=== PATIENT | male | born 1960 | race African-American/Black ===

== ENCOUNTER 2020-04-04 15:42 | Inpatient (IN) | payer MEDICAID ==
[~2020-04-04] VITALS: Ht 162.6 cm; Wt 75.7 kg
[2020-04-04 15:50] VITALS: BP 153/91
--- NOTE | 2020-04-04 15:50 | NUR ---
ED Nurse Note: Patient was BIBA RA#[id number] from home c/o "tongue pain". Noted with discoloration. Patient also reports SOB while bending and moving. Pt is satting 92% RA, placed on 3L nc O2 improved to 96%. Temp 99.5F. Patient presented weak, AAO x4, VSS at this time, skin is warm to touch, was connected to monitor, placed in a gown
--- NOTE | 2020-04-04 16:00 | NUR ---
ED Nurse Note: IV line was established on right AC 20ga, blood and COVID swab collected sent to lab
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
--- NOTE | 2020-04-04 16:58 | Diagnostic Imaging Report ---
History: DYSPNEA Exam: XR CXR 1 VIEW Comparison: None available FINDINGS: Bilateral mild to moderate patchy ill-defined perihilar opacities may be inflammatory, infectious, possible pulmonary edema, clinically correlate. No evidence of pleural effusion identified. The cardiac and mediastinal contours appear within limits. The visualized osseous structures appear within limits. IMPRESSION: Bilateral mild to moderate patchy ill-defined perihilar opacities may be inflammatory, infectious, possible pulmonary edema, clinically correlate. No evidence of pleural effusion identified.
--- NOTE | 2020-04-04 17:18 | Diagnostic Imaging Report ---
History: DYSPNEA Exam: XR SOFT TISSUE NECK 2 views Comparison: None available FINDINGS: No evidence of airway narrowing. The epiglottis and aryepiglottic folds appear within limits. No retropharyngeal soft tissue swelling identified. Bilateral curvilinear calcific densities may represent carotid calcific plaque formation. IMPRESSION: No evidence of airway narrowing. The epiglottis and aryepiglottic folds appear within limits.
[2020-04-04 17:21] LABS: ANION GAP 10 mmol/L (5-15); BLOOD UREA NITROGEN 31 mg/dL (7-18); CALCIUM 9.7 MG/DL (8.5-10.1); CARBON DIOXIDE 27 MMOL/L (21-32); CHLORIDE 103 MMOL/L (98-107); POTASSIUM 4.9 MMOL/L (3.5-5.1); SODIUM 140 MMOL/L (136-145)
[2020-04-04 17:37] LABS: ALANINE AMINOTRANSFERASE 20 U/L (12-78); ALBUMIN 2.9 G/DL (3.4-5.0); ALBUMIN/GLOBULIN RATIO 0.4 (1.0-2.7); ALKALINE PHOSPHATASE 62 U/L (46-116); ASPARTATE AMINO TRANSFERASE 29 U/L (15-37); BILIRUBIN,TOTAL 0.7 MG/DL (0.2-1.0); CREATINE KINASE 88 U/L (26-308); FERRITIN 885 NG/ML (8-388); LACTATE DEHYDROGENASE 353 U/L (81-234)
[2020-04-04 18:00] LABS: BASOPHILS % (AUTO) 0.6 % (0.0-2.0); EOSINOPHILS % (AUTO) 0.1 % (0.0-3.0); HEMATOCRIT 47.5 % (42.0-52.0); HEMOGLOBIN 16.8 G/DL (14.2-18.0); LYMPHOCYTES % (AUTO) 8.8 % (20.0-45.0); MEAN CORPUSCULAR VOLUME 80 FL (80-99); MONOCYTES % (AUTO) 6.1 % (1.0-10.0); NEUTROPHILS % (AUTO) 84.5 % (45.0-75.0); PLATELET COUNT 231 K/UL (150-450); RED BLOOD COUNT 5.93 M/UL (4.70-6.10); RED CELL DISTRIBUTION WIDTH 13.6 % (11.6-14.8); WHITE BLOOD COUNT 9.7 K/UL (4.8-10.8)
[2020-04-04] MEDS ORDERED: Bamlanivimab 700 MG in NS 275 ML IVPB SCH (18:15)
[2020-04-04] MEDS ORDERED: Bamlanivimab Fact Sheet MISC ONE (18:15)
--- NOTE | 2020-04-04 19:11 | NUR ---
HAND-OFF: Report given to HALEY Garcia.
--- NOTE | 2020-04-04 19:13 | NUR ---
ED Nurse Note: Recieved pt awake,A&Ox4, and verbal. Pt is on 3L nc satting 97-98%. pt vitals signs are hr 107 RR 22 Bp 176/98 O2 98% Temp 98.5. All safty measures are applied.
[2020-04-04 20:27] LABS: APPEARANCE,URINE CLEAR; BILIRUBIN, URINE NEGATIVE (NEGATIVE); GLUCOSE, URINE (UA) 4+ (NEGATIVE); KETONES,URINE 3+ (NEGATIVE); LEUKOCYTE ESTERASE ,URINE NEGATIVE (NEGATIVE); NITRITE,URINE NEGATIVE (NEGATIVE); PH,URINE 5 (4.5-8.0); PROTEIN,URINE 3+ (NEGATIVE); UROBILINOGEN,URINE 4 MG/DL (0.0-1.0)
[2020-04-04 20:48] LABS: COLOR,URINE YELLOW
--- NOTE | 2020-04-04 21:40 | NUR ---
TRANSFER TO FLOOR: Patient transferred to [facility] as ordered, per dr castillo . Report given to HALEY elmore. All Belongings sent with the pt. career and technology education teacher took the pt in stable condition.
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
--- NOTE | 2020-04-04 22:30 | NUR ---
NURSE NOTES: received orders from dr. thayer, orders noted and carried out. charge nurse made aware
--- NOTE | 2020-04-04 22:40 | NUR ---
NURSE NOTES: patient is taking bp meds and hiv meds at home but cannot remember the names of the medications. per dr. thayer" d/c home meds". charge nurse made aware
[2020-04-04] MEDS ORDERED: Acetaminophen 500mg (ES) tab ORAL PRN (22:45)
[2020-04-04] MEDS ORDERED: METFORMIN HCL500 M1 ORAL (23:50)
[2020-04-05] VITALS: BP 146/99
[2020-04-05 04:00] VITALS: BP 131/76
[2020-04-05] MEDS: NovoLOG Insulin Flexpen SUBQ SCH ×4 (05:41→20:51)
--- NOTE | 2020-04-05 06:33 | NUR ---
NURSE HAND-OFF: Important Events on Shift: ADMISSION; Patient Status: STABLE Diet: REGULAR Pending Orders: Pending Results/Labs: Pending MD notification: Latest Vital Signs: Temperature 97.9 , Pulse 95 , B/P 131 /76 , Respiratory Rate 22 , O2 SAT 95 , Room Air, O2 Flow Rate 3.0 . Vital Sign Comment: Latest Miller Fall Score: 35 Fall Risk: Medium Risk Safety Measures: Call light Within Reach, Bed Alarm Zone 1, Side Rails Side Rails x2, Bed position Low and Locked. Fall Precautions: Patient Fall Education Addendum: 04/05/20 at 0736 by Marlene Portillo RN HAND-OFF: Report given to billie royal.
--- NOTE | 2020-04-05 07:00 | NUR ---
NURSE NOTES: Received report from HALEY Loco. Patient observed to be awake, alert, x4. Seen lying in bed with HOB elevated, currently on 3L NC no s/sx of SOB/Distress, no c/o any pain or discomfort. Patient on contact iso for (+) covid. With iv site located on RAC gauge 20 asymptomatic, inplace and intact. Bed placed on lowest and locked, call light placed within reach and will continue to monitor for any changes in patient's condition.
[2020-04-05 08:00] VITALS: BP 165/89
[2020-04-05 08:57] LABS: BASOPHILS % (AUTO) 0.4 % (0.0-2.0); EOSINOPHILS % (AUTO) 0.2 % (0.0-3.0); HEMATOCRIT 41.6 % (42.0-52.0); HEMOGLOBIN 14.6 G/DL (14.2-18.0); MEAN CORPUSCULAR VOLUME 80 FL (80-99); MONOCYTES % (AUTO) 5.9 % (1.0-10.0); NEUTROPHILS % (AUTO) 79.5 % (45.0-75.0); PLATELET COUNT 252 K/UL (150-450); RED CELL DISTRIBUTION WIDTH 13.7 % (11.6-14.8); WHITE BLOOD COUNT 8.7 K/UL (4.8-10.8)
[2020-04-05 09:15] LABS: ANION GAP 8 mmol/L (5-15); BLOOD UREA NITROGEN 21 mg/dL (7-18); CARBON DIOXIDE 28 MMOL/L (21-32); CHLORIDE 107 MMOL/L (98-107); CREATININE 0.8 MG/DL (0.55-1.30); POTASSIUM 4.1 MMOL/L (3.5-5.1); SODIUM 142 MMOL/L (136-145)
[2020-04-05] MEDS: Heparin 5000 units/ml inj SUBQ SCH ×2 (09:40→20:50)
[2020-04-05 12:00] VITALS: BP 164/99
[2020-04-05] MEDS: dexAMETHasone 10mg/ml Inj IV SCH (15:03)
[2020-04-05 16:00] VITALS: BP 145/71
--- NOTE | 2020-04-05 19:14 | Consultation ---
DATE OF CONSULTATION: 04/05/2020 PULMONARY CONSULTATION CONSULTING PHYSICIAN: Jude Pepe MD HISTORY OF PRESENT ILLNESS: This is a 59-year-old male who was admitted to the hospital with about a week of shortness of breath. He feels fatigue and shortness of breath. He reports a cough. Patient is a known hypertensive and diabetic. He believes he has been in positive contact with persons with COVID-19 pneumonia. His own testing came back positive overnight at [facility]. He underwent a chest x-ray, which showed patchy bilateral pulmonary infiltrates. Currently saturating 95% on 5 liters of oxygen. REVIEW OF SYSTEMS: Denies any headaches, hematemesis, melena, hematochezia, night sweats, or weight loss. PAST MEDICAL HISTORY: Hypertension, diabetes. PHYSICAL EXAMINATION: GENERAL: Reveals a 59-year-old male. HEENT: Unremarkable. LUNGS: Clear breath sounds bilaterally. ABDOMEN: Soft. EXTREMITIES: There is no edema. NEUROLOGIC: Nonfocal. VITAL SIGNS: Blood pressure 160/90, heart rate 94, respirations 18, O2 saturation 95% on 4 liters of oxygen. LABORATORY DATA: Lab testing shows normal CBC and BMP with glucose of 287, ferritin 885, LDH 353, CRP 39.5. Toxicology is negative. Coags show D-dimer 1.21. Urinalysis negative. X-ray chest as discussed above. COVID testing as discussed above. IMPRESSION: 1. Bilateral pneumonia. 2. Hypertension. 3. Diabetes mellitus. DISCUSSION: Admit to the hospital. Provide supplemental oxygen. We will continue Decadron. Defer use of remdesivir to ID specialist. We will follow carefully. Jude Pepe M.D. DR: PAT JOB#: [id number] CC:
--- NOTE | 2020-04-05 19:36 | NUR ---
NURSE HAND-OFF: Important Events on Shift:covid monitoring Patient Status: stable Diet: reg-puree Pending Orders: n/a Pending Results/Labs:n/a Pending MD notification:n/a Latest Vital Signs: Temperature 97.7 , Pulse 94 , B/P 145 /71 , Respiratory Rate 19 , O2 SAT 94 , Room Air, O2 Flow Rate 4.0 . Vital Sign Comment: stable Latest Miller Fall Score: 35 Fall Risk: Medium Risk Safety Measures: Call light Within Reach, Bed Alarm Zone 2, Side Rails Side Rails x2, Bed position Low and Locked. Fall Precautions: Patient Fall Education Report given to Mackenzie.
--- NOTE | 2020-04-05 19:40 | NUR ---
NURSE NOTES: Received report from Vira DE LEON. Patient observed to be awake, alert, x4. Seen lying in bed with HOB elevated, currently on 3L NC no s/sx of SOB/Distress, no c/o any pain or discomfort. Patient on contact/droplet iso for (+) covid. IV RAC gauge 20 asymptomatic, intact. Bed placed on lowest and locked position, call light within reach and will continue to monitor for any changes in patient's condition.
[2020-04-05 20:00] VITALS: BP 148/93
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
--- NOTE | 2020-04-05 21:42 | Cardiac Electrophysiology PN ---
Subjective Subjective [id number] Objective Last 24 Hour Vital Signs Date Time Temp Pulse Resp B/P (MAP) Pulse Ox O2 Delivery O2 Flow Rate FiO2 04/05/20 16:00 97.7 94 19 145/71 (95) 94 04/05/20 12:00 97.9 97 19 164/99 (120) 96 04/05/20 09:40 100 165/89 04/05/20 09:00 Nasal Cannula 4.0 04/05/20 08:00 98.1 100 21 165/89 (114) 95 04/05/20 04:00 97.9 95 22 131/76 (94) 95 04/05/20 00:00 97.6 99 22 146/99 (115) 94 04/04/20 23:26 Nasal Cannula 3.0 Intake and Output 04/04/20 04/05/20 19:00 07:00 Intake Total 550 ml Output Total 700 ml Balance -150 ml Intake Oral 550 ml Output Urine Total 700 ml # Voids 1 2 Laboratory Tests Test 04/05/20 07:35 04/05/20 17:05 White Blood Count 8.7 K/UL (4.8-10.8) Red Blood Count 5.20 M/UL (4.70-6.10) Hemoglobin 14.6 G/DL (14.2-18.0) Hematocrit 41.6 % (42.0-52.0) L Mean Corpuscular Volume 80 FL (80-99) Mean Corpuscular Hemoglobin 28.1 PG (27.0-31.0) Mean Corpuscular Hemoglobin Concent 35.2 G/DL (32.0-36.0) Red Cell Distribution Width 13.7 % (11.6-14.8) Platelet Count 252 K/UL (150-450) Mean Platelet Volume 7.9 FL (6.5-10.1) Neutrophils (%) (Auto) 79.5 % (45.0-75.0) H Lymphocytes (%) (Auto) 14.0 % (20.0-45.0) L Monocytes (%) (Auto) 5.9 % (1.0-10.0) Eosinophils (%) (Auto) 0.2 % (0.0-3.0) Basophils (%) (Auto) 0.4 % (0.0-2.0) Sodium Level 142 MMOL/L (136-145) Potassium Level 4.1 MMOL/L (3.5-5.1) Chloride Level 107 MMOL/L (98-107) Carbon Dioxide Level 28 MMOL/L (21-32) Anion Gap 8 mmol/L (5-15) Blood Urea Nitrogen 21 mg/dL (7-18) H Creatinine 0.8 MG/DL (0.55-1.30) Estimat Glomerular Filtration Rate > 60 mL/min (>60) Glucose Level 217 MG/DL (74-106) H Calcium Level 9.0 MG/DL (8.5-10.1) POC Whole Blood Glucose 215 MG/DL (74-106) H Microbiology Date/Time Source Procedure Growth Status 04/04/20 16:45 Nasopharynx SARS-CoV-2 RdRp Gene Assay - Final Complete Brian Olivares MD Apr 05, 2020 21:42
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
[2020-04-06] VITALS: BP 153/94
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
[2020-04-06 04:00] VITALS: BP 163/103
[2020-04-06 05:26] LABS: HEMATOCRIT 41.4 % (42.0-52.0); HEMOGLOBIN 14.4 G/DL (14.2-18.0); MEAN CORPUSCULAR VOLUME 80 FL (80-99); PLATELET COUNT 266 K/UL (150-450); RED BLOOD COUNT 5.19 M/UL (4.70-6.10); WHITE BLOOD COUNT 7.6 K/UL (4.8-10.8)
[2020-04-06 06:05] LABS: ANION GAP 10 mmol/L (5-15); BLOOD UREA NITROGEN 22 mg/dL (7-18); CALCIUM 9.3 MG/DL (8.5-10.1); CARBON DIOXIDE 25 MMOL/L (21-32); CHLORIDE 102 MMOL/L (98-107); CREATININE 0.7 MG/DL (0.55-1.30); POTASSIUM 4.9 MMOL/L (3.5-5.1); SODIUM 137 MMOL/L (136-145)
[2020-04-06] MEDS: NovoLOG Insulin Flexpen SUBQ SCH ×4 (06:48→20:35)
--- NOTE | 2020-04-06 07:34 | NUR ---
NURSE HAND-OFF: Important Events on Shift: monitor work of breathing on 2 L nasal cannula, complains of orthopnea Patient Status: stable Diet: reg-pureed Pending Orders: cbc bmp Pending Results/Labs:cbc bmp Pending MD notification:n/a Latest Vital Signs: Temperature 97.7 , Pulse 94 , B/P 145 /71 , Respiratory Rate 19 , O2 SAT 94 , Room Air, O2 Flow Rate 4.0 . Vital Sign Comment: stable Latest Miller Fall Score: 35 Fall Risk: Medium Risk Safety Measures: Call light Within Reach, Bed Alarm Zone 2, Side Rails Side Rails x2, Bed position Low and Locked. Fall Precautions: Patient Fall Education Report given to Alina Velázquez RN
--- NOTE | 2020-04-06 07:44 | NUR ---
NURSE NOTES: Report received from HALEY Ojeda. Pt awake in bed, alert and oriented x 4, no SOB, bed in lowest position breaks engaged and alarm on, denies any pain at this time, IV line present and intact, on NC at 4 lpm, on contact and droplet precautions for COVID 19, will continue to monitor and proceed with plan of care, call light within reach.
[2020-04-06 08:00] VITALS: BP 144/71
--- NOTE | 2020-04-06 08:17 | Consultation ---
History of Present Illness General Date patient seen: Apr 06, 2020 Chief Complaint: General Complaint Present Illness Allergies: Coded Allergies: No Known Allergies (Unverified , 04/04/20) Medication History Discontinued Medications Metformin Hcl* (Metformin Hcl*), 1,000 MG ORAL TWICE A DAY, (Reported) Discontinued Reason: MD discontinued med Patient History Healthcare decision maker N Resuscitation status Advanced Directive on File Physical Exam Last 24 Hour Vital Signs Date Time Temp Pulse Resp B/P (MAP) Pulse Ox O2 Delivery O2 Flow Rate FiO2 04/06/20 04:04 171/102 04/06/20 04:00 97.2 81 18 163/103 (123) 93 04/06/20 00:00 97.7 87 17 153/94 (113) 93 04/05/20 21:00 Nasal Cannula 5.0 04/05/20 20:00 96.8 89 17 148/93 (111) 94 04/05/20 16:00 97.7 94 19 145/71 (95) 94 04/05/20 12:00 97.9 97 19 164/99 (120) 96 04/05/20 09:40 100 165/89 04/05/20 09:00 Nasal Cannula 4.0 Intake and Output 04/05/20 04/06/20 19:00 07:00 Intake Total 1200 ml 120 ml Output Total 400 ml Balance 800 ml 120 ml Intake Oral 1200 ml 120 ml Output Urine Total 400 ml # Voids 3 Laboratory Tests Test 04/05/20 11:52 04/05/20 17:05 04/05/20 20:43 04/06/20 03:00 POC Whole Blood Glucose Pending 215 MG/DL (74-106) H 224 MG/DL (74-106) H White Blood Count 7.6 K/UL (4.8-10.8) Red Blood Count 5.19 M/UL (4.70-6.10) Hemoglobin 14.4 G/DL (14.2-18.0) Hematocrit 41.4 % (42.0-52.0) L Mean Corpuscular Volume 80 FL (80-99) Mean Corpuscular Hemoglobin 27.6 PG (27.0-31.0) Mean Corpuscular Hemoglobin Concent 34.7 G/DL (32.0-36.0) Red Cell Distribution Width 14.0 % (11.6-14.8) Platelet Count 266 K/UL (150-450) Mean Platelet Volume 7.3 FL (6.5-10.1) Neutrophils (%) (Auto) % (45.0-75.0) Lymphocytes (%) (Auto) % (20.0-45.0) Monocytes (%) (Auto) % (1.0-10.0) Eosinophils (%) (Auto) % (0.0-3.0) Basophils (%) (Auto) % (0.0-2.0) Neutrophils % (Manual) Pending Lymphocytes % (Manual) Pending Platelet Estimate Pending Platelet Morphology Pending Sodium Level 137 MMOL/L (136-145) Potassium Level 4.9 MMOL/L (3.5-5.1) Chloride Level 102 MMOL/L (98-107) Carbon Dioxide Level 25 MMOL/L (21-32) Anion Gap 10 mmol/L (5-15) Blood Urea Nitrogen 22 mg/dL (7-18) H Creatinine 0.7 MG/DL (0.55-1.30) Estimat Glomerular Filtration Rate > 60 mL/min (>60) Glucose Level 250 MG/DL (74-106) H Calcium Level 9.3 MG/DL (8.5-10.1) Troponin I 0.000 ng/mL (0.000-0.056) Thyroid Stimulating Hormone (TSH) 0.326 uiU/mL (0.358-3.740) Test 04/06/20 05:38 POC Whole Blood Glucose 257 MG/DL (74-106) H Height (Feet): 5 Height (Inches): 4.00 Weight (Pounds): 167 Medications Current Medications Medications (Trade) Dose Ordered Sig/Ivett Route PRN Reason Start Time Stop Time Status Last Admin Dose Admin Acetaminophen (Tylenol) 500 mg Q4H PRN ORAL Mild Pain (Pain Scale 1-3) 04/04/20 22:45 05/04/20 22:44 Acetaminophen (Tylenol) 500 mg Q4H PRN ORAL Temp >100.5 04/04/20 22:45 05/04/20 22:44 Amlodipine Besylate (Norvasc) 5 mg DAILY ORAL 04/05/20 09:00 05/05/20 08:59 04/05/20 09:40 Artificial Tears (Akwa-Tears) 2 drop Q4H PRN BOTH EYES Dry Eyes 04/05/20 14:45 05/05/20 14:44 Clonidine HCl (Catapres Tab) 0.1 mg PRN PRN ORAL high blood pressure sbp>170 04/04/20 22:45 07/03/20 22:44 04/06/20 04:04 Dexamethasone Sodium Phosphate (Decadron 10mg/ ml Inj) 6 mg DAILY IV 04/05/20 14:00 04/14/20 13:59 04/05/20 15:03 Dextrose (Dextrose 50%) 25 ml Q30M PRN IV Hypoglycemia 04/04/20 22:45 07/03/20 22:44 Dextrose (Dextrose 50%) 50 ml Q30M PRN IV Hypoglycemia 04/04/20 22:45 07/03/20 22:44 Heparin Sodium (Porcine) (Heparin 5000 units/ml) 5,000 units EVERY 12 HOURS SUBQ 04/05/20 09:00 05/20/20 08:59 04/05/20 20:50 Insulin Aspart (NovoLOG) BEFORE MEALS AND HS SUBQ 04/05/20 06:30 07/04/20 06:29 04/06/20 06:48 Ondansetron HCl (Zofran) 4 mg Q6H PRN IVP Nausea & Vomiting 04/04/20 22:45 05/04/20 22:44 04/04/20 23:07 Assessment/Plan Assessment/Plan: (1) Degenerative joint disease (2) Myalgia/ Arthralgia (3) Covid 19+ seen dictated Josse Hernandez Apr 06, 2020 08:16
[2020-04-06] MEDS: dexAMETHasone 10mg/ml Inj IV SCH (08:44)
[2020-04-06] MEDS: Heparin 5000 units/ml inj SUBQ SCH ×2 (08:45→20:34)
[2020-04-06] MEDS: Acetaminophen 500mg (ES) tab ORAL PRN (09:02)
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
--- NOTE | 2020-04-06 10:13 | Pulmonology Progress Note ---
Subjective Respiratory: Reports: dry cough, dyspnea on exertion Allergies: Coded Allergies: No Known Allergies (Unverified , 04/04/20) Objective Last 24 Hour Vital Signs Date Time Temp Pulse Resp B/P (MAP) Pulse Ox O2 Delivery O2 Flow Rate FiO2 04/06/20 09:32 97.7 04/06/20 09:00 Nasal Cannula 5.0 04/06/20 08:44 94 144/71 04/06/20 08:00 97.7 94 19 144/71 (95) 94 04/06/20 04:04 171/102 04/06/20 04:00 97.2 81 18 163/103 (123) 93 04/06/20 00:00 97.7 87 17 153/94 (113) 93 04/05/20 21:00 Nasal Cannula 5.0 04/05/20 20:00 96.8 89 17 148/93 (111) 94 04/05/20 16:00 97.7 94 19 145/71 (95) 94 04/05/20 12:00 97.9 97 19 164/99 (120) 96 Intake and Output 04/05/20 04/06/20 18:59 06:59 Intake Total 1200 ml 120 ml Output Total 400 ml Balance 800 ml 120 ml Intake Oral 1200 ml 120 ml Output Urine Total 400 ml # Voids 3 Microbiology Date/Time Source Procedure Growth Status 04/04/20 16:45 Nasopharynx SARS-CoV-2 RdRp Gene Assay - Final Complete Laboratory Tests 04/05/20 11:52: POC Whole Blood Glucose [Pending] 04/05/20 17:05: POC Whole Blood Glucose 215H 04/05/20 20:43: POC Whole Blood Glucose 224H 04/06/20 03:00: White Blood Count 7.6, Red Blood Count 5.19, Hemoglobin 14.4, Hematocrit 41.4L, Mean Corpuscular Volume 80, Mean Corpuscular Hemoglobin 27.6, Mean Corpuscular Hemoglobin Concent 34.7, Red Cell Distribution Width 14.0, Platelet Count 266, Mean Platelet Volume 7.3, Neutrophils (%) (Auto) , Lymphocytes (%) (Auto) , Monocytes (%) (Auto) , Eosinophils (%) (Auto) , Basophils (%) (Auto) , Differential Total Cells Counted 100, Neutrophils % (Manual) 84H, Lymphocytes % (Manual) 12L, Monocytes % (Manual) 4, Eosinophils % (Manual) 0, Basophils % (Manual) 0, Band Neutrophils 0, Platelet Estimate Adequate, Platelet Morphology Normal, Red Blood Cell Morphology Normal, Sodium Level 137, Potassium Level 4.9, Chloride Level 102, Carbon Dioxide Level 25, Anion Gap 10, Blood Urea Nitrogen 22H, Creatinine 0.7, Estimat Glomerular Filtration Rate > 60, Glucose Level 250H , Calcium Level 9.3, Troponin I 0.000, Thyroid Stimulating Hormone (TSH) 0.326L 04/06/20 05:38: POC Whole Blood Glucose 257H Current Medications Medications (Trade) Dose Ordered Sig/Ivett Route PRN Reason Start Time Stop Time Status Last Admin Dose Admin Acetaminophen (Tylenol) 500 mg Q4H PRN ORAL Mild Pain (Pain Scale 1-3) 04/04/20 22:45 05/04/20 22:44 04/06/20 09:02 Acetaminophen (Tylenol) 500 mg Q4H PRN ORAL Temp >100.5 04/04/20 22:45 05/04/20 22:44 Amlodipine Besylate (Norvasc) 5 mg DAILY ORAL 04/05/20 09:00 05/05/20 08:59 04/06/20 08:44 Artificial Tears (Akwa-Tears) 2 drop Q4H PRN BOTH EYES Dry Eyes 04/05/20 14:45 05/05/20 14:44 Clonidine HCl (Catapres Tab) 0.1 mg PRN PRN ORAL high blood pressure sbp>170 04/04/20 22:45 07/03/20 22:44 04/06/20 04:04 Dexamethasone Sodium Phosphate (Decadron 10mg/ ml Inj) 6 mg DAILY IV 04/05/20 14:00 04/14/20 13:59 04/06/20 08:44 Dextrose (Dextrose 50%) 25 ml Q30M PRN IV Hypoglycemia 04/04/20 22:45 07/03/20 22:44 Dextrose (Dextrose 50%) 50 ml Q30M PRN IV Hypoglycemia 04/04/20 22:45 07/03/20 22:44 Heparin Sodium (Porcine) (Heparin 5000 units/ml) 5,000 units EVERY 12 HOURS SUBQ 04/05/20 09:00 05/20/20 08:59 04/06/20 08:45 Insulin Aspart (NovoLOG) BEFORE MEALS AND HS SUBQ 04/05/20 06:30 07/04/20 06:29 04/06/20 06:48 Ondansetron HCl (Zofran) 4 mg Q6H PRN IVP Nausea & Vomiting 04/04/20 22:45 05/04/20 22:44 04/04/20 23:07 Assessment/Plan Assessment/Plan MPRESSION: 1. Bilateral pneumonia. 2. Hypertension. 3. Diabetes mellitus. DISCUSSION: Contd. Monitoring Provide supplemental oxygen. Sat 96% 3L/ N/C We will continue Decadron. Defer use of remdesivir to ID specialist. We will follow carefully. Yolie Bishop NP Apr 06, 2020 10:13
[2020-04-06 12:00] VITALS: BP 133/92
[2020-04-06 16:00] VITALS: BP 137/93
--- NOTE | 2020-04-06 19:14 | NUR ---
NURSE HAND-OFF: Important Events on Shift:[safety and comfort, new order for eye drops, monitoring VS and labs] Patient Status: [stable] Diet: [reg pureed moist] Pending Orders: [] Pending Results/Labs:[] Pending MD notification:[] Latest Vital Signs: Temperature 96.8 , Pulse 89 , B/P 137 /93 , Respiratory Rate 17 , O2 SAT 96 , Room Air, O2 Flow Rate 5.0 . Vital Sign Comment: [] Latest Miller Fall Score: 35 Fall Risk: Medium Risk Safety Measures: Call light Within Reach, Bed Alarm Zone 2, Side Rails Side Rails x2, Bed position Low and Locked. Fall Precautions: Patient Fall Education Report given to [HALEY Ojeda].
--- NOTE | 2020-04-06 19:25 | NUR ---
NURSE NOTES: Patient observed to be awake, alert, x4. Seen lying in bed with HOB elevated, currently on 3L NC no s/sx of SOB/Distress, no c/o any pain or discomfort. Patient on contact/droplet iso for (+) covid. IV RAC gauge 20 asymptomatic, intact. Bed placed on lowest and locked position, call light within reach and will continue to monitor for any changes in patient's condition.
[2020-04-06 20:00] VITALS: BP 141/94
[2020-04-06] MEDS: Latanoprost 0.005% Opth 2.5ml Soln BOTH EYES SCH (20:36)
--- NOTE | 2020-04-06 22:20 | General Progress Note ---
Subjective ROS Limited/Unobtainable: Yes Allergies: Coded Allergies: No Known Allergies (Unverified , 04/04/20) Objective Last 24 Hour Vital Signs Date Time Temp Pulse Resp B/P (MAP) Pulse Ox O2 Delivery O2 Flow Rate FiO2 04/06/20 21:01 Nasal Cannula 4.0 04/06/20 20:00 97.7 87 20 141/94 (110) 95 04/06/20 16:00 96.8 89 17 137/93 (108) 96 04/06/20 12:00 96.9 96 19 133/92 (106) 96 04/06/20 09:32 97.7 04/06/20 09:00 Nasal Cannula 5.0 04/06/20 08:44 94 144/71 04/06/20 08:00 97.7 94 19 144/71 (95) 94 04/06/20 04:04 171/102 04/06/20 04:00 97.2 81 18 163/103 (123) 93 04/06/20 00:00 97.7 87 17 153/94 (113) 93 Intake and Output 04/05/20 04/06/20 19:00 07:00 Intake Total 1200 ml 120 ml Output Total 400 ml Balance 800 ml 120 ml Intake Oral 1200 ml 120 ml Output Urine Total 400 ml # Voids 3 Laboratory Tests 04/06/20 03:00: White Blood Count 7.6, Red Blood Count 5.19, Hemoglobin 14.4, Hematocrit 41.4L, Mean Corpuscular Volume 80, Mean Corpuscular Hemoglobin 27.6, Mean Corpuscular Hemoglobin Concent 34.7, Red Cell Distribution Width 14.0, Platelet Count 266, Mean Platelet Volume 7.3, Neutrophils (%) (Auto) , Lymphocytes (%) (Auto) , Monocytes (%) (Auto) , Eosinophils (%) (Auto) , Basophils (%) (Auto) , Differential Total Cells Counted 100, Neutrophils % (Manual) 84H, Lymphocytes % (Manual) 12L, Monocytes % (Manual) 4, Eosinophils % (Manual) 0, Basophils % (Manual) 0, Band Neutrophils 0, Platelet Estimate Adequate, Platelet Morphology Normal, Red Blood Cell Morphology Normal, Sodium Level 137, Potassium Level 4.9, Chloride Level 102, Carbon Dioxide Level 25, Anion Gap 10, Blood Urea Nitrogen 22H, Creatinine 0.7, Estimat Glomerular Filtration Rate > 60, Glucose Level 250H , Calcium Level 9.3, Troponin I 0.000, Thyroid Stimulating Hormone (TSH) 0.326L 04/06/20 05:38: POC Whole Blood Glucose 257H 04/06/20 11:21: POC Whole Blood Glucose 298H 04/06/20 20:26: POC Whole Blood Glucose 295H Height (Feet): 5 Height (Inches): 4.00 Weight (Pounds): 167 Assessment/Plan Problem List: (1) Hyperglycemia ICD Codes: R73.9 - Hyperglycemia, unspecified SNOMED: 57088718 (2) Dyspnea due to COVID-19 ICD Codes: U07.1 - COVID-19; R06.00 - Dyspnea, unspecified SNOMED: 550619147483545 Status: progressing Assessment/Plan: covid positive pna supportive rx dm check sugar Carlos Oliveira MD Apr 06, 2020 22:19
[2020-04-07] VITALS: BP 144/71
[2020-04-07 04:00] VITALS: BP 140/89
--- NOTE | 2020-04-07 07:45 | NUR ---
NURSE NOTES: Pt lying in bed w/bed in lowest position and call light within reach. Pt A&Ox4; VSS; on 4L NC; and in no apparent respiratory distress. IV site intact/asymptomatic & H/L'd; and skin intact. Pt has no complaints or concerns at this time. Will continue to monitor.
[2020-04-07] MEDS: NovoLOG Insulin Flexpen SUBQ SCH ×4 (07:47→20:36)
--- NOTE | 2020-04-07 08:00 | NUR ---
NURSE HAND-OFF: Important Events on Shift:[safety and comfort, monitoring VS and labs] Patient Status: [stable] Diet: [reg pureed moist] asked for bedside commode Latest Miller Fall Score: 35 Fall Risk: Medium Risk Safety Measures: Call light Within Reach, Bed Alarm Zone 2, Side Rails Side Rails x2, Bed position Low and Locked. Fall Precautions: Patient Fall Education Report given to Jaky DE LEON
[2020-04-07] MEDS: dexAMETHasone 10mg/ml Inj IV SCH (08:06)
[2020-04-07] MEDS: Heparin 5000 units/ml inj SUBQ SCH ×2 (08:07→20:35)
[2020-04-07 08:30] VITALS: BP 158/102
--- NOTE | 2020-04-07 08:42 | General Progress Note ---
Subjective Date patient seen: Apr 07, 2020 Time patient seen: 07:00 - am Allergies: Coded Allergies: No Known Allergies (Unverified , 04/04/20) Subjective HISTORY OF PRESENT ILLNESS: The patient is a 59-year-old male who is being seen on the medical/surgical floor of [facility]. He is showing no signs of pain or distress. No new complaints at this time. REVIEW OF SYSTEMS: Denies rash, fever, chills, sweating, dizziness, drowsiness, blurred vision, sore throat, or change in weight. No nausea, vomiting, diarrhea, or blood in the stool or urine. No dysuria. Objective Last 24 Hour Vital Signs Date Time Temp Pulse Resp B/P (MAP) Pulse Ox O2 Delivery O2 Flow Rate FiO2 04/07/20 04:00 97.0 82 17 140/89 (106) 96 04/07/20 00:00 97.7 94 19 144/71 (95) 94 04/06/20 21:01 Nasal Cannula 4.0 04/06/20 20:00 97.7 87 20 141/94 (110) 95 04/06/20 16:00 96.8 89 17 137/93 (108) 96 04/06/20 12:00 96.9 96 19 133/92 (106) 96 04/06/20 09:32 97.7 04/06/20 09:00 Nasal Cannula 5.0 04/06/20 08:44 94 144/71 Intake and Output 04/06/20 04/07/20 19:00 07:00 Intake Total 320 ml 300 ml Output Total 500 ml Balance 320 ml -200 ml Intake Oral 320 ml 300 ml Output Urine Total 500 ml # Voids 3 4 Laboratory Tests 04/06/20 11:21: POC Whole Blood Glucose 298H 04/06/20 20:26: POC Whole Blood Glucose 295H Height (Feet): 5 Height (Inches): 4.00 Weight (Pounds): 167 Objective PHYSICAL EXAMINATION: GENERAL: Alert, awake, and oriented. LUNGS: Decreased breath sounds bilaterally. HEART: S1 and S2 regular. ABDOMEN: Soft and nontender. EXTREMITIES: No cyanosis. No clubbing. NEURO: No changes. Assessment/Plan Assessment/Plan: (1) Degenerative joint disease (2) Myalgia/ Arthralgia (3) Covid 19+ Patient to be continued on the Tylenol. D/w Dr. Maxwell and he concurred. Josse Hernandez Apr 07, 2020 08:42
[2020-04-07] MEDS: Acetaminophen 500mg (ES) tab ORAL PRN (09:19)
--- NOTE | 2020-04-07 09:26 | Pulmonology Progress Note ---
Subjective ROS Limited/Unobtainable: Yes Interval Events: none major reported per nursing Constitutional: Reports: no symptoms; Denies: fever HEENT: Repors: no symptoms Respiratory: Reports: dry cough, dyspnea on exertion Cardiovascular: Reports: no symptoms Gastrointestinal/Abdominal: Reports: no symptoms; Denies: vomiting, diarrhea Allergies: Coded Allergies: No Known Allergies (Unverified , 04/04/20) Objective Last 24 Hour Vital Signs Date Time Temp Pulse Resp B/P (MAP) Pulse Ox O2 Delivery O2 Flow Rate FiO2 04/07/20 09:11 94 158/102 04/07/20 08:30 96.4 94 18 158/102 (120) 90 04/07/20 04:00 97.0 82 17 140/89 (106) 96 04/07/20 00:00 97.7 94 19 144/71 (95) 94 04/06/20 21:01 Nasal Cannula 4.0 04/06/20 20:00 97.7 87 20 141/94 (110) 95 04/06/20 16:00 96.8 89 17 137/93 (108) 96 04/06/20 12:00 96.9 96 19 133/92 (106) 96 04/06/20 09:32 97.7 Intake and Output 04/06/20 04/07/20 19:00 07:00 Intake Total 320 ml 300 ml Output Total 500 ml Balance 320 ml -200 ml Intake Oral 320 ml 300 ml Output Urine Total 500 ml # Voids 3 4 Objective 04/07 currently saturating at 95% on 4L NC General Appearance: WD/WN, no acute distress HEENT: normocephalic, atraumatic Respiratory: lungs clear Cardiovascular: normal rate, regular rhythm Abdomen: soft, non tender Extremities: no edema Microbiology Date/Time Source Procedure Growth Status 04/04/20 16:45 Nasopharynx SARS-CoV-2 RdRp Gene Assay - Final Complete Laboratory Tests 04/06/20 11:21: POC Whole Blood Glucose 298H 04/06/20 20:26: POC Whole Blood Glucose 295H Current Medications Medications (Trade) Dose Ordered Sig/Ivett Route PRN Reason Start Time Stop Time Status Last Admin Dose Admin Acetaminophen (Tylenol) 500 mg Q4H PRN ORAL Mild Pain (Pain Scale 1-3) 04/04/20 22:45 05/04/20 22:44 04/07/20 09:19 Acetaminophen (Tylenol) 500 mg Q4H PRN ORAL Temp >100.5 04/04/20 22:45 05/04/20 22:44 Amlodipine Besylate (Norvasc) 5 mg DAILY ORAL 04/05/20 09:00 05/05/20 08:59 04/07/20 09:11 Artificial Tears (Akwa-Tears) 2 drop Q4H PRN BOTH EYES Dry Eyes 04/05/20 14:45 05/05/20 14:44 04/06/20 20:33 Clonidine HCl (Catapres Tab) 0.1 mg PRN PRN ORAL high blood pressure sbp>170 04/04/20 22:45 07/03/20 22:44 04/06/20 04:04 Dexamethasone Sodium Phosphate (Decadron 10mg/ ml Inj) 6 mg DAILY IV 04/05/20 14:00 04/14/20 13:59 04/07/20 08:06 Dextrose (Dextrose 50%) 25 ml Q30M PRN IV Hypoglycemia 04/04/20 22:45 07/03/20 22:44 Dextrose (Dextrose 50%) 50 ml Q30M PRN IV Hypoglycemia 04/04/20 22:45 07/03/20 22:44 Heparin Sodium (Porcine) (Heparin 5000 units/ml) 5,000 units EVERY 12 HOURS SUBQ 04/05/20 09:00 05/20/20 08:59 04/07/20 08:07 Insulin Aspart (NovoLOG) BEFORE MEALS AND HS SUBQ 04/05/20 06:30 07/04/20 06:29 04/07/20 07:47 Latanoprost (Xalatan) 1 drop BEDTIME BOTH EYES 04/06/20 21:00 05/06/20 20:59 04/06/20 20:36 Ondansetron HCl (Zofran) 4 mg Q6H PRN IVP Nausea & Vomiting 04/04/20 22:45 05/04/20 22:44 04/04/20 23:07 Assessment/Plan Assessment/Plan 1. COVID-19 Bilateral pneumonia. - Continue monitoring for hypoxia; cont supplemental oxygen - Currently saturating at 96% on 4 L NC - Continue decadron - Defer use of remdesivir to ID specialist. 2. Hypertension. - on amlodipine 3. Diabetes mellitus. - on Novolog Continue home meds We will follow carefully. The care for this patient was discussed with my supervising physician Time spent for this case was approximately 31 minutes Neo Montalvo Apr 07, 2020 09:26
[2020-04-07 11:30] VITALS: BP 161/90
--- NOTE | 2020-04-07 12:55 | Infectious Diseases Prog Note ---
Assessment/Plan Assessment/Plan IMPRESSION: COVID-19 pneumonia. HIV SOB on exertion. Diabetes mellitus with hyperglycemia, Hypertension. RECOMMENDATIONS: Continue dexamethasone. Got a dose of Bamlanivimab in ER. Subjective ROS Limited/Unobtainable: No Constitutional: Reports: no symptoms Respiratory: Reports: shortness of breath, dry cough Cardiovascular: Reports: dyspnea on exertion Gastrointestinal/Abdominal: Reports: no symptoms Genitourinary: Reports: no symptoms Allergies: Coded Allergies: No Known Allergies (Unverified , 04/04/20) Objective Last 24 Hour Vital Signs Date Time Temp Pulse Resp B/P (MAP) Pulse Ox O2 Delivery O2 Flow Rate FiO2 04/07/20 11:30 96.6 104 18 161/90 (113) 91 04/07/20 09:11 94 158/102 04/07/20 09:00 Nasal Cannula 4.0 04/07/20 08:30 96.4 94 18 158/102 (120) 90 04/07/20 04:00 97.0 82 17 140/89 (106) 96 04/07/20 00:00 97.7 94 19 144/71 (95) 94 04/06/20 21:01 Nasal Cannula 4.0 04/06/20 20:00 97.7 87 20 141/94 (110) 95 04/06/20 16:00 96.8 89 17 137/93 (108) 96 Height (Feet): 5 Height (Inches): 4.00 Weight (Pounds): 167 General Appearance: no acute distress HEENT: mucous membranes moist Cardiovascular: normal rate Abdomen: soft, non tender Extremities: no edema Neurologic/Psychiatric: alert, responsive Microbiology Date/Time Source Procedure Growth Status 04/04/20 16:45 Nasopharynx SARS-CoV-2 RdRp Gene Assay - Final Complete Laboratory Tests Test 04/06/20 16:10 04/06/20 20:26 04/07/20 07:08 04/07/20 11:53 POC Whole Blood Glucose 289 MG/DL (74-106) H 295 MG/DL (74-106) H Pending Pending Current Medications Medications (Trade) Dose Ordered Sig/Ivett Route PRN Reason Start Time Stop Time Status Last Admin Dose Admin Acetaminophen (Tylenol) 500 mg Q4H PRN ORAL Mild Pain (Pain Scale 1-3) 04/04/20 22:45 05/04/20 22:44 04/07/20 09:19 Acetaminophen (Tylenol) 500 mg Q4H PRN ORAL Temp >100.5 04/04/20 22:45 05/04/20 22:44 Amlodipine Besylate (Norvasc) 5 mg BID ORAL 04/07/20 18:00 05/05/20 08:59 Artificial Tears (Akwa-Tears) 2 drop Q4H PRN BOTH EYES Dry Eyes 04/05/20 14:45 05/05/20 14:44 04/06/20 20:33 Clonidine HCl (Catapres Tab) 0.1 mg PRN PRN ORAL high blood pressure sbp>170 04/04/20 22:45 07/03/20 22:44 04/06/20 04:04 Dexamethasone Sodium Phosphate (Decadron 10mg/ ml Inj) 6 mg DAILY IV 04/05/20 14:00 04/14/20 13:59 04/07/20 08:06 Dextrose (Dextrose 50%) 25 ml Q30M PRN IV Hypoglycemia 04/04/20 22:45 07/03/20 22:44 Dextrose (Dextrose 50%) 50 ml Q30M PRN IV Hypoglycemia 04/04/20 22:45 07/03/20 22:44 Heparin Sodium (Porcine) (Heparin 5000 units/ml) 5,000 units EVERY 12 HOURS SUBQ 04/05/20 09:00 05/20/20 08:59 04/07/20 08:07 Insulin Aspart (NovoLOG) BEFORE MEALS AND HS SUBQ 04/05/20 06:30 07/04/20 06:29 04/07/20 11:57 Latanoprost (Xalatan) 1 drop BEDTIME BOTH EYES 04/06/20 21:00 05/06/20 20:59 04/06/20 20:36 Ondansetron HCl (Zofran) 4 mg Q6H PRN IVP Nausea & Vomiting 04/04/20 22:45 05/04/20 22:44 04/04/20 23:07 Jarred Nuñez MD Apr 07, 2020 12:55
--- NOTE | 2020-04-07 13:42 | Cardiac Electrophysiology PN ---
Assessment/Plan Assessment/Plan 1. Shortness of breath with COVID pneumonia. Ruled out for [place] Urine toxicology screen is negative. Echo EF 65% 2. Hypertension, on Norvasc 5 mg daily and p.r.n. clonidine. 3. COVID pneumonia, on dexamethasone. 4. Diabetes, on insulin. Subjective Subjective On 4 liter nasal cannula BP still high. Increase Amlodipine to 5 bid Objective Last 24 Hour Vital Signs Date Time Temp Pulse Resp B/P (MAP) Pulse Ox O2 Delivery O2 Flow Rate FiO2 04/07/20 11:30 96.6 104 18 161/90 (113) 91 04/07/20 09:11 94 158/102 04/07/20 09:00 Nasal Cannula 4.0 04/07/20 08:30 96.4 94 18 158/102 (120) 90 04/07/20 04:00 97.0 82 17 140/89 (106) 96 04/07/20 00:00 97.7 94 19 144/71 (95) 94 04/06/20 21:01 Nasal Cannula 4.0 04/06/20 20:00 97.7 87 20 141/94 (110) 95 04/06/20 16:00 96.8 89 17 137/93 (108) 96 Intake and Output 04/06/20 04/07/20 19:00 07:00 Intake Total 320 ml 300 ml Output Total 500 ml Balance 320 ml -200 ml Intake Oral 320 ml 300 ml Output Urine Total 500 ml # Voids 3 4 Laboratory Tests Test 04/06/20 16:10 04/06/20 20:26 04/07/20 07:08 04/07/20 11:53 POC Whole Blood Glucose 289 MG/DL (74-106) H 295 MG/DL (74-106) H Pending Pending Microbiology Date/Time Source Procedure Growth Status 04/04/20 16:45 Nasopharynx SARS-CoV-2 RdRp Gene Assay - Final Complete Objective HEAD AND NECK: no JVD. LUNGS: Coarse rhonchi. CARDIOVASCULAR: regular S1 and S2 with no gallop. ABDOMEN: Soft. EXTREMITIES: No pitting edema. Brian Olivares MD Apr 07, 2020 13:42
[2020-04-07 16:00] VITALS: BP 160/98
--- NOTE | 2020-04-07 16:37 | NUR ---
CASE MANAGEMENT:INITIAL REVIEW 04/05/20 59 YR OLD MALE BIBA FROM HOME CC;GENERAL COMPLAINT SI;COVID PNEUMONIA. DYSPNEA 99.5 109 19 153/91 96% 3L NC BUN 31 MAG 2.5 FERRITIN 774 LDH 353 CRP 39.5 ALB 2.9 D-DIMER 1.21 UA+ PROTEIN, GLUCOSE, KETONES, BLOOD, UROBILINOGEN, RBC, HYALINE CASTS URINE TOX ~ NEGATIVE COVID RAPID ~ POSITIVE CXR ~ Bilateral mild to moderate patchy ill-defined perihilar opacities may be inflammatory, infectious, possible pulmonary edema, clinically correlate. NECK XRAY ~ No evidence of airway narrowing. The epiglottis and aryepiglottic folds appear within limits. IS;BAMLANIVIMAB/NaCl IV ADMITTED TO MED SURG MED SURG STATUS DCP; FROM HOME CASE MANAGEMENT:REVIEW 04/07/20 SI;COVID PNEUMONIA 97.2 104 18 158/102 90% 4L NC BG 295 IS;NORVASC PO BID DECADRON IV QD HEPARIN SQ Q12 TYLENOL PO Q4 PRN MED SURG STATUS DCP;FROM HOME
--- NOTE | 2020-04-07 17:48 | NUR ---
INSURANCE CLINICALS/REVIEW (04/04-04/07) FAXED TO [facility] Tele # [phone] [facility] Tele # [phone]
--- NOTE | 2020-04-07 19:36 | NUR ---
NURSE HAND-OFF: Important Events on Shift: Pt desaturated and placed on Venturi mask 10L. Patient Status: Stable/Guarded Diet: CCHO (medium)/pureed-moist Pending Orders: None Pending Results/Labs: None Pending MD notification: None Latest Vital Signs: Temperature 97.2 , Pulse 93 , B/P 160 /98 , Respiratory Rate 18 , O2 SAT 95 , Room Air, O2 Flow Rate 4.0 . Vital Sign Comment: Stable/guarded Latest Miller Fall Score: 35 Fall Risk: Medium Risk Safety Measures: Call light Within Reach, Bed Alarm Zone 2, Side Rails Side Rails x2, Bed position Low and Locked. Fall Precautions: Patient Fall Education Report given to HALEY Tinsley.
[2020-04-07 20:00] VITALS: BP 158/100
[2020-04-07] MEDS: Latanoprost 0.005% Opth 2.5ml Soln BOTH EYES SCH (20:36)
--- NOTE | 2020-04-07 21:32 | General Progress Note ---
Subjective ROS Limited/Unobtainable: Yes Allergies: Coded Allergies: No Known Allergies (Unverified , 04/04/20) Objective Last 24 Hour Vital Signs Date Time Temp Pulse Resp B/P (MAP) Pulse Ox O2 Delivery O2 Flow Rate FiO2 04/07/20 20:00 97.6 101 20 158/100 (119) 95 04/07/20 17:25 93 160/98 04/07/20 16:00 97.2 93 18 160/98 (118) 95 04/07/20 11:30 96.6 104 18 161/90 (113) 91 04/07/20 09:11 94 158/102 04/07/20 09:00 Nasal Cannula 4.0 04/07/20 08:30 96.4 94 18 158/102 (120) 90 04/07/20 04:00 97.0 82 17 140/89 (106) 96 04/07/20 00:00 97.7 94 19 144/71 (95) 94 Intake and Output 0 04/06/20 04/07/20 19:00 07:00 Intake Total 320 ml 300 ml Output Total 500 ml Balance 320 ml -200 ml Intake Oral 320 ml 300 ml Output Urine Total 500 ml # Voids 3 4 Laboratory Tests 04/07/20 07:08: POC Whole Blood Glucose [Pending] 04/07/20 11:53: POC Whole Blood Glucose [Pending] 04/07/20 17:24: POC Whole Blood Glucose [Pending] 04/07/20 20:31: POC Whole Blood Glucose [Pending] Height (Feet): 5 Height (Inches): 4.00 Weight (Pounds): 167 Assessment/Plan Problem List: (1) Hyperglycemia ICD Codes: R73.9 - Hyperglycemia, unspecified SNOMED: 47416081 (2) Dyspnea due to COVID-19 ICD Codes: U07.1 - COVID-19; R06.00 - Dyspnea, unspecified SNOMED: 348994687775338 Status: progressing - l Assessment/Plan: niddm covid + resp insuff supportive rx reviewed chart Carlos Oliveira MD Apr 07, 2020 21:32
[2020-04-08] VITALS: BP 154/94
[2020-04-08 04:00] VITALS: BP_SYST 157; BP_SYST 163; BP_DIAS 77; BP_DIAS 98
[2020-04-08] MEDS: NovoLOG Insulin Flexpen SUBQ SCH ×4 (06:18→20:57)
--- NOTE | 2020-04-08 06:23 | NUR ---
NURSE HAND-OFF: Important Events on Shift: No significant changes noted this shift; still on a simple mask saturating between 92-96% when at rest and tends to go down below 90% on exertion; admits to have episodes of SOBs at rest; educated patient on deep breathing exercises and to remain calm; patient verbalized understanding. no s/s of hypoglycemia at this time. Patient Status: stable at this time Diet: see chart Pending Orders: see chart Pending Results/Labs:see chrt Pending MD notification: see chart Latest Vital Signs: Temperature 97.8 , Pulse 85 , B/P 163 /98 , Respiratory Rate 18 , O2 SAT 94 , Room Air, O2 Flow Rate 10.0 . Vital Sign Comment: WNL; afebrile; Latest Miller Fall Score: 45 Fall Risk: High Risk Safety Measures: Call light Within Reach, Bed Alarm Zone 2, Side Rails Side Rails x2, Bed position Low and Locked. Fall Precautions: Door Sign Patient Fall Education Report will be given to Rima Rose RN[].
--- NOTE | 2020-04-08 07:00 | NUR ---
NURSE NOTES: Received report from HALEY Tinsley. Rounding done. Pt a/o x 4 , having breakfast. No SOB noted with Venturi russ 12L/min. Denies any pain at this time. Rt AC is in placed. Bed in lowest position, call light within reach. Will continue to monitor.
[2020-04-08 08:00] VITALS: BP 153/94
[2020-04-08] MEDS: dexAMETHasone 10mg/ml Inj IV SCH (08:29)
[2020-04-08] MEDS: Heparin 5000 units/ml inj SUBQ SCH ×2 (08:30→20:57)
--- NOTE | 2020-04-08 08:37 | Pulmonology Progress Note ---
Subjective ROS Limited/Unobtainable: Yes Interval Events: pt desaturated on nasal oxygen and now on 12L via Venuri mask Constitutional: Reports: no symptoms HEENT: Repors: no symptoms Respiratory: Reports: dry cough, dyspnea on exertion Cardiovascular: Reports: no symptoms Gastrointestinal/Abdominal: Reports: no symptoms Allergies: Coded Allergies: No Known Allergies (Unverified , 04/04/20) Objective Last 24 Hour Vital Signs Date Time Temp Pulse Resp B/P (MAP) Pulse Ox O2 Delivery O2 Flow Rate FiO2 04/08/20 08:00 97.7 90 18 153/94 (113) 93 04/08/20 04:00 97.8 85 18 163/98 (119) 94 04/08/20 00:00 97.9 92 18 154/94 (114) 94 04/07/20 21:00 Simple Mask 10.0 04/07/20 20:00 97.6 101 20 158/100 (119) 95 04/07/20 17:25 93 160/98 04/07/20 16:00 97.2 93 18 160/98 (118) 95 04/07/20 11:30 96.6 104 18 161/90 (113) 91 04/07/20 09:11 94 158/102 04/07/20 09:00 Nasal Cannula 4.0 Intake and Output 04/07/20 04/08/20 19:00 07:00 Intake Total 450 ml 350 ml Balance 450 ml 350 ml Intake Oral 450 ml 350 ml # Voids 2 2 # Bowel Movements 1 Objective 04/08 pt desaturated on nasal oxygen and now on 12L oxygen via Venturi mask saturating at 94-95% 04/07 currently saturating at 95% on 4L NC General Appearance: WD/WN, no acute distress HEENT: normocephalic, atraumatic Respiratory: lungs clear Cardiovascular: normal rate, regular rhythm Abdomen: soft, non tender Extremities: no edema Laboratory Tests 04/07/20 11:53: POC Whole Blood Glucose [Pending] 04/07/20 17:24: POC Whole Blood Glucose [Pending] 04/07/20 20:31: POC Whole Blood Glucose [Pending] Current Medications Medications (Trade) Dose Ordered Sig/Ivett Route PRN Reason Start Time Stop Time Status Last Admin Dose Admin Acetaminophen (Tylenol) 500 mg Q4H PRN ORAL Mild Pain (Pain Scale 1-3) 04/04/20 22:45 05/04/20 22:44 04/07/20 09:19 Acetaminophen (Tylenol) 500 mg Q4H PRN ORAL Temp >100.5 04/04/20 22:45 05/04/20 22:44 Amlodipine Besylate (Norvasc) 5 mg BID ORAL 04/07/20 18:00 05/05/20 08:59 04/07/20 17:25 Artificial Tears (Akwa-Tears) 2 drop Q4H PRN BOTH EYES Dry Eyes 04/05/20 14:45 05/05/20 14:44 04/07/20 12:51 Clonidine HCl (Catapres Tab) 0.1 mg PRN PRN ORAL high blood pressure sbp>170 04/04/20 22:45 07/03/20 22:44 04/06/20 04:04 Dexamethasone Sodium Phosphate (Decadron 10mg/ ml Inj) 6 mg DAILY IV 04/05/20 14:00 04/14/20 13:59 04/07/20 08:06 Dextrose (Dextrose 50%) 25 ml Q30M PRN IV Hypoglycemia 04/04/20 22:45 07/03/20 22:44 Dextrose (Dextrose 50%) 50 ml Q30M PRN IV Hypoglycemia 04/04/20 22:45 07/03/20 22:44 Heparin Sodium (Porcine) (Heparin 5000 units/ml) 5,000 units EVERY 12 HOURS SUBQ 04/05/20 09:00 05/20/20 08:59 04/07/20 20:35 Insulin Aspart (NovoLOG) BEFORE MEALS AND HS SUBQ 04/05/20 06:30 07/04/20 06:29 04/08/20 06:18 Latanoprost (Xalatan) 1 drop BEDTIME BOTH EYES 04/06/20 21:00 05/06/20 20:59 04/07/20 20:36 Ondansetron HCl (Zofran) 4 mg Q6H PRN IVP Nausea & Vomiting 04/04/20 22:45 05/04/20 22:44 04/04/20 23:07 Assessment/Plan Assessment/Plan 1. COVID-19 Bilateral pneumonia. - Continue monitoring for hypoxia; cont supplemental oxygen - Currently saturating at 94-95% on 12L Venturi mask - Continue decadron - Defer use of remdesivir to ID specialist. 2. Hypertension. - on amlodipine - needs better control 3. Diabetes mellitus. - on Novolog Continue home meds; pt reports hx of HIV and takes HIV meds at home; pt unable to recall names of drugs; they need to be continued unless contraindicated We will follow carefully. The care for this patient was discussed with my supervising physician Time spent for this case was approximately 31 minutes Neo Montalvo Apr 08, 2020 08:37
--- NOTE | 2020-04-08 08:42 | General Progress Note ---
Subjective Date patient seen: Apr 08, 2020 Time patient seen: 07:00 - am Allergies: Coded Allergies: No Known Allergies (Unverified , 04/04/20) Subjective HISTORY OF PRESENT ILLNESS: The patient is a 59-year-old male who is being seen on the medical/surgical floor of [facility]. Patient is in bed and denies pain at this time with no new complaints. REVIEW OF SYSTEMS: Denies rash, fever, chills, sweating, dizziness, drowsiness, blurred vision, sore throat, or change in weight. No nausea, vomiting, diarrhea, or blood in the stool or urine. No dysuria. Objective Last 24 Hour Vital Signs Date Time Temp Pulse Resp B/P (MAP) Pulse Ox O2 Delivery O2 Flow Rate FiO2 04/08/20 08:29 90 153/94 04/08/20 08:00 97.7 90 18 153/94 (113) 93 04/08/20 04:00 97.8 85 18 163/98 (119) 94 04/08/20 00:00 97.9 92 18 154/94 (114) 94 04/07/20 21:00 Simple Mask 10.0 04/07/20 20:00 97.6 101 20 158/100 (119) 95 04/07/20 17:25 93 160/98 04/07/20 16:00 97.2 93 18 160/98 (118) 95 04/07/20 11:30 96.6 104 18 161/90 (113) 91 04/07/20 09:11 94 158/102 04/07/20 09:00 Nasal Cannula 4.0 Intake and Output 04/07/20 04/08/20 19:00 07:00 Intake Total 450 ml 350 ml Balance 450 ml 350 ml Intake Oral 450 ml 350 ml # Voids 2 2 # Bowel Movements 1 Laboratory Tests 04/07/20 11:53: POC Whole Blood Glucose [Pending] 04/07/20 17:24: POC Whole Blood Glucose [Pending] 04/07/20 20:31: POC Whole Blood Glucose [Pending] Height (Feet): 5 Height (Inches): 4.00 Weight (Pounds): 167 Objective PHYSICAL EXAMINATION: GENERAL: Alert, awake, and oriented. LUNGS: Decreased breath sounds bilaterally. HEART: S1 and S2 regular. ABDOMEN: Soft and nontender. EXTREMITIES: No cyanosis. No clubbing. NEURO: No changes. Assessment/Plan Assessment/Plan: (1) Degenerative joint disease (2) Myalgia/ Arthralgia (3) Covid 19+ Patient to be continued on the Tylenol. D/w Dr. Maxwell and he concurred. Josse Hernandez Apr 08, 2020 08:42
--- NOTE | 2020-04-08 09:06 | NUR ---
RD ASSESSMENT & RECOMMENDATIONS SEE CARE ACTIVITY FOR COMPLETE ASSESSMENT DAILY ESTIMATED NEEDS: Needs based on Pulmonary, HIV 63.3kg abw 25-35 kcals/kg 9971-0038 total kcals 1-1.5 g protein/kg 63-95 g total protein 25-30 mL/kg 5178-0923 total fluid mLs NUTRITION DIAGNOSIS: Altered nutrition related lab values r/t diabetes as evidenced by elev BG (217-287), Uglu 4+ on adm, elev POC (263-334). (CURRENT DIET:CCHO MED puree) PO DIET RECOMMENDATIONS-->>> CHO MED / Low Na/ texture per [employer] ADDITIONAL RECOMMENDATIONS: 1) consider additional hypoglycemic agents On niss at this time 2) On puree texture-> rec [employer] eval for appropriate texture 3) maintain daily calibrated bed scale wts 4) Add snacks in b/w meals w/ fair po intake Glucerna 1 tetra qdaily 5) Check HgA1C
[2020-04-08 12:00] VITALS: BP 142/80
--- NOTE | 2020-04-08 12:33 | Cardiac Electrophysiology PN ---
Assessment/Plan Assessment/Plan 1. Shortness of breath with COVID pneumonia. Ruled out for [place] Urine toxicology screen is negative. Echo EF 65% 2. Hypertension, on Norvasc 5 mg bid and p.r.n. clonidine. 3. COVID pneumonia, on dexamethasone. 4. Diabetes, on insulin. Subjective Subjective On 4 liter nasal cannula BP better after increased Amlodipine to 5 bid Objective Last 24 Hour Vital Signs Date Time Temp Pulse Resp B/P (MAP) Pulse Ox O2 Delivery O2 Flow Rate FiO2 04/08/20 09:00 Simple Mask 12.0 04/08/20 08:29 90 153/94 04/08/20 08:00 97.7 90 18 153/94 (113) 93 04/08/20 04:00 97.8 85 18 163/98 (119) 94 04/08/20 00:00 97.9 92 18 154/94 (114) 94 04/07/20 21:00 Simple Mask 10.0 04/07/20 20:00 97.6 101 20 158/100 (119) 95 04/07/20 17:25 93 160/98 04/07/20 16:00 97.2 93 18 160/98 (118) 95 Intake and Output 04/07/20 04/08/20 19:00 07:00 Intake Total 450 ml 350 ml Balance 450 ml 350 ml Intake Oral 450 ml 350 ml # Voids 2 2 # Bowel Movements 1 Laboratory Tests Test 04/07/20 17:24 04/07/20 20:31 04/08/20 06:11 04/08/20 12:29 POC Whole Blood Glucose Pending Pending Pending 308 MG/DL (74-106) H Objective HEAD AND NECK: no JVD. LUNGS: Coarse rhonchi. CARDIOVASCULAR: regular S1 and S2 with no gallop. ABDOMEN: Soft. EXTREMITIES: No pitting edema. Brian Olivares MD Apr 08, 2020 12:33
--- NOTE | 2020-04-08 13:32 | Infectious Diseases Prog Note ---
Assessment/Plan Assessment/Plan IMPRESSION: COVID-19 pneumonia. HIV Hypoxemia worse SOB on exertion. Diabetes mellitus with hyperglycemia, Hypertension. RECOMMENDATIONS: Continue dexamethasone. Got a dose of Bamlanivimab in ER. Start on Remdesivir Subjective ROS Limited/Unobtainable: No Constitutional: Reports: no symptoms Respiratory: Reports: shortness of breath, dry cough Gastrointestinal/Abdominal: Reports: no symptoms Genitourinary: Reports: no symptoms Allergies: Coded Allergies: No Known Allergies (Unverified , 04/04/20) Objective Last 24 Hour Vital Signs Date Time Temp Pulse Resp B/P (MAP) Pulse Ox O2 Delivery O2 Flow Rate FiO2 04/08/20 09:00 Simple Mask 12.0 04/08/20 08:29 90 153/94 04/08/20 08:00 97.7 90 18 153/94 (113) 93 04/08/20 04:00 97.8 85 18 163/98 (119) 94 04/08/20 00:00 97.9 92 18 154/94 (114) 94 04/07/20 21:00 Simple Mask 10.0 04/07/20 20:00 97.6 101 20 158/100 (119) 95 04/07/20 17:25 93 160/98 04/07/20 16:00 97.2 93 18 160/98 (118) 95 Height (Feet): 5 Height (Inches): 4.00 Weight (Pounds): 167 HEENT: mucous membranes moist Respiratory/Chest: other - oxygen by venturi mask Cardiovascular: normal rate Abdomen: soft, non tender Extremities: no edema Neurologic/Psychiatric: alert, responsive Laboratory Tests Test 04/07/20 17:24 04/07/20 20:31 04/08/20 06:11 04/08/20 12:29 POC Whole Blood Glucose Pending Pending Pending 308 MG/DL (74-106) H Current Medications Medications (Trade) Dose Ordered Sig/Ivett Route PRN Reason Start Time Stop Time Status Last Admin Dose Admin Acetaminophen (Tylenol) 500 mg Q4H PRN ORAL Mild Pain (Pain Scale 1-3) 04/04/20 22:45 05/04/20 22:44 04/07/20 09:19 Acetaminophen (Tylenol) 500 mg Q4H PRN ORAL Temp >100.5 04/04/20 22:45 05/04/20 22:44 Amlodipine Besylate (Norvasc) 5 mg BID ORAL 04/07/20 18:00 05/05/20 08:59 04/08/20 08:29 Artificial Tears (Akwa-Tears) 2 drop Q4H PRN BOTH EYES Dry Eyes 04/05/20 14:45 05/05/20 14:44 04/07/20 12:51 Clonidine HCl (Catapres Tab) 0.1 mg PRN PRN ORAL high blood pressure sbp>170 04/04/20 22:45 07/03/20 22:44 04/06/20 04:04 Dexamethasone Sodium Phosphate (Decadron 10mg/ ml Inj) 6 mg DAILY IV 04/05/20 14:00 04/14/20 13:59 04/08/20 08:29 Dextrose (Dextrose 50%) 25 ml Q30M PRN IV Hypoglycemia 04/04/20 22:45 07/03/20 22:44 Dextrose (Dextrose 50%) 50 ml Q30M PRN IV Hypoglycemia 04/04/20 22:45 07/03/20 22:44 Heparin Sodium (Porcine) (Heparin 5000 units/ml) 5,000 units EVERY 12 HOURS SUBQ 04/05/20 09:00 05/20/20 08:59 04/08/20 08:30 Insulin Aspart (NovoLOG) BEFORE MEALS AND HS SUBQ 04/05/20 06:30 07/04/20 06:29 04/08/20 12:31 Latanoprost (Xalatan) 1 drop BEDTIME BOTH EYES 04/06/20 21:00 05/06/20 20:59 04/07/20 20:36 Ondansetron HCl (Zofran) 4 mg Q6H PRN IVP Nausea & Vomiting 04/04/20 22:45 05/04/20 22:44 04/04/20 23:07 Jarred Nuñez MD Apr 08, 2020 13:32
--- NOTE | 2020-04-08 14:27 | Diagnostic Imaging Report ---
Indication: Shortness of breath Technique: XRAY Chest 1v Comparison: 04/04/2020 Findings: Significant interval worsening aeration with increasing bilateral infiltrates predominantly peripheral in distribution. There is also some perihilar infiltrates as well. No significant pleural effusion. No pneumothorax. Heart size and osseous structures stable. Impression: Significant interval worsening aeration with increased bilateral infiltrates. Findings are concerning for multifocal pneumonia, particularly viral pneumonia. A component of CHF/fluid overload may also be likely. Please correlate clinically.
--- NOTE | 2020-04-08 14:56 | NUR ---
CASE MANAGEMENT:REVIEW SI;COVID PNEUMONIA 97.9 100 18 169/98 93% 12L VENTURI BG 308 IS;NORVASC PO BID DECADRON IV QD HEPARIN SQ Q12 CXR ~ Significant interval worsening aeration with increased bilateral infiltrates. Findings are concerning for multifocal pneumonia, particularly viral pneumonia. A component of CHF/fluid overload may also be likely. Please correlate clinically. MED SURG STATUS DCP;FROM HOME
--- NOTE | 2020-04-08 15:03 | NUR ---
INSURANCE CLINICALS AND REVIEW FAXED TO [facility] P [phone] F [phone] AND [facility] P [phone] F [phone]
[2020-04-08 16:00] VITALS: BP 138/80
--- NOTE | 2020-04-08 19:30 | NUR ---
NURSE HAND-OFF: Important Events on Shift:No new event Patient Status: stable Diet: CCHO (M) pureed moist Pending Orders: n/a Pending Results/Labs:n/a Pending MD notification:n/a Latest Vital Signs: Temperature 97.0 , Pulse 88 , B/P 138 /80 , Respiratory Rate 18 , O2 SAT 94 , Room Air, O2 Flow Rate 12.0 . Vital Sign Comment: stable Latest Miller Fall Score: 45 Fall Risk: High Risk Safety Measures: Call light Within Reach, Bed Alarm Zone 2, Side Rails Side Rails x2, Bed position Low and Locked. Fall Precautions: Door Sign Patient Fall Education Report given to HALEY Constantino.
--- NOTE | 2020-04-08 19:35 | NUR ---
NURSE NOTES: Patient received from Milton castorena RN. Patient is A/O x4 , Slovenian speaking. Pt is on 12L VM saturating at 94%. No SOB or acute distress noted. Patient has IV on right A/C 20G S/L. Patient and flushed. No bleeding or erythema noted. Patient was educated on how to use call light. Patient placed on fall precautions. Bed locked and in lowest position, side rails up x2, and call light with in reach. Will continue to monitor.
[2020-04-08] MEDS: Latanoprost 0.005% Opth 2.5ml Soln BOTH EYES SCH (20:55)
--- NOTE | 2020-04-08 21:20 | General Progress Note ---
Subjective ROS Limited/Unobtainable: Yes Allergies: Coded Allergies: No Known Allergies (Unverified , 04/04/20) Objective Last 24 Hour Vital Signs Date Time Temp Pulse Resp B/P (MAP) Pulse Ox O2 Delivery O2 Flow Rate FiO2 04/08/20 17:05 88 138/80 04/08/20 16:00 97.0 88 18 138/80 (99) 94 04/08/20 12:00 97.7 100 18 142/80 (100) 93 04/08/20 09:00 Simple Mask 12.0 04/08/20 08:29 90 153/94 04/08/20 08:00 97.7 90 18 153/94 (113) 93 04/08/20 04:00 97.8 85 18 163/98 (119) 94 04/08/20 00:00 97.9 92 18 154/94 (114) 94 Intake and Output 04/07/20 04/08/20 19:00 07:00 Intake Total 450 ml 350 ml Balance 450 ml 350 ml Intake Oral 450 ml 350 ml # Voids 2 2 # Bowel Movements 1 Laboratory Tests 04/08/20 06:11: POC Whole Blood Glucose [Pending] 04/08/20 12:29: POC Whole Blood Glucose 308H 04/08/20 16:50: POC Whole Blood Glucose [Pending] 04/08/20 20:47: POC Whole Blood Glucose 283H Height (Feet): 5 Height (Inches): 4.00 Weight (Pounds): 167 Assessment/Plan Problem List: (1) Hyperglycemia ICD Codes: R73.9 - Hyperglycemia, unspecified SNOMED: [id number] (2) Dyspnea due to COVID-19 ICD Codes: U07.1 - COVID-19; R06.00 - Dyspnea, unspecified SNOMED: 006456457928972 Status: progressing Assessment/Plan: niddm covid + resp insuff exertional dyspnea check sugar supportive rx Carlos Oliveira MD Apr 08, 2020 21:20
[2020-04-09 00:44] VITALS: BP 142/87
[2020-04-09 04:00] VITALS: BP 153/90
[2020-04-09] MEDS: NovoLOG Insulin Flexpen SUBQ SCH ×4 (06:03→21:23)
--- NOTE | 2020-04-09 06:39 | NUR ---
NURSE HAND-OFF: Important Events on Shift: Patient is requesting a study of his aortic arch for plaque build up. Patient Status: No acute distress Diet: CCHO Medium Pending Orders: Pending Results/Labs: Pending MD notification: Latest Vital Signs: Temperature 97.9 , Pulse 90 , B/P 153 /90 , Respiratory Rate 20 , O2 SAT 96 , Room Air, O2 Flow Rate 12.0 . Vital Sign Comment: Latest Miller Fall Score: 45 Fall Risk: High Risk Safety Measures: Call light Within Reach, Bed Alarm Zone 2, Side Rails Side Rails x2, Bed position Low and Locked. Fall Precautions: Yellow Socks Door Sign Patient Fall Education Report given to Report to be given to... Addendum: 04/09/20 at 0745 by Vira Aguilar RN Report given to Debby DE LEON
--- NOTE | 2020-04-09 07:53 | NUR ---
NURSE NOTES: Patient awake, alert x4; on Venturi mask 12 Liters, no sing of distress and shortness of breath; no sing of chest pain; IV RAC flushes well; side rails up x2, breaks engaged, bed at lowest position; call light within reach; will keep monitoring.
[2020-04-09 08:00] VITALS: BP 158/98
[2020-04-09] MEDS: dexAMETHasone 10mg/ml Inj IV SCH (08:59)
[2020-04-09] MEDS: Heparin 5000 units/ml inj SUBQ SCH ×2 (09:00→21:22)
--- NOTE | 2020-04-09 09:18 | Pulmonology Progress Note ---
Subjective ROS Limited/Unobtainable: Yes Interval Events: pt desaturated on nasal oxygen and now on 12L via Venuri mask Constitutional: Reports: no symptoms HEENT: Repors: no symptoms Respiratory: Reports: dry cough, dyspnea on exertion Cardiovascular: Reports: no symptoms Gastrointestinal/Abdominal: Reports: no symptoms Allergies: Coded Allergies: No Known Allergies (Unverified , 04/04/20) Objective Last 24 Hour Vital Signs Date Time Temp Pulse Resp B/P (MAP) Pulse Ox O2 Delivery O2 Flow Rate FiO2 04/09/20 08:59 88 158/98 04/09/20 08:00 97.2 88 18 158/98 (118) 93 04/09/20 04:00 97.9 90 20 153/90 (111) 96 04/09/20 00:44 98.0 88 20 142/87 (105) 94 04/08/20 21:00 Simple Mask 12.0 04/08/20 17:05 88 138/80 04/08/20 16:00 97.0 88 18 138/80 (99) 94 04/08/20 12:00 97.7 100 18 142/80 (100) 93 Intake and Output 04/08/20 04/09/20 19:00 07:00 Intake Total 400 ml 480 ml Output Total 1400 ml 600 ml Balance -1000 ml -120 ml Intake Oral 400 ml 480 ml Output Urine Total 1400 ml 600 ml # Voids 2 Objective 04/09 remains on 12L Venturi mask, saturating at 92-94% 04/08 pt desaturated on nasal oxygen and now on 12L oxygen via Venturi mask sa turating at 94-95% 04/07 currently saturating at 95% on 4L NC General Appearance: WD/WN, no acute distress HEENT: normocephalic, atraumatic Respiratory: lungs clear Cardiovascular: normal rate, regular rhythm Abdomen: soft, non tender Extremities: no edema Laboratory Tests 04/08/20 12:29: POC Whole Blood Glucose 308H 04/08/20 16:50: POC Whole Blood Glucose [Pending] 04/08/20 20:47: POC Whole Blood Glucose 283H 04/09/20 05:53: POC Whole Blood Glucose 247H Current Medications Medications (Trade) Dose Ordered Sig/Ivett Route PRN Reason Start Time Stop Time Status Last Admin Dose Admin Acetaminophen (Tylenol) 500 mg Q4H PRN ORAL Mild Pain (Pain Scale 1-3) 04/04/20 22:45 05/04/20 22:44 04/07/20 09:19 Acetaminophen (Tylenol) 500 mg Q4H PRN ORAL Temp >100.5 04/04/20 22:45 05/04/20 22:44 Amlodipine Besylate (Norvasc) 5 mg BID ORAL 04/07/20 18:00 05/05/20 08:59 04/09/20 08:59 Artificial Tears (Akwa-Tears) 2 drop Q4H PRN BOTH EYES Dry Eyes 04/05/20 14:45 05/05/20 14:44 04/07/20 12:51 Clonidine HCl (Catapres Tab) 0.1 mg PRN PRN ORAL high blood pressure sbp>170 04/04/20 22:45 07/03/20 22:44 04/06/20 04:04 Dexamethasone Sodium Phosphate (Decadron 10mg/ ml Inj) 6 mg DAILY IV 04/05/20 14:00 04/14/20 13:59 04/09/20 08:59 Dextrose (Dextrose 50%) 25 ml Q30M PRN IV Hypoglycemia 04/04/20 22:45 07/03/20 22:44 Dextrose (Dextrose 50%) 50 ml Q30M PRN IV Hypoglycemia 04/04/20 22:45 07/03/20 22:44 Heparin Sodium (Porcine) (Heparin 5000 units/ml) 5,000 units EVERY 12 HOURS SUBQ 04/05/20 09:00 05/20/20 08:59 04/09/20 09:00 Insulin Aspart (NovoLOG) BEFORE MEALS AND HS SUBQ 04/05/20 06:30 07/04/20 06:29 04/09/20 06:03 Latanoprost (Xalatan) 1 drop BEDTIME BOTH EYES 04/06/20 21:00 05/06/20 20:59 04/08/20 20:55 Ondansetron HCl (Zofran) 4 mg Q6H PRN IVP Nausea & Vomiting 04/04/20 22:45 05/04/20 22:44 04/04/20 23:07 Assessment/Plan Assessment/Plan 1. COVID-19 Bilateral pneumonia. - pt received a dose of Bamlanimab in ER - Continue monitoring for hypoxia; cont supplemental oxygen - Currently saturating at 92-94% on 12L Venturi mask - Continue decadron - Defer use of remdesivir to ID specialist. 2. Hypertension. - on amlodipine - needs better control 3. Diabetes mellitus. - on Novolog Continue home meds; pt reports hx of HIV and takes HIV meds at home; pt unable to recall exact names or doses of the two meds; they need to be continued unless contraindicated Pt was offered to have his family bring his home medications but he reports that is not plausible; defer to ID for management We will follow carefully. The care for this patient was discussed with my supervising physician Time spent for this case was approximately 31 minutes Neo Montalvo Apr 09, 2020 09:18
--- NOTE | 2020-04-09 09:37 | General Progress Note ---
Subjective Date patient seen: Apr 09, 2020 Time patient seen: 09:00 - am Allergies: Coded Allergies: No Known Allergies (Unverified , 04/04/20) Subjective HISTORY OF PRESENT ILLNESS: The patient is a 59-year-old male who is being seen on the medical/surgical floor of [facility]. In bed no signs of pain or distress. No new complaints at this time. REVIEW OF SYSTEMS: Denies rash, fever, chills, sweating, dizziness, drowsiness, blurred vision, sore throat, or change in weight. No nausea, vomiting, diarrhea, or blood in the stool or urine. No dysuria. Objective Last 24 Hour Vital Signs Date Time Temp Pulse Resp B/P (MAP) Pulse Ox O2 Delivery O2 Flow Rate FiO2 04/09/20 08:59 88 158/98 04/09/20 08:00 97.2 88 18 158/98 (118) 93 04/09/20 04:00 97.9 90 20 153/90 (111) 96 04/09/20 00:44 98.0 88 20 142/87 (105) 94 04/08/20 21:00 Simple Mask 12.0 04/08/20 17:05 88 138/80 04/08/20 16:00 97.0 88 18 138/80 (99) 94 04/08/20 12:00 97.7 100 18 142/80 (100) 93 Intake and Output 04/08/20 04/09/20 18:59 06:59 Intake Total 400 ml 480 ml Output Total 1400 ml 600 ml Balance -1000 ml -120 ml Intake Oral 400 ml 480 ml Output Urine Total 1400 ml 600 ml # Voids 2 Laboratory Tests 04/08/20 12:29: POC Whole Blood Glucose 308H 04/08/20 16:50: POC Whole Blood Glucose [Pending] 04/08/20 20:47: POC Whole Blood Glucose 283H 04/09/20 05:53: POC Whole Blood Glucose 247H Height (Feet): 5 Height (Inches): 4.00 Weight (Pounds): 167 Objective PHYSICAL EXAMINATION: GENERAL: Alert, awake, and oriented. LUNGS: Decreased breath sounds bilaterally. HEART: S1 and S2 regular. ABDOMEN: Soft and nontender. EXTREMITIES: No cyanosis. No clubbing. NEURO: No changes. Assessment/Plan Assessment/Plan: (1) Degenerative joint disease (2) Myalgia/ Arthralgia (3) Covid 19+ Patient to be continued on the Tylenol. D/w Dr. Maxwell and he concurred. Josse Hernandez Apr 09, 2020 09:37
[2020-04-09 12:00] VITALS: BP 148/92
--- NOTE | 2020-04-09 12:10 | Infectious Diseases Prog Note ---
Assessment/Plan Assessment/Plan antibiotics : none A 1. covid 19 pneumonia on 12 liters O2 with 93 % saturation s/p bamlanivimab 2. HIV 3. Diabetes mellitus 4. Hypertension. P 1. continue dexamethasone day 5 2. continue isolation Subjective Respiratory: Reports: shortness of breath, dry cough - decreased Gastrointestinal/Abdominal: Denies: nausea, vomiting, diarrhea Musculoskeletal: Denies: pain Allergies: Coded Allergies: No Known Allergies (Unverified , 04/04/20) Objective Last 24 Hour Vital Signs Date Time Temp Pulse Resp B/P (MAP) Pulse Ox O2 Delivery O2 Flow Rate FiO2 04/09/20 09:00 Simple Mask 12.0 04/09/20 08:59 88 158/98 04/09/20 08:00 97.2 88 18 158/98 (118) 93 04/09/20 04:00 97.9 90 20 153/90 (111) 96 04/09/20 00:44 98.0 88 20 142/87 (105) 94 04/08/20 21:00 Simple Mask 12.0 04/08/20 17:05 88 138/80 04/08/20 16:00 97.0 88 18 138/80 (99) 94 Height (Feet): 5 Height (Inches): 4.00 Weight (Pounds): 167 Laboratory Tests Test 04/08/20 12:29 04/08/20 16:50 04/08/20 20:47 04/09/20 05:53 POC Whole Blood Glucose 308 MG/DL (74-106) H Pending 283 MG/DL (74-106) H 247 MG/DL (74-106) H Current Medications Medications (Trade) Dose Ordered Sig/Ivett Route PRN Reason Start Time Stop Time Status Last Admin Dose Admin Acetaminophen (Tylenol) 500 mg Q4H PRN ORAL Mild Pain (Pain Scale 1-3) 04/04/20 22:45 05/04/20 22:44 04/07/20 09:19 Acetaminophen (Tylenol) 500 mg Q4H PRN ORAL Temp >100.5 04/04/20 22:45 05/04/20 22:44 Amlodipine Besylate (Norvasc) 5 mg BID ORAL 04/07/20 18:00 05/05/20 08:59 04/09/20 08:59 Artificial Tears (Akwa-Tears) 2 drop Q4H PRN BOTH EYES Dry Eyes 04/05/20 14:45 05/05/20 14:44 04/07/20 12:51 Clonidine HCl (Catapres Tab) 0.1 mg PRN PRN ORAL high blood pressure sbp>170 04/04/20 22:45 07/03/20 22:44 04/06/20 04:04 Dexamethasone Sodium Phosphate (Decadron 10mg/ ml Inj) 6 mg DAILY IV 04/05/20 14:00 04/14/20 13:59 04/09/20 08:59 Dextrose (Dextrose 50%) 25 ml Q30M PRN IV Hypoglycemia 04/04/20 22:45 07/03/20 22:44 Dextrose (Dextrose 50%) 50 ml Q30M PRN IV Hypoglycemia 04/04/20 22:45 07/03/20 22:44 Heparin Sodium (Porcine) (Heparin 5000 units/ml) 5,000 units EVERY 12 HOURS SUBQ 04/05/20 09:00 05/20/20 08:59 04/09/20 09:00 Insulin Aspart (NovoLOG) BEFORE MEALS AND HS SUBQ 04/05/20 06:30 07/04/20 06:29 04/09/20 11:26 Latanoprost (Xalatan) 1 drop BEDTIME BOTH EYES 04/06/20 21:00 05/06/20 20:59 04/08/20 20:55 Ondansetron HCl (Zofran) 4 mg Q6H PRN IVP Nausea & Vomiting 04/04/20 22:45 05/04/20 22:44 04/04/20 23:07 Eugenio Holland MD Apr 09, 2020 12:10
--- NOTE | 2020-04-09 15:42 | Cardiac Electrophysiology PN ---
Assessment/Plan Assessment/Plan 1. Shortness of breath with COVID pneumonia. Ruled out for [place] Urine toxicology screen is negative. Echo EF 65%. On 15 liter VM 2. Hypertension, on Norvasc 5 mg bid and p.r.n. clonidine. 3. COVID pneumonia, on dexamethasone. 4. Diabetes, on insulin. Subjective Subjective BP better after increased Amlodipine to 5 bid. On 12 liter VM but not wearing it Objective Last 24 Hour Vital Signs Date Time Temp Pulse Resp B/P (MAP) Pulse Ox O2 Delivery O2 Flow Rate FiO2 04/09/20 12:00 97.4 97 20 148/92 (110) 95 04/09/20 09:00 Simple Mask 12.0 04/09/20 08:59 88 158/98 04/09/20 08:00 97.2 88 18 158/98 (118) 93 04/09/20 04:00 97.9 90 20 153/90 (111) 96 04/09/20 00:44 98.0 88 20 142/87 (105) 94 04/08/20 21:00 Simple Mask 12.0 04/08/20 17:05 88 138/80 04/08/20 16:00 97.0 88 18 138/80 (99) 94 Intake and Output 04/08/20 04/09/20 19:00 07:00 Intake Total 400 ml 480 ml Output Total 1400 ml 600 ml Balance -1000 ml -120 ml Intake Oral 400 ml 480 ml Output Urine Total 1400 ml 600 ml # Voids 2 Laboratory Tests Test 04/08/20 16:50 04/08/20 20:47 04/09/20 05:53 POC Whole Blood Glucose Pending 283 MG/DL (74-106) H 247 MG/DL (74-106) H Objective HEAD AND NECK: no JVD. LUNGS: Coarse rhonchi. CARDIOVASCULAR: regular S1 and S2 with no gallop. ABDOMEN: Soft. EXTREMITIES: No pitting edema. Brian Olivares MD Apr 09, 2020 15:42
[2020-04-09 16:00] VITALS: BP 142/76
--- NOTE | 2020-04-09 16:15 | NUR ---
CASE MANAGEMENT:REVIEW SI;COVID PNEUMONIA 98.0 97 20 158/98 93% 12L SIMPLE MASK BG 247 IS;AMLODIPINE PO BID HEPARINS SQ Q12 DECADRON IV QD MED SURG STATUS DCP;FROM HOME
--- NOTE | 2020-04-09 19:27 | NUR ---
NURSE HAND-OFF: Important Events on Shift:Blood sugar check and Insulin given per sliding scale; Mylanta PRN given; Patient Status: Diet: Pending Orders: Pending Results/Labs: Pending MD notification: Latest Vital Signs: Temperature 97.0 , Pulse 91 , B/P 142 /76 , Respiratory Rate 18 , O2 SAT 93 , Room Air, O2 Flow Rate 12.0 . Vital Sign Comment: Latest Miller Fall Score: 45 Fall Risk: High Risk Safety Measures: Call light Within Reach, Bed Alarm Zone 2, Side Rails Side Rails x2, Bed position Low and Locked. Fall Precautions: Yellow Socks Door Sign Patient Fall Education Report given to .
--- NOTE | 2020-04-09 19:30 | NUR ---
NURSE NOTES: RECEIVED PATIENT FROM HALEY SANTIZO. PATIENT IS AWAKE, AAOX4, ON VENTURI MASK 12L, NO ACUTE DISTRESS NOTED. DENIES PAIN. PIV INTACT AND PATENT. BED IS LOCKED AND LOW, BED ALARMS ACTIVE, SIDE RAILS UPX2 AND CALL LIGHT IS WITHIN REACH. WILL CONTINUE TO MONITOR.
--- NOTE | 2020-04-09 19:42 | NUR ---
HAND-OFF: Report given to HALEY Staley.
[2020-04-09 20:00] VITALS: BP 151/98
[2020-04-09] MEDS: Latanoprost 0.005% Opth 2.5ml Soln BOTH EYES SCH (21:25)
--- NOTE | 2020-04-09 22:09 | General Progress Note ---
Subjective ROS Limited/Unobtainable: Yes Allergies: Coded Allergies: No Known Allergies (Unverified , 04/04/20) Objective Last 24 Hour Vital Signs Date Time Temp Pulse Resp B/P (MAP) Pulse Ox O2 Delivery O2 Flow Rate FiO2 04/09/20 17:01 91 142/76 04/09/20 16:00 97.0 91 18 142/76 (98) 93 04/09/20 12:00 97.4 97 20 148/92 (110) 95 04/09/20 09:00 Simple Mask 12.0 04/09/20 08:59 88 158/98 04/09/20 08:00 97.2 88 18 158/98 (118) 93 04/09/20 04:00 97.9 90 20 153/90 (111) 96 04/09/20 00:44 98.0 88 20 142/87 (105) 94 Intake and Output 04/08/20 04/09/20 19:00 07:00 Intake Total 400 ml 480 ml Output Total 1400 ml 600 ml Balance -1000 ml -120 ml Intake Oral 400 ml 480 ml Output Urine Total 1400 ml 600 ml # Voids 2 Laboratory Tests 04/09/20 05:53: POC Whole Blood Glucose 247H 04/09/20 21:19: POC Whole Blood Glucose 300H Height (Feet): 5 Height (Inches): 4.00 Weight (Pounds): 167 Assessment/Plan Problem List: (1) Hyperglycemia ICD Codes: R73.9 - Hyperglycemia, unspecified SNOMED: 11375286 (2) Dyspnea due to COVID-19 ICD Codes: U07.1 - COVID-19; R06.00 - Dyspnea, unspecified SNOMED: 970954778618039 Status: progressing Assessment/Plan: niddm covid + resp insuff afebrile agitated malnutrtition Carlos Oliveira MD Apr 09, 2020 22:09
[2020-04-10] VITALS: BP 137/90
[2020-04-10 04:00] VITALS: BP 157/104
[2020-04-10] MEDS: NovoLOG Insulin Flexpen SUBQ SCH ×4 (06:03→21:17)
[2020-04-10 08:00] VITALS: BP 141/83
--- NOTE | 2020-04-10 08:08 | NUR ---
HAND-OFF: Report given to HALEY Smith
--- NOTE | 2020-04-10 08:13 | NUR ---
NURSE NOTES: Received report from Judy RN. Patient is awake and oriented, in no distress, denies SOB, on Venturi mask 12L. IV intact, dressing clean. Patient updated on plan of care. In COVID isolation. Side rails upx2, bed low and locked, call light within reach.
[2020-04-10] MEDS: dexAMETHasone 10mg/ml Inj IV SCH (08:56)
[2020-04-10] MEDS: Acetaminophen 500mg (ES) tab ORAL PRN (08:57)
[2020-04-10] MEDS: Heparin 5000 units/ml inj SUBQ SCH ×2 (08:57→20:32)
--- NOTE | 2020-04-10 11:17 | General Progress Note ---
Subjective Date patient seen: Apr 10, 2020 Time patient seen: 10:10 - am Allergies: Coded Allergies: No Known Allergies (Unverified , 04/04/20) Subjective HISTORY OF PRESENT ILLNESS: The patient is a 59-year-old male who is being seen on the medical/surgical floor of [facility]. Denies pain at this time. No new complaints at this time. REVIEW OF SYSTEMS: Denies rash, fever, chills, sweating, dizziness, drowsiness, blurred vision, sore throat, or change in weight. No nausea, vomiting, diarrhea, or blood in the stool or urine. No dysuria. Objective Last 24 Hour Vital Signs Date Time Temp Pulse Resp B/P (MAP) Pulse Ox O2 Delivery O2 Flow Rate FiO2 04/10/20 08:56 108 141/83 04/10/20 08:00 97.1 108 18 141/83 (102) 97 04/10/20 04:00 97.3 89 18 157/104 (121) 91 04/10/20 00:00 97.2 92 18 137/90 (106) 97 04/09/20 21:00 Venturi Mask 12.0 04/09/20 20:00 97.7 99 19 151/98 (115) 94 04/09/20 17:01 91 142/76 04/09/20 16:00 97.0 91 18 142/76 (98) 93 04/09/20 12:00 97.4 97 20 148/92 (110) 95 Intake and Output 04/09/20 04/10/20 19:00 07:00 Intake Total 840 ml 400 ml Output Total 700 ml Balance 840 ml -300 ml Intake Oral 840 ml 400 ml Output Urine Total 700 ml # Voids 2 Laboratory Tests 04/09/20 21:19: POC Whole Blood Glucose 300H Height (Feet): 5 Height (Inches): 4.00 Weight (Pounds): 167 Objective PHYSICAL EXAMINATION: GENERAL: Alert, awake, and oriented. LUNGS: Decreased breath sounds bilaterally. HEART: S1 and S2 regular. ABDOMEN: Soft and nontender. EXTREMITIES: No cyanosis. No clubbing. NEURO: No changes. Assessment/Plan Assessment/Plan: (1) Degenerative joint disease (2) Myalgia/ Arthralgia (3) Covid 19+ Patient to be continued on the Tylenol. D/w Dr. Maxwell and he concurred. Josse Hernandez Apr 10, 2020 11:17
[2020-04-10 12:00] VITALS: BP 133/86
--- NOTE | 2020-04-10 13:31 | NUR ---
CASE MANAGEMENT:REVIEW SI;COVID PNEUMONIA 97.7 108 19 157/101 91% 12L VENTURI MASK BG 261 IS; AMLODIPINE PO BID HEPARINS SQ Q12 DECADRON IV QD MED SURG STATUS DCP; FROM HOME
--- NOTE | 2020-04-10 15:35 | Pulmonology Progress Note ---
Subjective ROS Limited/Unobtainable: Yes Interval Events: remains on 12L via Venuri mask Constitutional: Reports: no symptoms HEENT: Repors: no symptoms Respiratory: Reports: dry cough, dyspnea on exertion Cardiovascular: Reports: no symptoms Gastrointestinal/Abdominal: Denies: nausea, vomiting, diarrhea Musculoskeletal: Denies: pain Allergies: Coded Allergies: No Known Allergies (Unverified , 04/04/20) Objective Last 24 Hour Vital Signs Date Time Temp Pulse Resp B/P (MAP) Pulse Ox O2 Delivery O2 Flow Rate FiO2 04/10/20 12:00 98.3 86 18 133/86 (102) 99 04/10/20 09:00 Venturi Mask 12.0 04/10/20 08:56 108 141/83 04/10/20 08:00 97.1 108 18 141/83 (102) 97 04/10/20 04:00 97.3 89 18 157/104 (121) 91 04/10/20 00:00 97.2 92 18 137/90 (106) 97 04/09/20 21:00 Venturi Mask 12.0 04/09/20 20:00 97.7 99 19 151/98 (115) 94 04/09/20 17:01 91 142/76 04/09/20 16:00 97.0 91 18 142/76 (98) 93 Intake and Output 04/09/20 04/10/20 19:00 07:00 Intake Total 840 ml 400 ml Output Total 700 ml Balance 840 ml -300 ml Intake Oral 840 ml 400 ml Output Urine Total 700 ml # Voids 2 Objective 04/10 saturating at 95% on 12L Venturi mask 04/09 remains on 12L Venturi mask, saturating at 92-94% 04/08 pt desaturated on nasal oxygen and now on 12L oxygen via Venturi mask saturating at 94-95% 04/07 currently saturating at 95% on 4L NC General Appearance: WD/WN, no acute distress HEENT: normocephalic, atraumatic Respiratory: lungs clear Cardiovascular: normal rate, regular rhythm Abdomen: soft, non tender Extremities: no edema Laboratory Tests 04/09/20 16:59: POC Whole Blood Glucose [Pending] 04/09/20 21:19: POC Whole Blood Glucose 300H 04/10/20 05:59: POC Whole Blood Glucose 261H 04/10/20 11:58: POC Whole Blood Glucose [Pending] Current Medications Medications (Trade) Dose Ordered Sig/Ivett Route PRN Reason Start Time Stop Time Status Last Admin Dose Admin Acetaminophen (Tylenol) 500 mg Q4H PRN ORAL Mild Pain (Pain Scale 1-3) 04/04/20 22:45 05/04/20 22:44 04/10/20 08:57 Acetaminophen (Tylenol) 500 mg Q4H PRN ORAL Temp >100.5 04/04/20 22:45 05/04/20 22:44 Al Hydroxide/Mg Hydroxide (Mylanta) 30 ml Q4H PRN ORAL Abdominal cramps 04/09/20 17:00 05/09/20 16:59 04/09/20 22:16 Amlodipine Besylate (Norvasc) 5 mg BID ORAL 04/07/20 18:00 05/05/20 08:59 04/10/20 08:56 Artificial Tears (Akwa-Tears) 2 drop Q4H PRN BOTH EYES Dry Eyes 04/05/20 14:45 05/05/20 14:44 04/07/20 12:51 Clonidine HCl (Catapres Tab) 0.1 mg PRN PRN ORAL high blood pressure sbp>170 04/04/20 22:45 07/03/20 22:44 04/06/20 04:04 Dexamethasone Sodium Phosphate (Decadron 10mg/ ml Inj) 6 mg DAILY IV 04/05/20 14:00 04/14/20 13:59 04/10/20 08:56 Dextrose (Dextrose 50%) 25 ml Q30M PRN IV Hypoglycemia 04/04/20 22:45 07/03/20 22:44 Dextrose (Dextrose 50%) 50 ml Q30M PRN IV Hypoglycemia 04/04/20 22:45 07/03/20 22:44 Heparin Sodium (Porcine) (Heparin 5000 units/ml) 5,000 units EVERY 12 HOURS SUBQ 04/05/20 09:00 05/20/20 08:59 04/10/20 08:57 Insulin Aspart (NovoLOG) BEFORE MEALS AND HS SUBQ 04/05/20 06:30 07/04/20 06:29 04/10/20 12:08 Latanoprost (Xalatan) 1 drop BEDTIME BOTH EYES 04/06/20 21:00 05/06/20 20:59 04/09/20 21:25 Ondansetron HCl (Zofran) 4 mg Q6H PRN IVP Nausea & Vomiting 04/04/20 22:45 05/04/20 22:44 04/04/20 23:07 Assessment/Plan Assessment/Plan 1. COVID-19 Bilateral pneumonia. - pt received a dose of Bamlanimab in ER - Continue monitoring for hypoxia; cont supplemental oxygen - Currently saturating at 96% on 12L Venturi mask - Continue decadron - Defer use of remdesivir to ID specialist. 2. Hypertension. - on amlodipine - in control 3. Diabetes mellitus. - on Novolog - pt is on steroids Continue home meds; pt reports hx of HIV and takes HIV meds at home; pt unable to recall exact names or doses of the two meds; they need to be continued unless contraindicated Pt was offered to have his family bring his home medications but he reports that is not plausible; defer to ID for management Insomnia - pt c/o persistent insomnia since admission without hx of insomnia - management per primary MD We will follow carefully. The care for this patient was discussed with my supervising physician Time spent for this case was approximately 31 minutes Neo Montalvo Apr 10, 2020 15:35
--- NOTE | 2020-04-10 15:36 | NUR ---
NURSE NOTES: Notified Dr. Heath that patient is requesting a PRN for sleep. aware.
[2020-04-10 16:00] VITALS: BP 133/76
--- NOTE | 2020-04-10 16:31 | General Progress Note ---
Subjective ROS Limited/Unobtainable: Yes Allergies: Coded Allergies: No Known Allergies (Unverified , 04/04/20) Objective Last 24 Hour Vital Signs Date Time Temp Pulse Resp B/P (MAP) Pulse Ox O2 Delivery O2 Flow Rate FiO2 04/10/20 12:00 98.3 86 18 133/86 (102) 99 04/10/20 09:00 Venturi Mask 12.0 04/10/20 08:56 108 141/83 04/10/20 08:00 97.1 108 18 141/83 (102) 97 04/10/20 04:00 97.3 89 18 157/104 (121) 91 04/10/20 00:00 97.2 92 18 137/90 (106) 97 04/09/20 21:00 Venturi Mask 12.0 04/09/20 20:00 97.7 99 19 151/98 (115) 94 04/09/20 17:01 91 142/76 Intake and Output 04/09/20 04/10/20 19:00 07:00 Intake Total 840 ml 400 ml Output Total 700 ml Balance 840 ml -300 ml Intake Oral 840 ml 400 ml Output Urine Total 700 ml # Voids 2 Laboratory Tests 04/09/20 16:59: POC Whole Blood Glucose [Pending] 04/09/20 21:19: POC Whole Blood Glucose 300H 04/10/20 05:59: POC Whole Blood Glucose 261H 04/10/20 11:58: POC Whole Blood Glucose [Pending] Height (Feet): 5 Height (Inches): 4.00 Weight (Pounds): 167 Assessment/Plan Problem List: (1) Hyperglycemia ICD Codes: R73.9 - Hyperglycemia, unspecified SNOMED: 78349102 (2) Dyspnea due to COVID-19 ICD Codes: U07.1 - COVID-19; R06.00 - Dyspnea, unspecified SNOMED: 665015772696227 Status: progressing Assessment/Plan: niddm covid + continue supportive care afebrile vitals stable Carlos Oliveira MD Apr 10, 2020 16:31
--- NOTE | 2020-04-10 16:46 | Infectious Diseases Prog Note ---
Assessment/Plan Assessment/Plan IMPRESSION: COVID-19 pneumonia. HIV Hypoxemia worse SOB on exertion. Diabetes mellitus with hyperglycemia, Hypertension. RECOMMENDATIONS: Continue dexamethasone. Got a dose of Bamlanivimab in ER. Subjective ROS Limited/Unobtainable: Yes Constitutional: Reports: no symptoms Respiratory: Reports: shortness of breath Gastrointestinal/Abdominal: Reports: no symptoms Genitourinary: Reports: no symptoms Psychiatric: Reports: other - insomnia Allergies: Coded Allergies: No Known Allergies (Unverified , 04/04/20) Objective Last 24 Hour Vital Signs Date Time Temp Pulse Resp B/P (MAP) Pulse Ox O2 Delivery O2 Flow Rate FiO2 04/10/20 12:00 98.3 86 18 133/86 (102) 99 04/10/20 09:00 Venturi Mask 12.0 04/10/20 08:56 108 141/83 04/10/20 08:00 97.1 108 18 141/83 (102) 97 04/10/20 04:00 97.3 89 18 157/104 (121) 91 04/10/20 00:00 97.2 92 18 137/90 (106) 97 04/09/20 21:00 Venturi Mask 12.0 04/09/20 20:00 97.7 99 19 151/98 (115) 94 04/09/20 17:01 91 142/76 Height (Feet): 5 Height (Inches): 4.00 Weight (Pounds): 167 General Appearance: no acute distress HEENT: mucous membranes moist Respiratory/Chest: other - oxygen by ventutri mask Cardiovascular: normal rate Abdomen: soft, non tender Extremities: no edema Neurologic/Psychiatric: alert, responsive Laboratory Tests Test 04/09/20 16:59 04/09/20 21:19 04/10/20 05:59 04/10/20 11:58 POC Whole Blood Glucose Pending 300 MG/DL (74-106) H 261 MG/DL (74-106) H Pending Current Medications Medications (Trade) Dose Ordered Sig/Ivett Route PRN Reason Start Time Stop Time Status Last Admin Dose Admin Acetaminophen (Tylenol) 500 mg Q4H PRN ORAL Mild Pain (Pain Scale 1-3) 04/04/20 22:45 05/04/20 22:44 04/10/20 08:57 Acetaminophen (Tylenol) 500 mg Q4H PRN ORAL Temp >100.5 04/04/20 22:45 05/04/20 22:44 Al Hydroxide/Mg Hydroxide (Mylanta) 30 ml Q4H PRN ORAL Abdominal cramps 04/09/20 17:00 05/09/20 16:59 04/09/20 22:16 Amlodipine Besylate (Norvasc) 5 mg BID ORAL 04/07/20 18:00 05/05/20 08:59 04/10/20 08:56 Artificial Tears (Akwa-Tears) 2 drop Q4H PRN BOTH EYES Dry Eyes 04/05/20 14:45 05/05/20 14:44 04/07/20 12:51 Clonidine HCl (Catapres Tab) 0.1 mg PRN PRN ORAL high blood pressure sbp>170 04/04/20 22:45 07/03/20 22:44 04/06/20 04:04 Dexamethasone Sodium Phosphate (Decadron 10mg/ ml Inj) 6 mg DAILY IV 04/05/20 14:00 04/14/20 13:59 04/10/20 08:56 Dextrose (Dextrose 50%) 25 ml Q30M PRN IV Hypoglycemia 04/04/20 22:45 07/03/20 22:44 Dextrose (Dextrose 50%) 50 ml Q30M PRN IV Hypoglycemia 04/04/20 22:45 07/03/20 22:44 Heparin Sodium (Porcine) (Heparin 5000 units/ml) 5,000 units EVERY 12 HOURS SUBQ 04/05/20 09:00 05/20/20 08:59 04/10/20 08:57 Insulin Aspart (NovoLOG) BEFORE MEALS AND HS SUBQ 04/05/20 06:30 07/04/20 06:29 04/10/20 12:08 Latanoprost (Xalatan) 1 drop BEDTIME BOTH EYES 04/06/20 21:00 05/06/20 20:59 04/09/20 21:25 Mirtazapine (Remeron) 7.5 mg BEDTIME ORAL 04/10/20 21:00 07/09/20 20:59 Ondansetron HCl (Zofran) 4 mg Q6H PRN IVP Nausea & Vomiting 04/04/20 22:45 05/04/20 22:44 04/04/20 23:07 Jarred Nuñez MD Apr 10, 2020 16:46
--- NOTE | 2020-04-10 19:04 | Cardiac Electrophysiology PN ---
Assessment/Plan Assessment/Plan 1. Shortness of breath with COVID pneumonia. Ruled out for [place] Urine toxicology screen is negative. EF 65%. On 15 liter VM 2. Hypertension, on Norvasc 5 mg bid and p.r.n. clonidine. 3. COVID pneumonia, on dexamethasone. 4. Diabetes, on insulin. Subjective Subjective BP better on Amlodipine 5 bid. On 12 liter VM but not wearing it Objective Last 24 Hour Vital Signs Date Time Temp Pulse Resp B/P (MAP) Pulse Ox O2 Delivery O2 Flow Rate FiO2 04/10/20 17:56 101 133/76 04/10/20 16:00 97.1 101 18 133/76 (95) 99 04/10/20 12:00 98.3 86 18 133/86 (102) 99 04/10/20 09:00 Venturi Mask 12.0 04/10/20 08:56 108 141/83 04/10/20 08:00 97.1 108 18 141/83 (102) 97 04/10/20 04:00 97.3 89 18 157/104 (121) 91 04/10/20 00:00 97.2 92 18 137/90 (106) 97 04/09/20 21:00 Venturi Mask 12.0 04/09/20 20:00 97.7 99 19 151/98 (115) 94 Intake and Output 04/09/20 04/10/20 19:00 07:00 Intake Total 840 ml 400 ml Output Total 700 ml Balance 840 ml -300 ml Intake Oral 840 ml 400 ml Output Urine Total 700 ml # Voids 2 Laboratory Tests Test 04/09/20 21:19 04/10/20 05:59 04/10/20 11:58 POC Whole Blood Glucose 300 MG/DL (74-106) H 261 MG/DL (74-106) H Pending Objective HEAD AND NECK: no JVD. LUNGS: Coarse rhonchi. CARDIOVASCULAR: regular S1 and S2 with no gallop. ABDOMEN: Soft. EXTREMITIES: No pitting edema. Brian Olivares MD Apr 10, 2020 19:04
--- NOTE | 2020-04-10 19:25 | NUR ---
NURSE NOTES: Received report from HALEY Smith. Pt is awake, A&Ox4. Call light within reach, bed locked and in lowest position, pt has no needs right now. Will continue to monitor.
--- NOTE | 2020-04-10 19:31 | NUR ---
NURSE HAND-OFF: Important Events on Shift: Oxygen therapy. Patient Status: stable Diet: CCHO Pending Orders: n/a Pending Results/Labs: n/a Pending MD notification: n/a Latest Vital Signs: Temperature 97.1 , Pulse 101 , B/P 133 /76 , Respiratory Rate 18 , O2 SAT 99 Vital Sign Comment: vs stable Latest Miller Fall Score: 45 Fall Risk: High Risk Safety Measures: Call light Within Reach, Bed Alarm Zone 2, Side Rails Side Rails x2, Bed position Low and Locked. Fall Precautions: Door Sign Patient Fall Education Report given to Jayant DE LEON.
[2020-04-10 20:00] VITALS: BP 143/95
[2020-04-10] MEDS: Latanoprost 0.005% Opth 2.5ml Soln BOTH EYES SCH (20:33)
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
[2020-04-11] VITALS: BP 145/96
[2020-04-11 04:00] VITALS: BP 132/92
[2020-04-11] MEDS: NovoLOG Insulin Flexpen SUBQ SCH ×4 (06:54→20:30)
--- NOTE | 2020-04-11 07:05 | NUR ---
NURSE HAND-OFF: Important Events on Shift: Pt was able to sleep through the night Patient Status: calm Diet: CCHO medium Pending Orders: Pending Results/Labs: Pending MD notification: Latest Vital Signs: Temperature 97.6 , Pulse 85 , B/P 132 /92 , Respiratory Rate 18 , O2 SAT 96 , Room Air, O2 Flow Rate 12.0 . Vital Sign Comment: VSS Latest Miller Fall Score: 45 Fall Risk: High Risk Safety Measures: Call light Within Reach, Bed Alarm Zone 2, Side Rails Side Rails x2, Bed position Low and Locked. Fall Precautions: Door Sign Patient Fall Education Report given to HALEY Buckner.
--- NOTE | 2020-04-11 07:55 | NUR ---
NURSE NOTES: received report from HALEY Saba. patient in bed. A&Ox4, verbally responsive. no respiratory distress on ventury 12L. no pain at this time. IV on RAC 20g intact and flushed. covid positive. PPE at all times. urinal at bedside. bed in the lowest position and locked. call light within reach. will continue to provide plan of care.
[2020-04-11 08:00] VITALS: BP 138/86
--- NOTE | 2020-04-11 08:28 | Pulmonology Progress Note ---
Subjective ROS Limited/Unobtainable: Yes Interval Events: remains on 12L via Venuri mask Constitutional: Reports: no symptoms HEENT: Repors: no symptoms Respiratory: Reports: dry cough, dyspnea on exertion Cardiovascular: Reports: no symptoms Gastrointestinal/Abdominal: Reports: no symptoms Psychiatric: Reports: other - insomnia Musculoskeletal: Denies: pain Allergies: Coded Allergies: No Known Allergies (Unverified , 04/04/20) Objective Last 24 Hour Vital Signs Date Time Temp Pulse Resp B/P (MAP) Pulse Ox O2 Delivery O2 Flow Rate FiO2 04/11/20 04:00 97.6 85 18 132/92 (105) 96 04/11/20 00:00 97.6 82 19 145/96 (112) 96 04/10/20 21:00 Venturi Mask 12.0 04/10/20 20:00 98.4 98 20 143/95 (111) 95 04/10/20 17:56 101 133/76 04/10/20 16:00 97.1 101 18 133/76 (95) 99 04/10/20 12:00 98.3 86 18 133/86 (102) 99 04/10/20 09:00 Venturi Mask 12.0 04/10/20 08:56 108 141/83 Intake and Output 04/10/20 04/11/20 19:00 07:00 Intake Total 500 ml 360 ml Output Total 900 ml Balance -400 ml 360 ml Intake Oral 500 ml Other 360 ml Output Urine Total 900 ml # Voids 2 Objective 04/11 saturating at 96% on 12L Venturi mask 04/10 saturating at 95% on 12L Venturi mask 04/09 remains on 12L Venturi mask, saturating at 92-94% 04/08 pt desaturated on nasal oxygen and now on 12L oxygen via Venturi mask saturating at 94-95% 04/07 currently saturating at 95% on 4L NC General Appearance: WD/WN, no acute distress HEENT: normocephalic, atraumatic Respiratory: lungs clear Cardiovascular: normal rate, regular rhythm Abdomen: soft, non tender Extremities: no edema Laboratory Tests 04/10/20 11:58: POC Whole Blood Glucose [Pending] 04/10/20 20:55: POC Whole Blood Glucose 334H Current Medications Medications (Trade) Dose Ordered Sig/Ivett Route PRN Reason Start Time Stop Time Status Last Admin Dose Admin Acetaminophen (Tylenol) 500 mg Q4H PRN ORAL Mild Pain (Pain Scale 1-3) 04/04/20 22:45 05/04/20 22:44 04/10/20 08:57 Acetaminophen (Tylenol) 500 mg Q4H PRN ORAL Temp >100.5 04/04/20 22:45 05/04/20 22:44 Al Hydroxide/Mg Hydroxide (Mylanta) 30 ml Q4H PRN ORAL Abdominal cramps 04/09/20 17:00 05/09/20 16:59 04/09/20 22:16 Amlodipine Besylate (Norvasc) 5 mg BID ORAL 04/07/20 18:00 05/05/20 08:59 04/10/20 17:56 Artificial Tears (Akwa-Tears) 2 drop Q4H PRN BOTH EYES Dry Eyes 04/05/20 14:45 05/05/20 14:44 04/07/20 12:51 Clonidine HCl (Catapres Tab) 0.1 mg PRN PRN ORAL high blood pressure sbp>170 04/04/20 22:45 07/03/20 22:44 04/06/20 04:04 Dexamethasone Sodium Phosphate (Decadron 10mg/ ml Inj) 6 mg DAILY IV 04/05/20 14:00 04/14/20 13:59 04/10/20 08:56 Dextrose (Dextrose 50%) 25 ml Q30M PRN IV Hypoglycemia 04/04/20 22:45 07/03/20 22:44 Dextrose (Dextrose 50%) 50 ml Q30M PRN IV Hypoglycemia 04/04/20 22:45 07/03/20 22:44 Heparin Sodium (Porcine) (Heparin 5000 units/ml) 5,000 units EVERY 12 HOURS SUBQ 04/05/20 09:00 05/20/20 08:59 04/10/20 20:32 Insulin Aspart (NovoLOG) BEFORE MEALS AND HS SUBQ 04/05/20 06:30 07/04/20 06:29 04/11/20 06:54 Latanoprost (Xalatan) 1 drop BEDTIME BOTH EYES 04/06/20 21:00 05/06/20 20:59 04/10/20 20:33 Mirtazapine (Remeron) 7.5 mg BEDTIME ORAL 04/10/20 21:00 07/09/20 20:59 04/10/20 20:31 Ondansetron HCl (Zofran) 4 mg Q6H PRN IVP Nausea & Vomiting 04/04/20 22:45 05/04/20 22:44 04/04/20 23:07 Assessment/Plan Assessment/Plan 1. COVID-19 Bilateral pneumonia. - pt received a dose of Bamlanimab in ER - Continue monitoring for hypoxia; cont supplemental oxygen - Currently saturating at 96% on 12L Venturi mask - Continue decadron - Defer use of remdesivir to ID specialist. 2. Hypertension. - on amlodipine - in control 3. Diabetes mellitus. - on Novolog - pt is on steroids Continue home meds; pt reports hx of HIV and takes HIV meds at home; pt unable to recall exact names or doses of the two meds; they need to be continued unless contraindicated Pt was offered to have his family bring his home medications but he reports that is not plausible; defer to ID for management Insomnia - pt c/o persistent insomnia since admission without hx of insomnia - management per primary MD Anxiety - now on mirtazapine per psych We will follow carefully. The care for this patient was discussed with my supervising physician Time spent for this case was approximately 31 minutes Neo Montalvo Apr 11, 2020 08:28
[2020-04-11] MEDS: dexAMETHasone 10mg/ml Inj IV SCH (09:12)
[2020-04-11] MEDS: Heparin 5000 units/ml inj SUBQ SCH ×2 (09:12→20:30)
[2020-04-11 12:00] VITALS: BP 143/91
--- NOTE | 2020-04-11 13:34 | General Progress Note ---
Subjective Date patient seen: Apr 11, 2020 Time patient seen: 12:30 - pm Allergies: Coded Allergies: No Known Allergies (Unverified , 04/04/20) Subjective HISTORY OF PRESENT ILLNESS: The patient is a 59-year-old male who is being seen on the medical/surgical floor of [facility]. In bed and showing no signs of pain or distress. Has no new complaints at this time. REVIEW OF SYSTEMS: Denies rash, fever, chills, sweating, dizziness, drowsiness, blurred vision, sore throat, or change in weight. No nausea, vomiting, diarrhea, or blood in the stool or urine. No dysuria. Objective Last 24 Hour Vital Signs Date Time Temp Pulse Resp B/P (MAP) Pulse Ox O2 Delivery O2 Flow Rate FiO2 04/11/20 12:00 97.3 94 20 143/91 (108) 95 04/11/20 09:12 97 138/86 04/11/20 09:00 Venturi Mask 12.0 04/11/20 08:00 96.8 97 20 138/86 (103) 97 04/11/20 04:00 97.6 85 18 132/92 (105) 96 04/11/20 00:00 97.6 82 19 145/96 (112) 96 04/10/20 21:00 Venturi Mask 12.0 04/10/20 20:00 98.4 98 20 143/95 (111) 95 04/10/20 17:56 101 133/76 04/10/20 16:00 97.1 101 18 133/76 (95) 99 Intake and Output 04/10/20 04/11/20 19:00 07:00 Intake Total 500 ml 360 ml Output Total 900 ml Balance -400 ml 360 ml Intake Oral 500 ml Other 360 ml Output Urine Total 900 ml # Voids 2 Laboratory Tests 04/10/20 20:55: POC Whole Blood Glucose 334H 04/11/20 11:21: POC Whole Blood Glucose 461H Height (Feet): 5 Height (Inches): 4.00 Weight (Pounds): 167 Objective PHYSICAL EXAMINATION: GENERAL: Alert, awake, and oriented. LUNGS: Decreased breath sounds bilaterally. HEART: S1 and S2 regular. ABDOMEN: Soft and nontender. EXTREMITIES: No cyanosis. No clubbing. NEURO: No changes. Assessment/Plan Status: progressing Assessment/Plan: (1) Degenerative joint disease (2) Myalgia/ Arthralgia (3) Covid 19+ Patient to be continued on the Tylenol. D/w Dr. Maxwell and he concurred. Josse Hernandez Apr 11, 2020 13:34
--- NOTE | 2020-04-11 13:59 | Infectious Diseases Prog Note ---
Assessment/Plan Assessment/Plan IMPRESSION: COVID-19 pneumonia. HIV Hypoxemia worse SOB on exertion. Diabetes mellitus with hyperglycemia, Hypertension. RECOMMENDATIONS: Continue dexamethasone. Got a dose of Bamlanivimab in ER. Subjective ROS Limited/Unobtainable: No Constitutional: Reports: no symptoms Respiratory: Reports: no symptoms Gastrointestinal/Abdominal: Reports: no symptoms Genitourinary: Reports: no symptoms Allergies: Coded Allergies: No Known Allergies (Unverified , 04/04/20) Objective Last 24 Hour Vital Signs Date Time Temp Pulse Resp B/P (MAP) Pulse Ox O2 Delivery O2 Flow Rate FiO2 04/11/20 12:00 97.3 94 20 143/91 (108) 95 04/11/20 09:12 97 138/86 04/11/20 09:00 Venturi Mask 12.0 04/11/20 08:00 96.8 97 20 138/86 (103) 97 04/11/20 04:00 97.6 85 18 132/92 (105) 96 04/11/20 00:00 97.6 82 19 145/96 (112) 96 04/10/20 21:00 Venturi Mask 12.0 04/10/20 20:00 98.4 98 20 143/95 (111) 95 04/10/20 17:56 101 133/76 04/10/20 16:00 97.1 101 18 133/76 (95) 99 Height (Feet): 5 Height (Inches): 4.00 Weight (Pounds): 167 HEENT: mucous membranes moist Respiratory/Chest: other - oxygen by venturi mask Cardiovascular: normal rate Abdomen: soft, non tender Extremities: no edema Neurologic/Psychiatric: alert, responsive Laboratory Tests Test 04/10/20 20:55 04/11/20 11:21 POC Whole Blood Glucose 334 MG/DL (74-106) H 461 MG/DL (74-106) H Current Medications Medications (Trade) Dose Ordered Sig/Ivett Route PRN Reason Start Time Stop Time Status Last Admin Dose Admin Acetaminophen (Tylenol) 500 mg Q4H PRN ORAL Mild Pain (Pain Scale 1-3) 04/04/20 22:45 05/04/20 22:44 04/10/20 08:57 Acetaminophen (Tylenol) 500 mg Q4H PRN ORAL Temp >100.5 04/04/20 22:45 05/04/20 22:44 Al Hydroxide/Mg Hydroxide (Mylanta) 30 ml Q4H PRN ORAL Abdominal cramps 04/09/20 17:00 05/09/20 16:59 04/09/20 22:16 Amlodipine Besylate (Norvasc) 5 mg BID ORAL 04/07/20 18:00 05/05/20 08:59 04/11/20 09:12 Artificial Tears (Akwa-Tears) 2 drop Q4H PRN BOTH EYES Dry Eyes 04/05/20 14:45 05/05/20 14:44 04/11/20 12:03 Clonidine HCl (Catapres Tab) 0.1 mg PRN PRN ORAL high blood pressure sbp>170 04/04/20 22:45 07/03/20 22:44 04/06/20 04:04 Dexamethasone Sodium Phosphate (Decadron 10mg/ ml Inj) 6 mg DAILY IV 04/05/20 14:00 04/14/20 13:59 04/11/20 09:12 Dextrose (Dextrose 50%) 25 ml Q30M PRN IV Hypoglycemia 04/04/20 22:45 07/03/20 22:44 Dextrose (Dextrose 50%) 50 ml Q30M PRN IV Hypoglycemia 04/04/20 22:45 07/03/20 22:44 Heparin Sodium (Porcine) (Heparin 5000 units/ml) 5,000 units EVERY 12 HOURS SUBQ 04/05/20 09:00 05/20/20 08:59 04/11/20 09:12 Insulin Aspart (NovoLOG) BEFORE MEALS AND HS SUBQ 04/05/20 06:30 07/04/20 06:29 04/11/20 12:05 Latanoprost (Xalatan) 1 drop BEDTIME BOTH EYES 04/06/20 21:00 05/06/20 20:59 04/10/20 20:33 Mirtazapine (Remeron) 7.5 mg BEDTIME ORAL 04/10/20 21:00 07/09/20 20:59 04/10/20 20:31 Ondansetron HCl (Zofran) 4 mg Q6H PRN IVP Nausea & Vomiting 04/04/20 22:45 05/04/20 22:44 04/04/20 23:07 Jarred Nuñez MD Apr 11, 2020 13:59
--- NOTE | 2020-04-11 14:49 | Cardiac Electrophysiology PN ---
Assessment/Plan Assessment/Plan 1. Shortness of breath with COVID pneumonia. Ruled out for [place] On 12 liter VM Urine toxicology screen is negative. EF 65%. On 15 liter VM 2. Hypertension, on Norvasc 5 mg bid and p.r.n. clonidine. 3. COVID pneumonia, on dexamethasone. 4. Diabetes, on insulin. Subjective Subjective BP better on Amlodipine 5 bid. On 12 liter VM but not wearing it consistently Objective Last 24 Hour Vital Signs Date Time Temp Pulse Resp B/P (MAP) Pulse Ox O2 Delivery O2 Flow Rate FiO2 04/11/20 12:00 97.3 94 20 143/91 (108) 95 04/11/20 09:12 97 138/86 04/11/20 09:00 Venturi Mask 12.0 04/11/20 08:00 96.8 97 20 138/86 (103) 97 04/11/20 04:00 97.6 85 18 132/92 (105) 96 04/11/20 00:00 97.6 82 19 145/96 (112) 96 04/10/20 21:00 Venturi Mask 12.0 04/10/20 20:00 98.4 98 20 143/95 (111) 95 04/10/20 17:56 101 133/76 04/10/20 16:00 97.1 101 18 133/76 (95) 99 Intake and Output 04/10/20 04/11/20 19:00 07:00 Intake Total 500 ml 360 ml Output Total 900 ml Balance -400 ml 360 ml Intake Oral 500 ml Other 360 ml Output Urine Total 900 ml # Voids 2 Laboratory Tests Test 04/10/20 20:55 04/11/20 11:21 POC Whole Blood Glucose 334 MG/DL (74-106) H 461 MG/DL (74-106) H Objective HEAD AND NECK: no JVD. LUNGS: Coarse rhonchi. CARDIOVASCULAR: regular S1 and S2 with no gallop. ABDOMEN: Soft. EXTREMITIES: No pitting edema. Brian Olivares MD Apr 11, 2020 14:49
--- NOTE | 2020-04-11 15:26 | NUR ---
NURSE NOTES: patient is feeling anxious. o2sat is 94%to 95% on ventury 12L but patient said that he is not getting enough oxygen. notified and received order seroquel 25mg po q6hr prn. order noted and carried out.
[2020-04-11 16:00] VITALS: BP 131/90
--- NOTE | 2020-04-11 16:53 | NUR ---
CASE MANAGEMENT: REVIEW 04/11/2020 SI:KIRT PNA. VS: T 97.7 HR 108 RR 20 B/P 131/90 SATS 98% ON 12L/VENTURI MASK LABS: NONE TODAY IS:NORVASC PO BID DECADRON IV QD INSULIN ASPART SUBQ AC/HS MED/SURG
--- NOTE | 2020-04-11 17:48 | NUR ---
NURSE NOTES: patient said that he is allergic to black pepper. updated diet do not add black pepper on patient foods and patient's Allergies.
--- NOTE | 2020-04-11 19:19 | NUR ---
NURSE HAND-OFF: Important Events on Shift: new order of [id number] Q6 for anxiety, ventury mask 12L Patient Status: stable, anxious at times. Diet: CCH O medium soft easy chew Pending Orders: [n/a Pending Results/Labs:n/a Pending MD notification:n/a Latest Vital Signs: Temperature 97.7 , Pulse 108 , B/P 131 /90 , Respiratory Rate 20 , O2 SAT 98 , Room Air, O2 Flow Rate 12.0 . Vital Sign Comment: stable Latest Miller Fall Score: 45 Fall Risk: High Risk Safety Measures: Call light Within Reach, Bed Alarm Zone 2, Side Rails Side Rails x2, Bed position Low and Locked. Fall Precautions: Door Sign Patient Fall Education Report given to HALEY Michel.
[2020-04-11 20:00] VITALS: BP 149/98
--- NOTE | 2020-04-11 20:00 | NUR ---
NURSE NOTES: Patient received in bed, awake oriented. On 12L venturi mask, saturating >94%. No cardiorespiratory distress noted at this time. Needs attended. Will continue with plan of care.
--- NOTE | 2020-04-11 20:20 | General Progress Note ---
Subjective ROS Limited/Unobtainable: Yes Allergies: Coded Allergies: Black Pepper (Verified Allergy, Unknown, 04/11/20) Objective Last 24 Hour Vital Signs Date Time Temp Pulse Resp B/P (MAP) Pulse Ox O2 Delivery O2 Flow Rate FiO2 04/11/20 16:59 108 131/90 04/11/20 16:00 97.7 108 20 131/90 (104) 98 04/11/20 12:00 97.3 94 20 143/91 (108) 95 04/11/20 09:12 97 138/86 04/11/20 09:00 Venturi Mask 12.0 04/11/20 08:00 96.8 97 20 138/86 (103) 97 04/11/20 04:00 97.6 85 18 132/92 (105) 96 04/11/20 00:00 97.6 82 19 145/96 (112) 96 04/10/20 21:00 Venturi Mask 12.0 Intake and Output 04/10/20 04/11/20 19:00 07:00 Intake Total 500 ml 360 ml Output Total 900 ml Balance -400 ml 360 ml Intake Oral 500 ml Other 360 ml Output Urine Total 900 ml # Voids 2 Laboratory Tests 04/10/20 20:55: POC Whole Blood Glucose 334H 04/11/20 11:21: POC Whole Blood Glucose 461H Height (Feet): 5 Height (Inches): 4.00 Weight (Pounds): 167 Assessment/Plan Problem List: (1) Hyperglycemia ICD Codes: R73.9 - Hyperglycemia, unspecified SNOMED: 37192473 (2) Dyspnea due to COVID-19 ICD Codes: U07.1 - COVID-19; R06.00 - Dyspnea, unspecified SNOMED: 817467192468866 Status: progressing Assessment/Plan: niddm covid + not hypoxic check sugar afebrile Carlos Oliveira MD Apr 11, 2020 20:20
[2020-04-11] MEDS: Latanoprost 0.005% Opth 2.5ml Soln BOTH EYES SCH (20:30)
[2020-04-11] MEDS: Acetaminophen 500mg (ES) tab ORAL PRN (20:36)
--- NOTE | 2020-04-11 20:58 | Psychiatric Progress Note ---
Psychiatry Progress Note Psychiatry Progress Note Medications Current Medications Medications (Trade) Dose Ordered Sig/Ivett Route PRN Reason Start Time Stop Time Status Last Admin Dose Admin Acetaminophen (Tylenol) 500 mg Q4H PRN ORAL Mild Pain (Pain Scale 1-3) 04/04/20 22:45 05/04/20 22:44 04/11/20 20:36 Acetaminophen (Tylenol) 500 mg Q4H PRN ORAL Temp >100.5 04/04/20 22:45 05/04/20 22:44 Al Hydroxide/Mg Hydroxide (Mylanta) 30 ml Q4H PRN ORAL Abdominal cramps 04/09/20 17:00 05/09/20 16:59 04/09/20 22:16 Amlodipine Besylate (Norvasc) 5 mg BID ORAL 04/07/20 18:00 05/05/20 08:59 04/11/20 16:59 Artificial Tears (Akwa-Tears) 2 drop Q4H PRN BOTH EYES Dry Eyes 04/05/20 14:45 05/05/20 14:44 04/11/20 12:03 Clonidine HCl (Catapres Tab) 0.1 mg PRN PRN ORAL high blood pressure sbp>170 04/04/20 22:45 07/03/20 22:44 04/06/20 04:04 Dexamethasone Sodium Phosphate (Decadron 10mg/ ml Inj) 6 mg DAILY IV 04/05/20 14:00 04/14/20 13:59 04/11/20 09:12 Dextrose (Dextrose 50%) 25 ml Q30M PRN IV Hypoglycemia 04/04/20 22:45 07/03/20 22:44 Dextrose (Dextrose 50%) 50 ml Q30M PRN IV Hypoglycemia 04/04/20 22:45 07/03/20 22:44 Heparin Sodium (Porcine) (Heparin 5000 units/ml) 5,000 units EVERY 12 HOURS SUBQ 04/05/20 09:00 05/20/20 08:59 04/11/20 20:30 Insulin Aspart (NovoLOG) BEFORE MEALS AND HS SUBQ 04/05/20 06:30 07/04/20 06:29 04/11/20 20:30 Latanoprost (Xalatan) 1 drop BEDTIME BOTH EYES 04/06/20 21:00 05/06/20 20:59 04/11/20 20:30 Mirtazapine (Remeron) 7.5 mg BEDTIME ORAL 04/10/20 21:00 07/09/20 20:59 04/11/20 20:29 Ondansetron HCl (Zofran) 4 mg Q6H PRN IVP Nausea & Vomiting 04/04/20 22:45 05/04/20 22:44 04/04/20 23:07 Quetiapine Fumarate (SEROqueL) 25 mg Q6H PRN ORAL For Anxiety 04/11/20 15:45 05/26/20 15:44 04/11/20 15:45 Allergies: Coded Allergies: Black Pepper (Verified Allergy, Unknown, 04/11/20) Objective Data Height (Feet): 5 Height (Inches): 4.00 Weight (Pounds): 167 Additional Comments: MENTAL STATUS EXAMINATION: Alert, oriented times self, place, situation. Mood is anxious. Affect is blunted, congruent with mood. Thought process is concrete. Thought content negative for suicidal, homicidal ideation. Cognition is intact. Insight and judgment is fair. Assessment/Plan Status: progressing Assessment/Plan: ASSESSMENT: [place] I Anxiety disorder. Insomnia. [place] II Deferred. [place] III COVID-19. [place] IV Low. [place] V 50 PLAN: 1. We will start the patient on Remeron. 2. Provide the patient with reality orientation and supportive therapy. Enrique Heath MD Apr 11, 2020 20:58
[2020-04-12] VITALS: BP 130/90
[2020-04-12 04:00] VITALS: BP 133/91
[2020-04-12] MEDS: NovoLOG Insulin Flexpen SUBQ SCH ×4 (06:21→20:40)
--- NOTE | 2020-04-12 07:21 | NUR ---
NURSE NOTES: Report received from HALEY Michel. Pt awake in bed, alert and oriented x 4, no SOB, bed in lowest position breaks engaged and alarm on, denies any pain at this time, IV line present and intact, on venturi at 12 lpm, on contact and droplet precautions for COVID 19, will continue to monitor and proceed with plan of care, call light within reach.
--- NOTE | 2020-04-12 07:23 | NUR ---
NURSE HAND-OFF: Important Events on Shift:[still on venturi mask, requesting for Physical therapy] Patient Status: [stable] Diet: [CCHO Medium soft easy chew] Pending Orders: [n/a] Pending Results/Labs:[] Pending MD notification:[] Latest Vital Signs: Temperature 98.6 , Pulse 98 , B/P 133 /91 , Respiratory Rate 18 , O2 SAT 95 , Room Air, O2 Flow Rate 12.0 . Vital Sign Comment: [] Latest Miller Fall Score: 45 Fall Risk: High Risk Safety Measures: Call light Within Reach, Bed Alarm Zone 2, Side Rails Side Rails x2, Bed position Low and Locked. Fall Precautions: Door Sign Patient Fall Education Report given to [Kevin ALBARADO RN].
[2020-04-12 08:00] VITALS: BP 150/91
--- NOTE | 2020-04-12 08:41 | Pulmonology Progress Note ---
Subjective ROS Limited/Unobtainable: Yes Interval Events: remains on 12L via Venuri mask Constitutional: Reports: no symptoms HEENT: Repors: no symptoms Respiratory: Reports: dry cough, dyspnea on exertion Cardiovascular: Reports: no symptoms Gastrointestinal/Abdominal: Reports: no symptoms Psychiatric: Reports: other - anxiety Musculoskeletal: Denies: pain Allergies: Coded Allergies: Black Pepper (Verified Allergy, Unknown, 04/11/20) Objective Last 24 Hour Vital Signs Date Time Temp Pulse Resp B/P (MAP) Pulse Ox O2 Delivery O2 Flow Rate FiO2 04/12/20 04:00 98.6 98 18 133/91 (105) 95 04/12/20 00:00 98.1 94 18 130/90 (103) 96 04/11/20 21:00 Venturi Mask 12.0 04/11/20 20:00 98.6 105 18 149/98 (115) 98 04/11/20 16:59 108 131/90 04/11/20 16:00 97.7 108 20 131/90 (104) 98 04/11/20 12:00 97.3 94 20 143/91 (108) 95 04/11/20 09:12 97 138/86 04/11/20 09:00 Venturi Mask 12.0 Intake and Output 04/11/20 04/12/20 19:00 07:00 Intake Total 480 ml 600 ml Output Total 300 ml 1450 ml Balance 180 ml -850 ml Intake Oral 480 ml 600 ml Output Urine Total 300 ml 1450 ml Objective 04/12 saturating at 95% on 12L Venturi mask 04/11 saturating at 96% on 12L Venturi mask 04/10 saturating at 95% on 12L Venturi mask 04/09 remains on 12L Venturi mask, saturating at 92-94% 04/08 pt desaturated on nasal oxygen and now on 12L oxygen via Venturi mask saturating at 94-95% 04/07 currently saturating at 95% on 4L NC General Appearance: WD/WN, no acute distress HEENT: normocephalic, atraumatic Respiratory: lungs clear Cardiovascular: normal rate, regular rhythm Abdomen: soft, non tender Extremities: no edema Laboratory Tests 04/11/20 11:21: POC Whole Blood Glucose 461H Current Medications Medications (Trade) Dose Ordered Sig/Ivett Route PRN Reason Start Time Stop Time Status Last Admin Dose Admin Acetaminophen (Tylenol) 500 mg Q4H PRN ORAL Mild Pain (Pain Scale 1-3) 04/04/20 22:45 05/04/20 22:44 04/11/20 20:36 Acetaminophen (Tylenol) 500 mg Q4H PRN ORAL Temp >100.5 04/04/20 22:45 05/04/20 22:44 Al Hydroxide/Mg Hydroxide (Mylanta) 30 ml Q4H PRN ORAL Abdominal cramps 04/09/20 17:00 05/09/20 16:59 04/09/20 22:16 Amlodipine Besylate (Norvasc) 5 mg BID ORAL 04/07/20 18:00 05/05/20 08:59 04/11/20 16:59 Artificial Tears (Akwa-Tears) 2 drop Q4H PRN BOTH EYES Dry Eyes 04/05/20 14:45 05/05/20 14:44 04/11/20 12:03 Clonidine HCl (Catapres Tab) 0.1 mg PRN PRN ORAL high blood pressure sbp>170 04/04/20 22:45 07/03/20 22:44 04/06/20 04:04 Dexamethasone Sodium Phosphate (Decadron 10mg/ ml Inj) 6 mg DAILY IV 04/05/20 14:00 04/14/20 13:59 04/11/20 09:12 Dextrose (Dextrose 50%) 25 ml Q30M PRN IV Hypoglycemia 04/04/20 22:45 07/03/20 22:44 Dextrose (Dextrose 50%) 50 ml Q30M PRN IV Hypoglycemia 04/04/20 22:45 07/03/20 22:44 Heparin Sodium (Porcine) (Heparin 5000 units/ml) 5,000 units EVERY 12 HOURS SUBQ 04/05/20 09:00 05/20/20 08:59 04/11/20 20:30 Insulin Aspart (NovoLOG) BEFORE MEALS AND HS SUBQ 04/05/20 06:30 07/04/20 06:29 04/12/20 06:21 Latanoprost (Xalatan) 1 drop BEDTIME BOTH EYES 04/06/20 21:00 05/06/20 20:59 04/11/20 20:30 Mirtazapine (Remeron) 7.5 mg BEDTIME ORAL 04/10/20 21:00 07/09/20 20:59 04/11/20 20:29 Ondansetron HCl (Zofran) 4 mg Q6H PRN IVP Nausea & Vomiting 04/04/20 22:45 05/04/20 22:44 04/04/20 23:07 Quetiapine Fumarate (SEROqueL) 25 mg Q6H PRN ORAL For Anxiety 04/11/20 15:45 05/26/20 15:44 04/11/20 15:45 Assessment/Plan Assessment/Plan 1. COVID-19 Bilateral pneumonia. - pt received a dose of Bamlanimab in ER - Continue monitoring for hypoxia; cont supplemental oxygen - Currently saturating at 95% on 12L Venturi mask - Continue decadron - Defer use of remdesivir to ID specialist. 2. Hypertension. - on amlodipine and prn clonidine - in control 3. Diabetes mellitus. - on Novolog - pt is on steroids Continue home meds; pt reports hx of HIV and takes HIV meds at home; pt unable to recall exact names or doses of the two meds; they need to be continued unless contraindicated Pt was offered to have his family bring his home medications but he reports that is not plausible; defer to ID for management Insomnia - pt c/o persistent insomnia since admission without hx of insomnia - management per primary MD Anxiety - now on mirtazapine and Seroquel per psych We will follow carefully. The care for this patient was discussed with my supervising physician Time spent for this case was approximately 31 minutes Neo Montalvo Apr 12, 2020 08:40
[2020-04-12] MEDS: dexAMETHasone 10mg/ml Inj IV SCH (09:31)
[2020-04-12] MEDS: Acetaminophen 500mg (ES) tab ORAL PRN ×2 (09:32→20:42)
[2020-04-12] MEDS: Heparin 5000 units/ml inj SUBQ SCH ×2 (09:33→20:23)
--- NOTE | 2020-04-12 11:46 | NUR ---
CASE MANAGEMENT: REVIEW 04/12/2020 SI:COVID PNA. VS: T 97.1 HR 96 RR 18 B/P 150/91 SATS 99% ON 12L/VENTURI MASK LABS: GLU 328 IS:NORVASC PO BID DECADRON IV QD INSULIN ASPART SUBQ AC/HS MED/SURG
[2020-04-12 12:00] VITALS: BP 151/91
--- NOTE | 2020-04-12 14:51 | Infectious Diseases Prog Note ---
Assessment/Plan Assessment/Plan IMPRESSION: COVID-19 pneumonia. HIV Hypoxemia worse SOB on exertion. Diabetes mellitus with hyperglycemia, Hypertension. RECOMMENDATIONS: Continue dexamethasone. Got a dose of Bamlanivimab in ER. Subjective ROS Limited/Unobtainable: No Constitutional: Reports: no symptoms Respiratory: Reports: no symptoms Cardiovascular: Reports: no symptoms Gastrointestinal/Abdominal: Reports: no symptoms Genitourinary: Reports: no symptoms Allergies: Coded Allergies: Black Pepper (Verified Allergy, Unknown, 04/11/20) Objective Last 24 Hour Vital Signs Date Time Temp Pulse Resp B/P (MAP) Pulse Ox O2 Delivery O2 Flow Rate FiO2 04/12/20 12:00 97.4 94 18 151/91 (111) 94 04/12/20 10:02 98.6 04/12/20 09:31 98 150/91 04/12/20 09:00 Venturi Mask 12.0 04/12/20 08:00 97.1 96 18 150/91 (110) 99 04/12/20 04:00 98.6 98 18 133/91 (105) 95 04/12/20 00:00 98.1 94 18 130/90 (103) 96 04/11/20 21:00 Venturi Mask 12.0 04/11/20 20:00 98.6 105 18 149/98 (115) 98 04/11/20 16:59 108 131/90 04/11/20 16:00 97.7 108 20 131/90 (104) 98 Height (Feet): 5 Height (Inches): 4.00 Weight (Pounds): 167 General Appearance: no acute distress HEENT: mucous membranes moist Respiratory/Chest: other - oxygen by venturi mask Cardiovascular: normal rate Abdomen: soft, non tender Extremities: no edema Neurologic/Psychiatric: alert, oriented x 3, responsive Laboratory Tests Test 04/12/20 11:36 POC Whole Blood Glucose 328 MG/DL (74-106) H Current Medications Medications (Trade) Dose Ordered Sig/Ivett Route PRN Reason Start Time Stop Time Status Last Admin Dose Admin Acetaminophen (Tylenol) 500 mg Q4H PRN ORAL Mild Pain (Pain Scale 1-3) 04/04/20 22:45 05/04/20 22:44 04/12/20 09:32 Acetaminophen (Tylenol) 500 mg Q4H PRN ORAL Temp >100.5 04/04/20 22:45 05/04/20 22:44 Al Hydroxide/Mg Hydroxide (Mylanta) 30 ml Q4H PRN ORAL Abdominal cramps 04/09/20 17:00 05/09/20 16:59 04/09/20 22:16 Amlodipine Besylate (Norvasc) 5 mg BID ORAL 04/07/20 18:00 05/05/20 08:59 04/12/20 09:31 Artificial Tears (Akwa-Tears) 2 drop Q4H PRN BOTH EYES Dry Eyes 04/05/20 14:45 05/05/20 14:44 04/11/20 12:03 Clonidine HCl (Catapres Tab) 0.1 mg PRN PRN ORAL high blood pressure sbp>170 04/04/20 22:45 07/03/20 22:44 04/06/20 04:04 Dexamethasone Sodium Phosphate (Decadron 10mg/ ml Inj) 6 mg DAILY IV 04/05/20 14:00 04/14/20 13:59 04/12/20 09:31 Dextrose (Dextrose 50%) 25 ml Q30M PRN IV Hypoglycemia 04/04/20 22:45 07/03/20 22:44 Dextrose (Dextrose 50%) 50 ml Q30M PRN IV Hypoglycemia 04/04/20 22:45 07/03/20 22:44 Heparin Sodium (Porcine) (Heparin 5000 units/ml) 5,000 units EVERY 12 HOURS SUBQ 04/05/20 09:00 05/20/20 08:59 04/12/20 09:33 Insulin Aspart (NovoLOG) BEFORE MEALS AND HS SUBQ 04/05/20 06:30 07/04/20 06:29 04/12/20 11:39 Latanoprost (Xalatan) 1 drop BEDTIME BOTH EYES 04/06/20 21:00 05/06/20 20:59 04/11/20 20:30 Mirtazapine (Remeron) 7.5 mg BEDTIME ORAL 04/10/20 21:00 07/09/20 20:59 04/11/20 20:29 Ondansetron HCl (Zofran) 4 mg Q6H PRN IVP Nausea & Vomiting 04/04/20 22:45 05/04/20 22:44 04/04/20 23:07 Quetiapine Fumarate (SEROqueL) 25 mg Q6H PRN ORAL For Anxiety 04/11/20 15:45 05/26/20 15:44 04/11/20 15:45 Jarred Nuñez MD Apr 12, 2020 14:51
--- NOTE | 2020-04-12 15:12 | General Progress Note ---
Subjective ROS Limited/Unobtainable: Yes Allergies: Coded Allergies: Black Pepper (Verified Allergy, Unknown, 04/11/20) Objective Last 24 Hour Vital Signs Date Time Temp Pulse Resp B/P (MAP) Pulse Ox O2 Delivery O2 Flow Rate FiO2 04/12/20 12:00 97.4 94 18 151/91 (111) 94 04/12/20 10:02 98.6 04/12/20 09:31 98 150/91 04/12/20 09:00 Venturi Mask 12.0 04/12/20 08:00 97.1 96 18 150/91 (110) 99 04/12/20 04:00 98.6 98 18 133/91 (105) 95 04/12/20 00:00 98.1 94 18 130/90 (103) 96 04/11/20 21:00 Venturi Mask 12.0 04/11/20 20:00 98.6 105 18 149/98 (115) 98 04/11/20 16:59 108 131/90 04/11/20 16:00 97.7 108 20 131/90 (104) 98 Intake and Output 04/11/20 04/12/20 19:00 07:00 Intake Total 480 ml 600 ml Output Total 300 ml 1450 ml Balance 180 ml -850 ml Intake Oral 480 ml 600 ml Output Urine Total 300 ml 1450 ml Laboratory Tests 04/12/20 11:36: POC Whole Blood Glucose 328H Height (Feet): 5 Height (Inches): 4.00 Weight (Pounds): 167 Assessment/Plan Problem List: (1) Hyperglycemia ICD Codes: R73.9 - Hyperglycemia, unspecified SNOMED: [id number] (2) Dyspnea due to COVID-19 ICD Codes: U07.1 - COVID-19; R06.00 - Dyspnea, unspecified SNOMED: 349051758844369 Status: progressing Assessment/Plan: niddm covid + resp insuff prn supportive rx check sugar Carlos Oliveira MD Apr 12, 2020 15:12
[2020-04-12 16:00] VITALS: BP 141/79
--- NOTE | 2020-04-12 16:06 | NUR ---
PT Note Attempted to see patient for eval/tx but patient requested to defer PT today, initiate in AM.
--- NOTE | 2020-04-12 19:27 | NUR ---
NURSE HAND-OFF: Important Events on Shift:[pain management, monitoring vitals] Patient Status: [stable] Diet: [CCHO soft easy chew] Pending Orders: [] Pending Results/Labs:[] Pending MD notification:[] Latest Vital Signs: Temperature 97.7 , Pulse 87 , B/P 141 /79 , Respiratory Rate 18 , O2 SAT 96 , Room Air, O2 Flow Rate 12.0 . Vital Sign Comment: [] Latest Miller Fall Score: 45 Fall Risk: High Risk Safety Measures: Call light Within Reach, Bed Alarm Zone 2, Side Rails Side Rails x2, Bed position Low and Locked. Fall Precautions: Door Sign Patient Fall Education Report given to [HALEY Ribera].
--- NOTE | 2020-04-12 19:33 | NUR ---
NURSE NOTES: Received report & pt from HALEY Fuller. Pt in bed, a&ox4, in room air. No s/s of acute distress & c/o 06/18 headache pain. Requesting Tylenol for mild pain; will administer. IV site intact & S/L'd. Plan of care discussed. Addendum: 04/12/20 at 2245 by Mounika Ramírez RN Pt on venturi mask @ 12L/min
--- NOTE | 2020-04-12 19:41 | Cardiac Electrophysiology PN ---
Assessment/Plan Assessment/Plan 1. Shortness of breath with COVID pneumonia. Ruled out for PA On 12 liter VM Urine toxicology screen is negative. EF 65%. On 15 liter VM 2. Hypertension, on Norvasc 5 mg bid and p.r.n. clonidine. 3. COVID pneumonia, on dexamethasone. 4. Diabetes, on insulin. Subjective Subjective BP better on Amlodipine 5 bid. On 12 liter VM. IN SR with no events Objective Last 24 Hour Vital Signs Date Time Temp Pulse Resp B/P (MAP) Pulse Ox O2 Delivery O2 Flow Rate FiO2 04/12/20 17:02 87 141/79 04/12/20 16:00 97.7 87 18 141/79 (99) 96 04/12/20 12:00 97.4 94 18 151/91 (111) 94 04/12/20 10:02 98.6 04/12/20 09:31 98 150/91 04/12/20 09:00 Venturi Mask 12.0 04/12/20 08:00 97.1 96 18 150/91 (110) 99 04/12/20 04:00 98.6 98 18 133/91 (105) 95 04/12/20 00:00 98.1 94 18 130/90 (103) 96 04/11/20 21:00 Venturi Mask 12.0 04/11/20 20:00 98.6 105 18 149/98 (115) 98 Intake and Output 04/11/20 04/12/20 19:00 07:00 Intake Total 480 ml 600 ml Output Total 300 ml 1450 ml Balance 180 ml -850 ml Intake Oral 480 ml 600 ml Output Urine Total 300 ml 1450 ml Laboratory Tests Test 04/12/20 11:36 POC Whole Blood Glucose 328 MG/DL (74-106) H Objective HEAD AND NECK: no JVD. LUNGS: Coarse rhonchi. CARDIOVASCULAR: regular S1 and S2 with no gallop. ABDOMEN: Soft. EXTREMITIES: No pitting edema. Brian Olivares MD Apr 12, 2020 19:41
[2020-04-12 20:00] VITALS: BP 150/81
[2020-04-12] MEDS: Latanoprost 0.005% Opth 2.5ml Soln BOTH EYES SCH (20:25)
[2020-04-13] VITALS: BP 125/86
[2020-04-13 04:00] VITALS: BP 130/85
[2020-04-13] MEDS: NovoLOG Insulin Flexpen SUBQ SCH ×4 (05:35→20:34)
--- NOTE | 2020-04-13 06:44 | NUR ---
NURSE HAND-OFF: Important Events on Shift:saturating 91-96% via venturi mask @ 12LPM; anxious at beginning of shift; able to sleep Patient Status: stable Diet: ccho (m) soft easy chew Pending Orders: Pending Results/Labs: Pending MD notification: Latest Vital Signs: Temperature 97.9 , Pulse 90 , B/P 130 /85 , Respiratory Rate 18 , O2 SAT 92 , Room Air, O2 Flow Rate 12.0 . Vital Sign Comment: Latest Miller Fall Score: 45 Fall Risk: High Risk Safety Measures: Call light Within Reach, Bed Alarm Zone 2, Side Rails Side Rails x2, Bed position Low and Locked. Fall Precautions: Door Sign Patient Fall Education Report given to HALEY Alvarado.
[2020-04-13 08:00] VITALS: BP 135/75
[2020-04-13] MEDS: dexAMETHasone 10mg/ml Inj IV SCH (08:34)
[2020-04-13] MEDS: Heparin 5000 units/ml inj SUBQ SCH ×2 (08:36→20:34)
[2020-04-13] MEDS ORDERED: Bisacodyl EC 5mg tab ORAL PRN (10:45)
--- NOTE | 2020-04-13 11:29 | Pulmonology Progress Note ---
Subjective ROS Limited/Unobtainable: Yes Interval Events: remains on 12L via Venuri mask; breathing better Constitutional: Reports: no symptoms HEENT: Repors: no symptoms Respiratory: Reports: dry cough, dyspnea on exertion Cardiovascular: Reports: no symptoms Gastrointestinal/Abdominal: Reports: no symptoms Psychiatric: Reports: other - anxiety Musculoskeletal: Denies: pain Allergies: Coded Allergies: Black Pepper (Verified Allergy, Unknown, 04/11/20) Objective Last 24 Hour Vital Signs Date Time Temp Pulse Resp B/P (MAP) Pulse Ox O2 Delivery O2 Flow Rate FiO2 04/13/20 09:00 Venturi Mask 12.0 04/13/20 08:34 105 137/75 04/13/20 08:00 98.4 105 21 135/75 (95) 97 04/13/20 04:00 97.9 90 18 130/85 (100) 92 04/13/20 00:00 97.8 92 18 125/86 (99) 94 04/12/20 21:00 Venturi Mask 12.0 04/12/20 20:00 98.0 103 20 150/81 (104) 94 04/12/20 17:02 87 141/79 04/12/20 16:00 97.7 87 18 141/79 (99) 96 04/12/20 12:00 97.4 94 18 151/91 (111) 94 Intake and Output 04/12/20 04/13/20 19:00 07:00 Intake Total 400 ml 550 ml Output Total 900 ml 750 ml Balance -500 ml -200 ml Intake Oral 400 ml 550 ml Output Urine Total 900 ml 750 ml # Voids 5 Objective 04/13 saturating at 97% on 12L Venturi mask 04/12 saturating at 95% on 12L Venturi mask 04/11 saturating at 96% on 12L Venturi mask 04/10 saturating at 95% on 12L Venturi mask 04/09 remains on 12L Venturi mask, saturating at 92-94% 04/08 pt desaturated on nasal oxygen and now on 12L oxygen via Venturi mask saturating at 94-95% 04/07 currently saturating at 95% on 4L NC General Appearance: WD/WN, no acute distress HEENT: normocephalic, atraumatic Respiratory: lungs clear Cardiovascular: normal rate, regular rhythm Abdomen: soft, non tender Extremities: no edema Laboratory Tests 04/12/20 11:36: POC Whole Blood Glucose 328H 04/12/20 20:32: POC Whole Blood Glucose 395H 04/13/20 05:34: POC Whole Blood Glucose 267H Current Medications Medications (Trade) Dose Ordered Sig/Ivett Route PRN Reason Start Time Stop Time Status Last Admin Dose Admin Acetaminophen (Tylenol) 500 mg Q4H PRN ORAL Mild Pain (Pain Scale 1-3) 04/04/20 22:45 05/04/20 22:44 04/12/20 20:42 Acetaminophen (Tylenol) 500 mg Q4H PRN ORAL Temp >100.5 04/04/20 22:45 05/04/20 22:44 Al Hydroxide/Mg Hydroxide (Mylanta) 30 ml Q4H PRN ORAL Abdominal cramps 04/09/20 17:00 05/09/20 16:59 04/09/20 22:16 Amlodipine Besylate (Norvasc) 5 mg BID ORAL 04/07/20 18:00 05/05/20 08:59 04/13/20 08:34 Artificial Tears (Akwa-Tears) 2 drop Q4H PRN BOTH EYES Dry Eyes 04/05/20 14:45 05/05/20 14:44 04/11/20 12:03 Bisacodyl (Dulcolax) 10 mg DAILY PRN ORAL Constipation 04/13/20 10:45 07/12/20 10:44 Clonidine HCl (Catapres Tab) 0.1 mg PRN PRN ORAL high blood pressure sbp>170 04/04/20 22:45 07/03/20 22:44 04/06/20 04:04 Dexamethasone Sodium Phosphate (Decadron 10mg/ ml Inj) 6 mg DAILY IV 04/05/20 14:00 04/14/20 13:59 04/13/20 08:34 Dextrose (Dextrose 50%) 25 ml Q30M PRN IV Hypoglycemia 04/04/20 22:45 07/03/20 22:44 Dextrose (Dextrose 50%) 50 ml Q30M PRN IV Hypoglycemia 04/04/20 22:45 07/03/20 22:44 Docusate Sodium (Colace) 100 mg TWICE A DAY ORAL 04/13/20 18:00 05/13/20 17:59 Heparin Sodium (Porcine) (Heparin 5000 units/ml) 5,000 units EVERY 12 HOURS SUBQ 04/05/20 09:00 05/20/20 08:59 04/13/20 08:36 Insulin Aspart (NovoLOG) BEFORE MEALS AND HS SUBQ 04/05/20 06:30 07/04/20 06:29 04/13/20 05:35 Latanoprost (Xalatan) 1 drop BEDTIME BOTH EYES 04/06/20 21:00 05/06/20 20:59 04/12/20 20:25 Magnesium Hydroxide (Mom) 30 ml Q4HR PRN ORAL Constipation 04/13/20 10:45 05/13/20 10:44 Mirtazapine (Remeron) 7.5 mg BEDTIME ORAL 04/10/20 21:00 07/09/20 20:59 04/12/20 20:21 Ondansetron HCl (Zofran) 4 mg Q6H PRN IVP Nausea & Vomiting 04/04/20 22:45 05/04/20 22:44 04/04/20 23:07 Quetiapine Fumarate (SEROqueL) 25 mg Q6H PRN ORAL For Anxiety 04/11/20 15:45 05/26/20 15:44 04/11/20 15:45 Sennosides (Senokot) 8.6 mg DAILY PRN ORAL Constipation 04/13/20 10:45 05/13/20 10:44 Assessment/Plan Assessment/Plan 1. COVID-19 Bilateral pneumonia. - pt received a dose of Bamlanimab in ER - Continue monitoring for hypoxia; cont supplemental oxygen - Currently saturating at 97% on 12L Venturi mask; will wean down as tolerated - Continue decadron - Defer use of remdesivir to ID specialist. 2. Hypertension. - on amlodipine and prn clonidine - in control 3. Diabetes mellitus. - on Novolog - pt is on steroids Continue home meds; pt reports hx of HIV and takes HIV meds at home; pt unable to recall exact names or doses of the two meds; they need to be continued unless contraindicated Pt was offered to have his family bring his home medications but he reports that is not plausible; defer to ID for management Insomnia - pt c/o persistent insomnia since admission without hx of insomnia - management per primary MD Anxiety - now on mirtazapine and Seroquel per psych We will follow carefully. The care for this patient was discussed with my supervising physician Time spent for this case was approximately 31 minutes Neo Montalvo Apr 13, 2020 11:29
[2020-04-13 12:00] VITALS: BP 131/79
--- NOTE | 2020-04-13 14:49 | General Progress Note ---
Subjective Date patient seen: Apr 13, 2020 Time patient seen: 02:45 - pm Allergies: Coded Allergies: Black Pepper (Verified Allergy, Unknown, 04/11/20) Subjective HISTORY OF PRESENT ILLNESS: The patient is a 59-year-old male who is being seen on the medical/surgical floor of [facility]. In bed no signs of pain or distress. REVIEW OF SYSTEMS: Denies rash, fever, chills, sweating, dizziness, drowsiness, blurred vision, sore throat, or change in weight. No nausea, vomiting, diarrhea, or blood in the stool or urine. No dysuria. Objective Last 24 Hour Vital Signs Date Time Temp Pulse Resp B/P (MAP) Pulse Ox O2 Delivery O2 Flow Rate FiO2 04/13/20 12:00 97.5 99 21 131/79 (96) 94 04/13/20 09:00 Venturi Mask 12.0 04/13/20 08:34 105 137/75 04/13/20 08:00 98.4 105 21 135/75 (95) 97 04/13/20 04:00 97.9 90 18 130/85 (100) 92 04/13/20 00:00 97.8 92 18 125/86 (99) 94 04/12/20 21:00 Venturi Mask 12.0 04/12/20 20:00 98.0 103 20 150/81 (104) 94 04/12/20 17:02 87 141/79 04/12/20 16:00 97.7 87 18 141/79 (99) 96 Intake and Output 04/12/20 04/13/20 19:00 07:00 Intake Total 400 ml 550 ml Output Total 900 ml 750 ml Balance -500 ml -200 ml Intake Oral 400 ml 550 ml Output Urine Total 900 ml 750 ml # Voids 5 Laboratory Tests 04/12/20 20:32: POC Whole Blood Glucose 395H 04/13/20 05:34: POC Whole Blood Glucose 267H 04/13/20 11:31: POC Whole Blood Glucose 338H Height (Feet): 5 Height (Inches): 4.00 Weight (Pounds): 167 Objective PHYSICAL EXAMINATION: GENERAL: Alert, awake, and oriented. LUNGS: Decreased breath sounds bilaterally. HEART: S1 and S2 regular. ABDOMEN: Soft and nontender. EXTREMITIES: No cyanosis. No clubbing. NEURO: No changes. Assessment/Plan Status: progressing Assessment/Plan: (1) Degenerative joint disease (2) Myalgia/ Arthralgia (3) Covid 19+ Patient to be continued on the Tylenol. D/w Dr. Maxwell and he concurred. Josse Hernandez Apr 13, 2020 14:49
[2020-04-13 16:00] VITALS: BP 136/78
--- NOTE | 2020-04-13 16:20 | CDS Physician Query ---
Clarification is required for compliance, coding accuracy, and to reflect severity of illness for this patient Dear Dr. Carlos Oliveira M.D Date: 04/13/2020 Prospecting Driller/CDS Name: TUTU BELLO Clinical Documentation States: 59 YOP comes in with symptoms of respiratory symptoms of shortness of breath and cough. Patient has been having shortness of breath. Denies fever, chills. Has cough as well. Patient has hypertension and diabetes. Denies nausea, vomiting, or diarrhea. Has poor appetite and is admitted for COVID positive pneumonia. [ H&P Carlos Oliveira M.D. 04/05/20] ASSESSMENT AND PLAN: COVID positive pneumonia, respiratory insufficiency. NUTRITION DIAGNOSIS: Altered nutrition related lab values r/t diabetes as evidenced by elev BG (217-287), Uglu 4+ on adm, elev POC (263-334). DAILY ESTIMATED NEEDS: Needs based on Pulmonary, HIV 63.3kg abw Maegan Mckeon, RD Date: 04/08/20 08:36 Type: Nutrition Notes Clinical Finding Show: LABORATORY DATA: WBC of 9.7, hemoglobin 16.8, platelets of 231. Sodium 140, potassium of 4.9, BUN of 31, creatinine of 1, glucose of 287. Lipase of 231. BMI: 28.7kg/m2 LAB (04/04) : Chem: Albumin 2.9 [3.4-5.0], Calcium lv. 9.7, Lymphocytes: 0.912 k/ul Please select the most appropriate option: [] Protein/Calorie Malnutrition [] Mild [] Moderate [] Severe [] Other [] Unable to determine [] Not Applicable Present on Admission: [] Yes [] No [] Clinically Undetermined Physician signature Date Please also document in your Progress Notes and/or Discharge Summary and indicate if the condition was present on admission. MTDD
[2020-04-13] MEDS: Milk of Magnesia 30ml Ud ORAL PRN (17:00)
[2020-04-13] MEDS: Docusate 100mg cap ORAL SCH (17:09)
--- NOTE | 2020-04-13 17:49 | Cardiac Electrophysiology PN ---
Assessment/Plan Assessment/Plan 1. Shortness of breath with COVID pneumonia. Ruled out for IN On 15 liter VM but noncompliant Urine toxicology screen is negative. EF 65%. 2. Hypertension, on Norvasc 5 mg bid and p.r.n. clonidine. 3. COVID pneumonia, on dexamethasone. 4. Diabetes, on insulin. Subjective Subjective BP better on Amlodipine 5 bid. On 15 liter VM but not wearing it consistently. IN SR with no events Objective Last 24 Hour Vital Signs Date Time Temp Pulse Resp B/P (MAP) Pulse Ox O2 Delivery O2 Flow Rate FiO2 04/13/20 17:00 88 136/78 04/13/20 16:00 97.4 88 18 136/78 (97) 94 04/13/20 12:00 97.5 99 21 131/79 (96) 94 04/13/20 09:00 Venturi Mask 12.0 04/13/20 08:34 105 137/75 04/13/20 08:00 98.4 105 21 135/75 (95) 97 04/13/20 04:00 97.9 90 18 130/85 (100) 92 04/13/20 00:00 97.8 92 18 125/86 (99) 94 04/12/20 21:00 Venturi Mask 12.0 04/12/20 20:00 98.0 103 20 150/81 (104) 94 Intake and Output 04/12/20 04/13/20 19:00 07:00 Intake Total 400 ml 550 ml Output Total 900 ml 750 ml Balance -500 ml -200 ml Intake Oral 400 ml 550 ml Output Urine Total 900 ml 750 ml # Voids 5 Laboratory Tests Test 04/12/20 20:32 04/13/20 05:34 04/13/20 11:31 POC Whole Blood Glucose 395 MG/DL (74-106) H 267 MG/DL (74-106) H 338 MG/DL (74-106) H Objective HEAD AND NECK: no JVD. LUNGS: Coarse rhonchi. CARDIOVASCULAR: regular S1 and S2 with no gallop. ABDOMEN: Soft. EXTREMITIES: No pitting edema. Brian Olivares MD Apr 13, 2020 17:49
--- NOTE | 2020-04-13 19:07 | NUR ---
NURSE HAND-OFF: Important Events on Shift: Patient Status: full code/stable Diet: CCHO medium, easy chew diet Pending Orders: Pending Results/Labs:am labs Pending MD notification:[] Latest Vital Signs: Temperature 97.4 , Pulse 88 , B/P 136 /78 , Respiratory Rate 18 , O2 SAT 94 , Room Air, O2 Flow Rate 12.0 . Vital Sign Comment: stable Latest Miller Fall Score: 45 Fall Risk: High Risk Safety Measures: Call light Within Reach, Bed Alarm Zone 2, Side Rails Side Rails x2, Bed position Low and Locked. Fall Precautions: Door Sign Patient Fall Education Report given to Beronica DE LEON, pt in stable condition. - during my shift pt is none compliant in keeping the mask on. pt was educated in the importance of keeping it on. pt verbalized understanding. - pending PT eval/tx. - stool softener given milk of magnesia and docusate. pending BM.
--- NOTE | 2020-04-13 19:35 | NUR ---
NURSE NOTES: Received report from billie wang. patient on bed,awake and verbally responsive. on venturi mask of 12 lpm sating 94%. no sob. denies any pain or discomfort at the moment. per kathleen, " last bm was 04/05 , stool softeners was done and with new orders of stool softener received". uses urinal. iv access on the right ac, saline lock. reiterated to call and ask for assistance to prevent fall or injury. bed locked and lowest position. call light and light button within easy reach. will continue plan of care.
[2020-04-13 20:00] VITALS: BP 145/78
[2020-04-13] MEDS: Latanoprost 0.005% Opth 2.5ml Soln BOTH EYES SCH (20:32)
--- NOTE | 2020-04-13 22:34 | General Progress Note ---
Subjective ROS Limited/Unobtainable: Yes Allergies: Coded Allergies: Black Pepper (Verified Allergy, Unknown, 04/11/20) Objective Last 24 Hour Vital Signs Date Time Temp Pulse Resp B/P (MAP) Pulse Ox O2 Delivery O2 Flow Rate FiO2 04/13/20 21:00 Venturi Mask 12.0 04/13/20 20:00 97.5 92 20 145/78 (100) 96 04/13/20 17:00 88 136/78 04/13/20 16:00 97.4 88 18 136/78 (97) 94 04/13/20 12:00 97.5 99 21 131/79 (96) 94 04/13/20 09:00 Venturi Mask 12.0 04/13/20 08:34 105 137/75 04/13/20 08:00 98.4 105 21 135/75 (95) 97 04/13/20 04:00 97.9 90 18 130/85 (100) 92 04/13/20 00:00 97.8 92 18 125/86 (99) 94 Intake and Output 04/12/20 04/13/20 19:00 07:00 Intake Total 400 ml 550 ml Output Total 900 ml 750 ml Balance -500 ml -200 ml Intake Oral 400 ml 550 ml Output Urine Total 900 ml 750 ml # Voids 5 Laboratory Tests 04/13/20 05:34: POC Whole Blood Glucose 267H 04/13/20 11:31: POC Whole Blood Glucose 338H 04/13/20 16:55: POC Whole Blood Glucose [Pending] Height (Feet): 5 Height (Inches): 4.00 Weight (Pounds): 167 Assessment/Plan Problem List: (1) Hyperglycemia ICD Codes: R73.9 - Hyperglycemia, unspecified SNOMED: 36084207 (2) Dyspnea due to COVID-19 ICD Codes: U07.1 - COVID-19; R06.00 - Dyspnea, unspecified SNOMED: 431794115860204 Status: progressing Assessment/Plan: niddm covid + resp insuff sugar improving reviewed chart and labs afebrile Carlos Oliveira MD Apr 13, 2020 22:34
[2020-04-14] VITALS: BP 121/85
[2020-04-14 04:00] VITALS: BP 134/84
[2020-04-14] MEDS: NovoLOG Insulin Flexpen SUBQ SCH ×4 (05:42→20:51)
--- NOTE | 2020-04-14 06:47 | NUR ---
NURSE HAND-OFF: Important Events on Shift:o2 care; Patient Status: stable Diet: ccho Pending Orders: Pending Results/Labs: Pending MD notification: Latest Vital Signs: Temperature 97.5 , Pulse 93 , B/P 134 /84 , Respiratory Rate 18 , O2 SAT 94 , Room Air, O2 Flow Rate 12.0 . Vital Sign Comment: Latest Miller Fall Score: 45 Fall Risk: High Risk Safety Measures: Call light Within Reach, Bed Alarm Zone 2, Side Rails Side Rails x2, Bed position Low and Locked. Fall Precautions: Door Sign Patient Fall Education Addendum: 04/14/20 at 0732 by Marelne Portillo RN HAND-OFF: Report given to billie castorena.
--- NOTE | 2020-04-14 07:00 | NUR ---
NURSE NOTES: Received report from HALEY Loco. Rounding done. Pt a/o x 4. No SOB noted with 12L/min. Denies any pain at this time. Rt AC IV access is patent. Bed in lowest position, call light within reach. Will continue to monitor.
[2020-04-14 08:00] VITALS: BP 140/56
--- NOTE | 2020-04-14 09:01 | Pulmonology Progress Note ---
Subjective ROS Limited/Unobtainable: Yes Interval Events: remains on 12L via Venuri mask; breathing better Constitutional: Reports: no symptoms HEENT: Repors: no symptoms Respiratory: Reports: dry cough, dyspnea on exertion Cardiovascular: Reports: no symptoms Gastrointestinal/Abdominal: Reports: no symptoms Psychiatric: Reports: other - anxiety Musculoskeletal: Denies: pain Allergies: Coded Allergies: Black Pepper (Verified Allergy, Unknown, 04/11/20) Objective Last 24 Hour Vital Signs Date Time Temp Pulse Resp B/P (MAP) Pulse Ox O2 Delivery O2 Flow Rate FiO2 04/14/20 08:00 98.7 101 23 140/56 (84) 93 04/14/20 04:00 97.5 93 18 134/84 (101) 94 04/14/20 00:00 97.0 99 20 121/85 (97) 94 04/13/20 21:00 Venturi Mask 12.0 04/13/20 20:00 97.5 92 20 145/78 (100) 96 04/13/20 17:00 88 136/78 04/13/20 16:00 97.4 88 18 136/78 (97) 94 04/13/20 12:00 97.5 99 21 131/79 (96) 94 04/13/20 09:00 Venturi Mask 12.0 Intake and Output 04/13/20 04/14/20 19:00 07:00 Intake Total 850 ml Balance 850 ml Intake Oral 850 ml Objective 04/14 saturating at 97-98% on 12L Venturi mask 04/13 saturating at 97% on 12L Venturi mask 04/12 saturating at 95% on 12L Venturi mask 04/11 saturating at 96% on 12L Venturi mask 04/10 saturating at 95% on 12L Venturi mask 04/09 remains on 12L Venturi mask, saturating at 92-94% 04/08 pt desaturated on nasal oxygen and now on 12L oxygen via Venturi mask saturating at 94-95% 04/07 currently saturating at 95% on 4L NC General Appearance: WD/WN, no acute distress HEENT: normocephalic, atraumatic Respiratory: lungs clear Cardiovascular: normal rate, regular rhythm Abdomen: soft, non tender Extremities: no edema Laboratory Tests 04/13/20 11:31: POC Whole Blood Glucose 338H 04/13/20 16:55: POC Whole Blood Glucose [Pending] Current Medications Medications (Trade) Dose Ordered Sig/Ivett Route PRN Reason Start Time Stop Time Status Last Admin Dose Admin Acetaminophen (Tylenol) 500 mg Q4H PRN ORAL Mild Pain (Pain Scale 1-3) 04/04/20 22:45 05/04/20 22:44 04/12/20 20:42 Acetaminophen (Tylenol) 500 mg Q4H PRN ORAL Temp >100.5 04/04/20 22:45 05/04/20 22:44 Al Hydroxide/Mg Hydroxide (Mylanta) 30 ml Q4H PRN ORAL Abdominal cramps 04/09/20 17:00 05/09/20 16:59 04/09/20 22:16 Amlodipine Besylate (Norvasc) 5 mg BID ORAL 04/07/20 18:00 05/05/20 08:59 04/13/20 17:00 Artificial Tears (Akwa-Tears) 2 drop Q4H PRN BOTH EYES Dry Eyes 04/05/20 14:45 05/05/20 14:44 04/11/20 12:03 Bisacodyl (Dulcolax) 10 mg DAILY PRN ORAL Constipation 04/13/20 10:45 07/12/20 10:44 Clonidine HCl (Catapres Tab) 0.1 mg PRN PRN ORAL high blood pressure sbp>170 04/04/20 22:45 07/03/20 22:44 04/06/20 04:04 Dexamethasone Sodium Phosphate (Decadron 10mg/ ml Inj) 6 mg DAILY IV 04/05/20 14:00 04/14/20 13:59 04/13/20 08:34 Dextrose (Dextrose 50%) 25 ml Q30M PRN IV Hypoglycemia 04/04/20 22:45 07/03/20 22:44 Dextrose (Dextrose 50%) 50 ml Q30M PRN IV Hypoglycemia 04/04/20 22:45 07/03/20 22:44 Docusate Sodium (Colace) 100 mg TWICE A DAY ORAL 04/13/20 18:00 05/13/20 17:59 04/13/20 17:09 Heparin Sodium (Porcine) (Heparin 5000 units/ml) 5,000 units EVERY 12 HOURS SUBQ 04/05/20 09:00 05/20/20 08:59 04/13/20 20:34 Insulin Aspart (NovoLOG) BEFORE MEALS AND HS SUBQ 04/05/20 06:30 07/04/20 06:29 04/14/20 05:42 Latanoprost (Xalatan) 1 drop BEDTIME BOTH EYES 04/06/20 21:00 05/06/20 20:59 04/13/20 20:32 Magnesium Hydroxide (Mom) 30 ml Q4HR PRN ORAL Constipation 04/13/20 10:45 05/13/20 10:44 04/13/20 17:00 Mirtazapine (Remeron) 7.5 mg BEDTIME ORAL 04/10/20 21:00 07/09/20 20:59 04/13/20 20:32 Ondansetron HCl (Zofran) 4 mg Q6H PRN IVP Nausea & Vomiting 04/04/20 22:45 05/04/20 22:44 04/04/20 23:07 Quetiapine Fumarate (SEROqueL) 25 mg Q6H PRN ORAL For Anxiety 04/11/20 15:45 05/26/20 15:44 04/11/20 15:45 Sennosides (Senokot) 8.6 mg DAILY PRN ORAL Constipation 04/13/20 10:45 05/13/20 10:44 Assessment/Plan Assessment/Plan 1. COVID-19 Bilateral pneumonia. - pt received a dose of Bamlanimab in ER - Continue monitoring for hypoxia; cont supplemental oxygen - Currently saturating at 97% on 12L Venturi mask; will wean down as tolerated - Decadron (04/05-04/14) - Defer use of remdesivir to ID specialist. 2. Hypertension. - on amlodipine and prn clonidine 3. Diabetes mellitus. - on Novolog - pt is on steroids Continue home meds; pt reports hx of HIV and takes HIV meds at home; pt unable to recall exact names or doses of the two meds; they need to be continued unless contraindicated Pt was offered to have his family bring his home medications but he reports that is not plausible; defer to ID for management Insomnia - pt c/o persistent insomnia since admission without hx of insomnia - management per primary MD Anxiety - now on mirtazapine and Seroquel per psych We will follow carefully. The care for this patient was discussed with my supervising physician Time spent for this case was approximately 31 minutes Neo Montalvo Apr 14, 2020 09:01
[2020-04-14] MEDS: Milk of Magnesia 30ml Ud ORAL PRN (09:12)
[2020-04-14] MEDS: Docusate 100mg cap ORAL SCH ×2 (09:12→17:03)
[2020-04-14] MEDS: dexAMETHasone 10mg/ml Inj IV SCH (09:12)
[2020-04-14] MEDS: Sennosides 8.6mg tab ORAL PRN (09:12)
[2020-04-14] MEDS: Heparin 5000 units/ml inj SUBQ SCH ×2 (09:13→20:52)
--- NOTE | 2020-04-14 09:49 | General Progress Note ---
Subjective Date patient seen: Apr 14, 2020 Time patient seen: 09:30 - am Allergies: Coded Allergies: Black Pepper (Verified Allergy, Unknown, 04/11/20) Subjective HISTORY OF PRESENT ILLNESS: The patient is a 59-year-old male who is being seen on the medical/surgical floor of [facility]. Still in bed and denies pain at this time. No new complaints. REVIEW OF SYSTEMS: Denies rash, fever, chills, sweating, dizziness, drowsiness, blurred vision, sore throat, or change in weight. No nausea, vomiting, diarrhea, or blood in the stool or urine. No dysuria. Objective Last 24 Hour Vital Signs Date Time Temp Pulse Resp B/P (MAP) Pulse Ox O2 Delivery O2 Flow Rate FiO2 04/14/20 09:12 101 140/56 04/14/20 08:00 98.7 101 23 140/56 (84) 93 04/14/20 04:00 97.5 93 18 134/84 (101) 94 04/14/20 00:00 97.0 99 20 121/85 (97) 94 04/13/20 21:00 Venturi Mask 12.0 04/13/20 20:00 97.5 92 20 145/78 (100) 96 04/13/20 17:00 88 136/78 04/13/20 16:00 97.4 88 18 136/78 (97) 94 04/13/20 12:00 97.5 99 21 131/79 (96) 94 Intake and Output 04/13/20 04/14/20 18:59 06:59 Intake Total 850 ml Balance 850 ml Intake Oral 850 ml Laboratory Tests 04/13/20 11:31: POC Whole Blood Glucose 338H 04/13/20 16:55: POC Whole Blood Glucose [Pending] Height (Feet): 5 Height (Inches): 4.00 Weight (Pounds): 167 Objective PHYSICAL EXAMINATION: GENERAL: Alert, awake, and oriented. LUNGS: Decreased breath sounds bilaterally. HEART: S1 and S2 regular. ABDOMEN: Soft and nontender. EXTREMITIES: No cyanosis. No clubbing. NEURO: No changes. Assessment/Plan Status: progressing Assessment/Plan: (1) Degenerative joint disease (2) Myalgia/ Arthralgia (3) Covid 19+ Patient to be continued on the Tylenol. D/w Dr. Maxwell and he concurred. Josse Hernandez Apr 14, 2020 09:49
[2020-04-14 12:00] VITALS: BP 121/70
--- NOTE | 2020-04-14 14:00 | NUR ---
PT EVALUATION NOTE Patient seen for initial evaluation and treatment initiated. Patient presents with generalized weakness and decreased balance which impairs patient's ability to perform mobility tasks safely. Patient requires SBA for bed mobility and min assist for transfers. Patient unsteady in standing with O2 desaturation. Patient unable to take steps or ambulate at this time. Patient will benefit from skilled inpatient PT intervention to increase strength and postural stability for improved level of functional mobility, safety and activity tolerance. Recommend discharge to SNF for continued rehab vs home with family assistance depending on patient's progress once medically cleared by MD. May benefit from use of FWW for ambulation depending on patient's progress. Addendum: 04/14/20 at 1509 by CRISTOBAL MARTIN PT Amended: Links added.
--- NOTE | 2020-04-14 15:38 | Cardiac Electrophysiology PN ---
Assessment/Plan Assessment/Plan 1. Shortness of breath with COVID pneumonia. Ruled out for NC On 12 liter VM but noncompliant Urine toxicology screen is negative. EF 65%. 2. Hypertension, on Norvasc 5 mg bid and p.r.n. clonidine. 3. COVID pneumonia, on dexamethasone. 4. Diabetes, on insulin. Subjective Subjective BP better on Amlodipine 5 bid. On 12 liter VM in SR with no events Objective Last 24 Hour Vital Signs Date Time Temp Pulse Resp B/P (MAP) Pulse Ox O2 Delivery O2 Flow Rate FiO2 04/14/20 12:00 97.3 109 22 121/70 (87) 97 04/14/20 09:12 101 140/56 04/14/20 09:00 Venturi Mask 12.0 04/14/20 08:00 98.7 101 23 140/56 (84) 93 04/14/20 04:00 97.5 93 18 134/84 (101) 94 04/14/20 00:00 97.0 99 20 121/85 (97) 94 04/13/20 21:00 Venturi Mask 12.0 04/13/20 20:00 97.5 92 20 145/78 (100) 96 04/13/20 17:00 88 136/78 04/13/20 16:00 97.4 88 18 136/78 (97) 94 Intake and Output 04/13/20 04/14/20 19:00 07:00 Intake Total 850 ml Balance 850 ml Intake Oral 850 ml Laboratory Tests Test 04/13/20 16:55 04/14/20 12:10 POC Whole Blood Glucose Pending 346 MG/DL (74-106) H Objective HEAD AND NECK: no JVD. LUNGS: Coarse rhonchi. CARDIOVASCULAR: regular S1 and S2 with no gallop. ABDOMEN: Soft. EXTREMITIES: No pitting edema. Brian Olivares MD Apr 14, 2020 15:38
--- NOTE | 2020-04-14 15:58 | NUR ---
CASE MANAGEMENT:REVIEW SI;COVID PNEUMONIA 98.7 109 23 140/56 93% 12L VENTURI MASK GLU 346 IS;SEROQUEL PO QHS DECADRON IV QD HEPARIN SQ Q12 INSULIN NOVOLOG SQ QID MED SURG STATUS DCP;PATIENT IS FROM HOME
[2020-04-14 16:00] VITALS: BP 124/80
--- NOTE | 2020-04-14 17:49 | Infectious Diseases Prog Note ---
Assessment/Plan Assessment/Plan IMPRESSION: COVID-19 pneumonia. HIV Hypoxemia worse SOB on exertion. Diabetes mellitus with hyperglycemia, Hypertension. RECOMMENDATIONS: Finished dexamethasone course Got a dose of Bamlanivimab in ER. CXR in am Subjective ROS Limited/Unobtainable: No Constitutional: Reports: no symptoms Respiratory: Reports: shortness of breath; Denies: dry cough, productive cough Cardiovascular: Reports: no symptoms Gastrointestinal/Abdominal: Reports: no symptoms Genitourinary: Reports: no symptoms Allergies: Coded Allergies: Black Pepper (Verified Allergy, Unknown, 04/11/20) Objective Last 24 Hour Vital Signs Date Time Temp Pulse Resp B/P (MAP) Pulse Ox O2 Delivery O2 Flow Rate FiO2 04/14/20 17:03 107 124/80 04/14/20 16:00 97.8 107 22 124/80 (95) 96 04/14/20 12:00 97.3 109 22 121/70 (87) 97 04/14/20 09:12 101 140/56 04/14/20 09:00 Venturi Mask 12.0 04/14/20 08:00 98.7 101 23 140/56 (84) 93 04/14/20 04:00 97.5 93 18 134/84 (101) 94 04/14/20 00:00 97.0 99 20 121/85 (97) 94 04/13/20 21:00 Venturi Mask 12.0 04/13/20 20:00 97.5 92 20 145/78 (100) 96 Height (Feet): 5 Height (Inches): 4.00 Weight (Pounds): 167 HEENT: mucous membranes moist Respiratory/Chest: other - oxygen by venturi mask Cardiovascular: tachycardia Abdomen: soft, non tender Extremities: no edema Neurologic/Psychiatric: alert, oriented x 3, responsive Laboratory Tests Test 04/14/20 12:10 04/14/20 16:59 POC Whole Blood Glucose 346 MG/DL (74-106) H 424 MG/DL (74-106) H Current Medications Medications (Trade) Dose Ordered Sig/Ivett Route PRN Reason Start Time Stop Time Status Last Admin Dose Admin Acetaminophen (Tylenol) 500 mg Q4H PRN ORAL Mild Pain (Pain Scale 1-3) 04/04/20 22:45 05/04/20 22:44 04/12/20 20:42 Acetaminophen (Tylenol) 500 mg Q4H PRN ORAL Temp >100.5 04/04/20 22:45 05/04/20 22:44 Al Hydroxide/Mg Hydroxide (Mylanta) 30 ml Q4H PRN ORAL Abdominal cramps 04/09/20 17:00 05/09/20 16:59 04/09/20 22:16 Amlodipine Besylate (Norvasc) 5 mg BID ORAL 04/07/20 18:00 05/05/20 08:59 04/14/20 17:03 Artificial Tears (Akwa-Tears) 2 drop Q4H PRN BOTH EYES Dry Eyes 04/05/20 14:45 05/05/20 14:44 04/11/20 12:03 Bisacodyl (Dulcolax) 10 mg DAILY PRN ORAL Constipation 04/13/20 10:45 07/12/20 10:44 04/14/20 09:12 Clonidine HCl (Catapres Tab) 0.1 mg PRN PRN ORAL high blood pressure sbp>170 04/04/20 22:45 07/03/20 22:44 04/06/20 04:04 Dextrose (Dextrose 50%) 25 ml Q30M PRN IV Hypoglycemia 04/04/20 22:45 07/03/20 22:44 Dextrose (Dextrose 50%) 50 ml Q30M PRN IV Hypoglycemia 04/04/20 22:45 07/03/20 22:44 Docusate Sodium (Colace) 100 mg TWICE A DAY ORAL 04/13/20 18:00 05/13/20 17:59 04/14/20 17:03 Heparin Sodium (Porcine) (Heparin 5000 units/ml) 5,000 units EVERY 12 HOURS SUBQ 04/05/20 09:00 05/20/20 08:59 04/14/20 09:13 Insulin Aspart (NovoLOG) BEFORE MEALS AND HS SUBQ 04/05/20 06:30 07/04/20 06:29 04/14/20 17:05 Latanoprost (Xalatan) 1 drop BEDTIME BOTH EYES 04/06/20 21:00 05/06/20 20:59 04/13/20 20:32 Magnesium Hydroxide (Mom) 30 ml Q4HR PRN ORAL Constipation 04/13/20 10:45 05/13/20 10:44 04/14/20 09:12 Mirtazapine (Remeron) 7.5 mg BEDTIME ORAL 04/10/20 21:00 07/09/20 20:59 04/13/20 20:32 Ondansetron HCl (Zofran) 4 mg Q6H PRN IVP Nausea & Vomiting 04/04/20 22:45 05/04/20 22:44 04/04/20 23:07 Quetiapine Fumarate (SEROqueL) 25 mg Q6H PRN ORAL For Anxiety 04/11/20 15:45 05/26/20 15:44 04/11/20 15:45 Sennosides (Senokot) 8.6 mg DAILY PRN ORAL Constipation 04/13/20 10:45 05/13/20 10:44 04/14/20 09:12 Jarred Nuñez MD Apr 14, 2020 17:49
--- NOTE | 2020-04-14 18:45 | NUR ---
NURSE HAND-OFF: Important Events on Shift:Could not wean down oxygen d/t SaO2 is decreased Patient Status: stable Diet: CCHO (M) Pending Orders: n/a Pending Results/Labs:n/a Pending MD notification:n/a Latest Vital Signs: Temperature 97.8 , Pulse 107 , B/P 124 /80 , Respiratory Rate 22 , O2 SAT 96 , Room Air, O2 Flow Rate 12.0 . Vital Sign Comment: stable Latest Miller Fall Score: 45 Fall Risk: High Risk Safety Measures: Call light Within Reach, Bed Alarm Zone 2, Side Rails Side Rails x2, Bed position Low and Locked. Fall Precautions: Door Sign Patient Fall Education Report given to HALEY Loco.
--- NOTE | 2020-04-14 19:30 | NUR ---
NURSE NOTES: Received report from billie castorena. patient on bed,awake and verbally responsive. on venturi mask of 12 lpm sating 94%. no sob. denies any pain or discomfort at the moment. per raffaele, "tried to taper down the o2 patient desaturated and put back to 12lpm; bm today". uses urinal. iv access on the right ac, saline lock. reiterated to call and ask for assistance to prevent fall or injury. bed locked and lowest position. call light and light button within easy reach. will continue plan of care.
--- NOTE | 2020-04-14 19:35 | Psychiatric Progress Note ---
Psychiatry Progress Note Psychiatry Progress Note Medications Current Medications Medications (Trade) Dose Ordered Sig/Ivett Route PRN Reason Start Time Stop Time Status Last Admin Dose Admin Acetaminophen (Tylenol) 500 mg Q4H PRN ORAL Mild Pain (Pain Scale 1-3) 04/04/20 22:45 05/04/20 22:44 04/12/20 20:42 Acetaminophen (Tylenol) 500 mg Q4H PRN ORAL Temp >100.5 04/04/20 22:45 05/04/20 22:44 Al Hydroxide/Mg Hydroxide (Mylanta) 30 ml Q4H PRN ORAL Abdominal cramps 04/09/20 17:00 05/09/20 16:59 04/09/20 22:16 Amlodipine Besylate (Norvasc) 5 mg BID ORAL 04/07/20 18:00 05/05/20 08:59 04/14/20 17:03 Artificial Tears (Akwa-Tears) 2 drop Q4H PRN BOTH EYES Dry Eyes 04/05/20 14:45 05/05/20 14:44 04/11/20 12:03 Bisacodyl (Dulcolax) 10 mg DAILY PRN ORAL Constipation 04/13/20 10:45 07/12/20 10:44 04/14/20 09:12 Clonidine HCl (Catapres Tab) 0.1 mg PRN PRN ORAL high blood pressure sbp>170 04/04/20 22:45 07/03/20 22:44 04/06/20 04:04 Dextrose (Dextrose 50%) 25 ml Q30M PRN IV Hypoglycemia 04/04/20 22:45 07/03/20 22:44 Dextrose (Dextrose 50%) 50 ml Q30M PRN IV Hypoglycemia 04/04/20 22:45 07/03/20 22:44 Docusate Sodium (Colace) 100 mg TWICE A DAY ORAL 04/13/20 18:00 05/13/20 17:59 04/14/20 17:03 Heparin Sodium (Porcine) (Heparin 5000 units/ml) 5,000 units EVERY 12 HOURS SUBQ 04/05/20 09:00 05/20/20 08:59 04/14/20 09:13 Insulin Aspart (NovoLOG) BEFORE MEALS AND HS SUBQ 04/05/20 06:30 07/04/20 06:29 04/14/20 17:05 Latanoprost (Xalatan) 1 drop BEDTIME BOTH EYES 04/06/20 21:00 05/06/20 20:59 04/13/20 20:32 Magnesium Hydroxide (Mom) 30 ml Q4HR PRN ORAL Constipation 04/13/20 10:45 05/13/20 10:44 04/14/20 09:12 Mirtazapine (Remeron) 7.5 mg BEDTIME ORAL 04/10/20 21:00 07/09/20 20:59 04/13/20 20:32 Ondansetron HCl (Zofran) 4 mg Q6H PRN IVP Nausea & Vomiting 04/04/20 22:45 05/04/20 22:44 04/04/20 23:07 Quetiapine Fumarate (SEROqueL) 25 mg Q6H PRN ORAL For Anxiety 04/11/20 15:45 05/26/20 15:44 04/11/20 15:45 Sennosides (Senokot) 8.6 mg DAILY PRN ORAL Constipation 04/13/20 10:45 05/13/20 10:44 04/14/20 09:12 Neurological/Psychiatric: Reports: anxiety, depressed, emotional problems Allergies: Coded Allergies: Black Pepper (Verified Allergy, Unknown, 04/11/20) Objective Data Height (Feet): 5 Height (Inches): 4.00 Weight (Pounds): 167 General Appearance: alert, alert oriented x3 Additional Comments: MENTAL STATUS EXAMINATION: Alert, oriented times self, place, situation. Mood is anxious. Affect is blunted, congruent with mood. Thought process is concrete. Thought content negative for suicidal, homicidal ideation. Cognition is intact. Insight and judgment is fair. Assessment/Plan Newhall I: ASSESSMENT: Newhall I Anxiety disorder. Insomnia. Newhall II Deferred. Newhall III COVID-19. Newhall IV Low. Newhall V 50 PLAN: 1. We will start the patient on Remeron. 2. Provide the patient with reality orientation and supportive therapy. Status: progressing Status Narrative ASSESSMENT: Newhall I Anxiety disorder. Insomnia. Newhall II Deferred. Newhall III COVID-19. Newhall IV Low. Newhall V 50 PLAN: 1. We will start the patient on Remeron. 2. Provide the patient with reality orientation and supportive therapy. Assessment/Plan: ASSESSMENT: Newhall I Anxiety disorder. Insomnia. Newhall II Deferred. Newhall III COVID-19. Newhall IV Low. Newhall V 50 PLAN: 1. We will start the patient on Remeron. 2. Provide the patient with reality orientation and supportive therapy. Enrique Heath MD Apr 14, 2020 19:35
[2020-04-14 20:00] VITALS: BP 121/98
[2020-04-14] MEDS: Latanoprost 0.005% Opth 2.5ml Soln BOTH EYES SCH (20:49)
--- NOTE | 2020-04-14 21:38 | General Progress Note ---
Subjective ROS Limited/Unobtainable: Yes Allergies: Coded Allergies: Black Pepper (Verified Allergy, Unknown, 04/11/20) Objective Last 24 Hour Vital Signs Date Time Temp Pulse Resp B/P (MAP) Pulse Ox O2 Delivery O2 Flow Rate FiO2 04/14/20 17:03 107 124/80 04/14/20 16:00 97.8 107 22 124/80 (95) 96 04/14/20 12:00 97.3 109 22 121/70 (87) 97 04/14/20 09:12 101 140/56 04/14/20 09:00 Venturi Mask 12.0 04/14/20 08:00 98.7 101 23 140/56 (84) 93 04/14/20 04:00 97.5 93 18 134/84 (101) 94 04/14/20 00:00 97.0 99 20 121/85 (97) 94 Intake and Output 04/13/20 04/14/20 19:00 07:00 Intake Total 850 ml Balance 850 ml Intake Oral 850 ml Laboratory Tests 04/14/20 12:10: POC Whole Blood Glucose 346H 04/14/20 16:59: POC Whole Blood Glucose 424H 04/14/20 20:47: POC Whole Blood Glucose 370H Height (Feet): 5 Height (Inches): 4.00 Weight (Pounds): 167 Assessment/Plan Problem List: (1) Hyperglycemia ICD Codes: R73.9 - Hyperglycemia, unspecified SNOMED: 02007039 (2) Dyspnea due to COVID-19 ICD Codes: U07.1 - COVID-19; R06.00 - Dyspnea, unspecified SNOMED: 033777538813223 Status: progressing Assessment/Plan: niddm covid + \prn suportive treatment check sugar afebrile Carlos Oliveira MD Apr 14, 2020 21:38
[2020-04-15] VITALS: BP 126/87
[2020-04-15 04:00] VITALS: BP 135/82
[2020-04-15] MEDS: NovoLOG Insulin Flexpen SUBQ SCH ×4 (05:31→21:13)
--- NOTE | 2020-04-15 06:51 | NUR ---
NURSE HAND-OFF: Important Events on Shift: blood sugar monitoring Patient Status:stable Diet: regular Pending Orders: Pending Results/Labs: Pending MD notification: Latest Vital Signs: Temperature 97.3 , Pulse 98 , B/P 135 /82 , Respiratory Rate 22 , O2 SAT 96 , Room Air, O2 Flow Rate 12.0 . Vital Sign Comment: Latest Miller Fall Score: 45 Fall Risk: High Risk Safety Measures: Call light Within Reach, Bed Alarm Zone 2, Side Rails Side Rails x2, Bed position Low and Locked. Fall Precautions: Door Sign Patient Fall Education Addendum: 04/15/20 at 0655 by Marlene Portillo RN diet: ccho Addendum: 04/15/20 at 0734 by Marlene Portillo RN HAND-OFF: Report given to billie wang.
--- NOTE | 2020-04-15 07:44 | NUR ---
NURSE NOTES: Patient awake, alert x4; on Venturi mask 12 Liters, no sing of shortness of breath and distress; no sing of chest pain; IV RAC flushes well; side rails up x2, breaks engaged, bed at lowest position; call light within reach; will keep monitoring.
[2020-04-15 08:00] VITALS: BP 139/84
--- NOTE | 2020-04-15 08:50 | Pulmonology Progress Note ---
Subjective ROS Limited/Unobtainable: Yes Interval Events: remains on 12L via Venuri mask; breathing better Constitutional: Reports: no symptoms HEENT: Repors: no symptoms Respiratory: Reports: dry cough, dyspnea on exertion Cardiovascular: Reports: no symptoms Gastrointestinal/Abdominal: Reports: no symptoms Psychiatric: Reports: other - anxiety Musculoskeletal: Denies: pain Allergies: Coded Allergies: Black Pepper (Verified Allergy, Unknown, 04/11/20) Objective Last 24 Hour Vital Signs Date Time Temp Pulse Resp B/P (MAP) Pulse Ox O2 Delivery O2 Flow Rate FiO2 04/15/20 04:00 97.3 98 22 135/82 (99) 96 04/15/20 00:00 97.0 98 20 126/87 (100) 97 04/14/20 21:00 Venturi Mask 12.0 04/14/20 20:00 97.8 102 20 121/98 (106) 95 04/14/20 17:03 107 124/80 04/14/20 16:00 97.8 107 22 124/80 (95) 96 04/14/20 12:00 97.3 109 22 121/70 (87) 97 04/14/20 09:12 101 140/56 04/14/20 09:00 Venturi Mask 12.0 Intake and Output 04/14/20 04/15/20 19:00 07:00 Intake Total 120 ml 350 ml Output Total 1200 ml 650 ml Balance -1080 ml -300 ml Intake Oral 120 ml 350 ml Output Urine Total 1200 ml 650 ml # Voids 3 # Bowel Movements 1 Objective 04/15 saturating at 96% on 12L Venturi mask 04/14 saturating at 97-98% on 12L Venturi mask 04/13 saturating at 97% on 12L Venturi mask 04/12 saturating at 95% on 12L Venturi mask 04/11 saturating at 96% on 12L Venturi mask 04/10 saturating at 95% on 12L Venturi mask 04/09 remains on 12L Venturi mask, saturating at 92-94% 04/08 pt desaturated on nasal oxygen and now on 12L oxygen via Venturi mask saturating at 94-95% 04/07 currently saturating at 95% on 4L NC General Appearance: WD/WN, no acute distress HEENT: normocephalic, atraumatic Respiratory: lungs clear Cardiovascular: normal rate, regular rhythm Abdomen: soft, non tender Extremities: no edema Laboratory Tests 04/14/20 12:10: POC Whole Blood Glucose 346H 04/14/20 16:59: POC Whole Blood Glucose 424H 04/14/20 20:47: POC Whole Blood Glucose 370H Current Medications Medications (Trade) Dose Ordered Sig/Ivett Route PRN Reason Start Time Stop Time Status Last Admin Dose Admin Acetaminophen (Tylenol) 500 mg Q4H PRN ORAL Mild Pain (Pain Scale 1-3) 04/04/20 22:45 05/04/20 22:44 04/12/20 20:42 Acetaminophen (Tylenol) 500 mg Q4H PRN ORAL Temp >100.5 04/04/20 22:45 05/04/20 22:44 Al Hydroxide/Mg Hydroxide (Mylanta) 30 ml Q4H PRN ORAL Abdominal cramps 04/09/20 17:00 05/09/20 16:59 04/09/20 22:16 Amlodipine Besylate (Norvasc) 5 mg BID ORAL 04/07/20 18:00 05/05/20 08:59 04/14/20 17:03 Artificial Tears (Akwa-Tears) 2 drop Q4H PRN BOTH EYES Dry Eyes 04/05/20 14:45 05/05/20 14:44 04/11/20 12:03 Bisacodyl (Dulcolax) 10 mg DAILY PRN ORAL Constipation 04/13/20 10:45 07/12/20 10:44 04/14/20 09:12 Clonidine HCl (Catapres Tab) 0.1 mg PRN PRN ORAL high blood pressure sbp>170 04/04/20 22:45 07/03/20 22:44 04/06/20 04:04 Dextrose (Dextrose 50%) 25 ml Q30M PRN IV Hypoglycemia 04/04/20 22:45 07/03/20 22:44 Dextrose (Dextrose 50%) 50 ml Q30M PRN IV Hypoglycemia 04/04/20 22:45 07/03/20 22:44 Docusate Sodium (Colace) 100 mg TWICE A DAY ORAL 04/13/20 18:00 05/13/20 17:59 04/14/20 17:03 Heparin Sodium (Porcine) (Heparin 5000 units/ml) 5,000 units EVERY 12 HOURS SUBQ 04/05/20 09:00 05/20/20 08:59 04/14/20 20:52 Insulin Aspart (NovoLOG) BEFORE MEALS AND HS SUBQ 04/05/20 06:30 07/04/20 06:29 04/15/20 05:31 Latanoprost (Xalatan) 1 drop BEDTIME BOTH EYES 04/06/20 21:00 05/06/20 20:59 04/14/20 20:49 Magnesium Hydroxide (Mom) 30 ml Q4HR PRN ORAL Constipation 04/13/20 10:45 05/13/20 10:44 04/14/20 09:12 Mirtazapine (Remeron) 7.5 mg BEDTIME ORAL 04/10/20 21:00 07/09/20 20:59 04/14/20 20:49 Ondansetron HCl (Zofran) 4 mg Q6H PRN IVP Nausea & Vomiting 04/04/20 22:45 05/04/20 22:44 04/04/20 23:07 Quetiapine Fumarate (SEROqueL) 25 mg Q6H PRN ORAL For Anxiety 04/11/20 15:45 05/26/20 15:44 04/11/20 15:45 Sennosides (Senokot) 8.6 mg DAILY PRN ORAL Constipation 04/13/20 10:45 05/13/20 10:44 04/14/20 09:12 Assessment/Plan Assessment/Plan 1. COVID-19 Bilateral pneumonia. - pt received a dose of Bamlanimab in ER - Continue monitoring for hypoxia; cont supplemental oxygen - Currently saturating at 97% on 12L Venturi mask; will wean down as t olerated; weaning failed yesterday, will attempt again today - s/p Decadron (04/05-04/14) - Defer use of remdesivir to ID specialist. - repeat CXR 04/15 pending result; consider diuretics if fluids found 2. Hypertension. - on amlodipine and prn clonidine 3. Diabetes mellitus. - on Novolog - pt is on steroids Continue home meds; pt reports hx of HIV and takes HIV meds at home; pt unable to recall exact names or doses of the two meds; they need to be continued unless contraindicated Pt was offered to have his family bring his home medications but he reports that is not plausible; defer to ID for management Insomnia - pt c/o persistent insomnia since admission without hx of insomnia - management per primary MD Anxiety - now on mirtazapine and Seroquel per psych We will follow carefully. The care for this patient was discussed with my supervising physician Time spent for this case was approximately 31 minutes Neo Montalvo Apr 15, 2020 08:50
[2020-04-15] MEDS: Heparin 5000 units/ml inj SUBQ SCH ×2 (09:15→21:13)
[2020-04-15] MEDS: Docusate 100mg cap ORAL SCH ×2 (09:16→16:56)
--- NOTE | 2020-04-15 11:28 | Cardiac Electrophysiology PN ---
Assessment/Plan Assessment/Plan 1. Shortness of breath with COVID pneumonia. Ruled out for DE On 12 liter VM but noncompliant. Failed weaning Urine toxicology screen is negative. EF 65%. 2. Hypertension, on Norvasc 5 mg bid and p.r.n. clonidine. 3. COVID pneumonia, on dexamethasone. 4. Diabetes, on insulin. DW RN Subjective Subjective BP better on Amlodipine 5 bid. On 12 liter VM in SR with no events. Failed weaning Objective Last 24 Hour Vital Signs Date Time Temp Pulse Resp B/P (MAP) Pulse Ox O2 Delivery O2 Flow Rate FiO2 04/15/20 09:16 102 139/84 04/15/20 09:00 Venturi Mask 12.0 04/15/20 08:00 97.0 102 20 139/84 (102) 94 04/15/20 04:00 97.3 98 22 135/82 (99) 96 04/15/20 00:00 97.0 98 20 126/87 (100) 97 04/14/20 21:00 Venturi Mask 12.0 04/14/20 20:00 97.8 102 20 121/98 (106) 95 04/14/20 17:03 107 124/80 04/14/20 16:00 97.8 107 22 124/80 (95) 96 04/14/20 12:00 97.3 109 22 121/70 (87) 97 Intake and Output 04/14/20 04/15/20 19:00 07:00 Intake Total 120 ml 350 ml Output Total 1200 ml 650 ml Balance -1080 ml -300 ml Intake Oral 120 ml 350 ml Output Urine Total 1200 ml 650 ml # Voids 3 # Bowel Movements 1 Laboratory Tests Test 04/14/20 12:10 04/14/20 16:59 04/14/20 20:47 POC Whole Blood Glucose 346 MG/DL (74-106) H 424 MG/DL (74-106) H 370 MG/DL (74-106) H Objective HEAD AND NECK: no JVD. LUNGS: Coarse rhonchi. CARDIOVASCULAR: regular S1 and S2 with no gallop. ABDOMEN: Soft. EXTREMITIES: No pitting edema. Brian Olivares MD Apr 15, 2020 11:28
--- NOTE | 2020-04-15 11:36 | Infectious Diseases Prog Note ---
Assessment/Plan Assessment/Plan IMPRESSION: COVID-19 pneumonia. HIV Hypoxemia worse SOB on exertion. Diabetes mellitus with hyperglycemia, Hypertension. RECOMMENDATIONS: Finished dexamethasone course Got a dose of Bamlanivimab in ER. Will f/u CXR Subjective ROS Limited/Unobtainable: Yes Respiratory: Reports: shortness of breath, dry cough Cardiovascular: Reports: dyspnea on exertion Allergies: Coded Allergies: Black Pepper (Verified Allergy, Unknown, 04/11/20) Objective Last 24 Hour Vital Signs Date Time Temp Pulse Resp B/P (MAP) Pulse Ox O2 Delivery O2 Flow Rate FiO2 04/15/20 09:16 102 139/84 04/15/20 09:00 Venturi Mask 12.0 04/15/20 08:00 97.0 102 20 139/84 (102) 94 04/15/20 04:00 97.3 98 22 135/82 (99) 96 04/15/20 00:00 97.0 98 20 126/87 (100) 97 04/14/20 21:00 Venturi Mask 12.0 04/14/20 20:00 97.8 102 20 121/98 (106) 95 04/14/20 17:03 107 124/80 04/14/20 16:00 97.8 107 22 124/80 (95) 96 04/14/20 12:00 97.3 109 22 121/70 (87) 97 Height (Feet): 5 Height (Inches): 4.00 Weight (Pounds): 167 HEENT: mucous membranes moist Respiratory/Chest: other - oxygen by venturi mask Cardiovascular: tachycardia Abdomen: soft, non tender Extremities: no edema Neurologic/Psychiatric: alert, responsive Laboratory Tests Test 04/14/20 12:10 04/14/20 16:59 04/14/20 20:47 POC Whole Blood Glucose 346 MG/DL (74-106) H 424 MG/DL (74-106) H 370 MG/DL (74-106) H Current Medications Medications (Trade) Dose Ordered Sig/Ivett Route PRN Reason Start Time Stop Time Status Last Admin Dose Admin Acetaminophen (Tylenol) 500 mg Q4H PRN ORAL Mild Pain (Pain Scale 1-3) 04/04/20 22:45 05/04/20 22:44 04/12/20 20:42 Acetaminophen (Tylenol) 500 mg Q4H PRN ORAL Temp >100.5 04/04/20 22:45 05/04/20 22:44 Al Hydroxide/Mg Hydroxide (Mylanta) 30 ml Q4H PRN ORAL Abdominal cramps 04/09/20 17:00 05/09/20 16:59 04/09/20 22:16 Amlodipine Besylate (Norvasc) 5 mg BID ORAL 04/07/20 18:00 05/05/20 08:59 04/15/20 09:16 Artificial Tears (Akwa-Tears) 2 drop Q4H PRN BOTH EYES Dry Eyes 04/05/20 14:45 05/05/20 14:44 04/11/20 12:03 Bisacodyl (Dulcolax) 10 mg DAILY PRN ORAL Constipation 04/13/20 10:45 07/12/20 10:44 04/14/20 09:12 Clonidine HCl (Catapres Tab) 0.1 mg PRN PRN ORAL high blood pressure sbp>170 04/04/20 22:45 07/03/20 22:44 04/06/20 04:04 Dextrose (Dextrose 50%) 25 ml Q30M PRN IV Hypoglycemia 04/04/20 22:45 07/03/20 22:44 Dextrose (Dextrose 50%) 50 ml Q30M PRN IV Hypoglycemia 04/04/20 22:45 07/03/20 22:44 Docusate Sodium (Colace) 100 mg TWICE A DAY ORAL 04/13/20 18:00 05/13/20 17:59 04/15/20 09:16 Heparin Sodium (Porcine) (Heparin 5000 units/ml) 5,000 units EVERY 12 HOURS SUBQ 04/05/20 09:00 05/20/20 08:59 04/15/20 09:15 Insulin Aspart (NovoLOG) BEFORE MEALS AND HS SUBQ 04/05/20 06:30 07/04/20 06:29 04/15/20 05:31 Latanoprost (Xalatan) 1 drop BEDTIME BOTH EYES 04/06/20 21:00 05/06/20 20:59 04/14/20 20:49 Magnesium Hydroxide (Mom) 30 ml Q4HR PRN ORAL Constipation 04/13/20 10:45 05/13/20 10:44 04/14/20 09:12 Mirtazapine (Remeron) 7.5 mg BEDTIME ORAL 04/10/20 21:00 07/09/20 20:59 04/14/20 20:49 Ondansetron HCl (Zofran) 4 mg Q6H PRN IVP Nausea & Vomiting 04/04/20 22:45 05/04/20 22:44 04/04/20 23:07 Quetiapine Fumarate (SEROqueL) 25 mg Q6H PRN ORAL For Anxiety 04/11/20 15:45 05/26/20 15:44 04/11/20 15:45 Sennosides (Senokot) 8.6 mg DAILY PRN ORAL Constipation 04/13/20 10:45 05/13/20 10:44 04/14/20 09:12 Jarred Nuñez MD Apr 15, 2020 11:36
[2020-04-15 12:00] VITALS: BP 133/95
--- NOTE | 2020-04-15 12:41 | NUR ---
RADIOLOGY DEPT., CHEST X-RAY DONE.-P.DYE
--- NOTE | 2020-04-15 12:57 | NUR ---
RD ASSESSMENT & RECOMMENDATIONS SEE CARE ACTIVITY FOR COMPLETE ASSESSMENT DAILY ESTIMATED NEEDS: Needs based on Pulmonary, HIV 63.3kg abw 25-35 kcals/kg 6805-5661 total kcals 1-1.5 g protein/kg 63-95 g total protein 25-30 mL/kg 4388-6931 total fluid mLs NUTRITION DIAGNOSIS: Altered nutrition related lab values r/t diabetes as evidenced by elev BG (217-287, not updated), Uglu 4+ on adm, elev POC ([phone]), pt on Decadron. CURRENT DIET:CCHO MED + Glucerna TID PO DIET RECOMMENDATIONS: CCHO LOW, double protein portions ADDITIONAL RECOMMENDATIONS: 1) Add long acting insulin for improved BG control (BGs 200's-400's) On niss only at this time 2) DC Glucerna TID w/ current good PO intake for improved BG control -> provides 5 additional carb servings, BGs 200's to 400's 3) maintain daily calibrated bed scale wts 4) Check A1C 5) Monitor for continued good PO intake and tolerance
--- NOTE | 2020-04-15 13:48 | NUR ---
CASE MANAGEMENT:REVIEW SI;COVID PNEUMONIA 98.1 107 22 139/84 94% 12L VENTURI IS;HEPARIN SQ Q12 NORVASC PO BID MED SURG STATUS DCP;FROM HOME
[2020-04-15 16:00] VITALS: BP 115/95
--- NOTE | 2020-04-15 18:14 | Diagnostic Imaging Report ---
Indication: Shortness of breath Technique: One view of the chest Comparison: 04/08/2020 Findings: Bilateral infiltrates are unchanged. The heart size is normal. Gastrostomy is again demonstrated. Impression: Unchanged, findings as above.
--- NOTE | 2020-04-15 18:37 | General Progress Note ---
Subjective Date patient seen: Apr 15, 2020 Time patient seen: 04:15 - pm Allergies: Coded Allergies: Black Pepper (Verified Allergy, Unknown, 04/11/20) Subjective HISTORY OF PRESENT ILLNESS: The patient is a 59-year-old male who is being seen on the medical/surgical floor of [facility]. In bed no signs of pain or distress. REVIEW OF SYSTEMS: Denies rash, fever, chills, sweating, dizziness, drowsiness, blurred vision, sore throat, or change in weight. No nausea, vomiting, diarrhea, or blood in the stool or urine. No dysuria. Objective Last 24 Hour Vital Signs Date Time Temp Pulse Resp B/P (MAP) Pulse Ox O2 Delivery O2 Flow Rate FiO2 04/15/20 17:00 107 133/95 04/15/20 16:00 98.1 106 20 115/95 (102) 96 04/15/20 12:00 98.1 107 20 133/95 (108) 96 04/15/20 09:16 102 139/84 04/15/20 09:00 Venturi Mask 12.0 04/15/20 08:00 97.0 102 20 139/84 (102) 94 04/15/20 04:00 97.3 98 22 135/82 (99) 96 04/15/20 00:00 97.0 98 20 126/87 (100) 97 04/14/20 21:00 Venturi Mask 12.0 04/14/20 20:00 97.8 102 20 121/98 (106) 95 Intake and Output 04/14/20 04/15/20 19:00 07:00 Intake Total 120 ml 350 ml Output Total 1200 ml 650 ml Balance -1080 ml -300 ml Intake Oral 120 ml 350 ml Output Urine Total 1200 ml 650 ml # Voids 3 # Bowel Movements 1 Laboratory Tests 04/14/20 20:47: POC Whole Blood Glucose 370H 04/15/20 11:28: POC Whole Blood Glucose [Pending] 04/15/20 11:42: POC Whole Blood Glucose [Pending] Height (Feet): 5 Height (Inches): 4.00 Weight (Pounds): 167 Objective PHYSICAL EXAMINATION: GENERAL: Alert, awake, and oriented. LUNGS: Decreased breath sounds bilaterally. HEART: S1 and S2 regular. ABDOMEN: Soft and nontender. EXTREMITIES: No cyanosis. No clubbing. NEURO: No changes. Assessment/Plan Assessment/Plan: (1) Degenerative joint disease (2) Myalgia/ Arthralgia (3) Covid 19+ Patient to be continued on the Tylenol. D/w Dr. Maxwell and he concurred. Josse Hernandez Apr 15, 2020 18:37
--- NOTE | 2020-04-15 19:02 | NUR ---
NURSE HAND-OFF: Important Events on Shift:Chest Xray done; blood sugar monitored; tried to wean oxygen but no sucess; new IV line RFA Patient Status: Diet: Pending Orders: Pending Results/Labs: Pending MD notification: Latest Vital Signs: Temperature 98.1 , Pulse 107 , B/P 133 /95 , Respiratory Rate 20 , O2 SAT 96 , Room Air, O2 Flow Rate 12.0 . Vital Sign Comment: Latest Miller Fall Score: 45 Fall Risk: High Risk Safety Measures: Call light Within Reach, Bed Alarm Zone 2, Side Rails Side Rails x2, Bed position Low and Locked. Fall Precautions: Door Sign Patient Fall Education Report given to .
--- NOTE | 2020-04-15 19:29 | NUR ---
HAND-OFF: Report given to HALEY Beck.
--- NOTE | 2020-04-15 19:30 | NUR ---
NURSE NOTES: Received patient in bed. A&OX4. Venturi mask on with 12L, no s/s of respiratory distress noted. IV site paten and intact. Bed in lowest position. Call light within reach. Will continue to monitor.
[2020-04-15 20:00] VITALS: BP 120/64
--- NOTE | 2020-04-15 20:05 | Psychiatric Progress Note ---
Psychiatry Progress Note Psychiatry Progress Note Medications Current Medications Medications (Trade) Dose Ordered Sig/Ivett Route PRN Reason Start Time Stop Time Status Last Admin Dose Admin Acetaminophen (Tylenol) 500 mg Q4H PRN ORAL Mild Pain (Pain Scale 1-3) 04/04/20 22:45 05/04/20 22:44 04/12/20 20:42 Acetaminophen (Tylenol) 500 mg Q4H PRN ORAL Temp >100.5 04/04/20 22:45 05/04/20 22:44 Al Hydroxide/Mg Hydroxide (Mylanta) 30 ml Q4H PRN ORAL Abdominal cramps 04/09/20 17:00 05/09/20 16:59 04/09/20 22:16 Amlodipine Besylate (Norvasc) 5 mg BID ORAL 04/07/20 18:00 05/05/20 08:59 04/15/20 17:00 Artificial Tears (Akwa-Tears) 2 drop Q4H PRN BOTH EYES Dry Eyes 04/05/20 14:45 05/05/20 14:44 04/11/20 12:03 Bisacodyl (Dulcolax) 10 mg DAILY PRN ORAL Constipation 04/13/20 10:45 07/12/20 10:44 04/14/20 09:12 Clonidine HCl (Catapres Tab) 0.1 mg PRN PRN ORAL high blood pressure sbp>170 04/04/20 22:45 07/03/20 22:44 04/06/20 04:04 Dextrose (Dextrose 50%) 25 ml Q30M PRN IV Hypoglycemia 04/04/20 22:45 07/03/20 22:44 Dextrose (Dextrose 50%) 50 ml Q30M PRN IV Hypoglycemia 04/04/20 22:45 07/03/20 22:44 Docusate Sodium (Colace) 100 mg TWICE A DAY ORAL 04/13/20 18:00 05/13/20 17:59 04/15/20 16:56 Heparin Sodium (Porcine) (Heparin 5000 units/ml) 5,000 units EVERY 12 HOURS SUBQ 04/05/20 09:00 05/20/20 08:59 04/15/20 09:15 Insulin Aspart (NovoLOG) BEFORE MEALS AND HS SUBQ 04/05/20 06:30 07/04/20 06:29 04/15/20 17:01 Latanoprost (Xalatan) 1 drop BEDTIME BOTH EYES 04/06/20 21:00 05/06/20 20:59 04/14/20 20:49 Magnesium Hydroxide (Mom) 30 ml Q4HR PRN ORAL Constipation 04/13/20 10:45 05/13/20 10:44 04/14/20 09:12 Mirtazapine (Remeron) 7.5 mg BEDTIME ORAL 04/10/20 21:00 07/09/20 20:59 04/14/20 20:49 Ondansetron HCl (Zofran) 4 mg Q6H PRN IVP Nausea & Vomiting 04/04/20 22:45 05/04/20 22:44 04/04/20 23:07 Quetiapine Fumarate (SEROqueL) 25 mg Q6H PRN ORAL For Anxiety 04/11/20 15:45 05/26/20 15:44 04/11/20 15:45 Sennosides (Senokot) 8.6 mg DAILY PRN ORAL Constipation 04/13/20 10:45 05/13/20 10:44 04/14/20 09:12 Neurological/Psychiatric: Reports: anxiety, depressed, emotional problems Allergies: Coded Allergies: Black Pepper (Verified Allergy, Unknown, 04/11/20) Objective Data Height (Feet): 5 Height (Inches): 4.00 Weight (Pounds): 167 General Appearance: alert, alert oriented x3 Additional Comments: MENTAL STATUS EXAMINATION: Alert, oriented times self, place, situation. Mood is anxious. Affect is blunted, congruent with mood. Thought process is concrete. Thought content negative for suicidal, homicidal ideation. Cognition is intact. Insight and judgment is fair. Assessment/Plan [place] I: ASSESSMENT: [place] I Anxiety disorder. Insomnia. [place] II Deferred. [place] III COVID-19. [place] IV Low. [place] V 50 PLAN: 1. We will start the patient on Remeron. 2. Provide the patient with reality orientation and supportive therapy. Status: progressing Status Narrative ASSESSMENT: [place] I Anxiety disorder. Insomnia. [place] II Deferred. [place] III COVID-19. [place] IV Low. [place] V 50 PLAN: 1. We will start the patient on Remeron. 2. Provide the patient with reality orientation and supportive therapy. Assessment/Plan: ASSESSMENT: [place] I Anxiety disorder. Insomnia. [place] II Deferred. [place] III COVID-19. [place] IV Low. [place] V 50 PLAN: 1. We will start the patient on Remeron. 2. Provide the patient with reality orientation and supportive therapy. Enrique Heath MD Apr 15, 2020 20:05
--- NOTE | 2020-04-15 20:55 | General Progress Note ---
Subjective ROS Limited/Unobtainable: Yes Allergies: Coded Allergies: Black Pepper (Verified Allergy, Unknown, 04/11/20) Objective Last 24 Hour Vital Signs Date Time Temp Pulse Resp B/P (MAP) Pulse Ox O2 Delivery O2 Flow Rate FiO2 04/15/20 20:00 98.2 104 20 120/64 (82) 95 04/15/20 17:00 107 133/95 04/15/20 16:00 98.1 106 20 115/95 (102) 96 04/15/20 12:00 98.1 107 20 133/95 (108) 96 04/15/20 09:16 102 139/84 04/15/20 09:00 Venturi Mask 12.0 04/15/20 08:00 97.0 102 20 139/84 (102) 94 04/15/20 04:00 97.3 98 22 135/82 (99) 96 04/15/20 00:00 97.0 98 20 126/87 (100) 97 04/14/20 21:00 Venturi Mask 12.0 Intake and Output 04/14/20 04/15/20 19:00 07:00 Intake Total 120 ml 350 ml Output Total 1200 ml 650 ml Balance -1080 ml -300 ml Intake Oral 120 ml 350 ml Output Urine Total 1200 ml 650 ml # Voids 3 # Bowel Movements 1 Laboratory Tests 04/15/20 11:28: POC Whole Blood Glucose [Pending] 04/15/20 11:42: POC Whole Blood Glucose [Pending] 04/15/20 20:29: POC Whole Blood Glucose 331H Height (Feet): 5 Height (Inches): 4.00 Weight (Pounds): 167 Assessment/Plan Problem List: (1) Hyperglycemia ICD Codes: R73.9 - Hyperglycemia, unspecified SNOMED: 57175092 (2) Dyspnea due to COVID-19 ICD Codes: U07.1 - COVID-19; R06.00 - Dyspnea, unspecified SNOMED: 571806806186965 Status: progressing Assessment/Plan: covid positive resp insuff niddm reviewed chart and labs sugar improving Carlos Oliveira MD Apr 15, 2020 20:55
[2020-04-15] MEDS: Latanoprost 0.005% Opth 2.5ml Soln BOTH EYES SCH (21:15)
[2020-04-16] VITALS: BP 125/84
--- NOTE | 2020-04-16 02:08 | Cardiology Report ---
APPROVED REPORT EKG Measurement Heart [id number] OK [id number] <Conclusion> Sinus tachycardia Possible Left atrial enlargement Borderline ECG
--- NOTE | 2020-04-16 02:19 | Cardiology Report ---
APPROVED REPORT EXAM: Two-dimensional and M-mode echocardiogram with Doppler and color Doppler. INDICATION Shortness of breath M-Mode DIMENSIONS IVSd1.1 (0.7-1.1cm)Left Atrium (MM)2.6 (1.6-4.0cm) LVDd3.4 (3.5-5.6cm)Aortic Root3.2 (2.0-3.7cm) PWd1.1 (0.7-1.1cm)Aortic Cusp Exc.2.0 (1.5-2.0cm) IVSs1.6 cmEPSS0.3 (>1.0cm) LVDs2.2 (2.5-4.0cm) PWs1.4 cm <Conclusion> Normal left ventricular chamber size, systolic function and wall motion. Left ventricular ejection fraction estimated to be 65 %. No evidence of left ventricular hypertrophy. Small pericardial effusion. All other cardiac chamber sizes are within normal limits. Focal aortic valve sclerosis with adequate cusp excursion. Thickened mitral valve leaflets with normal excursion. Mitral annulus and aortic root calcification. Normal pulmonic valve structure. Normal tricuspid valve structure. IVC at normal size without physiologic collapse. A color flow and spectral Doppler study was performed and revealed: Trace aortic regurgitation. Trace mitral regurgitation. Mitral diastolic velocities suggest reduced left ventricular relaxation c/w mild diastolic dysfunction (Grade I). Trace tricuspid regurgitation. Tricuspid systolic velocities suggests peak right ventricular systolic pressure of 20 mmHg. Pulmonic regurgitation present.
[2020-04-16 04:00] VITALS: BP 126/82
[2020-04-16] MEDS: NovoLOG Insulin Flexpen SUBQ SCH ×4 (06:28→20:38)
--- NOTE | 2020-04-16 07:05 | NUR ---
NURSE HAND-OFF: Important Events on Shift: Patient Status: Diet: Pending Orders: Pending Results/Labs: Pending MD notification: Latest Vital Signs: Temperature 98.4 , Pulse 92 , B/P 126 /82 , Respiratory Rate 18 , O2 SAT 94 , Room Air, O2 Flow Rate 12.0 . Vital Sign Comment: Latest Miller Fall Score: 45 Fall Risk: High Risk Safety Measures: Call light Within Reach, Bed Alarm Zone 1, Side Rails Side Rails x2, Bed position Low and Locked. Fall Precautions: Door Sign Patient Fall Education Report given to Debby DE LEON.
--- NOTE | 2020-04-16 07:22 | NUR ---
NURSE NOTES: Patient awake, alert x4; on Venturi mask 12 Liters, no sing of distress and shortness of breath; no sign of chest pain; IV RFA flushes well; Urinal within reach; side rails up x2, breaks engaged, bed at lowest position; call light within reach; will keep monitoring.
[2020-04-16 08:00] VITALS: BP 130/93
--- NOTE | 2020-04-16 08:12 | Pulmonology Progress Note ---
Subjective ROS Limited/Unobtainable: Yes Interval Events: remains on 12L via Venuri mask; breathing better Constitutional: Reports: no symptoms HEENT: Repors: no symptoms Respiratory: Reports: dry cough, dyspnea on exertion Cardiovascular: Reports: no symptoms Gastrointestinal/Abdominal: Reports: no symptoms Psychiatric: Reports: other - anxiety Musculoskeletal: Denies: pain Allergies: Coded Allergies: Black Pepper (Verified Allergy, Unknown, 04/11/20) Objective Last 24 Hour Vital Signs Date Time Temp Pulse Resp B/P (MAP) Pulse Ox O2 Delivery O2 Flow Rate FiO2 04/16/20 04:00 98.4 92 18 126/82 (97) 94 04/16/20 00:00 98.6 95 20 125/84 (98) 93 04/15/20 21:00 Venturi Mask 12.0 04/15/20 20:00 98.2 104 20 120/64 (82) 95 04/15/20 17:00 107 133/95 04/15/20 16:00 98.1 106 20 115/95 (102) 96 04/15/20 12:00 98.1 107 20 133/95 (108) 96 04/15/20 09:16 102 139/84 04/15/20 09:00 Venturi Mask 12.0 Intake and Output 04/15/20 04/16/20 19:00 07:00 Intake Total 600 ml Output Total 400 ml 1300 ml Balance 200 ml -1300 ml Intake Oral 600 ml Output Urine Total 400 ml 1300 ml # Voids 1 2 Objective 04/16 saturating at 94% on 12L VM 04/15 saturating at 96% on 12L Venturi mask 04/14 saturating at 97-98% on 12L Venturi mask 04/13 saturating at 97% on 12L Venturi mask 04/12 saturating at 95% on 12L Venturi mask 04/11 saturating at 96% on 12L Venturi mask 04/10 saturating at 95% on 12L Venturi mask 04/09 remains on 12L Venturi mask, saturating at 92-94% 04/08 pt desaturated on nasal oxygen and now on 12L oxygen via Venturi mask saturating at 94-95% 04/07 currently saturating at 95% on 4L NC General Appearance: WD/WN, no acute distress HEENT: normocephalic, atraumatic Respiratory: lungs clear Cardiovascular: normal rate, regular rhythm Abdomen: soft, non tender Extremities: no edema Laboratory Tests 04/15/20 11:28: POC Whole Blood Glucose [Pending] 04/15/20 11:42: POC Whole Blood Glucose [Pending] 04/15/20 20:29: POC Whole Blood Glucose 331H Current Medications Medications (Trade) Dose Ordered Sig/Ivett Route PRN Reason Start Time Stop Time Status Last Admin Dose Admin Acetaminophen (Tylenol) 500 mg Q4H PRN ORAL Mild Pain (Pain Scale 1-3) 04/04/20 22:45 05/04/20 22:44 04/12/20 20:42 Acetaminophen (Tylenol) 500 mg Q4H PRN ORAL Temp >100.5 04/04/20 22:45 05/04/20 22:44 Al Hydroxide/Mg Hydroxide (Mylanta) 30 ml Q4H PRN ORAL Abdominal cramps 04/09/20 17:00 05/09/20 16:59 04/09/20 22:16 Amlodipine Besylate (Norvasc) 5 mg BID ORAL 04/07/20 18:00 05/05/20 08:59 04/15/20 17:00 Artificial Tears (Akwa-Tears) 2 drop Q4H PRN BOTH EYES Dry Eyes 04/05/20 14:45 05/05/20 14:44 04/11/20 12:03 Bisacodyl (Dulcolax) 10 mg DAILY PRN ORAL Constipation 04/13/20 10:45 07/12/20 10:44 04/14/20 09:12 Clonidine HCl (Catapres Tab) 0.1 mg PRN PRN ORAL high blood pressure sbp>170 04/04/20 22:45 07/03/20 22:44 04/06/20 04:04 Dextrose (Dextrose 50%) 25 ml Q30M PRN IV Hypoglycemia 04/04/20 22:45 07/03/20 22:44 Dextrose (Dextrose 50%) 50 ml Q30M PRN IV Hypoglycemia 04/04/20 22:45 07/03/20 22:44 Docusate Sodium (Colace) 100 mg TWICE A DAY ORAL 04/13/20 18:00 05/13/20 17:59 04/15/20 16:56 Heparin Sodium (Porcine) (Heparin 5000 units/ml) 5,000 units EVERY 12 HOURS SUBQ 04/05/20 09:00 05/20/20 08:59 04/15/20 21:13 Insulin Aspart (NovoLOG) BEFORE MEALS AND HS SUBQ 04/05/20 06:30 07/04/20 06:29 04/16/20 06:28 Latanoprost (Xalatan) 1 drop BEDTIME BOTH EYES 04/06/20 21:00 05/06/20 20:59 04/15/20 21:15 Magnesium Hydroxide (Mom) 30 ml Q4HR PRN ORAL Constipation 04/13/20 10:45 05/13/20 10:44 04/14/20 09:12 Mirtazapine (Remeron) 7.5 mg BEDTIME ORAL 04/10/20 21:00 07/09/20 20:59 04/14/20 20:49 Ondansetron HCl (Zofran) 4 mg Q6H PRN IVP Nausea & Vomiting 04/04/20 22:45 05/04/20 22:44 04/04/20 23:07 Quetiapine Fumarate (SEROqueL) 25 mg Q6H PRN ORAL For Anxiety 04/11/20 15:45 05/26/20 15:44 04/11/20 15:45 Sennosides (Senokot) 8.6 mg DAILY PRN ORAL Constipation 04/13/20 10:45 05/13/20 10:44 04/14/20 09:12 Assessment/Plan Assessment/Plan 1. COVID-19 Bilateral pneumonia. - pt received a dose of Bamlanimab in ER - Continue monitoring for hypoxia; cont supplemental oxygen - Currently saturating at 94% on 12L Venturi mask; will wean down as tolerated; weaning failed yesterday, will attempt again today - s/p Decadron (04/05-04/14) - Defer use of remdesivir to ID specialist. - repeat CXR 04/15 still shows b/l infiltrates without significant change 2. Hypertension. - on amlodipine and prn clonidine 3. Diabetes mellitus. - on Novolog - pt is on steroids Continue home meds; pt reports hx of HIV and takes HIV meds at home; pt unable to recall exact names or doses of the two meds; they need to be continued unless contraindicated Pt was offered to have his family bring his home medications but he reports that is not plausible; defer to ID for management Insomnia - pt c/o persistent insomnia since admission without hx of insomnia - management per primary MD Anxiety - on mirtazapine and Seroquel per psych We will follow carefully. The care for this patient was discussed with my supervising physician Time spent for this case was approximately 31 minutes Neo Montalvo Apr 16, 2020 08:12
[2020-04-16] MEDS: Docusate 100mg cap ORAL SCH ×2 (08:24→16:55)
[2020-04-16] MEDS: Heparin 5000 units/ml inj SUBQ SCH ×2 (08:25→20:37)
[2020-04-16] MEDS: Acetaminophen 500mg (ES) tab ORAL PRN (08:39)
[2020-04-16 12:00] VITALS: BP 128/94
--- NOTE | 2020-04-16 14:34 | NUR ---
CASE MANAGEMENT:REVIEW SI;COVID PNEUMONIA 96.8 113 20 130/93 94% 12L VENTURI MASK GLU 267 IS;HEPARIN SQ Q12 NORVASC PO BID TYLENOL PO Q4 PRN MED SURG STATUS DCP;FROM HOME
--- NOTE | 2020-04-16 15:01 | Infectious Diseases Prog Note ---
Assessment/Plan Assessment/Plan IMPRESSION: COVID-19 pneumonia. HIV Hypoxemia worse SOB on exertion. Diabetes mellitus with hyperglycemia, Hypertension. RECOMMENDATIONS: Finished dexamethasone course Got a dose of Bamlanivimab in ER. observe patient in room air oxygen if remais stable can be discharged Subjective ROS Limited/Unobtainable: No Constitutional: Reports: no symptoms HEENT: Reports: other - dry nostrils Respiratory: Denies: shortness of breath Allergies: Coded Allergies: Black Pepper (Verified Allergy, Unknown, 04/11/20) Objective Last 24 Hour Vital Signs Date Time Temp Pulse Resp B/P (MAP) Pulse Ox O2 Delivery O2 Flow Rate FiO2 04/16/20 12:00 96.8 108 20 128/94 (105) 97 04/16/20 09:09 98.4 04/16/20 09:00 Venturi Mask 12.0 04/16/20 08:25 113 130/93 04/16/20 08:00 97.5 113 20 130/93 (105) 94 04/16/20 04:00 98.4 92 18 126/82 (97) 94 04/16/20 00:00 98.6 95 20 125/84 (98) 93 04/15/20 21:00 Venturi Mask 12.0 04/15/20 20:00 98.2 104 20 120/64 (82) 95 04/15/20 17:00 107 133/95 04/15/20 16:00 98.1 106 20 115/95 (102) 96 Height (Feet): 5 Height (Inches): 4.00 Weight (Pounds): 167 HEENT: mucous membranes moist Respiratory/Chest: other - O2 sat in room air 93% Cardiovascular: tachycardia Abdomen: soft, non tender Extremities: no edema Neurologic/Psychiatric: alert, responsive Laboratory Tests Test 04/15/20 20:29 04/16/20 06:25 04/16/20 11:43 POC Whole Blood Glucose 331 MG/DL (74-106) H 267 MG/DL (74-106) H Pending Current Medications Medications (Trade) Dose Ordered Sig/Ivett Route PRN Reason Start Time Stop Time Status Last Admin Dose Admin Acetaminophen (Tylenol) 500 mg Q4H PRN ORAL Mild Pain (Pain Scale 1-3) 04/04/20 22:45 05/04/20 22:44 04/16/20 08:39 Acetaminophen (Tylenol) 500 mg Q4H PRN ORAL Temp >100.5 04/04/20 22:45 05/04/20 22:44 Al Hydroxide/Mg Hydroxide (Mylanta) 30 ml Q4H PRN ORAL Abdominal cramps 04/09/20 17:00 05/09/20 16:59 04/09/20 22:16 Amlodipine Besylate (Norvasc) 5 mg BID ORAL 04/07/20 18:00 05/05/20 08:59 04/16/20 08:25 Artificial Tears (Akwa-Tears) 2 drop Q4H PRN BOTH EYES Dry Eyes 04/05/20 14:45 05/05/20 14:44 04/11/20 12:03 Bisacodyl (Dulcolax) 10 mg DAILY PRN ORAL Constipation 04/13/20 10:45 07/12/20 10:44 04/14/20 09:12 Clonidine HCl (Catapres Tab) 0.1 mg PRN PRN ORAL high blood pressure sbp>170 04/04/20 22:45 07/03/20 22:44 04/06/20 04:04 Dextrose (Dextrose 50%) 25 ml Q30M PRN IV Hypoglycemia 04/04/20 22:45 07/03/20 22:44 Dextrose (Dextrose 50%) 50 ml Q30M PRN IV Hypoglycemia 04/04/20 22:45 07/03/20 22:44 Docusate Sodium (Colace) 100 mg TWICE A DAY ORAL 04/13/20 18:00 05/13/20 17:59 04/16/20 08:24 Heparin Sodium (Porcine) (Heparin 5000 units/ml) 5,000 units EVERY 12 HOURS SUBQ 04/05/20 09:00 05/20/20 08:59 04/16/20 08:25 Insulin Aspart (NovoLOG) BEFORE MEALS AND HS SUBQ 04/05/20 06:30 07/04/20 06:29 04/16/20 11:38 Latanoprost (Xalatan) 1 drop BEDTIME BOTH EYES 04/06/20 21:00 05/06/20 20:59 04/15/20 21:15 Magnesium Hydroxide (Mom) 30 ml Q4HR PRN ORAL Constipation 04/13/20 10:45 05/13/20 10:44 04/14/20 09:12 Mirtazapine (Remeron) 7.5 mg BEDTIME ORAL 04/10/20 21:00 07/09/20 20:59 04/14/20 20:49 Ondansetron HCl (Zofran) 4 mg Q6H PRN IVP Nausea & Vomiting 04/04/20 22:45 05/04/20 22:44 04/04/20 23:07 Quetiapine Fumarate (SEROqueL) 25 mg Q6H PRN ORAL For Anxiety 04/11/20 15:45 05/26/20 15:44 04/11/20 15:45 Sennosides (Senokot) 8.6 mg DAILY PRN ORAL Constipation 04/13/20 10:45 05/13/20 10:44 04/14/20 09:12 Jarred Nuñez MD Apr 16, 2020 15:01
[2020-04-16 16:00] VITALS: BP 127/84
--- NOTE | 2020-04-16 16:46 | Cardiac Electrophysiology PN ---
Assessment/Plan Assessment/Plan 1. Shortness of breath with COVID pneumonia. Ruled out for MD On 12 liter VM Urine toxicology screen is negative. EF 65%. 2. Hypertension, on Norvasc 5 mg bid and p.r.n. clonidine. 3. COVID pneumonia, on dexamethasone. 4. Diabetes, on insulin. DW RN Subjective Subjective BP better on Amlodipine 5 bid. Off and on on 12 liter VM in SR with no events. Objective Last 24 Hour Vital Signs Date Time Temp Pulse Resp B/P (MAP) Pulse Ox O2 Delivery O2 Flow Rate FiO2 04/16/20 12:00 96.8 108 20 128/94 (105) 97 04/16/20 09:09 98.4 04/16/20 09:00 Venturi Mask 12.0 04/16/20 08:25 113 130/93 04/16/20 08:00 97.5 113 20 130/93 (105) 94 04/16/20 04:00 98.4 92 18 126/82 (97) 94 04/16/20 00:00 98.6 95 20 125/84 (98) 93 04/15/20 21:00 Venturi Mask 12.0 04/15/20 20:00 98.2 104 20 120/64 (82) 95 04/15/20 17:00 107 133/95 Intake and Output 04/15/20 04/16/20 19:00 07:00 Intake Total 600 ml Output Total 400 ml 1300 ml Balance 200 ml -1300 ml Intake Oral 600 ml Output Urine Total 400 ml 1300 ml # Voids 1 2 Laboratory Tests Test 04/15/20 20:29 04/16/20 06:25 04/16/20 11:43 POC Whole Blood Glucose 331 MG/DL (74-106) H 267 MG/DL (74-106) H Pending Objective HEAD AND NECK: no JVD. LUNGS: Coarse rhonchi. CARDIOVASCULAR: regular S1 and S2 with no gallop. ABDOMEN: Soft. EXTREMITIES: No pitting edema. Brian Olivares MD Apr 16, 2020 16:46
--- NOTE | 2020-04-16 17:58 | NUR ---
NURSE HAND-OFF: Important Events on Shift:Blood sugar checked; patient's sats 93% room air; Patient Status: Diet: Pending Orders: Pending Results/Labs: Pending MD notification: Latest Vital Signs: Temperature 97.7 , Pulse 108 , B/P 127 /84 , Respiratory Rate 20 , O2 SAT 95 , Room Air, O2 Flow Rate 12.0 . Vital Sign Comment: Latest Miller Fall Score: 45 Fall Risk: High Risk Safety Measures: Call light Within Reach, Bed Alarm Zone 1, Side Rails Side Rails x2, Bed position Low and Locked. Fall Precautions: Door Sign Patient Fall Education Report given to .
--- NOTE | 2020-04-16 18:07 | General Progress Note ---
Subjective Date patient seen: Apr 16, 2020 Time patient seen: 04:30 Allergies: Coded Allergies: Black Pepper (Verified Allergy, Unknown, 04/11/20) Subjective HISTORY OF PRESENT ILLNESS: The patient is a 59-year-old male who is being seen on the medical/surgical floor of [facility]. No new complaints and denies pain at this time. REVIEW OF SYSTEMS: Denies rash, fever, chills, sweating, dizziness, drowsiness, blurred vision, sore throat, or change in weight. No nausea, vomiting, diarrhea, or blood in the stool or urine. No dysuria. Objective Last 24 Hour Vital Signs Date Time Temp Pulse Resp B/P (MAP) Pulse Ox O2 Delivery O2 Flow Rate FiO2 04/16/20 16:55 108 127/84 04/16/20 16:00 97.7 108 20 127/84 (98) 95 04/16/20 12:00 96.8 108 20 128/94 (105) 97 04/16/20 09:09 98.4 04/16/20 09:00 Venturi Mask 12.0 04/16/20 08:25 113 130/93 04/16/20 08:00 97.5 113 20 130/93 (105) 94 04/16/20 04:00 98.4 92 18 126/82 (97) 94 04/16/20 00:00 98.6 95 20 125/84 (98) 93 04/15/20 21:00 Venturi Mask 12.0 04/15/20 20:00 98.2 104 20 120/64 (82) 95 Intake and Output 04/15/20 04/16/20 19:00 07:00 Intake Total 600 ml Output Total 400 ml 1300 ml Balance 200 ml -1300 ml Intake Oral 600 ml Output Urine Total 400 ml 1300 ml # Voids 1 2 Laboratory Tests 04/15/20 20:29: POC Whole Blood Glucose 331H 04/16/20 06:25: POC Whole Blood Glucose 267H 04/16/20 11:43: POC Whole Blood Glucose [Pending] Height (Feet): 5 Height (Inches): 4.00 Weight (Pounds): 167 Objective PHYSICAL EXAMINATION: GENERAL: Alert, awake, and oriented. LUNGS: Decreased breath sounds bilaterally. HEART: S1 and S2 regular. ABDOMEN: Soft and nontender. EXTREMITIES: No cyanosis. No clubbing. NEURO: No changes. Assessment/Plan Assessment/Plan: (1) Degenerative joint disease (2) Myalgia/ Arthralgia (3) Covid 19+ Patient to be continued on the Tylenol. D/w Dr. Maxwell and he concurred. Josse Hernandez Apr 16, 2020 18:07
--- NOTE | 2020-04-16 19:10 | NUR ---
NURSE NOTES: RECEIVED PATIENT FROM HALEY SANTIZO. PATIENT IS AWAKE, ALERT, AAOX3, ON VENTURI MASK 12L, NO ACUTE DISTRESS NOTED. PIV INTACT AND PATENT. DENIES PAIN. VSS. AFEBRILE. BED IS LOCKED AND LOW, BED ALARMS ACTIVE, SIDE RAILS UPX2 AND CALL LIGHT IS WITHIN REACH. WILL CONTINUE TO MONITOR.
--- NOTE | 2020-04-16 19:20 | NUR ---
HAND-OFF: Report given to HALEY Staley.
--- NOTE | 2020-04-16 19:37 | Psychiatric Progress Note ---
Psychiatry Progress Note Psychiatry Progress Note Medications Current Medications Medications (Trade) Dose Ordered Sig/Ivett Route PRN Reason Start Time Stop Time Status Last Admin Dose Admin Acetaminophen (Tylenol) 500 mg Q4H PRN ORAL Mild Pain (Pain Scale 1-3) 04/04/20 22:45 05/04/20 22:44 04/16/20 08:39 Acetaminophen (Tylenol) 500 mg Q4H PRN ORAL Temp >100.5 04/04/20 22:45 05/04/20 22:44 Al Hydroxide/Mg Hydroxide (Mylanta) 30 ml Q4H PRN ORAL Abdominal cramps 04/09/20 17:00 05/09/20 16:59 04/09/20 22:16 Amlodipine Besylate (Norvasc) 5 mg BID ORAL 04/07/20 18:00 05/05/20 08:59 04/16/20 16:55 Artificial Tears (Akwa-Tears) 2 drop Q4H PRN BOTH EYES Dry Eyes 04/05/20 14:45 05/05/20 14:44 04/11/20 12:03 Bisacodyl (Dulcolax) 10 mg DAILY PRN ORAL Constipation 04/13/20 10:45 07/12/20 10:44 04/14/20 09:12 Clonidine HCl (Catapres Tab) 0.1 mg PRN PRN ORAL high blood pressure sbp>170 04/04/20 22:45 07/03/20 22:44 04/06/20 04:04 Dextrose (Dextrose 50%) 25 ml Q30M PRN IV Hypoglycemia 04/04/20 22:45 07/03/20 22:44 Dextrose (Dextrose 50%) 50 ml Q30M PRN IV Hypoglycemia 04/04/20 22:45 07/03/20 22:44 Docusate Sodium (Colace) 100 mg TWICE A DAY ORAL 04/13/20 18:00 05/13/20 17:59 04/16/20 08:24 Heparin Sodium (Porcine) (Heparin 5000 units/ml) 5,000 units EVERY 12 HOURS SUBQ 04/05/20 09:00 05/20/20 08:59 04/16/20 08:25 Insulin Aspart (NovoLOG) BEFORE MEALS AND HS SUBQ 04/05/20 06:30 07/04/20 06:29 04/16/20 16:56 Latanoprost (Xalatan) 1 drop BEDTIME BOTH EYES 04/06/20 21:00 05/06/20 20:59 04/15/20 21:15 Magnesium Hydroxide (Mom) 30 ml Q4HR PRN ORAL Constipation 04/13/20 10:45 05/13/20 10:44 04/14/20 09:12 Mirtazapine (Remeron) 7.5 mg BEDTIME ORAL 04/10/20 21:00 07/09/20 20:59 04/14/20 20:49 Ondansetron HCl (Zofran) 4 mg Q6H PRN IVP Nausea & Vomiting 04/04/20 22:45 05/04/20 22:44 04/04/20 23:07 Quetiapine Fumarate (SEROqueL) 25 mg Q6H PRN ORAL For Anxiety 04/11/20 15:45 05/26/20 15:44 04/11/20 15:45 Sennosides (Senokot) 8.6 mg DAILY PRN ORAL Constipation 04/13/20 10:45 05/13/20 10:44 04/14/20 09:12 Neurological/Psychiatric: Reports: anxiety, depressed, emotional problems Allergies: Coded Allergies: Black Pepper (Verified Allergy, Unknown, 04/11/20) Objective Data Height (Feet): 5 Height (Inches): 4.00 Weight (Pounds): 167 General Appearance: alert, alert oriented x3 Additional Comments: MENTAL STATUS EXAMINATION: Alert, oriented times self, place, situation. Mood is anxious. Affect is blunted, congruent with mood. Thought process is concrete. Thought content negative for suicidal, homicidal ideation. Cognition is intact. Insight and judgment is fair. Assessment/Plan [place] I: ASSESSMENT: [place] I Anxiety disorder. Insomnia. [place] II Deferred. [place] III COVID-19. [place] IV Low. [place] V 50 PLAN: 1. We will start the patient on Remeron. 2. Provide the patient with reality orientation and supportive therapy. Status: progressing Status Narrative ASSESSMENT: [place] I Anxiety disorder. Insomnia. [place] II Deferred. [place] III COVID-19. [place] IV Low. [place] V 50 PLAN: 1. We will start the patient on Remeron. 2. Provide the patient with reality orientation and supportive therapy. Assessment/Plan: ASSESSMENT: [place] I Anxiety disorder. Insomnia. [place] II Deferred. [place] III COVID-19. [place] IV Low. [place] V 50 PLAN: 1. We will start the patient on Remeron. 2. Provide the patient with reality orientation and supportive therapy. Enrique Heath MD Apr 16, 2020 19:37
[2020-04-16 20:00] VITALS: BP 127/91
[2020-04-16] MEDS: Latanoprost 0.005% Opth 2.5ml Soln BOTH EYES SCH (20:38)
--- NOTE | 2020-04-16 21:28 | General Progress Note ---
Subjective ROS Limited/Unobtainable: Yes Allergies: Coded Allergies: Black Pepper (Verified Allergy, Unknown, 04/11/20) Objective Last 24 Hour Vital Signs Date Time Temp Pulse Resp B/P (MAP) Pulse Ox O2 Delivery O2 Flow Rate FiO2 04/16/20 16:55 108 127/84 04/16/20 16:00 97.7 108 20 127/84 (98) 95 04/16/20 12:00 96.8 108 20 128/94 (105) 97 04/16/20 09:09 98.4 04/16/20 09:00 Venturi Mask 12.0 04/16/20 08:25 113 130/93 04/16/20 08:00 97.5 113 20 130/93 (105) 94 04/16/20 04:00 98.4 92 18 126/82 (97) 94 04/16/20 00:00 98.6 95 20 125/84 (98) 93 Intake and Output 04/15/20 04/16/20 19:00 07:00 Intake Total 600 ml Output Total 400 ml 1300 ml Balance 200 ml -1300 ml Intake Oral 600 ml Output Urine Total 400 ml 1300 ml # Voids 1 2 Laboratory Tests 04/16/20 06:25: POC Whole Blood Glucose 267H 04/16/20 11:43: POC Whole Blood Glucose [Pending] Height (Feet): 5 Height (Inches): 4.00 Weight (Pounds): 167 Assessment/Plan Problem List: (1) Hyperglycemia ICD Codes: R73.9 - Hyperglycemia, unspecified SNOMED: [id number] (2) Dyspnea due to COVID-19 ICD Codes: U07.1 - COVID-19; R06.00 - Dyspnea, unspecified SNOMED: 893304671898198 Status: progressing Assessment/Plan: covid positive resp insuff niddm labile sugar afebrile no sob Carlos Oliveira MD Apr 16, 2020 21:28
[2020-04-17] VITALS: BP 121/86
[2020-04-17 04:00] VITALS: BP 141/82
--- NOTE | 2020-04-17 06:22 | NUR ---
NURSE HAND-OFF: Important Events on Shift: Blood sugar management, patient stable on venturi mask 12L at 94% and 91 at room air. Patient Status: Stable Diet: CCHO (med) Pending Orders: N.A Pending Results/Labs: N.A Pending MD notification: N.A Latest Vital Signs: Temperature 98.6 , Pulse 111 , B/P 141 /82 , Respiratory Rate 20 , O2 SAT 94 , Room Air, O2 Flow Rate 12.0 . Vital Sign Comment: Stable Latest Miller Fall Score: 45 Fall Risk: High Risk Safety Measures: Call light Within Reach, Bed Alarm Zone 1, Side Rails Side Rails x2, Bed position Low and Locked. Fall Precautions: Door Sign Patient Fall Education
[2020-04-17] MEDS: NovoLOG Insulin Flexpen SUBQ SCH ×4 (06:44→21:37)
--- NOTE | 2020-04-17 07:32 | NUR ---
HAND-OFF: Report given to HALEY Haines.
--- NOTE | 2020-04-17 07:35 | NUR ---
NURSE NOTES: Handoff received from Judy RN. Patient is awake and alert, no signs of acute distress noted. Patient is on Venturi mask at 12L. Right forearm Iv is intact and saline locked. Bed is low and locked, side rails up x2, call light is within reach.
[2020-04-17 08:00] VITALS: BP 150/87
[2020-04-17] MEDS: Docusate 100mg cap ORAL SCH ×2 (09:00→16:34)
[2020-04-17] MEDS: Heparin 5000 units/ml inj SUBQ SCH ×2 (09:45→21:38)
--- NOTE | 2020-04-17 10:41 | NUR ---
NURSE NOTES: O2 titrated down per PA order, patient is currently on 4L NC and saturating at 97%.
--- NOTE | 2020-04-17 10:51 | Pulmonology Progress Note ---
Subjective ROS Limited/Unobtainable: Yes Interval Events: remains on 12L via Venuri mask; breathing better Constitutional: Reports: no symptoms HEENT: Repors: no symptoms Respiratory: Reports: dry cough, dyspnea on exertion Cardiovascular: Reports: no symptoms Gastrointestinal/Abdominal: Reports: no symptoms Psychiatric: Reports: other - anxiety Musculoskeletal: Denies: pain Allergies: Coded Allergies: Black Pepper (Verified Allergy, Unknown, 04/11/20) Objective Last 24 Hour Vital Signs Date Time Temp Pulse Resp B/P (MAP) Pulse Ox O2 Delivery O2 Flow Rate FiO2 04/17/20 09:45 114 150/87 04/17/20 04:00 98.6 111 20 141/82 (101) 94 04/17/20 00:00 98.8 115 18 121/86 (98) 94 04/16/20 21:00 Venturi Mask 12.0 04/16/20 20:00 98.6 114 20 127/91 (103) 93 04/16/20 16:55 108 127/84 04/16/20 16:00 97.7 108 20 127/84 (98) 95 04/16/20 12:00 96.8 108 20 128/94 (105) 97 Intake and Output 04/16/20 04/17/20 19:00 07:00 Intake Total 600 ml Output Total 1000 ml Balance 600 ml -1000 ml Intake Oral 600 ml Output Urine Total 1000 ml # Voids 1 Objective 04/17 saturating at 95% on 12L VM 04/16 saturating at 94% on 12L VM 04/15 saturating at 96% on 12L Venturi mask 04/14 saturating at 97-98% on 12L Venturi mask 04/13 saturating at 97% on 12L Venturi mask 04/12 saturating at 95% on 12L Venturi mask 04/11 saturating at 96% on 12L Venturi mask 04/10 saturating at 95% on 12L Venturi mask 04/09 remains on 12L Venturi mask, saturating at 92-94% 04/08 pt desaturated on nasal oxygen and now on 12L oxygen via Venturi mask saturating at 94-95% 04/07 currently saturating at 95% on 4L NC General Appearance: WD/WN, no acute distress HEENT: normocephalic, atraumatic Respiratory: lungs clear Cardiovascular: normal rate, regular rhythm Abdomen: soft, non tender Extremities: no edema Laboratory Tests 04/16/20 11:43: POC Whole Blood Glucose [Pending] 04/17/20 06:42: POC Whole Blood Glucose 263H Current Medications Medications (Trade) Dose Ordered Sig/Ivett Route PRN Reason Start Time Stop Time Status Last Admin Dose Admin Acetaminophen (Tylenol) 500 mg Q4H PRN ORAL Mild Pain (Pain Scale 1-3) 04/04/20 22:45 05/04/20 22:44 04/16/20 08:39 Acetaminophen (Tylenol) 500 mg Q4H PRN ORAL Temp >100.5 04/04/20 22:45 05/04/20 22:44 Al Hydroxide/Mg Hydroxide (Mylanta) 30 ml Q4H PRN ORAL Abdominal cramps 04/09/20 17:00 05/09/20 16:59 04/09/20 22:16 Amlodipine Besylate (Norvasc) 5 mg BID ORAL 04/07/20 18:00 05/05/20 08:59 04/17/20 09:45 Artificial Tears (Akwa-Tears) 2 drop Q4H PRN BOTH EYES Dry Eyes 04/05/20 14:45 05/05/20 14:44 04/11/20 12:03 Bisacodyl (Dulcolax) 10 mg DAILY PRN ORAL Constipation 04/13/20 10:45 07/12/20 10:44 04/14/20 09:12 Clonidine HCl (Catapres Tab) 0.1 mg PRN PRN ORAL high blood pressure sbp>170 04/04/20 22:45 07/03/20 22:44 04/06/20 04:04 Dextrose (Dextrose 50%) 25 ml Q30M PRN IV Hypoglycemia 04/04/20 22:45 07/03/20 22:44 Dextrose (Dextrose 50%) 50 ml Q30M PRN IV Hypoglycemia 04/04/20 22:45 07/03/20 22:44 Docusate Sodium (Colace) 100 mg TWICE A DAY ORAL 04/13/20 18:00 05/13/20 17:59 04/16/20 08:24 Heparin Sodium (Porcine) (Heparin 5000 units/ml) 5,000 units EVERY 12 HOURS SUBQ 04/05/20 09:00 05/20/20 08:59 04/17/20 09:45 Insulin Aspart (NovoLOG) BEFORE MEALS AND HS SUBQ 04/05/20 06:30 07/04/20 06:29 04/17/20 06:44 Latanoprost (Xalatan) 1 drop BEDTIME BOTH EYES 04/06/20 21:00 05/06/20 20:59 04/16/20 20:38 Magnesium Hydroxide (Mom) 30 ml Q4HR PRN ORAL Constipation 04/13/20 10:45 05/13/20 10:44 04/14/20 09:12 Mirtazapine (Remeron) 7.5 mg BEDTIME ORAL 04/10/20 21:00 07/09/20 20:59 04/14/20 20:49 Ondansetron HCl (Zofran) 4 mg Q6H PRN IVP Nausea & Vomiting 04/04/20 22:45 05/04/20 22:44 04/04/20 23:07 Quetiapine Fumarate (SEROqueL) 25 mg Q6H PRN ORAL For Anxiety 04/11/20 15:45 05/26/20 15:44 04/11/20 15:45 Sennosides (Senokot) 8.6 mg DAILY PRN ORAL Constipation 04/13/20 10:45 05/13/20 10:44 04/14/20 09:12 Assessment/Plan Assessment/Plan 1. COVID-19 Bilateral pneumonia. - pt received a dose of Bamlanimab in ER - Continue monitoring for hypoxia; cont supplemental oxygen - Currently saturating at 95% on 12L Venturi mask; will wean down as tolerated; weaning failed yesterday, will attempt again today - s/p Decadron (04/05-04/14) - Defer use of remdesivir to ID specialist. - repeat CXR 04/15 still shows b/l infiltrates without significant change 2. Hypertension. - on amlodipine and prn clonidine 3. Diabetes mellitus. - on Novolog - pt is on steroids Continue home meds; pt reports hx of HIV and takes HIV meds at home; pt unable to recall exact names or doses of the two meds; they need to be continued unless contraindicated Pt was offered to have his family bring his home medications but he reports that is not plausible; defer to ID for management Insomnia - pt c/o persistent insomnia since admission without hx of insomnia - management per primary MD Anxiety - on mirtazapine and Seroquel per psych We will follow carefully. The care for this patient was discussed with my supervising physician Time spent for this case was approximately 31 minutes Neo Montalvo Apr 17, 2020 10:51 Jude Pepe MD Apr 17, 2020 14:29
[2020-04-17 12:00] VITALS: BP 139/86
--- NOTE | 2020-04-17 12:00 | NUR ---
NURSE NOTES: PAtient is saturating at 97% on 2L NC at rest.
--- NOTE | 2020-04-17 12:45 | Infectious Diseases Prog Note ---
Assessment/Plan Assessment/Plan IMPRESSION: COVID-19 pneumonia. HIV Hypoxemia worse SOB on exertion. Diabetes mellitus with hyperglycemia, Hypertension. RECOMMENDATIONS: Finished dexamethasone course Got a dose of Bamlanivimab in ER. Oxygen saturation in room air 95% Case was D/W pulmonary team Subjective Constitutional: Reports: no symptoms Respiratory: Reports: shortness of breath Cardiovascular: Reports: no symptoms Gastrointestinal/Abdominal: Reports: no symptoms Allergies: Coded Allergies: Black Pepper (Verified Allergy, Unknown, 04/11/20) Objective Last 24 Hour Vital Signs Date Time Temp Pulse Resp B/P (MAP) Pulse Ox O2 Delivery O2 Flow Rate FiO2 04/17/20 12:00 98.1 109 19 139/86 (103) 98 04/17/20 09:45 114 150/87 04/17/20 09:00 Venturi Mask 12.0 04/17/20 08:00 97.8 114 20 150/87 (108) 98 04/17/20 04:00 98.6 111 20 141/82 (101) 94 04/17/20 00:00 98.8 115 18 121/86 (98) 94 04/16/20 21:00 Venturi Mask 12.0 04/16/20 20:00 98.6 114 20 127/91 (103) 93 04/16/20 16:55 108 127/84 04/16/20 16:00 97.7 108 20 127/84 (98) 95 Height (Feet): 5 Height (Inches): 4.00 Weight (Pounds): 167 HEENT: mucous membranes moist Respiratory/Chest: other - oxygen by nasal cannula Cardiovascular: tachycardia Abdomen: soft, non tender Extremities: no edema Neurologic/Psychiatric: alert, oriented x 3, responsive Laboratory Tests Test 04/17/20 06:42 04/17/20 11:23 POC Whole Blood Glucose 263 MG/DL (74-106) H 319 MG/DL (74-106) H Current Medications Medications (Trade) Dose Ordered Sig/Ivett Route PRN Reason Start Time Stop Time Status Last Admin Dose Admin Acetaminophen (Tylenol) 500 mg Q4H PRN ORAL Mild Pain (Pain Scale 1-3) 04/04/20 22:45 05/04/20 22:44 04/16/20 08:39 Acetaminophen (Tylenol) 500 mg Q4H PRN ORAL Temp >100.5 04/04/20 22:45 05/04/20 22:44 Al Hydroxide/Mg Hydroxide (Mylanta) 30 ml Q4H PRN ORAL Abdominal cramps 04/09/20 17:00 05/09/20 16:59 04/09/20 22:16 Amlodipine Besylate (Norvasc) 5 mg BID ORAL 04/07/20 18:00 05/05/20 08:59 04/17/20 09:45 Artificial Tears (Akwa-Tears) 2 drop Q4H PRN BOTH EYES Dry Eyes 04/05/20 14:45 05/05/20 14:44 04/11/20 12:03 Bisacodyl (Dulcolax) 10 mg DAILY PRN ORAL Constipation 04/13/20 10:45 07/12/20 10:44 04/14/20 09:12 Clonidine HCl (Catapres Tab) 0.1 mg PRN PRN ORAL high blood pressure sbp>170 04/04/20 22:45 07/03/20 22:44 04/06/20 04:04 Dextrose (Dextrose 50%) 25 ml Q30M PRN IV Hypoglycemia 04/04/20 22:45 07/03/20 22:44 Dextrose (Dextrose 50%) 50 ml Q30M PRN IV Hypoglycemia 04/04/20 22:45 07/03/20 22:44 Docusate Sodium (Colace) 100 mg TWICE A DAY ORAL 04/13/20 18:00 05/13/20 17:59 04/16/20 08:24 Heparin Sodium (Porcine) (Heparin 5000 units/ml) 5,000 units EVERY 12 HOURS SUBQ 04/05/20 09:00 05/20/20 08:59 04/17/20 09:45 Insulin Aspart (NovoLOG) BEFORE MEALS AND HS SUBQ 04/05/20 06:30 07/04/20 06:29 04/17/20 11:28 Latanoprost (Xalatan) 1 drop BEDTIME BOTH EYES 04/06/20 21:00 05/06/20 20:59 04/16/20 20:38 Magnesium Hydroxide (Mom) 30 ml Q4HR PRN ORAL Constipation 04/13/20 10:45 05/13/20 10:44 04/14/20 09:12 Mirtazapine (Remeron) 7.5 mg BEDTIME ORAL 04/10/20 21:00 07/09/20 20:59 04/14/20 20:49 Ondansetron HCl (Zofran) 4 mg Q6H PRN IVP Nausea & Vomiting 04/04/20 22:45 05/04/20 22:44 04/04/20 23:07 Quetiapine Fumarate (SEROqueL) 25 mg Q6H PRN ORAL For Anxiety 04/11/20 15:45 05/26/20 15:44 04/11/20 15:45 Sennosides (Senokot) 8.6 mg DAILY PRN ORAL Constipation 04/13/20 10:45 05/13/20 10:44 04/14/20 09:12 Jarred Nuñez MD Apr 17, 2020 12:45
--- NOTE | 2020-04-17 13:02 | NUR ---
CASE MANAGEMENT:REVIEW SI;COVID PNEUMONIA. HYPOXIA, 98.8 115 20 150/87 94% 12L VENTURI GLU 319 IS;NORVASC PO BID HEPARIN SQ Q12 MED SURG STATUS DCP;FROM HOME PLAN;TITRATE O2
[2020-04-17 16:00] VITALS: BP 127/82
--- NOTE | 2020-04-17 16:42 | Cardiac Electrophysiology PN ---
Assessment/Plan Assessment/Plan 1. Shortness of breath with COVID pneumonia. Ruled out for CT On 2liter NC. Urine toxicology screen is negative. EF 65%. 2. Hypertension, on Norvasc 5 mg bid and p.r.n. clonidine. 3. COVID pneumonia, on dexamethasone. 4. Diabetes, on insulin. DW RN Subjective Subjective BP better on Amlodipine 5 bid. Now on 2 liter NC in SR with no events. Objective Last 24 Hour Vital Signs Date Time Temp Pulse Resp B/P (MAP) Pulse Ox O2 Delivery O2 Flow Rate FiO2 04/17/20 16:00 98.6 111 18 127/82 (97) 98 04/17/20 12:00 98.1 109 19 139/86 (103) 98 04/17/20 09:45 114 150/87 04/17/20 09:00 Venturi Mask 12.0 04/17/20 08:00 97.8 114 20 150/87 (108) 98 04/17/20 04:00 98.6 111 20 141/82 (101) 94 04/17/20 00:00 98.8 115 18 121/86 (98) 94 04/16/20 21:00 Venturi Mask 12.0 04/16/20 20:00 98.6 114 20 127/91 (103) 93 04/16/20 16:55 108 127/84 Intake and Output 04/16/20 04/17/20 19:00 07:00 Intake Total 600 ml Output Total 1000 ml Balance 600 ml -1000 ml Intake Oral 600 ml Output Urine Total 1000 ml # Voids 1 Laboratory Tests Test 04/17/20 06:42 04/17/20 11:23 04/17/20 16:01 POC Whole Blood Glucose 263 MG/DL (74-106) H 319 MG/DL (74-106) H 286 MG/DL (74-106) H Objective HEAD AND NECK: no JVD. LUNGS: Coarse rhonchi. CARDIOVASCULAR: regular S1 and S2 with no gallop. ABDOMEN: Soft. EXTREMITIES: No pitting edema. Brian Olivares MD Apr 17, 2020 16:42
--- NOTE | 2020-04-17 17:40 | General Progress Note ---
Subjective Date patient seen: Apr 17, 2020 Time patient seen: 04:45 - pm Allergies: Coded Allergies: Black Pepper (Verified Allergy, Unknown, 04/11/20) Subjective HISTORY OF PRESENT ILLNESS: The patient is a 59-year-old male who is being seen on the medical/surgical floor of [facility]. Resting in bed and showing no signs of pain or distress. REVIEW OF SYSTEMS: Denies rash, fever, chills, sweating, dizziness, drowsiness, blurred vision, sore throat, or change in weight. No nausea, vomiting, diarrhea, or blood in the stool or urine. No dysuria. Objective Last 24 Hour Vital Signs Date Time Temp Pulse Resp B/P (MAP) Pulse Ox O2 Delivery O2 Flow Rate FiO2 04/17/20 16:00 98.6 111 18 127/82 (97) 98 04/17/20 12:00 98.1 109 19 139/86 (103) 98 04/17/20 09:45 114 150/87 04/17/20 09:00 Venturi Mask 12.0 04/17/20 08:00 97.8 114 20 150/87 (108) 98 04/17/20 04:00 98.6 111 20 141/82 (101) 94 04/17/20 00:00 98.8 115 18 121/86 (98) 94 04/16/20 21:00 Venturi Mask 12.0 04/16/20 20:00 98.6 114 20 127/91 (103) 93 Intake and Output 04/16/20 04/17/20 19:00 07:00 Intake Total 600 ml Output Total 1000 ml Balance 600 ml -1000 ml Intake Oral 600 ml Output Urine Total 1000 ml # Voids 1 Laboratory Tests 04/16/20 20:35: POC Whole Blood Glucose 305H 04/17/20 06:42: POC Whole Blood Glucose 263H 04/17/20 11:23: POC Whole Blood Glucose 319H 04/17/20 16:01: POC Whole Blood Glucose 286H Height (Feet): 5 Height (Inches): 4.00 Weight (Pounds): 167 Objective PHYSICAL EXAMINATION: GENERAL: Alert, awake, and oriented. LUNGS: Decreased breath sounds bilaterally. HEART: S1 and S2 regular. ABDOMEN: Soft and nontender. EXTREMITIES: No cyanosis. No clubbing. NEURO: No changes. Assessment/Plan Assessment/Plan: (1) Degenerative joint disease (2) Myalgia/ Arthralgia (3) Covid 19+ Patient to be continued on the Tylenol. D/w Dr. Maxwell and he concurred. Josse Hernandez Apr 17, 2020 17:40
--- NOTE | 2020-04-17 18:49 | NUR ---
NURSE HAND-OFF: Important Events on Shift:[titrate O2 to 2L NC] Patient Status: stable Diet: ccho med Pending Orders: Pending Results/Labs: Pending MD notification: Latest Vital Signs: Temperature 98.6 , Pulse 111 , B/P 127 /82 , Respiratory Rate 18 , O2 SAT 98 , Room Air, O2 Flow Rate 12.0 . Vital Sign Comment: stable Latest Miller Fall Score: 45 Fall Risk: High Risk Safety Measures: Call light Within Reach, Bed Alarm Zone 1, Side Rails Side Rails x2, Bed position Low and Locked. Fall Precautions: Door Sign Patient Fall Education Report given to Varghese RN.
--- NOTE | 2020-04-17 19:16 | NUR ---
NURSE NOTES: The patient is alert and oriented x4,he is also forgetful with his care.The patient is presently on 2 liters of oxygen via NC well tolerated with SPo2 @ 95 % RA. IV line is in right FA 22g saline log and is patent and asymptomatic. will continue to monitor as indicated.
[2020-04-17 20:00] VITALS: BP 133/87
--- NOTE | 2020-04-17 20:27 | General Progress Note ---
Subjective ROS Limited/Unobtainable: Yes Allergies: Coded Allergies: Black Pepper (Verified Allergy, Unknown, 04/11/20) Objective Last 24 Hour Vital Signs Date Time Temp Pulse Resp B/P (MAP) Pulse Ox O2 Delivery O2 Flow Rate FiO2 04/17/20 20:00 97.9 112 18 133/87 (102) 98 04/17/20 17:48 111 127/82 04/17/20 16:00 98.6 111 18 127/82 (97) 98 04/17/20 12:00 98.1 109 19 139/86 (103) 98 04/17/20 09:45 114 150/87 04/17/20 09:00 Venturi Mask 12.0 04/17/20 08:00 97.8 114 20 150/87 (108) 98 04/17/20 04:00 98.6 111 20 141/82 (101) 94 04/17/20 00:00 98.8 115 18 121/86 (98) 94 04/16/20 21:00 Venturi Mask 12.0 Intake and Output 04/16/20 04/17/20 19:00 07:00 Intake Total 600 ml Output Total 1000 ml Balance 600 ml -1000 ml Intake Oral 600 ml Output Urine Total 1000 ml # Voids 1 Laboratory Tests 04/16/20 20:35: POC Whole Blood Glucose 305H 04/17/20 06:42: POC Whole Blood Glucose 263H 04/17/20 11:23: POC Whole Blood Glucose 319H 04/17/20 16:01: POC Whole Blood Glucose 286H Height (Feet): 5 Height (Inches): 4.00 Weight (Pounds): 167 Assessment/Plan Problem List: (1) Hyperglycemia ICD Codes: R73.9 - Hyperglycemia, unspecified SNOMED: 32778428 (2) Dyspnea due to COVID-19 ICD Codes: U07.1 - COVID-19; R06.00 - Dyspnea, unspecified SNOMED: 939540980646115 Status: progressing Assessment/Plan: covid positive resp insuff niddm poor po intake no fever prn supportive care Carlos Oliveira MD Apr 17, 2020 20:27
[2020-04-17] MEDS: Latanoprost 0.005% Opth 2.5ml Soln BOTH EYES SCH (21:34)
[2020-04-18] VITALS: BP 145/95
[2020-04-18 04:00] VITALS: BP 147/87
--- NOTE | 2020-04-18 04:00 | NUR ---
NURSE NOTES: The patient was noted with anxiety and confusion and was also delusional in his thinking. He was given PRN quetiapine as indicated well tolerated and he was able to sleep for about 7 hrs. will continue to monitor as indicated
[2020-04-18] MEDS: NovoLOG Insulin Flexpen SUBQ SCH ×4 (06:32→21:13)
--- NOTE | 2020-04-18 07:12 | NUR ---
NURSE HAND-OFF: Important Events on Shift: Patient Status: Diet: Pending Orders: Pending Results/Labs: Pending MD notification: Latest Vital Signs: Temperature 97.0 , Pulse 113 , B/P 147 /87 , Respiratory Rate 18 , O2 SAT 97 , Room Air, O2 Flow Rate 12.0 . Vital Sign Comment: Latest Miller Fall Score: 45 Fall Risk: High Risk Safety Measures: Call light Within Reach, Bed Alarm Zone 1, Side Rails Side Rails x2, Bed position Low and Locked. Fall Precautions: Door Sign Patient Fall Education Report given to .
[2020-04-18 08:00] VITALS: BP 132/90
--- NOTE | 2020-04-18 09:00 | NUR ---
NURSE NOTES: Titrating patient oxygen down from 5L to 4L on nasal cannula. Patient tolerating well, spO2 94%. Exhibiting no respiratory distress, respirations 18bpm.
[2020-04-18] MEDS: Docusate 100mg cap ORAL SCH ×2 (09:55→17:11)
[2020-04-18] MEDS: Heparin 5000 units/ml inj SUBQ SCH ×2 (09:57→21:12)
--- NOTE | 2020-04-18 10:08 | Pulmonology Progress Note ---
Subjective ROS Limited/Unobtainable: Yes Interval Events: now on 2L NC Constitutional: Reports: no symptoms HEENT: Repors: no symptoms Respiratory: Reports: dry cough, dyspnea on exertion Cardiovascular: Reports: no symptoms Gastrointestinal/Abdominal: Reports: no symptoms Psychiatric: Reports: other - anxiety Musculoskeletal: Denies: pain Allergies: Coded Allergies: Black Pepper (Verified Allergy, Unknown, 04/11/20) Objective Last 24 Hour Vital Signs Date Time Temp Pulse Resp B/P (MAP) Pulse Ox O2 Delivery O2 Flow Rate FiO2 04/18/20 09:55 101 132/90 04/18/20 08:00 97.0 101 19 132/90 (104) 97 04/18/20 04:00 97.0 113 18 147/87 (107) 97 04/18/20 00:00 96.8 108 20 145/95 (112) 99 04/17/20 21:00 Venturi Mask 12.0 04/17/20 20:00 97.9 112 18 133/87 (102) 98 04/17/20 17:48 111 127/82 04/17/20 16:00 98.6 111 18 127/82 (97) 98 04/17/20 12:00 98.1 109 19 139/86 (103) 98 Intake and Output 04/17/20 04/18/20 19:00 07:00 Intake Total 650 ml 480 ml Output Total 1100 ml Balance 650 ml -620 ml Intake Oral 480 ml Other 650 ml Output Urine Total 1100 ml # Voids 3 Objective 04/18 now saturating at 95% on 2L NC; will wean off today 04/17 saturating at 95% on 12L VM 04/16 saturating at 94% on 12L VM 04/15 saturating at 96% on 12L Venturi mask 04/14 saturating at 97-98% on 12L Venturi mask 04/13 saturating at 97% on 12L Venturi mask 04/12 saturating at 95% on 12L Venturi mask 04/11 saturating at 96% on 12L Venturi mask 04/10 saturating at 95% on 12L Venturi mask 04/09 remains on 12L Venturi mask, saturating at 92-94% 04/08 pt desaturated on nasal oxygen and now on 12L oxygen via Venturi mask saturating at 94-95% 04/07 currently saturating at 95% on 4L NC General Appearance: WD/WN, no acute distress HEENT: normocephalic, atraumatic Respiratory: lungs clear Cardiovascular: normal rate, regular rhythm Abdomen: soft, non tender Extremities: no edema Laboratory Tests 04/17/20 11:23: POC Whole Blood Glucose 319H 04/17/20 16:01: POC Whole Blood Glucose 286H 04/17/20 21:32: POC Whole Blood Glucose 281H 04/18/20 06:00: POC Whole Blood Glucose 281H Current Medications Medications (Trade) Dose Ordered Sig/Ivett Route PRN Reason Start Time Stop Time Status Last Admin Dose Admin Acetaminophen (Tylenol) 500 mg Q4H PRN ORAL Mild Pain (Pain Scale 1-3) 04/04/20 22:45 05/04/20 22:44 04/16/20 08:39 Acetaminophen (Tylenol) 500 mg Q4H PRN ORAL Temp >100.5 04/04/20 22:45 05/04/20 22:44 Al Hydroxide/Mg Hydroxide (Mylanta) 30 ml Q4H PRN ORAL Abdominal cramps 04/09/20 17:00 05/09/20 16:59 04/09/20 22:16 Amlodipine Besylate (Norvasc) 5 mg BID ORAL 04/07/20 18:00 05/05/20 08:59 04/18/20 09:55 Artificial Tears (Akwa-Tears) 2 drop Q4H PRN BOTH EYES Dry Eyes 04/05/20 14:45 05/05/20 14:44 04/11/20 12:03 Bisacodyl (Dulcolax) 10 mg DAILY PRN ORAL Constipation 04/13/20 10:45 07/12/20 10:44 04/14/20 09:12 Clonidine HCl (Catapres Tab) 0.1 mg PRN PRN ORAL high blood pressure sbp>170 04/04/20 22:45 07/03/20 22:44 04/06/20 04:04 Dextrose (Dextrose 50%) 25 ml Q30M PRN IV Hypoglycemia 04/04/20 22:45 07/03/20 22:44 Dextrose (Dextrose 50%) 50 ml Q30M PRN IV Hypoglycemia 04/04/20 22:45 07/03/20 22:44 Docusate Sodium (Colace) 100 mg TWICE A DAY ORAL 04/13/20 18:00 05/13/20 17:59 04/18/20 09:55 Heparin Sodium (Porcine) (Heparin 5000 units/ml) 5,000 units EVERY 12 HOURS SUBQ 04/05/20 09:00 05/20/20 08:59 04/18/20 09:57 Insulin Aspart (NovoLOG) BEFORE MEALS AND HS SUBQ 04/05/20 06:30 07/04/20 06:29 04/18/20 06:32 Latanoprost (Xalatan) 1 drop BEDTIME BOTH EYES 04/06/20 21:00 05/06/20 20:59 04/17/20 21:34 Magnesium Hydroxide (Mom) 30 ml Q4HR PRN ORAL Constipation 04/13/20 10:45 05/13/20 10:44 04/14/20 09:12 Mirtazapine (Remeron) 7.5 mg BEDTIME ORAL 04/10/20 21:00 07/09/20 20:59 04/17/20 21:35 Ondansetron HCl (Zofran) 4 mg Q6H PRN IVP Nausea & Vomiting 04/04/20 22:45 05/04/20 22:44 04/04/20 23:07 Quetiapine Fumarate (SEROqueL) 25 mg Q6H PRN ORAL For Anxiety 04/11/20 15:45 05/26/20 15:44 04/18/20 02:42 Sennosides (Senokot) 8.6 mg DAILY PRN ORAL Constipation 04/13/20 10:45 05/13/20 10:44 04/14/20 09:12 Assessment/Plan Assessment/Plan 1. COVID-19 Bilateral pneumonia. - pt received a dose of Bamlanimab in ER - Continue monitoring for hypoxia; cont supplemental oxygen - now saturating at 95% on 2L NC; will wean off today - s/p Decadron (04/05-04/14) - Defer use of remdesivir to ID specialist. - repeat CXR 04/15 still shows b/l infiltrates without significant change 2. Hypertension. - on amlodipine and prn clonidine 3. Diabetes mellitus. - on Novolog - pt is on steroids Continue home meds; pt reports hx of HIV and takes HIV meds at home; pt unable to recall exact names or doses of the two meds; they need to be continued unless contraindicated Pt was offered to have his family bring his home medications but he reports that is not plausible; defer to ID for management Insomnia - pt c/o persistent insomnia since admission without hx of insomnia - management per primary MD Anxiety - on mirtazapine and Seroquel per psych We will follow carefully. The care for this patient was discussed with my supervising physician Time spent for this case was approximately 31 minutes Neo Montalvo Apr 18, 2020 10:08
[2020-04-18 12:00] VITALS: BP 142/89
--- NOTE | 2020-04-18 12:18 | General Progress Note ---
Subjective Date patient seen: Apr 18, 2020 Time patient seen: 11:00 - am Allergies: Coded Allergies: Black Pepper (Verified Allergy, Unknown, 04/11/20) Subjective HISTORY OF PRESENT ILLNESS: The patient is a 59-year-old male who is being seen on the medical/surgical floor of [facility]. Still in bed and denies pain, continues to have dry cough. REVIEW OF SYSTEMS: Denies rash, fever, chills, sweating, dizziness, drowsiness, blurred vision, sore throat, or change in weight. No nausea, vomiting, diarrhea, or blood in the stool or urine. No dysuria. Objective Last 24 Hour Vital Signs Date Time Temp Pulse Resp B/P (MAP) Pulse Ox O2 Delivery O2 Flow Rate FiO2 04/18/20 09:55 101 132/90 04/18/20 08:00 97.0 101 19 132/90 (104) 97 04/18/20 04:00 97.0 113 18 147/87 (107) 97 04/18/20 00:00 96.8 108 20 145/95 (112) 99 04/17/20 21:00 Venturi Mask 12.0 04/17/20 20:00 97.9 112 18 133/87 (102) 98 04/17/20 17:48 111 127/82 04/17/20 16:00 98.6 111 18 127/82 (97) 98 Intake and Output 04/17/20 04/18/20 19:00 07:00 Intake Total 650 ml 480 ml Output Total 1100 ml Balance 650 ml -620 ml Intake Oral 480 ml Other 650 ml Output Urine Total 1100 ml # Voids 3 Laboratory Tests 04/17/20 16:01: POC Whole Blood Glucose 286H 04/17/20 21:32: POC Whole Blood Glucose 281H 04/18/20 06:00: POC Whole Blood Glucose 281H 04/18/20 11:37: POC Whole Blood Glucose 238H Height (Feet): 5 Height (Inches): 4.00 Weight (Pounds): 167 Objective PHYSICAL EXAMINATION: GENERAL: Alert, awake, and oriented. LUNGS: Decreased breath sounds bilaterally. HEART: S1 and S2 regular. ABDOMEN: Soft and nontender. EXTREMITIES: No cyanosis. No clubbing. NEURO: No changes. Assessment/Plan Assessment/Plan: (1) Degenerative joint disease (2) Myalgia/ Arthralgia (3) Covid 19+ Patient to be continued on the Tylenol. D/w Dr. Maxwell and he concurred. Josse Hernandez Apr 18, 2020 12:18
--- NOTE | 2020-04-18 12:42 | Infectious Diseases Prog Note ---
Assessment/Plan Assessment/Plan IMPRESSION: COVID-19 pneumonia. HIV Hypoxemia worse SOB on exertion. Diabetes mellitus with hyperglycemia, Hypertension. RECOMMENDATIONS: Finished dexamethasone course Got a dose of Bamlanivimab in ER. Oxygen saturation in room air 93% Case was D/W pulmonary team Subjective ROS Limited/Unobtainable: Yes Constitutional: Reports: no symptoms Respiratory: Reports: no symptoms Gastrointestinal/Abdominal: Reports: no symptoms Allergies: Coded Allergies: Black Pepper (Verified Allergy, Unknown, 04/11/20) Objective Last 24 Hour Vital Signs Date Time Temp Pulse Resp B/P (MAP) Pulse Ox O2 Delivery O2 Flow Rate FiO2 04/18/20 09:55 101 132/90 04/18/20 08:00 97.0 101 19 132/90 (104) 97 04/18/20 04:00 97.0 113 18 147/87 (107) 97 04/18/20 00:00 96.8 108 20 145/95 (112) 99 04/17/20 21:00 Venturi Mask 12.0 04/17/20 20:00 97.9 112 18 133/87 (102) 98 04/17/20 17:48 111 127/82 04/17/20 16:00 98.6 111 18 127/82 (97) 98 Height (Feet): 5 Height (Inches): 4.00 Weight (Pounds): 167 HEENT: mucous membranes moist Respiratory/Chest: lungs clear, other - oxygen by nasal cannula Cardiovascular: tachycardia Abdomen: soft, non tender Extremities: no edema Neurologic/Psychiatric: alert, responsive Laboratory Tests Test 04/17/20 16:01 04/17/20 21:32 04/18/20 06:00 04/18/20 11:37 POC Whole Blood Glucose 286 MG/DL (74-106) H 281 MG/DL (74-106) H 281 MG/DL (74-106) H 238 MG/DL (74-106) H Current Medications Medications (Trade) Dose Ordered Sig/Ivett Route PRN Reason Start Time Stop Time Status Last Admin Dose Admin Acetaminophen (Tylenol) 500 mg Q4H PRN ORAL Mild Pain (Pain Scale 1-3) 04/04/20 22:45 05/04/20 22:44 04/16/20 08:39 Acetaminophen (Tylenol) 500 mg Q4H PRN ORAL Temp >100.5 04/04/20 22:45 05/04/20 22:44 Al Hydroxide/Mg Hydroxide (Mylanta) 30 ml Q4H PRN ORAL Abdominal cramps 04/09/20 17:00 05/09/20 16:59 04/09/20 22:16 Amlodipine Besylate (Norvasc) 5 mg BID ORAL 04/07/20 18:00 05/05/20 08:59 04/18/20 09:55 Artificial Tears (Akwa-Tears) 2 drop Q4H PRN BOTH EYES Dry Eyes 04/05/20 14:45 05/05/20 14:44 04/11/20 12:03 Bisacodyl (Dulcolax) 10 mg DAILY PRN ORAL Constipation 04/13/20 10:45 07/12/20 10:44 04/14/20 09:12 Clonidine HCl (Catapres Tab) 0.1 mg PRN PRN ORAL high blood pressure sbp>170 04/04/20 22:45 07/03/20 22:44 04/06/20 04:04 Dextrose (Dextrose 50%) 25 ml Q30M PRN IV Hypoglycemia 04/04/20 22:45 07/03/20 22:44 Dextrose (Dextrose 50%) 50 ml Q30M PRN IV Hypoglycemia 04/04/20 22:45 07/03/20 22:44 Docusate Sodium (Colace) 100 mg TWICE A DAY ORAL 04/13/20 18:00 05/13/20 17:59 04/18/20 09:55 Heparin Sodium (Porcine) (Heparin 5000 units/ml) 5,000 units EVERY 12 HOURS SUBQ 04/05/20 09:00 05/20/20 08:59 04/18/20 09:57 Insulin Aspart (NovoLOG) BEFORE MEALS AND HS SUBQ 04/05/20 06:30 07/04/20 06:29 04/18/20 11:42 Latanoprost (Xalatan) 1 drop BEDTIME BOTH EYES 04/06/20 21:00 05/06/20 20:59 04/17/20 21:34 Magnesium Hydroxide (Mom) 30 ml Q4HR PRN ORAL Constipation 04/13/20 10:45 05/13/20 10:44 04/14/20 09:12 Mirtazapine (Remeron) 7.5 mg BEDTIME ORAL 04/10/20 21:00 07/09/20 20:59 04/17/20 21:35 Ondansetron HCl (Zofran) 4 mg Q6H PRN IVP Nausea & Vomiting 04/04/20 22:45 05/04/20 22:44 04/04/20 23:07 Quetiapine Fumarate (SEROqueL) 25 mg Q6H PRN ORAL For Anxiety 04/11/20 15:45 05/26/20 15:44 04/18/20 02:42 Sennosides (Senokot) 8.6 mg DAILY PRN ORAL Constipation 04/13/20 10:45 05/13/20 10:44 04/14/20 09:12 Jarred Nuñez MD Apr 18, 2020 12:42
--- NOTE | 2020-04-18 14:25 | NUR ---
C SE MANAGEMENT:REVIEW SI;COVID PNEUMONIA. HYPOXIA, 96.8 113 20 147/87 97% 4L NC IS;NORVASC PO BID HEPARIN SQ Q12 SEROQUEL PO MED SURG STATUS DCP;FROM HOME PLAN;TITRATE O2
--- NOTE | 2020-04-18 15:38 | Cardiac Electrophysiology PN ---
Assessment/Plan Assessment/Plan 1. Shortness of breath with COVID pneumonia. Ruled out for VT On 2liter NC. Urine toxicology screen is negative. EF 65%. 2. Hypertension, on Norvasc 5 mg bid and p.r.n. clonidine. 3. COVID pneumonia, on dexamethasone. 4. Diabetes, on insulin. YANCY RN Subjective Subjective Now on 2 liter NC in SR with no events. Objective Last 24 Hour Vital Signs Date Time Temp Pulse Resp B/P (MAP) Pulse Ox O2 Delivery O2 Flow Rate FiO2 04/18/20 12:00 97.6 109 19 142/89 (106) 97 04/18/20 09:55 101 132/90 04/18/20 09:00 Nasal Cannula 2.0 04/18/20 08:00 97.0 101 19 132/90 (104) 97 04/18/20 04:00 97.0 113 18 147/87 (107) 97 04/18/20 00:00 96.8 108 20 145/95 (112) 99 04/17/20 21:00 Venturi Mask 12.0 04/17/20 20:00 97.9 112 18 133/87 (102) 98 04/17/20 17:48 111 127/82 04/17/20 16:00 98.6 111 18 127/82 (97) 98 Intake and Output 04/17/20 04/18/20 19:00 07:00 Intake Total 650 ml 480 ml Output Total 1100 ml Balance 650 ml -620 ml Intake Oral 480 ml Other 650 ml Output Urine Total 1100 ml # Voids 3 Laboratory Tests Test 04/17/20 16:01 04/17/20 21:32 04/18/20 06:00 04/18/20 11:37 POC Whole Blood Glucose 286 MG/DL (74-106) H 281 MG/DL (74-106) H 281 MG/DL (74-106) H 238 MG/DL (74-106) H Objective HEAD AND NECK: no JVD. LUNGS: Coarse rhonchi. CARDIOVASCULAR: regular S1 and S2 with no gallop. ABDOMEN: Soft. EXTREMITIES: No pitting edema. Brian Olivares MD Apr 18, 2020 15:38
[2020-04-18 16:00] VITALS: BP 137/81
--- NOTE | 2020-04-18 19:16 | NUR ---
NURSE HAND-OFF REPORT: Important Events on Shift: urinary bladder scan checked at 17:30, scanner shows 125mL Patient Status: stable condition, full code Diet: Pending Orders: [] Pending Results/Labs:[] Pending MD notification:[] Latest Vital Signs: Temperature 97.1 , Pulse 107 , B/P 137 /81 , Respiratory Rate 20 , O2 SAT 98 , Room Air, O2 Flow Rate 2.0 . Vital Sign Comment: [] EKG Rhythm: Sinus Tachycardia Rhythm change?: MD Notified?: - MD Response: Latest Miller Fall Score: 45 Fall Risk: High Risk Safety Measures: Call light Within Reach, Bed Alarm Zone 1, Side Rails Side Rails x2, Bed position Low and Locked. Fall Precautions: Yellow Socks Door Sign Patient Fall Education Report given to Wes Henriquez RN.
--- NOTE | 2020-04-18 19:45 | NUR ---
NURSE NOTES: Received report from Rachel DE LEON. Patient is awake, alert and oriented x4. No complains of pain or distress noted. On NC 1L, breathing is even and unlabored. O2 sat 96%. IV right FA intact with no bleeding noted. Bed low and locked. Call light within reach.
[2020-04-18 20:00] VITALS: BP 131/84
--- NOTE | 2020-04-18 20:13 | General Progress Note ---
Subjective ROS Limited/Unobtainable: Yes Allergies: Coded Allergies: Black Pepper (Verified Allergy, Unknown, 04/11/20) Objective Last 24 Hour Vital Signs Date Time Temp Pulse Resp B/P (MAP) Pulse Ox O2 Delivery O2 Flow Rate FiO2 04/18/20 17:11 107 137/81 04/18/20 16:00 97.1 107 20 137/81 (99) 98 04/18/20 12:00 97.6 109 19 142/89 (106) 97 04/18/20 09:55 101 132/90 04/18/20 09:00 Nasal Cannula 2.0 04/18/20 08:00 97.0 101 19 132/90 (104) 97 04/18/20 04:00 97.0 113 18 147/87 (107) 97 04/18/20 00:00 96.8 108 20 145/95 (112) 99 04/17/20 21:00 Venturi Mask 12.0 Intake and Output 04/17/20 04/18/20 19:00 07:00 Intake Total 650 ml 480 ml Output Total 1100 ml Balance 650 ml -620 ml Intake Oral 480 ml Other 650 ml Output Urine Total 1100 ml # Voids 3 Laboratory Tests 04/17/20 21:32: POC Whole Blood Glucose 281H 04/18/20 06:00: POC Whole Blood Glucose 281H 04/18/20 11:37: POC Whole Blood Glucose 238H 04/18/20 17:14: POC Whole Blood Glucose 220H Height (Feet): 5 Height (Inches): 4.00 Weight (Pounds): 167 Assessment/Plan Problem List: (1) Hyperglycemia ICD Codes: R73.9 - Hyperglycemia, unspecified SNOMED: 35341317 (2) Dyspnea due to COVID-19 ICD Codes: U07.1 - COVID-19; R06.00 - Dyspnea, unspecified SNOMED: 572533449825108 Status: progressing Assessment/Plan: covid positive resp insuff niddm no change intermittentt sob prn supportive care Carlos Oliveira MD Apr 18, 2020 20:13
[2020-04-18] MEDS: Latanoprost 0.005% Opth 2.5ml Soln BOTH EYES SCH (21:11)
[2020-04-19] VITALS: BP 131/83
[2020-04-19 04:00] VITALS: BP 123/83
[2020-04-19] MEDS: NovoLOG Insulin Flexpen SUBQ SCH ×4 (05:56→20:43)
--- NOTE | 2020-04-19 07:30 | NUR ---
NURSE HAND-OFF: Important Events on Shift: BS management Patient Status: Stable Diet: CCHO (medium) Pending Orders: [] Pending Results/Labs:[] Pending MD notification:[] Latest Vital Signs: Temperature 97.2 , Pulse 115 , B/P 123 /83 , Respiratory Rate 20 , O2 SAT 95 , Room Air, O2 Flow Rate 1.0 . Vital Sign Comment: VS stable Latest Miller Fall Score: 45 Fall Risk: High Risk Safety Measures: Call light Within Reach, Bed Alarm Zone 1, Side Rails Side Rails x2, Bed position Low and Locked. Fall Precautions: Yellow Socks Door Sign Patient Fall Education Report given to Sita/Niyah DE LEON.
--- NOTE | 2020-04-19 07:45 | NUR ---
NURSE NOTES: Received report from Samir DE LEON. Patient is awake in bed alert and oriented, eating breakfast. Patient on 1 L NC, no SOB noted. Patient not in distress. Bed in lowest position, side rails up, call light in reach, bed alarm on. Updated on care plan.
[2020-04-19 08:00] VITALS: BP 134/77
[2020-04-19] MEDS: Docusate 100mg cap ORAL SCH ×3 (08:57→17:40)
[2020-04-19] MEDS: Heparin 5000 units/ml inj SUBQ SCH ×2 (08:57→20:44)
--- NOTE | 2020-04-19 11:28 | NUR ---
Patient taken off NC 1 L, is now on room air tolerating well. SpO2 95-96% RA, no SOB, regular breathing pattern. Addendum: 04/19/20 at 1130 by Niyah Trammell RN NURSE NOTES:
[2020-04-19 12:00] VITALS: BP 127/89
--- NOTE | 2020-04-19 12:38 | Pulmonology Progress Note ---
Subjective ROS Limited/Unobtainable: Yes Interval Events: now on 2L NC Constitutional: Reports: no symptoms HEENT: Repors: no symptoms Respiratory: Reports: dry cough, dyspnea on exertion Cardiovascular: Reports: no symptoms Gastrointestinal/Abdominal: Reports: no symptoms Psychiatric: Reports: other - anxiety Musculoskeletal: Denies: pain Allergies: Coded Allergies: Black Pepper (Verified Allergy, Unknown, 04/11/20) Objective Last 24 Hour Vital Signs Date Time Temp Pulse Resp B/P (MAP) Pulse Ox O2 Delivery O2 Flow Rate FiO2 04/19/20 09:11 110 134/77 04/19/20 09:00 Nasal Cannula 1.0 04/19/20 08:00 97.4 110 20 134/77 (96) 96 04/19/20 04:00 97.2 115 20 123/83 (96) 95 04/19/20 00:00 98.1 115 20 131/83 (99) 97 04/18/20 21:00 Nasal Cannula 1.0 04/18/20 20:00 97.9 118 20 131/84 (100) 96 04/18/20 17:11 107 137/81 04/18/20 16:00 97.1 107 20 137/81 (99) 98 Intake and Output 04/18/20 04/19/20 19:00 07:00 Intake Total 800 ml 400 ml Balance 800 ml 400 ml Intake Oral 400 ml Other 800 ml General Appearance: WD/WN, no acute distress HEENT: normocephalic, atraumatic Respiratory: lungs clear Cardiovascular: normal rate, regular rhythm Abdomen: soft, non tender Extremities: no edema Laboratory Tests 04/18/20 17:14: POC Whole Blood Glucose 220H 04/18/20 20:11: POC Whole Blood Glucose 250H 04/19/20 05:52: POC Whole Blood Glucose 214H 04/19/20 11:46: POC Whole Blood Glucose 259H Current Medications Medications (Trade) Dose Ordered Sig/Ivett Route PRN Reason Start Time Stop Time Status Last Admin Dose Admin Acetaminophen (Tylenol) 500 mg Q4H PRN ORAL Mild Pain (Pain Scale 1-3) 04/04/20 22:45 05/04/20 22:44 04/16/20 08:39 Acetaminophen (Tylenol) 500 mg Q4H PRN ORAL Temp >100.5 04/04/20 22:45 05/04/20 22:44 Al Hydroxide/Mg Hydroxide (Mylanta) 30 ml Q4H PRN ORAL Abdominal cramps 04/09/20 17:00 05/09/20 16:59 04/09/20 22:16 Amlodipine Besylate (Norvasc) 5 mg BID ORAL 04/07/20 18:00 05/05/20 08:59 04/19/20 09:11 Artificial Tears (Akwa-Tears) 2 drop Q4H PRN BOTH EYES Dry Eyes 04/05/20 14:45 05/05/20 14:44 04/11/20 12:03 Bisacodyl (Dulcolax) 10 mg DAILY PRN ORAL Constipation 04/13/20 10:45 07/12/20 10:44 04/14/20 09:12 Clonidine HCl (Catapres Tab) 0.1 mg PRN PRN ORAL high blood pressure sbp>170 04/04/20 22:45 07/03/20 22:44 04/06/20 04:04 Dextrose (Dextrose 50%) 25 ml Q30M PRN IV Hypoglycemia 04/04/20 22:45 07/03/20 22:44 Dextrose (Dextrose 50%) 50 ml Q30M PRN IV Hypoglycemia 04/04/20 22:45 07/03/20 22:44 Docusate Sodium (Colace) 100 mg TWICE A DAY ORAL 04/13/20 18:00 05/13/20 17:59 04/18/20 17:11 Heparin Sodium (Porcine) (Heparin 5000 units/ml) 5,000 units EVERY 12 HOURS SUBQ 04/05/20 09:00 05/20/20 08:59 04/19/20 08:57 Insulin Aspart (NovoLOG) BEFORE MEALS AND HS SUBQ 04/05/20 06:30 07/04/20 06:29 04/19/20 05:56 Latanoprost (Xalatan) 1 drop BEDTIME BOTH EYES 04/06/20 21:00 05/06/20 20:59 04/18/20 21:11 Magnesium Hydroxide (Mom) 30 ml Q4HR PRN ORAL Constipation 04/13/20 10:45 05/13/20 10:44 04/14/20 09:12 Mirtazapine (Remeron) 7.5 mg BEDTIME ORAL 04/10/20 21:00 07/09/20 20:59 04/17/20 21:35 Ondansetron HCl (Zofran) 4 mg Q6H PRN IVP Nausea & Vomiting 04/04/20 22:45 05/04/20 22:44 04/04/20 23:07 Quetiapine Fumarate (SEROqueL) 25 mg Q6H PRN ORAL For Anxiety 04/11/20 15:45 05/26/20 15:44 04/18/20 02:42 Sennosides (Senokot) 8.6 mg DAILY PRN ORAL Constipation 04/13/20 10:45 05/13/20 10:44 04/14/20 09:12 Assessment/Plan Assessment/Plan Assessment 1. COVID-19 Bilateral pneumonia. 2. Hypertension. - on amlodipine and prn clonidine 3. Diabetes mellitus. - on Novolog - pt is on steroids 4. Hx HIV PLAN; Continue monitoring for hypoxia; cont supplemental oxygen now saturating at 95% at room air Defer use of remdesivir to ID specialist. CXR 04/15 still shows b/l infiltrates without significant change We will follow carefully. The care for this patient was discussed with my supervising physician Yolie Bishop NP Apr 19, 2020 12:37
[2020-04-19 16:00] VITALS: BP 130/90
--- NOTE | 2020-04-19 18:59 | NUR ---
NURSE HAND-OFF: Important Events on Shift:[Patient taken off O2 NC, now room air] Patient Status: [stable] Diet: [CCHO] Pending Orders: [] Pending Results/Labs:[] Pending MD notification:[] Latest Vital Signs: Temperature 98.0 , Pulse 118 , B/P 130 /90 , Respiratory Rate 19 , O2 SAT 94 , Room Air, O2 Flow Rate 1.0 . Vital Sign Comment: [] Latest Miller Fall Score: 35 Fall Risk: Medium Risk Safety Measures: Call light Within Reach, Bed Alarm Zone 1, Side Rails Side Rails x2, Bed position Low and Locked. Fall Precautions: Yellow Socks Report given to [Jayant RN].
--- NOTE | 2020-04-19 19:10 | NUR ---
NURSE NOTES: Received report from HALEY Linder. Pt is currently awake. Urinal within reach. Call light within reach, bed locked and in lowest position. Pt is now on room air. Will continue to monitor.
--- NOTE | 2020-04-19 19:41 | General Progress Note ---
Subjective ROS Limited/Unobtainable: Yes Allergies: Coded Allergies: Black Pepper (Verified Allergy, Unknown, 04/11/20) Objective Last 24 Hour Vital Signs Date Time Temp Pulse Resp B/P (MAP) Pulse Ox O2 Delivery O2 Flow Rate FiO2 04/19/20 17:39 118 130/90 04/19/20 16:00 98.0 118 19 130/90 (103) 94 04/19/20 12:00 97.3 112 20 127/89 (102) 93 04/19/20 09:11 110 134/77 04/19/20 09:00 Nasal Cannula 1.0 04/19/20 08:00 97.4 110 20 134/77 (96) 96 04/19/20 04:00 97.2 115 20 123/83 (96) 95 04/19/20 00:00 98.1 115 20 131/83 (99) 97 04/18/20 21:00 Nasal Cannula 1.0 04/18/20 20:00 97.9 118 20 131/84 (100) 96 Intake and Output 04/18/20 04/19/20 19:00 07:00 Intake Total 800 ml 400 ml Balance 800 ml 400 ml Intake Oral 400 ml Other 800 ml Laboratory Tests 04/18/20 20:11: POC Whole Blood Glucose 250H 04/19/20 05:52: POC Whole Blood Glucose 214H 04/19/20 11:46: POC Whole Blood Glucose 259H 04/19/20 16:45: POC Whole Blood Glucose 256H Height (Feet): 5 Height (Inches): 4.00 Weight (Pounds): 167 Assessment/Plan Problem List: (1) Hyperglycemia ICD Codes: R73.9 - Hyperglycemia, unspecified SNOMED: 21507784 (2) Dyspnea due to COVID-19 ICD Codes: U07.1 - COVID-19; R06.00 - Dyspnea, unspecified SNOMED: 429870831959986 Status: progressing Assessment/Plan: covid + dm afebrile supportive care vitals stable Carlos Oliveira MD Apr 19, 2020 19:41
[2020-04-19 20:00] VITALS: BP 132/81
[2020-04-19] MEDS: Latanoprost 0.005% Opth 2.5ml Soln BOTH EYES SCH (20:41)
--- NOTE | 2020-04-19 21:50 | Cardiac Electrophysiology PN ---
Assessment/Plan Assessment/Plan 1. Shortness of breath with COVID pneumonia. Ruled out for NC On Room Air. EF 65%. On Dexamethasone 2. Hypertension, on Norvasc 5 mg bid and p.r.n. clonidine. 3. Diabetes, on insulin. YANCY RN Subjective Subjective Now on Room Air with no events. Objective Last 24 Hour Vital Signs Date Time Temp Pulse Resp B/P (MAP) Pulse Ox O2 Delivery O2 Flow Rate FiO2 04/19/20 20:00 97.3 105 20 132/81 (98) 94 04/19/20 17:39 118 130/90 04/19/20 16:00 98.0 118 19 130/90 (103) 94 04/19/20 12:00 97.3 112 20 127/89 (102) 93 04/19/20 09:11 110 134/77 04/19/20 09:00 Nasal Cannula 1.0 04/19/20 08:00 97.4 110 20 134/77 (96) 96 04/19/20 04:00 97.2 115 20 123/83 (96) 95 04/19/20 00:00 98.1 115 20 131/83 (99) 97 Intake and Output 04/18/20 04/19/20 19:00 07:00 Intake Total 800 ml 400 ml Balance 800 ml 400 ml Intake Oral 400 ml Other 800 ml Laboratory Tests Test 04/19/20 05:52 04/19/20 11:46 04/19/20 16:45 04/19/20 20:10 POC Whole Blood Glucose 214 MG/DL (74-106) H 259 MG/DL (74-106) H 256 MG/DL (74-106) H 307 MG/DL (74-106) H Objective HEAD AND NECK: no JVD. LUNGS: Coarse rhonchi. CARDIOVASCULAR: regular S1 and S2 with no gallop. ABDOMEN: Soft. EXTREMITIES: No pitting edema. Brian Olivares MD Apr 19, 2020 21:50
[2020-04-20] VITALS: BP 129/83
[2020-04-20] MEDS: NovoLOG Insulin Flexpen SUBQ SCH ×4 (06:47→21:12)
--- NOTE | 2020-04-20 07:10 | NUR ---
NURSE HAND-OFF: Important Events on Shift: Pt was cold and did not sleep much. Patient Status: awake and calm Diet: CCHO medium Pending Orders: Pending Results/Labs: Pending MD notification: Latest Vital Signs: Temperature 97.1 , Pulse 109 , B/P 129 /83 , Respiratory Rate 18 , O2 SAT 95 , Room Air, O2 Flow Rate 1.0 . Vital Sign Comment: VSS Latest Miller Fall Score: 35 Fall Risk: Medium Risk Safety Measures: Call light Within Reach, Bed Alarm Zone 1, Side Rails Side Rails x2, Bed position Low and Locked. Fall Precautions: Yellow Socks Report given to HALEY Buckner.
--- NOTE | 2020-04-20 07:30 | NUR ---
NURSE NOTES: Received report from Jayant DE LEON. Patient awake in bed eating breakfast. On room air, no SOB noted. IV on right forearm SL. No acute distress noted. Bed in lowest position, call light in reach, bed alarm on, side rails up.
[2020-04-20 08:00] VITALS: BP 127/84
[2020-04-20] MEDS: Docusate 100mg cap ORAL SCH ×2 (09:00→17:32)
[2020-04-20] MEDS: Heparin 5000 units/ml inj SUBQ SCH ×2 (09:12→21:12)
--- NOTE | 2020-04-20 11:29 | NUR ---
Physical Therapy Note: Pt declined PT services today.
[2020-04-20 12:00] VITALS: BP 130/89
--- NOTE | 2020-04-20 12:05 | Pulmonology Progress Note ---
Subjective ROS Limited/Unobtainable: Yes Interval Events: now on 2L NC Constitutional: Reports: no symptoms HEENT: Repors: no symptoms Respiratory: Reports: dry cough, dyspnea on exertion Cardiovascular: Reports: no symptoms Gastrointestinal/Abdominal: Reports: no symptoms Psychiatric: Reports: other - anxiety Musculoskeletal: Denies: pain Allergies: Coded Allergies: Black Pepper (Verified Allergy, Unknown, 04/11/20) Objective Last 24 Hour Vital Signs Date Time Temp Pulse Resp B/P (MAP) Pulse Ox O2 Delivery O2 Flow Rate FiO2 04/20/20 09:11 114 127/84 04/20/20 09:00 Room Air 04/20/20 08:00 97.2 114 18 127/84 (98) 92 04/20/20 00:00 97.1 109 18 129/83 (98) 95 04/19/20 21:00 Room Air 04/19/20 20:00 97.3 105 20 132/81 (98) 94 04/19/20 17:39 118 130/90 04/19/20 16:00 98.0 118 19 130/90 (103) 94 Intake and Output 04/19/20 04/20/20 19:00 07:00 Intake Total 700 ml 360 ml Output Total 1100 ml Balance -400 ml 360 ml Intake Oral 700 ml Other 360 ml Output Urine Total 1100 ml # Voids 1 General Appearance: WD/WN, no acute distress HEENT: normocephalic, atraumatic Respiratory: lungs clear Cardiovascular: normal rate, regular rhythm Abdomen: soft, non tender Extremities: no edema Laboratory Tests 04/19/20 16:45: POC Whole Blood Glucose 256H 04/19/20 20:10: POC Whole Blood Glucose 307H 04/20/20 11:28: POC Whole Blood Glucose 240H Current Medications Medications (Trade) Dose Ordered Sig/Ivett Route PRN Reason Start Time Stop Time Status Last Admin Dose Admin Acetaminophen (Tylenol) 500 mg Q4H PRN ORAL Mild Pain (Pain Scale 1-3) 04/04/20 22:45 05/04/20 22:44 04/16/20 08:39 Acetaminophen (Tylenol) 500 mg Q4H PRN ORAL Temp >100.5 04/04/20 22:45 05/04/20 22:44 Al Hydroxide/Mg Hydroxide (Mylanta) 30 ml Q4H PRN ORAL Abdominal cramps 04/09/20 17:00 05/09/20 16:59 04/09/20 22:16 Amlodipine Besylate (Norvasc) 5 mg BID ORAL 04/07/20 18:00 05/05/20 08:59 04/20/20 09:11 Artificial Tears (Akwa-Tears) 2 drop Q4H PRN BOTH EYES Dry Eyes 04/05/20 14:45 05/05/20 14:44 04/11/20 12:03 Bisacodyl (Dulcolax) 10 mg DAILY PRN ORAL Constipation 04/13/20 10:45 07/12/20 10:44 04/14/20 09:12 Clonidine HCl (Catapres Tab) 0.1 mg PRN PRN ORAL high blood pressure sbp>170 04/04/20 22:45 07/03/20 22:44 04/06/20 04:04 Dextrose (Dextrose 50%) 25 ml Q30M PRN IV Hypoglycemia 04/04/20 22:45 07/03/20 22:44 Dextrose (Dextrose 50%) 50 ml Q30M PRN IV Hypoglycemia 04/04/20 22:45 07/03/20 22:44 Docusate Sodium (Colace) 100 mg TWICE A DAY ORAL 04/13/20 18:00 05/13/20 17:59 04/18/20 17:11 Heparin Sodium (Porcine) (Heparin 5000 units/ml) 5,000 units EVERY 12 HOURS SUBQ 04/05/20 09:00 05/20/20 08:59 04/20/20 09:12 Insulin Aspart (NovoLOG) BEFORE MEALS AND HS SUBQ 04/05/20 06:30 07/04/20 06:29 04/20/20 11:42 Latanoprost (Xalatan) 1 drop BEDTIME BOTH EYES 04/06/20 21:00 05/06/20 20:59 04/19/20 20:41 Magnesium Hydroxide (Mom) 30 ml Q4HR PRN ORAL Constipation 04/13/20 10:45 05/13/20 10:44 04/14/20 09:12 Mirtazapine (Remeron) 7.5 mg BEDTIME ORAL 04/10/20 21:00 07/09/20 20:59 04/17/20 21:35 Ondansetron HCl (Zofran) 4 mg Q6H PRN IVP Nausea & Vomiting 04/04/20 22:45 05/04/20 22:44 04/04/20 23:07 Quetiapine Fumarate (SEROqueL) 25 mg Q6H PRN ORAL For Anxiety 04/11/20 15:45 05/26/20 15:44 04/18/20 02:42 Sennosides (Senokot) 8.6 mg DAILY PRN ORAL Constipation 04/13/20 10:45 05/13/20 10:44 04/14/20 09:12 Assessment/Plan Assessment/Plan Assessment 1. COVID-19 Bilateral pneumonia. 2. Hypertension. - on amlodipine and prn clonidine 3. Diabetes mellitus. - on Novolog - pt is on steroids 4. Hx HIV PLAN; Continue monitoring for hypoxia; cont supplemental oxygen saturating at 95% at room air Defer use of remdesivir to ID specialist. CXR 04/15 still shows b/l infiltrates without significant change We will follow carefully. The care for this patient was discussed with my supervising physician Yolie Bishop NP Apr 20, 2020 12:05
[2020-04-20 16:00] VITALS: BP 130/91
--- NOTE | 2020-04-20 17:59 | General Progress Note ---
Subjective ROS Limited/Unobtainable: Yes Allergies: Coded Allergies: Black Pepper (Verified Allergy, Unknown, 04/11/20) Objective Last 24 Hour Vital Signs Date Time Temp Pulse Resp B/P (MAP) Pulse Ox O2 Delivery O2 Flow Rate FiO2 04/20/20 17:33 111 130/91 04/20/20 16:00 97.7 111 19 130/91 (104) 95 04/20/20 12:00 97.3 111 19 130/89 (103) 94 04/20/20 09:11 114 127/84 04/20/20 09:00 Room Air 04/20/20 08:00 97.2 114 18 127/84 (98) 92 04/20/20 00:00 97.1 109 18 129/83 (98) 95 04/19/20 21:00 Room Air 04/19/20 20:00 97.3 105 20 132/81 (98) 94 Intake and Output 04/19/20 04/20/20 19:00 07:00 Intake Total 700 ml 360 ml Output Total 1100 ml Balance -400 ml 360 ml Intake Oral 700 ml Other 360 ml Output Urine Total 1100 ml # Voids 1 Laboratory Tests 04/19/20 20:10: POC Whole Blood Glucose 307H 04/20/20 11:28: POC Whole Blood Glucose 240H 04/20/20 16:58: POC Whole Blood Glucose 222H Height (Feet): 5 Height (Inches): 4.00 Weight (Pounds): 167 Assessment/Plan Problem List: (1) Hyperglycemia ICD Codes: R73.9 - Hyperglycemia, unspecified SNOMED: 79548358 (2) Dyspnea due to COVID-19 ICD Codes: U07.1 - COVID-19; R06.00 - Dyspnea, unspecified SNOMED: 379458686873190 Status: progressing Assessment/Plan: covid + dm no change check labs sugar is improving moniter po intake Carlos Oliveira MD Apr 20, 2020 17:59
--- NOTE | 2020-04-20 19:05 | NUR ---
NURSE HAND-OFF: Important Events on Shift:[none] Patient Status: [stable] Diet: [CCHO] Pending Orders: [] Pending Results/Labs:[] Pending MD notification:[] Latest Vital Signs: Temperature 97.7 , Pulse 111 , B/P 130 /91 , Respiratory Rate 19 , O2 SAT 95 , Room Air, O2 Flow Rate 1.0 . Vital Sign Comment: [] Latest Miller Fall Score: 35 Fall Risk: Medium Risk Safety Measures: Call light Within Reach, Bed Alarm Zone 1, Side Rails Side Rails x2, Bed position Low and Locked. Fall Precautions: Yellow Socks Report given to [Wes RN].
--- NOTE | 2020-04-20 19:12 | General Progress Note ---
Subjective Date patient seen: Apr 20, 2020 Time patient seen: 06:00 - pm Allergies: Coded Allergies: Black Pepper (Verified Allergy, Unknown, 04/11/20) Subjective HISTORY OF PRESENT ILLNESS: The patient is a 59-year-old male who is being seen on the medical/surgical floor of [facility]. In bed no signs of pain or distress. REVIEW OF SYSTEMS: Denies rash, fever, chills, sweating, dizziness, drowsiness, blurred vision, sore throat, or change in weight. No nausea, vomiting, diarrhea, or blood in the stool or urine. No dysuria. Objective Last 24 Hour Vital Signs Date Time Temp Pulse Resp B/P (MAP) Pulse Ox O2 Delivery O2 Flow Rate FiO2 04/20/20 17:33 111 130/91 04/20/20 16:00 97.7 111 19 130/91 (104) 95 04/20/20 12:00 97.3 111 19 130/89 (103) 94 04/20/20 09:11 114 127/84 04/20/20 09:00 Room Air 04/20/20 08:00 97.2 114 18 127/84 (98) 92 04/20/20 00:00 97.1 109 18 129/83 (98) 95 04/19/20 21:00 Room Air 04/19/20 20:00 97.3 105 20 132/81 (98) 94 Intake and Output 04/19/20 04/20/20 19:00 07:00 Intake Total 700 ml 360 ml Output Total 1100 ml Balance -400 ml 360 ml Intake Oral 700 ml Other 360 ml Output Urine Total 1100 ml # Voids 1 Laboratory Tests 04/19/20 20:10: POC Whole Blood Glucose 307H 04/20/20 11:28: POC Whole Blood Glucose 240H 04/20/20 16:58: POC Whole Blood Glucose 222H Height (Feet): 5 Height (Inches): 4.00 Weight (Pounds): 167 Objective PHYSICAL EXAMINATION: GENERAL: Alert, awake, and oriented. LUNGS: Decreased breath sounds bilaterally. HEART: S1 and S2 regular. ABDOMEN: Soft and nontender. EXTREMITIES: No cyanosis. No clubbing. NEURO: No changes. Assessment/Plan Assessment/Plan: (1) Degenerative joint disease (2) Myalgia/ Arthralgia (3) Covid 19+ Patient to be continued on the Tylenol. D/w Dr. Maxwell and he concurred. Josse Hernandez Apr 20, 2020 19:12
--- NOTE | 2020-04-20 19:45 | NUR ---
NURSE NOTES: Received report from Sita DE LEON. Patient is awake, alert, and oriented x4. On room air, breathing is even and unlabored. No complains of pain or distress noted. IV right FA S/L with no bleeding noted. Bed low and locked. Call light within reach. Will continue to monitor.
[2020-04-20 20:00] VITALS: BP 149/87
[2020-04-20] MEDS: Latanoprost 0.005% Opth 2.5ml Soln BOTH EYES SCH (21:11)
[2020-04-21] VITALS: BP 122/83
[2020-04-21 04:00] VITALS: BP 132/89
[2020-04-21] MEDS: NovoLOG Insulin Flexpen SUBQ SCH ×4 (06:21→21:37)
--- NOTE | 2020-04-21 07:45 | NUR ---
NURSE HAND-OFF: Important Events on Shift: No new event Patient Status: Stable Diet: CCHO (medium) Pending Orders: [] Pending Results/Labs:[] Pending MD notification:[] Latest Vital Signs: Temperature 98.2 , Pulse 107 , B/P 132 /89 , Respiratory Rate 18 , O2 SAT 93 , Room Air, O2 Flow Rate 1.0 . Vital Sign Comment: VS stable Latest Miller Fall Score: 45 Fall Risk: High Risk Safety Measures: Call light Within Reach, Bed Alarm Zone 1, Side Rails Side Rails x2, Bed position Low and Locked. Fall Precautions: Yellow Socks Door Sign Patient Fall Education Report given to Nadege DE LEON.
[2020-04-21 08:00] VITALS: BP 136/65
--- NOTE | 2020-04-21 08:39 | NUR ---
RD ASSESSMENT & RECOMMENDATIONS SEE CARE ACTIVITY FOR COMPLETE ASSESSMENT DAILY ESTIMATED NEEDS: Needs based on Pulmonary, HIV 63.3kg abw 25-35 kcals/kg 6474-9550 total kcals 1-1.5 g protein/kg 63-95 g total protein 25-30 mL/kg 2128-6412 total fluid mLs NUTRITION DIAGNOSIS: Altered nutrition related lab values r/t diabetes as evidenced by elev BG (217-287, not updated), Uglu 4+ on adm, elev POC ([phone]), now off Decadron. CURRENT DIET:CCHO MED + Glucerna TID PO DIET RECOMMENDATIONS: CCHO LOW, double protein portions to meet caloric needs ADDITIONAL RECOMMENDATIONS: 1) Add long acting insulin for improved BG control (BGs 200's-400's) On niss only at this time 2) DC Glucerna TID w/ current good PO intake for improved BG control -> provides 5 additional carb servings, BGs 200's to 400's 3) maintain daily calibrated bed scale wts 4) Check A1C 5) Monitor for continued good PO intake and tolerance
--- NOTE | 2020-04-21 09:34 | General Progress Note ---
Subjective Date patient seen: Apr 21, 2020 Time patient seen: 09:00 - am Allergies: Coded Allergies: Black Pepper (Verified Allergy, Unknown, 04/11/20) Subjective HISTORY OF PRESENT ILLNESS: The patient is a 59-year-old male who is being seen on the medical/surgical floor of [facility]. Still in bed and reports no pain at this time. No new complaints at this time. REVIEW OF SYSTEMS: Denies rash, fever, chills, sweating, dizziness, drowsiness, blurred vision, sore throat, or change in weight. No nausea, vomiting, diarrhea, or blood in the stool or urine. No dysuria. Objective Last 24 Hour Vital Signs Date Time Temp Pulse Resp B/P (MAP) Pulse Ox O2 Delivery O2 Flow Rate FiO2 04/21/20 04:00 98.2 107 18 132/89 (103) 93 04/21/20 00:00 98.8 109 18 122/83 (96) 95 04/20/20 21:00 Room Air 04/20/20 20:00 98.5 110 18 149/87 (107) 94 04/20/20 17:33 111 130/91 04/20/20 16:00 97.7 111 19 130/91 (104) 95 04/20/20 12:00 97.3 111 19 130/89 (103) 94 Intake and Output 04/20/20 04/21/20 19:00 07:00 Intake Total 970 ml Output Total 800 ml 500 ml Balance 170 ml -500 ml Intake Oral 970 ml Output Urine Total 800 ml 500 ml # Voids 2 Laboratory Tests 04/20/20 11:28: POC Whole Blood Glucose 240H 04/20/20 16:58: POC Whole Blood Glucose 222H 04/20/20 20:30: POC Whole Blood Glucose 225H Height (Feet): 5 Height (Inches): 4.00 Weight (Pounds): 167 Objective PHYSICAL EXAMINATION: GENERAL: Alert, awake, and oriented. LUNGS: Decreased breath sounds bilaterally. HEART: S1 and S2 regular. ABDOMEN: Soft and nontender. EXTREMITIES: No cyanosis. No clubbing. NEURO: No changes. Assessment/Plan Assessment/Plan: (1) Degenerative joint disease (2) Myalgia/ Arthralgia (3) Covid 19+ Patient to be continued on the Tylenol. D/w Dr. Maxwell and he concurred. Josse Hernandez Apr 21, 2020 09:34
[2020-04-21] MEDS: Heparin 5000 units/ml inj SUBQ SCH ×2 (09:45→21:38)
[2020-04-21] MEDS: Docusate 100mg cap ORAL SCH ×2 (09:45→16:57)
--- NOTE | 2020-04-21 10:43 | Cardiac Electrophysiology PN ---
Assessment/Plan Assessment/Plan 1. COVID pneumonia. Ruled out for [place] On Room Air. EF 65%. On Dexamethasone 2. Hypertension, on Norvasc 5 mg bid and p.r.n. clonidine. 3. Diabetes, on insulin. YANCY RN Subjective Subjective In SR on Room Air with no events. DC planning today Objective Last 24 Hour Vital Signs Date Time Temp Pulse Resp B/P (MAP) Pulse Ox O2 Delivery O2 Flow Rate FiO2 04/21/20 09:45 108 136/65 04/21/20 08:00 97.0 108 19 136/65 (88) 95 04/21/20 04:00 98.2 107 18 132/89 (103) 93 04/21/20 00:00 98.8 109 18 122/83 (96) 95 04/20/20 21:00 Room Air 04/20/20 20:00 98.5 110 18 149/87 (107) 94 04/20/20 17:33 111 130/91 04/20/20 16:00 97.7 111 19 130/91 (104) 95 04/20/20 12:00 97.3 111 19 130/89 (103) 94 Intake and Output 04/20/20 04/21/20 19:00 07:00 Intake Total 970 ml Output Total 800 ml 500 ml Balance 170 ml -500 ml Intake Oral 970 ml Output Urine Total 800 ml 500 ml # Voids 2 Laboratory Tests Test 04/20/20 11:28 04/20/20 16:58 04/20/20 20:30 POC Whole Blood Glucose 240 MG/DL (74-106) H 222 MG/DL (74-106) H 225 MG/DL (74-106) H Objective HEAD AND NECK: no JVD. LUNGS: Coarse rhonchi. CARDIOVASCULAR: regular S1 and S2 with no gallop. ABDOMEN: Soft. EXTREMITIES: No pitting edema. Brian Olivares MD Apr 21, 2020 10:43
[2020-04-21 12:00] VITALS: BP 132/67
--- NOTE | 2020-04-21 12:34 | Infectious Diseases Prog Note ---
Assessment/Plan Assessment/Plan IMPRESSION: COVID-19 pneumonia. HIV Hypoxemia improved SOB on exertion. Diabetes mellitus with hyperglycemia, Hypertension. RECOMMENDATIONS: Finished dexamethasone course Got a dose of Bamlanivimab in ER. Agree with discharge Resume HIV medication in SNF Subjective ROS Limited/Unobtainable: No Constitutional: Reports: no symptoms Respiratory: Reports: no symptoms Cardiovascular: Reports: no symptoms Gastrointestinal/Abdominal: Reports: no symptoms Genitourinary: Reports: no symptoms Allergies: Coded Allergies: Black Pepper (Verified Allergy, Unknown, 04/11/20) Objective Last 24 Hour Vital Signs Date Time Temp Pulse Resp B/P (MAP) Pulse Ox O2 Delivery O2 Flow Rate FiO2 04/21/20 09:45 108 136/65 04/21/20 08:00 97.0 108 19 136/65 (88) 95 04/21/20 04:00 98.2 107 18 132/89 (103) 93 04/21/20 00:00 98.8 109 18 122/83 (96) 95 04/20/20 21:00 Room Air 04/20/20 20:00 98.5 110 18 149/87 (107) 94 04/20/20 17:33 111 130/91 04/20/20 16:00 97.7 111 19 130/91 (104) 95 Height (Feet): 5 Height (Inches): 4.00 Weight (Pounds): 167 General Appearance: no acute distress HEENT: mucous membranes moist Respiratory/Chest: no respiratory distress, other - on room air oxygen Cardiovascular: normal rate Abdomen: soft, non tender Extremities: no edema Neurologic/Psychiatric: alert, oriented x 3, responsive Laboratory Tests Test 04/20/20 16:58 04/20/20 20:30 04/21/20 11:28 POC Whole Blood Glucose 222 MG/DL (74-106) H 225 MG/DL (74-106) H 313 MG/DL (74-106) H Current Medications Medications (Trade) Dose Ordered Sig/Ivett Route PRN Reason Start Time Stop Time Status Last Admin Dose Admin Acetaminophen (Tylenol) 500 mg Q4H PRN ORAL Mild Pain (Pain Scale 1-3) 04/04/20 22:45 05/04/20 22:44 04/16/20 08:39 Acetaminophen (Tylenol) 500 mg Q4H PRN ORAL Temp >100.5 04/04/20 22:45 05/04/20 22:44 Al Hydroxide/Mg Hydroxide (Mylanta) 30 ml Q4H PRN ORAL Abdominal cramps 04/09/20 17:00 05/09/20 16:59 04/09/20 22:16 Amlodipine Besylate (Norvasc) 5 mg BID ORAL 04/07/20 18:00 05/05/20 08:59 04/21/20 09:45 Artificial Tears (Akwa-Tears) 2 drop Q4H PRN BOTH EYES Dry Eyes 04/05/20 14:45 05/05/20 14:44 04/11/20 12:03 Bisacodyl (Dulcolax) 10 mg DAILY PRN ORAL Constipation 04/13/20 10:45 07/12/20 10:44 04/14/20 09:12 Clonidine HCl (Catapres Tab) 0.1 mg PRN PRN ORAL high blood pressure sbp>170 04/04/20 22:45 07/03/20 22:44 04/06/20 04:04 Dextrose (Dextrose 50%) 25 ml Q30M PRN IV Hypoglycemia 04/04/20 22:45 07/03/20 22:44 Dextrose (Dextrose 50%) 50 ml Q30M PRN IV Hypoglycemia 04/04/20 22:45 07/03/20 22:44 Docusate Sodium (Colace) 100 mg TWICE A DAY ORAL 04/13/20 18:00 05/13/20 17:59 04/21/20 09:45 Heparin Sodium (Porcine) (Heparin 5000 units/ml) 5,000 units EVERY 12 HOURS SUBQ 04/05/20 09:00 05/20/20 08:59 04/21/20 09:45 Insulin Aspart (NovoLOG) BEFORE MEALS AND HS SUBQ 04/05/20 06:30 07/04/20 06:29 04/21/20 11:34 Latanoprost (Xalatan) 1 drop BEDTIME BOTH EYES 04/06/20 21:00 05/06/20 20:59 04/20/20 21:11 Magnesium Hydroxide (Mom) 30 ml Q4HR PRN ORAL Constipation 04/13/20 10:45 05/13/20 10:44 04/14/20 09:12 Mirtazapine (Remeron) 7.5 mg BEDTIME ORAL 04/10/20 21:00 07/09/20 20:59 04/17/20 21:35 Ondansetron HCl (Zofran) 4 mg Q6H PRN IVP Nausea & Vomiting 04/04/20 22:45 05/04/20 22:44 04/04/20 23:07 Quetiapine Fumarate (SEROqueL) 25 mg Q6H PRN ORAL For Anxiety 04/11/20 15:45 05/26/20 15:44 04/18/20 02:42 Sennosides (Senokot) 8.6 mg DAILY PRN ORAL Constipation 04/13/20 10:45 05/13/20 10:44 04/14/20 09:12 Jarred Nuñez MD Apr 21, 2020 12:34
--- NOTE | 2020-04-21 14:33 | NUR ---
PT WEEKLY PROGRESS NOTE Patient being seen by PT for therapeutic exercises, bed mobility training and transfer training. Patient able to perform bed mobility with SBA and to transfer sit to stand with min assist and FWW. Patient denies SOB in sitting. Patient will continue to benefit from skilled inpatient PT intervention to increase strength, postural stability and activity tolerance.
[2020-04-21 16:00] VITALS: BP 127/72
--- NOTE | 2020-04-21 16:25 | NUR ---
CASE MANAGEMENT:REVIEW SI;COV ID PNEUMONIA. DM. HTN. 98.9 109 19 136/65 93% ON RA GLU 313 IS;NORVASC PO BID HEPARIN SQ Q12 MED SURG STATUS DCP;FROM HOME
--- NOTE | 2020-04-21 19:15 | NUR ---
NURSE NOTES: RECEIVED PATIENT FROM HALEY ZULETA. PATIENT IS AWAKE, AAOX4, ON ROOM AIR, NO ACUTE DISTRESS NOTED. PIV INTACT AND PATENT. DENIES SOB AND PAIN. BED IS LOCKED AND LOW, BED ALARMS ACTIVE, SIDE RAILS UPX2, AND CALL LIGHT IS WITHIN REACH. WILL CONTINUE TO MONITOR.
--- NOTE | 2020-04-21 19:21 | NUR ---
NURSE HAND-OFF: Important Events on Shift: stable condition, room air, discharge planning Patient Status: stable condition, full code Diet: Pending Orders: [] Pending Results/Labs:[] Pending MD notification:[] Latest Vital Signs: Temperature 98.3 , Pulse 98 , B/P 127 /72 , Respiratory Rate 20 , O2 SAT 96 , Room Air, O2 Flow Rate 1.0 . Vital Sign Comment: [] Latest Miller Fall Score: 45 Fall Risk: High Risk Safety Measures: Call light Within Reach, Bed Alarm Zone 1, Side Rails Side Rails x2, Bed position Low and Locked. Fall Precautions: Yellow Socks Door Sign Patient Fall Education Report given to HALEY Staley.
[2020-04-21 20:00] VITALS: BP 127/91
--- NOTE | 2020-04-21 20:41 | General Progress Note ---
Subjective ROS Limited/Unobtainable: Yes Allergies: Coded Allergies: Black Pepper (Verified Allergy, Unknown, 04/11/20) Objective Last 24 Hour Vital Signs Date Time Temp Pulse Resp B/P (MAP) Pulse Ox O2 Delivery O2 Flow Rate FiO2 04/21/20 17:05 98 127/72 04/21/20 16:00 98.3 98 20 127/72 (90) 96 04/21/20 12:00 98.9 99 18 132/67 (88) 96 04/21/20 09:45 108 136/65 04/21/20 09:00 Room Air 04/21/20 08:00 97.0 108 19 136/65 (88) 95 04/21/20 04:00 98.2 107 18 132/89 (103) 93 04/21/20 00:00 98.8 109 18 122/83 (96) 95 04/20/20 21:00 Room Air Intake and Output 04/20/20 04/21/20 19:00 07:00 Intake Total 970 ml Output Total 800 ml 500 ml Balance 170 ml -500 ml Intake Oral 970 ml Output Urine Total 800 ml 500 ml # Voids 2 Laboratory Tests 04/21/20 11:28: POC Whole Blood Glucose 313H Height (Feet): 5 Height (Inches): 4.00 Weight (Pounds): 167 Assessment/Plan Problem List: (1) Hyperglycemia ICD Codes: R73.9 - Hyperglycemia, unspecified SNOMED: 83688370 (2) Dyspnea due to COVID-19 ICD Codes: U07.1 - COVID-19; R06.00 - Dyspnea, unspecified SNOMED: [id number] Assessment/Plan: covid + dm check sugar resp insuff reviwed chart and labs Carlos Oliveira MD Apr 21, 2020 20:41
[2020-04-21] MEDS: Latanoprost 0.005% Opth 2.5ml Soln BOTH EYES SCH (21:36)
[2020-04-22] VITALS (7 sets, daily range): BP systolic 121–150; BP diastolic 83–102
[2020-04-22] MEDS: NovoLOG Insulin Flexpen SUBQ SCH ×4 (06:25→19:54)
--- NOTE | 2020-04-22 06:44 | NUR ---
NURSE HAND-OFF: Important Events on Shift: Blood sugar management, monitor oxygenation, tolerating well on room air Patient Status: stable Diet: regular Pending Orders: D/C planning Pending Results/Labs: N/A Pending MD notification: N/A Latest Vital Signs: Temperature 98.0 , Pulse 110 , B/P 127 /93 , Respiratory Rate 20 , O2 SAT 93 , Room Air, O2 Flow Rate 1.0 . Vital Sign Comment: stable Latest Miller Fall Score: 45 Fall Risk: High Risk Safety Measures: Call light Within Reach, Bed Alarm Zone 1, Side Rails Side Rails x2, Bed position Low and Locked. Fall Precautions: Yellow Socks Door Sign Patient Fall Education
--- NOTE | 2020-04-22 07:39 | NUR ---
HAND-OFF: Report given to HALEY Gross.
--- NOTE | 2020-04-22 09:07 | Pulmonology Progress Note ---
Subjective ROS Limited/Unobtainable: Yes Interval Events: now on 2L NC Constitutional: Reports: no symptoms HEENT: Repors: no symptoms Respiratory: Reports: dry cough, dyspnea on exertion Cardiovascular: Reports: no symptoms Gastrointestinal/Abdominal: Reports: no symptoms Psychiatric: Reports: other - anxiety Musculoskeletal: Denies: pain Allergies: Coded Allergies: Black Pepper (Verified Allergy, Unknown, 04/11/20) Objective Last 24 Hour Vital Signs Date Time Temp Pulse Resp B/P (MAP) Pulse Ox O2 Delivery O2 Flow Rate FiO2 04/22/20 04:00 98.0 110 20 127/93 (104) 93 04/22/20 00:00 97.9 110 20 150/102 (118) 97 04/21/20 21:00 Room Air 04/21/20 20:00 97.6 113 20 127/91 (103) 95 04/21/20 17:05 98 127/72 04/21/20 16:00 98.3 98 20 127/72 (90) 96 04/21/20 12:00 98.9 99 18 132/67 (88) 96 04/21/20 09:45 108 136/65 Intake and Output 04/21/20 04/22/20 19:00 07:00 Intake Total 450 ml 200 ml Balance 450 ml 200 ml Intake Oral 450 ml 200 ml # Voids 2 2 # Bowel Movements 1 Objective 04/18 now saturating at 95% on 2L NC; will wean off today 04/17 saturating at 95% on 12L VM 04/16 saturating at 94% on 12L VM 04/15 saturating at 96% on 12L Venturi mask 04/14 saturating at 97-98% on 12L Venturi mask 04/13 saturating at 97% on 12L Venturi mask 04/12 saturating at 95% on 12L Venturi mask 04/11 saturating at 96% on 12L Venturi mask 04/10 saturating at 95% on 12L Venturi mask 04/09 remains on 12L Venturi mask, saturating at 92-94% 04/08 pt desaturated on nasal oxygen and now on 12L oxygen via Venturi mask saturating at 94-95% 04/07 currently saturating at 95% on 4L NC General Appearance: WD/WN, no acute distress HEENT: normocephalic, atraumatic Respiratory: lungs clear Cardiovascular: normal rate, regular rhythm Abdomen: soft, non tender Extremities: no edema Laboratory Tests 04/21/20 11:28: POC Whole Blood Glucose 313H 04/21/20 16:52: POC Whole Blood Glucose 282H Current Medications Medications (Trade) Dose Ordered Sig/Ivett Route PRN Reason Start Time Stop Time Status Last Admin Dose Admin Acetaminophen (Tylenol) 500 mg Q4H PRN ORAL Mild Pain (Pain Scale 1-3) 04/04/20 22:45 05/04/20 22:44 04/16/20 08:39 Acetaminophen (Tylenol) 500 mg Q4H PRN ORAL Temp >100.5 04/04/20 22:45 05/04/20 22:44 Al Hydroxide/Mg Hydroxide (Mylanta) 30 ml Q4H PRN ORAL Abdominal cramps 04/09/20 17:00 05/09/20 16:59 04/09/20 22:16 Amlodipine Besylate (Norvasc) 5 mg BID ORAL 04/07/20 18:00 05/05/20 08:59 04/21/20 17:05 Artificial Tears (Akwa-Tears) 2 drop Q4H PRN BOTH EYES Dry Eyes 04/05/20 14:45 05/05/20 14:44 04/11/20 12:03 Bisacodyl (Dulcolax) 10 mg DAILY PRN ORAL Constipation 04/13/20 10:45 07/12/20 10:44 04/14/20 09:12 Clonidine HCl (Catapres Tab) 0.1 mg PRN PRN ORAL high blood pressure sbp>170 04/04/20 22:45 07/03/20 22:44 04/06/20 04:04 Dextrose (Dextrose 50%) 25 ml Q30M PRN IV Hypoglycemia 04/04/20 22:45 07/03/20 22:44 Dextrose (Dextrose 50%) 50 ml Q30M PRN IV Hypoglycemia 04/04/20 22:45 07/03/20 22:44 Docusate Sodium (Colace) 100 mg TWICE A DAY ORAL 04/13/20 18:00 05/13/20 17:59 04/21/20 09:45 Heparin Sodium (Porcine) (Heparin 5000 units/ml) 5,000 units EVERY 12 HOURS SUBQ 04/05/20 09:00 05/20/20 08:59 04/21/20 21:38 Insulin Aspart (NovoLOG) BEFORE MEALS AND HS SUBQ 04/05/20 06:30 07/04/20 06:29 04/22/20 06:25 Latanoprost (Xalatan) 1 drop BEDTIME BOTH EYES 04/06/20 21:00 05/06/20 20:59 04/21/20 21:36 Magnesium Hydroxide (Mom) 30 ml Q4HR PRN ORAL Constipation 04/13/20 10:45 05/13/20 10:44 04/14/20 09:12 Mirtazapine (Remeron) 7.5 mg BEDTIME ORAL 04/10/20 21:00 07/09/20 20:59 04/21/20 21:36 Ondansetron HCl (Zofran) 4 mg Q6H PRN IVP Nausea & Vomiting 04/04/20 22:45 05/04/20 22:44 04/04/20 23:07 Quetiapine Fumarate (SEROqueL) 25 mg Q6H PRN ORAL For Anxiety 04/11/20 15:45 05/26/20 15:44 04/18/20 02:42 Sennosides (Senokot) 8.6 mg DAILY PRN ORAL Constipation 04/13/20 10:45 05/13/20 10:44 04/14/20 09:12 Assessment/Plan Assessment/Plan 1. COVID-19 Bilateral pneumonia. - pt received a dose of Bamlanimab in ER - Continue monitoring for hypoxia - now saturating at 96% on RA - s/p Decadron (04/05-04/14) - Defer use of remdesivir to ID specialist. - repeat CXR 04/15 still shows b/l infiltrates without significant change 2. Hypertension. - on amlodipine and prn clonidine 3. Diabetes mellitus. - on Novolog - pt is on steroids 4. Hx of home meds - per primary MD and ID 5. Insomnia - pt c/o persistent insomnia since admission without hx of insomnia - management per primary MD 6. Anxiety - on mirtazapine and Seroquel per psych Medically stable for discharge from pulmonary stand point We will follow carefully. The care for this patient was discussed with my supervising physician Time spent for this case was approximately 31 minutes Neo Montalvo Apr 22, 2020 09:07
--- NOTE | 2020-04-22 09:08 | General Progress Note ---
Subjective Date patient seen: Apr 22, 2020 Time patient seen: 08:30 - am Allergies: Coded Allergies: Black Pepper (Verified Allergy, Unknown, 04/11/20) Subjective HISTORY OF PRESENT ILLNESS: The patient is a 59-year-old male who is being seen on the medical/surgical floor of [facility]. Patient showing no signs of pain or distress. Denies pain at this time with no new complaints REVIEW OF SYSTEMS: Denies rash, fever, chills, sweating, dizziness, drowsiness, blurred vision, sore throat, or change in weight. No nausea, vomiting, diarrhea, or blood in the stool or urine. No dysuria. Objective Last 24 Hour Vital Signs Date Time Temp Pulse Resp B/P (MAP) Pulse Ox O2 Delivery O2 Flow Rate FiO2 04/22/20 04:00 98.0 110 20 127/93 (104) 93 04/22/20 00:00 97.9 110 20 150/102 (118) 97 04/21/20 21:00 Room Air 04/21/20 20:00 97.6 113 20 127/91 (103) 95 04/21/20 17:05 98 127/72 04/21/20 16:00 98.3 98 20 127/72 (90) 96 04/21/20 12:00 98.9 99 18 132/67 (88) 96 04/21/20 09:45 108 136/65 Intake and Output 04/21/20 04/22/20 19:00 07:00 Intake Total 450 ml 200 ml Balance 450 ml 200 ml Intake Oral 450 ml 200 ml # Voids 2 2 # Bowel Movements 1 Laboratory Tests 04/21/20 11:28: POC Whole Blood Glucose 313H 04/21/20 16:52: POC Whole Blood Glucose 282H Height (Feet): 5 Height (Inches): 4.00 Weight (Pounds): 167 Objective PHYSICAL EXAMINATION: GENERAL: Alert, awake, and oriented. LUNGS: Decreased breath sounds bilaterally. HEART: S1 and S2 regular. ABDOMEN: Soft and nontender. EXTREMITIES: No cyanosis. No clubbing. NEURO: No changes. Assessment/Plan Assessment/Plan: (1) Degenerative joint disease (2) Myalgia/ Arthralgia (3) Covid 19+ Patient to be continued on the Tylenol. D/w Dr. Maxwell and he concurred. Josse Hernandez Apr 22, 2020 09:08
[2020-04-22] MEDS: Heparin 5000 units/ml inj SUBQ SCH ×2 (10:04→19:54)
[2020-04-22] MEDS: Docusate 100mg cap ORAL SCH ×2 (10:04→17:05)
--- NOTE | 2020-04-22 11:45 | NUR ---
PT NOTE Attempted to see patient for PT treatment. Patient irritable, declining to participate with PT, states he performed exercises already and does not want to sit up at the EOB or stand. Explained to patient benefits of participating with mobility activities however patient continued to decline. Ginny DE LEON notified.
--- NOTE | 2020-04-22 11:46 | Cardiac Electrophysiology PN ---
Assessment/Plan Assessment/Plan 1. COVID pneumonia. Ruled out for [place] On Room Air. EF 65%. On Dexamethasone 2. Hypertension, on Norvasc 5 mg bid and p.r.n. clonidine. 3. Diabetes, on insulin. YANCY RN Subjective Subjective In SR on Room Air with no events. DC planning Objective Last 24 Hour Vital Signs Date Time Temp Pulse Resp B/P (MAP) Pulse Ox O2 Delivery O2 Flow Rate FiO2 04/22/20 10:04 110 127/93 04/22/20 09:00 Room Air 04/22/20 08:00 96.4 68 18 121/89 (100) 94 04/22/20 04:00 98.0 110 20 127/93 (104) 93 04/22/20 00:00 97.9 110 20 150/102 (118) 97 04/21/20 21:00 Room Air 04/21/20 20:00 97.6 113 20 127/91 (103) 95 04/21/20 17:05 98 127/72 04/21/20 16:00 98.3 98 20 127/72 (90) 96 04/21/20 12:00 98.9 99 18 132/67 (88) 96 Intake and Output 04/21/20 04/22/20 19:00 07:00 Intake Total 450 ml 200 ml Balance 450 ml 200 ml Intake Oral 450 ml 200 ml # Voids 2 2 # Bowel Movements 1 Laboratory Tests Test 04/21/20 16:52 POC Whole Blood Glucose 282 MG/DL (74-106) H Objective HEAD AND NECK: no JVD. LUNGS: Coarse rhonchi. CARDIOVASCULAR: regular S1 and S2 with no gallop. ABDOMEN: Soft. EXTREMITIES: No pitting edema. Brian Olivares MD Apr 22, 2020 11:46
--- NOTE | 2020-04-22 15:53 | NUR ---
KINESEOLOGIST NOTE S/W PATIENT VIA PHONE IN RE TO DC ORDER TO HOME. PATIENT AGREES TO DC HOME AND WILL CALL HIS SON TO COME PICK HIM UP. RN PUJA MARTELL.
--- NOTE | 2020-04-22 16:24 | Psychiatric Progress Note ---
Psychiatry Progress Note Psychiatry Progress Note Subjective the pt is irritable and anxious Medications Current Medications Medications (Trade) Dose Ordered Sig/Ivett Route PRN Reason Start Time Stop Time Status Last Admin Dose Admin Acetaminophen (Tylenol) 500 mg Q4H PRN ORAL Mild Pain (Pain Scale 1-3) 04/04/20 22:45 05/04/20 22:44 04/16/20 08:39 Acetaminophen (Tylenol) 500 mg Q4H PRN ORAL Temp >100.5 04/04/20 22:45 05/04/20 22:44 Al Hydroxide/Mg Hydroxide (Mylanta) 30 ml Q4H PRN ORAL Abdominal cramps 04/09/20 17:00 05/09/20 16:59 04/09/20 22:16 Amlodipine Besylate (Norvasc) 5 mg BID ORAL 04/07/20 18:00 05/05/20 08:59 04/22/20 10:04 Artificial Tears (Akwa-Tears) 2 drop Q4H PRN BOTH EYES Dry Eyes 04/05/20 14:45 05/05/20 14:44 04/11/20 12:03 Bisacodyl (Dulcolax) 10 mg DAILY PRN ORAL Constipation 04/13/20 10:45 07/12/20 10:44 04/14/20 09:12 Clonidine HCl (Catapres Tab) 0.1 mg PRN PRN ORAL high blood pressure sbp>170 04/04/20 22:45 07/03/20 22:44 04/06/20 04:04 Dextrose (Dextrose 50%) 25 ml Q30M PRN IV Hypoglycemia 04/04/20 22:45 07/03/20 22:44 Dextrose (Dextrose 50%) 50 ml Q30M PRN IV Hypoglycemia 04/04/20 22:45 07/03/20 22:44 Docusate Sodium (Colace) 100 mg TWICE A DAY ORAL 04/13/20 18:00 05/13/20 17:59 04/22/20 10:04 Heparin Sodium (Porcine) (Heparin 5000 units/ml) 5,000 units EVERY 12 HOURS SUBQ 04/05/20 09:00 05/20/20 08:59 04/22/20 10:04 Insulin Aspart (NovoLOG) BEFORE MEALS AND HS SUBQ 04/05/20 06:30 07/04/20 06:29 04/22/20 12:38 Latanoprost (Xalatan) 1 drop BEDTIME BOTH EYES 04/06/20 21:00 05/06/20 20:59 04/21/20 21:36 Magnesium Hydroxide (Mom) 30 ml Q4HR PRN ORAL Constipation 04/13/20 10:45 05/13/20 10:44 04/14/20 09:12 Mirtazapine (Remeron) 7.5 mg BEDTIME ORAL 04/10/20 21:00 07/09/20 20:59 04/21/20 21:36 Ondansetron HCl (Zofran) 4 mg Q6H PRN IVP Nausea & Vomiting 04/04/20 22:45 05/04/20 22:44 04/04/20 23:07 Quetiapine Fumarate (SEROqueL) 25 mg Q6H PRN ORAL For Anxiety 04/11/20 15:45 05/26/20 15:44 04/18/20 02:42 Sennosides (Senokot) 8.6 mg DAILY PRN ORAL Constipation 04/13/20 10:45 05/13/20 10:44 04/14/20 09:12 Neurological/Psychiatric: Reports: anxiety, depressed, emotional problems Allergies: Coded Allergies: Black Pepper (Verified Allergy, Unknown, 04/11/20) Objective Data Height (Feet): 5 Height (Inches): 4.00 Weight (Pounds): 167 General Appearance: alert, alert oriented x3 Additional Comments: MENTAL STATUS EXAMINATION: Alert, oriented times self, place, situation. Mood is anxious. Affect is blunted, congruent with mood. Thought process is concrete. Thought content negative for suicidal, homicidal ideation. Cognition is intact. Insight and judgment is fair. Assessment/Plan D Hanis I: ASSESSMENT: D Hanis I Anxiety disorder. Insomnia. D Hanis II Deferred. D Hanis III COVID-19. D Hanis IV Low. D Hanis V 50 PLAN: 1. We will start the patient on Remeron. 2. Provide the patient with reality orientation and supportive therapy. Status Narrative ASSESSMENT: D Hanis I Anxiety disorder. Insomnia. D Hanis II Deferred. D Hanis III COVID-19. D Hanis IV Low. D Hanis V 50 PLAN: 1. We will start the patient on Remeron. 2. Provide the patient with reality orientation and supportive therapy. Assessment/Plan: ASSESSMENT: D Hanis I Anxiety disorder. Insomnia. D Hanis II Deferred. D Hanis III COVID-19. D Hanis IV Low. D Hanis V 50 PLAN: 1. We will start the patient on Remeron. 2. Provide the patient with reality orientation and supportive therapy. Enrique Heath MD Apr 22, 2020 16:24
--- NOTE | 2020-04-22 18:20 | NUR ---
NURSE NOTES: PATIENT AWARE OF DISCHARGE TO HOME TODAY. PT. PLACED CALL TO SON TO PICKUP. DISCHARGE INSTRUCTIONS REVIEWED WITH PATIENT. BELONGINGS ACCOUNTED FOR. PATIENT SITTING AT BEDSIDE AND BECAME SOB WITH COUGH. SAT AT BEDSIDE FOR APPROXIMATELY 5 MINS. PATIENT TOOK 2 SHORT STEPS AND BECAME SOB. SAT IN WC AND STATED " I CAN'T BREATHE". PLACEDO2 @ 2LNC SPO2 86% RR 21 HR 133 SUSTAINED. INCREASED 02 TO 4LNC ;SPO2 91-93%. HR 133-137. PLACED NON-REBREATHE ON @ 15 LITERS. SPO2 93-96% RR 18 HR 131-134. PATIENT STATES THEY DO NOT HAVE PALPITATIONS. ASSISTED PATIENT INTO BED. SITTING AT BEDSIDE. ASSISTED INTO BED. WEANED DOWN NRB TO 5L SPO2 94-96& HR 133 SUSTAINED, RR 18. / NOTIFIED. DISCHARGE CANCELLED. RETURN CALL RECEIVED FROM DR. TANG. CN MADE AWARE.
--- NOTE | 2020-04-22 20:02 | NUR ---
NURSE HAND-OFF: Important Events on Shift: UPON DC HOME BECAME SOB; DC CANCELLED. BACK ON O2. Patient Status: STABLE Diet: CCHO Pending Orders: N/A Pending Results/Labs:N/A Pending MD notification:N/A Latest Vital Signs: Temperature 97.5 , Pulse 121 , B/P 133 /95 , Respiratory Rate 18 , O2 SAT 96, NRB @ 5L . Vital Sign Comment: PATIENT DESATED Latest Imller Fall Score: 20 Fall Risk: Low Risk Safety Measures: Call light Within Reach, Bed Alarm Zone 1, Side Rails Side Rails x2, Bed position Low and Locked. Fall Precautions: Door Sign Patient Fall Education Report given to [].
--- NOTE | 2020-04-22 20:03 | NUR ---
NURSE HAND-OFF: Important Events on Shift: UPON DC HOME BECAME SOB, DC HOME CANCELLED, PLACED ON O2. Patient Status: STABLE Diet: CCHO Pending Orders: TRANSFER TO MONITORED BED. Pending Results/Labs: N/A Pending MD notification: N/A Latest Vital Signs: Temperature 97.5 , Pulse 121 , B/P 133 /95 , Respiratory Rate 18 , O2 SAT 99 , Room Air, O2 Flow Rate 1.0 . Vital Sign Comment: DESATURATED WITH MINIMUM ACTIVITY, SPO2 86% RA. PLACED ON NRB @ 15L. WEANED DOWN TO 5L Latest Miller Fall Score: 20 Fall Risk: Low Risk Safety Measures: Call light Within Reach, Bed Alarm Zone 1, Side Rails Side Rails x2, Bed position Low and Locked. Fall Precautions: Door Sign Patient Fall Education Report given to YARI NAZARIO RN.
[2020-04-22] MEDS: Latanoprost 0.005% Opth 2.5ml Soln BOTH EYES SCH (21:00)
--- NOTE | 2020-04-22 23:00 | NUR ---
NURSE NOTES: Received Patient transferred from to Telemetry unit. COVID-19 isolation. ANO x4; forgetful. Oriented to room and surroundings. On nasal cannula 5L with O2 sat 97-99%. No signs of distress or SOB. No C/O pain at this time. mining professionals placed on the patient; Sinus tach - 121 bpm. Left AC IV access intact and patent. Belongings accounted for. Bed locked and in lowest position. Call light in reach. Bed alarm on. Will continue plan of care.
--- NOTE | 2020-04-22 23:01 | General Progress Note ---
Subjective ROS Limited/Unobtainable: Yes Allergies: Coded Allergies: Black Pepper (Verified Allergy, Unknown, 04/11/20) Objective Last 24 Hour Vital Signs Date Time Temp Pulse Resp B/P (MAP) Pulse Ox O2 Delivery O2 Flow Rate FiO2 04/22/20 22:59 96.6 121 20 139/89 (106) 97 04/22/20 20:46 Room Air 04/22/20 19:52 97.5 121 18 133/95 (108) 99 04/22/20 17:05 102 127/96 04/22/20 16:00 97.1 102 18 127/96 (106) 98 04/22/20 12:00 97.6 114 18 129/83 (98) 95 04/22/20 10:04 110 127/93 04/22/20 09:00 Room Air 04/22/20 08:00 96.4 68 18 121/89 (100) 94 04/22/20 04:00 98.0 110 20 127/93 (104) 93 04/22/20 00:00 97.9 110 20 150/102 (118) 97 Intake and Output 04/21/20 04/22/20 19:00 07:00 Intake Total 450 ml 200 ml Balance 450 ml 200 ml Intake Oral 450 ml 200 ml # Voids 2 2 # Bowel Movements 1 Laboratory Tests 04/22/20 12:31: POC Whole Blood Glucose 239H 04/22/20 17:11: POC Whole Blood Glucose 268H Height (Feet): 5 Height (Inches): 4.00 Weight (Pounds): 167 Assessment/Plan Problem List: (1) Hyperglycemia ICD Codes: R73.9 - Hyperglycemia, unspecified SNOMED: 87602037 (2) Dyspnea due to COVID-19 ICD Codes: U07.1 - COVID-19; R06.00 - Dyspnea, unspecified SNOMED: 518857538146253 Status: progressing Assessment/Plan: covid positive supportive care conjuctivitis treatment per dr ramirez(was not able to get any opthomologist to see him at hospital} Carlos Oliveira MD Apr 22, 2020 23:01
--- NOTE | 2020-04-22 23:05 | General Progress Note ---
Subjective ROS Limited/Unobtainable: Yes Allergies: Coded Allergies: Black Pepper (Verified Allergy, Unknown, 04/11/20) Objective Last 24 Hour Vital Signs Date Time Temp Pulse Resp B/P (MAP) Pulse Ox O2 Delivery O2 Flow Rate FiO2 04/22/20 22:59 96.6 121 20 139/89 (106) 97 04/22/20 20:46 Room Air 04/22/20 19:52 97.5 121 18 133/95 (108) 99 04/22/20 17:05 102 127/96 04/22/20 16:00 97.1 102 18 127/96 (106) 98 04/22/20 12:00 97.6 114 18 129/83 (98) 95 04/22/20 10:04 110 127/93 04/22/20 09:00 Room Air 04/22/20 08:00 96.4 68 18 121/89 (100) 94 04/22/20 04:00 98.0 110 20 127/93 (104) 93 04/22/20 00:00 97.9 110 20 150/102 (118) 97 Intake and Output 04/21/20 04/22/20 19:00 07:00 Intake Total 450 ml 200 ml Balance 450 ml 200 ml Intake Oral 450 ml 200 ml # Voids 2 2 # Bowel Movements 1 Laboratory Tests 04/22/20 12:31: POC Whole Blood Glucose 239H 04/22/20 17:11: POC Whole Blood Glucose 268H Height (Feet): 5 Height (Inches): 4.00 Weight (Pounds): 167 Assessment/Plan Problem List: (1) Hyperglycemia ICD Codes: R73.9 - Hyperglycemia, unspecified SNOMED: 41515095 (2) Dyspnea due to COVID-19 ICD Codes: U07.1 - COVID-19; R06.00 - Dyspnea, unspecified SNOMED: 809837658290971 Status: progressing Assessment/Plan: covid positive please disregard previous progress note (was entered by mistake) tried to dc home however desaturated and had svt dr orr and dr thompson were informed and dc was cancelled and ordered to transfer to monitored bed Carlos Oliveira MD Apr 22, 2020 23:05
[2020-04-23] VITALS: BP 129/91
[2020-04-23 04:00] VITALS: BP 127/91
[2020-04-23] MEDS: NovoLOG Insulin Flexpen SUBQ SCH ×4 (05:21→20:54)
--- NOTE | 2020-04-23 06:09 | NUR ---
NURSE HAND-OFF REPORT: Important Events on Shift: Transferred from 4E to 2E. Sinus tach Patient Status: Stable Diet: CCHO Pending Orders: N/A Pending Results/Labs: No AM labs for 04/23 Pending MD notification: N/A Latest Vital Signs: Temperature 98.5 , Pulse 110 , B/P 127 /91 , Respiratory Rate 18 , O2 SAT 97 , Room Air, O2 Flow Rate 5.0 . Vital Sign Comment: N/A EKG Rhythm: Sinus Tachycardia Rhythm change?: N MD Notified?: - MD Response: Latest Miller Fall Score: 20 Fall Risk: Low Risk Safety Measures: Call light Within Reach, Bed Alarm Zone 1, Side Rails Side Rails x2, Bed position Low and Locked. Fall Precautions: Door Sign Patient Fall Education Addendum: 04/23/20 at 0717 by SARA ADAMS RN Report given to HALEY Power
[2020-04-23 08:00] VITALS: BP 127/81
--- NOTE | 2020-04-23 08:30 | General Progress Note ---
Subjective Date patient seen: Apr 23, 2020 Time patient seen: 07:30 - am Allergies: Coded Allergies: Black Pepper (Verified Allergy, Unknown, 04/11/20) Subjective HISTORY OF PRESENT ILLNESS: The patient is a 59-year-old male who is being seen on the Tele floor of [facility]. Patient resting in bed and showing no signs of pain. Patient was transferred to [facility]. REVIEW OF SYSTEMS: Denies rash, fever, chills, sweating, dizziness, drowsiness, blurred vision, sore throat, or change in weight. No nausea, vomiting, diarrhea, or blood in the stool or urine. No dysuria. Objective Last 24 Hour Vital Signs Date Time Temp Pulse Resp B/P (MAP) Pulse Ox O2 Delivery O2 Flow Rate FiO2 04/23/20 04:00 98.5 110 18 127/91 (103) 97 04/23/20 03:13 123 04/23/20 00:00 98.4 117 18 129/91 (104) 98 04/22/20 23:18 110 04/22/20 23:00 Nasal Cannula 5.0 04/22/20 22:59 96.6 121 20 139/89 (106) 97 04/22/20 20:46 Room Air 04/22/20 19:52 97.5 121 18 133/95 (108) 99 04/22/20 17:05 102 127/96 04/22/20 16:00 97.1 102 18 127/96 (106) 98 04/22/20 12:00 97.6 114 18 129/83 (98) 95 04/22/20 10:04 110 127/93 04/22/20 09:00 Room Air Intake and Output 04/22/20 04/23/20 19:00 07:00 Intake Total 720 ml Output Total 450 ml 500 ml Balance 270 ml -500 ml Intake Oral 720 ml Output Urine Total 450 ml 500 ml Laboratory Tests 04/22/20 12:31: POC Whole Blood Glucose 239H 04/22/20 17:11: POC Whole Blood Glucose 268H 04/23/20 05:20: POC Whole Blood Glucose 233H Height (Feet): 5 Height (Inches): 4.00 Weight (Pounds): 167 Objective PHYSICAL EXAMINATION: GENERAL: Alert, awake, and oriented. LUNGS: Decreased breath sounds bilaterally. HEART: S1 and S2 regular. ABDOMEN: Soft and nontender. EXTREMITIES: No cyanosis. No clubbing. NEURO: No changes. Assessment/Plan Assessment/Plan: (1) Degenerative joint disease (2) Myalgia/ Arthralgia (3) Covid 19+ Patient to be continued on the Tylenol. D/w Dr. Maxwell and he concurred. Josse Hernandez Apr 23, 2020 08:30
[2020-04-23] MEDS: Docusate 100mg cap ORAL SCH ×2 (09:21→18:00)
[2020-04-23] MEDS: Heparin 5000 units/ml inj SUBQ SCH ×2 (09:21→20:31)
--- NOTE | 2020-04-23 09:47 | NUR ---
PT NOTE Patient transferred from 4E to 2E due to SVT and desaturation. PT put on hold, will need MD clearance to resume PT. Jannet DE LEON notified, will follow.
--- NOTE | 2020-04-23 09:52 | Cardiac Electrophysiology PN ---
Assessment/Plan Assessment/Plan 1. COVID pneumonia. Ruled out for SC On 5 liter Nasal Cannula. EF 65%. On Dexamethasone 2. Hypertension, Change Norvasc to Cardizem 60 tid and p.r.n. clonidine. 3. Diabetes, on insulin. YANCY RN Subjective Subjective DC yesterday was canceled as he became SOB and tachycardic in 130s. Transferred to tele now Objective Last 24 Hour Vital Signs Date Time Temp Pulse Resp B/P (MAP) Pulse Ox O2 Delivery O2 Flow Rate FiO2 04/23/20 09:20 107 127/81 04/23/20 04:00 98.5 110 18 127/91 (103) 97 04/23/20 03:13 123 04/23/20 00:00 98.4 117 18 129/91 (104) 98 04/22/20 23:18 110 04/22/20 23:00 Nasal Cannula 5.0 04/22/20 22:59 96.6 121 20 139/89 (106) 97 04/22/20 20:46 Room Air 04/22/20 19:52 97.5 121 18 133/95 (108) 99 04/22/20 17:05 102 127/96 04/22/20 16:00 97.1 102 18 127/96 (106) 98 04/22/20 12:00 97.6 114 18 129/83 (98) 95 04/22/20 10:04 110 127/93 Intake and Output 04/22/20 04/23/20 19:00 07:00 Intake Total 720 ml Output Total 450 ml 500 ml Balance 270 ml -500 ml Intake Oral 720 ml Output Urine Total 450 ml 500 ml Laboratory Tests Test 04/22/20 12:31 04/22/20 17:11 04/23/20 05:20 POC Whole Blood Glucose 239 MG/DL (74-106) H 268 MG/DL (74-106) H 233 MG/DL (74-106) H Objective HEAD AND NECK: no JVD. LUNGS: Coarse rhonchi. CARDIOVASCULAR: regular S1 and S2 with no gallop. ABDOMEN: Soft. EXTREMITIES: No pitting edema. Brian Olivares MD Apr 23, 2020 09:52
--- NOTE | 2020-04-23 10:28 | Consultation ---
Consult Note Consult Note Asked to evaluate at the request of Dr. Neff for renal and fluid and electrolyte management Day 15 of patient's hospitalization here at [facility] Currently is being treated for the followin. COVID pneumonia. Ruled out for [place] On 5 liter Nasal Cannula. EF 65%. On Dexamethasone 2. Hypertension, on Cardizem 60 tid and p.r.n. clonidine. 3. Diabetes, on insulin. Patient examined Data reviewed Last 24 Hour Vital Signs Date Time Temp Pulse Resp B/P (MAP) Pulse Ox O2 Delivery O2 Flow Rate FiO2 04/23/20 16:00 98 04/23/20 16:00 97.0 98 20 115/77 (90) 98 04/23/20 13:56 106 128/93 04/23/20 12:00 106 04/23/20 12:00 96.7 101 22 128/93 (105) 98 04/23/20 09:20 107 127/81 04/23/20 09:00 Nasal Cannula 5.0 04/23/20 08:00 98.6 107 20 127/81 (96) 96 04/23/20 08:00 107 04/23/20 04:00 98.5 110 18 127/91 (103) 97 04/23/20 03:13 123 04/23/20 00:00 98.4 117 18 129/91 (104) 98 04/22/20 23:18 110 04/22/20 23:00 Nasal Cannula 5.0 04/22/20 22:59 96.6 121 20 139/89 (106) 97 04/22/20 20:46 Room Air 04/22/20 19:52 97.5 121 18 133/95 (108) 99 Intake and Output 04/22/20 04/23/20 19:00 07:00 Intake Total 720 ml Output Total 450 ml 500 ml Balance 270 ml -500 ml Intake Oral 720 ml Output Urine Total 450 ml 500 ml GENERAL APPEARANCE: Seems to have normal weight. HEAD AND NECK: [employer] conjunctivae. HEART: Normal rate. LUNGS: Clear. Getting oxygen by nasal cannula. ABDOMEN: Soft, nontender. EXTREMITIES: No edema. NEUROLOGIC: Awake, alert, oriented x3. . Assessment/Plan Electrolyte imbalances Covid pneumonia Diabetes mellitus Hypertension HIV Patient did not have labs for over 2 weeks Today's labs drawn and reviewed Abnormal electrolytes and chemistries addressed Blood pressure medication adjusted Per orders Chest x-ray ordered Georges Neal MD Apr 23, 2020 10:28
[2020-04-23 10:51] LABS: BASOPHILS % (AUTO) 1.7 % (0.0-2.0); EOSINOPHILS % (AUTO) 2.4 % (0.0-3.0); HEMATOCRIT 46.2 % (42.0-52.0); HEMOGLOBIN 14.6 G/DL (14.2-18.0); LYMPHOCYTES % (AUTO) 20.8 % (20.0-45.0); MEAN CORPUSCULAR VOLUME 84 FL (80-99); MONOCYTES % (AUTO) 8.3 % (1.0-10.0); NEUTROPHILS % (AUTO) 66.8 % (45.0-75.0); PLATELET COUNT 210 K/UL (150-450); RED CELL DISTRIBUTION WIDTH 12.9 % (11.6-14.8); WHITE BLOOD COUNT 6.9 K/UL (4.8-10.8)
[2020-04-23 11:04] LABS: ANION GAP 7 mmol/L (5-15); BLOOD UREA NITROGEN 21 mg/dL (7-18); CALCIUM 8.6 MG/DL (8.5-10.1); CARBON DIOXIDE 25 MMOL/L (21-32); CHLORIDE 101 MMOL/L (98-107); CREATININE 0.8 MG/DL (0.55-1.30); POTASSIUM 4.4 MMOL/L (3.5-5.1); SODIUM 133 MMOL/L (136-145)
[2020-04-23 11:15] LABS: ALANINE AMINOTRANSFERASE 43 U/L (12-78); ALBUMIN 2.4 G/DL (3.4-5.0); ALBUMIN/GLOBULIN RATIO 0.6 (1.0-2.7); ALKALINE PHOSPHATASE 56 U/L (46-116); ASPARTATE AMINO TRANSFERASE 30 U/L (15-37); BILIRUBIN,TOTAL 0.6 MG/DL (0.2-1.0)
[2020-04-23 12:00] VITALS: BP 128/93
--- NOTE | 2020-04-23 13:21 | NUR ---
CASE MANAGEMENT:REVIEW 04/23/20 SI: COVID PNA. DM. HTN. HIV AT TIME OF DISCHARGE PATIENT HAD A CHANGE IN CONDITION 96.7 107 22 128/93 98% ON 5L/NC BUN+21 GLUCOSE+328 IS: MAG OXIDE PO TID PEPCID PO BID CARDIZEM PO Q8HRS REMERON PO QHS HEPARIN SQ Q12 SS INSULIN AC+HS : NOW ON TELEMETRY UNIT DCP: FROM HOME PLAN: PATIENT WILL MORE THAN LIKELY NEED OXYGEN FOR HOME USE BUT FIRST WE WILL TRY TO TITRATE OXYGEN TO A LOWER LITER FLOW PLAN: CHEST XRAY PT EVAL
[2020-04-23] MEDS: dilTIAZem HCl 60mg tab ORAL SCH ×2 (13:56→22:00)
--- NOTE | 2020-04-23 14:22 | NUR ---
INSURANCE CLINICALS AND REVIEW FAXED TO [employer] [facility] T: [phone] F: [phone] REF [id number] AND [facility] T:[phone] F: [phone]
--- NOTE | 2020-04-23 15:46 | Infectious Diseases Prog Note ---
Assessment/Plan Assessment/Plan IMPRESSION: COVID-19 pneumonia. HIV Hypoxemia SOB on exertion. Diabetes mellitus with hyperglycemia, Hypertension. RECOMMENDATIONS: Finished dexamethasone course Got a dose of Bamlanivimab in ER. Repeat CXR Subjective ROS Limited/Unobtainable: No Constitutional: Reports: no symptoms HEENT: Reports: no symptoms Respiratory: Reports: shortness of breath - developed SOB last night before discharge, other Gastrointestinal/Abdominal: Reports: no symptoms Genitourinary: Reports: no symptoms Allergies: Coded Allergies: Black Pepper (Verified Allergy, Unknown, 04/11/20) Objective Last 24 Hour Vital Signs Date Time Temp Pulse Resp B/P (MAP) Pulse Ox O2 Delivery O2 Flow Rate FiO2 04/23/20 13:56 106 128/93 04/23/20 12:00 106 04/23/20 12:00 96.7 101 22 128/93 (105) 98 04/23/20 09:20 107 127/81 04/23/20 09:00 Nasal Cannula 5.0 04/23/20 08:00 98.6 107 20 127/81 (96) 96 04/23/20 08:00 107 04/23/20 04:00 98.5 110 18 127/91 (103) 97 04/23/20 03:13 123 04/23/20 00:00 98.4 117 18 129/91 (104) 98 04/22/20 23:18 110 04/22/20 23:00 Nasal Cannula 5.0 04/22/20 22:59 96.6 121 20 139/89 (106) 97 04/22/20 20:46 Room Air 04/22/20 19:52 97.5 121 18 133/95 (108) 99 04/22/20 17:05 102 127/96 04/22/20 16:00 97.1 102 18 127/96 (106) 98 Height (Feet): 5 Height (Inches): 4.00 Weight (Pounds): 167 HEENT: mucous membranes moist Respiratory/Chest: lungs clear Cardiovascular: normal rate Abdomen: soft, non tender Extremities: no edema Neurologic/Psychiatric: alert, responsive Laboratory Tests Test 04/22/20 17:11 04/23/20 05:20 04/23/20 10:41 POC Whole Blood Glucose 268 MG/DL (74-106) H 233 MG/DL (74-106) H White Blood Count 6.9 K/UL (4.8-10.8) Red Blood Count 5.50 M/UL (4.70-6.10) Hemoglobin 14.6 G/DL (14.2-18.0) Hematocrit 46.2 % (42.0-52.0) Mean Corpuscular Volume 84 FL (80-99) Mean Corpuscular Hemoglobin 26.5 PG (27.0-31.0) L Mean Corpuscular Hemoglobin Concent 31.5 G/DL (32.0-36.0) L Red Cell Distribution Width 12.9 % (11.6-14.8) Platelet Count 210 K/UL (150-450) Mean Platelet Volume 9.9 FL (6.5-10.1) Neutrophils (%) (Auto) 66.8 % (45.0-75.0) Lymphocytes (%) (Auto) 20.8 % (20.0-45.0) Monocytes (%) (Auto) 8.3 % (1.0-10.0) Eosinophils (%) (Auto) 2.4 % (0.0-3.0) Basophils (%) (Auto) 1.7 % (0.0-2.0) Sodium Level 133 MMOL/L (136-145) L Potassium Level 4.4 MMOL/L (3.5-5.1) Chloride Level 101 MMOL/L (98-107) Carbon Dioxide Level 25 MMOL/L (21-32) Anion Gap 7 mmol/L (5-15) Blood Urea Nitrogen 21 mg/dL (7-18) H Creatinine 0.8 MG/DL (0.55-1.30) Estimat Glomerular Filtration Rate > 60 mL/min (>60) Glucose Level 328 MG/DL (74-106) H Uric Acid 5.1 MG/DL (2.6-7.2) Calcium Level 8.6 MG/DL (8.5-10.1) Phosphorus Level 4.0 MG/DL (2.5-4.9) Magnesium Level 1.7 MG/DL (1.8-2.4) L Total Bilirubin 0.6 MG/DL (0.2-1.0) Aspartate Amino Transf (AST/SGOT) 30 U/L (15-37) Alanine Aminotransferase (ALT/SGPT) 43 U/L (12-78) Alkaline Phosphatase 56 U/L (46-116) C-Reactive Protein, Quantitative 2.0 mg/dL (0.00-0.90) H Pro-B-Type Natriuretic Peptide 19 pg/mL (0-125) Total Protein 6.7 G/DL (6.4-8.2) Albumin 2.4 G/DL (3.4-5.0) L Globulin 4.3 g/dL Albumin/Globulin Ratio 0.6 (1.0-2.7) L Current Medications Medications (Trade) Dose Ordered Sig/Ivett Route PRN Reason Start Time Stop Time Status Last Admin Dose Admin Acetaminophen (Tylenol) 500 mg Q4H PRN ORAL Mild Pain (Pain Scale 1-3) 04/04/20 22:45 05/04/20 22:44 04/16/20 08:39 Acetaminophen (Tylenol) 500 mg Q4H PRN ORAL Temp >100.5 04/04/20 22:45 05/04/20 22:44 Artificial Tears (Akwa-Tears) 2 drop Q4H PRN BOTH EYES Dry Eyes 04/05/20 14:45 05/05/20 14:44 04/11/20 12:03 Bisacodyl (Dulcolax) 10 mg DAILY PRN ORAL Constipation 04/13/20 10:45 07/12/20 10:44 04/14/20 09:12 Clonidine HCl (Catapres Tab) 0.1 mg PRN PRN ORAL high blood pressure sbp>170 04/04/20 22:45 07/03/20 22:44 04/06/20 04:04 Dextrose (Dextrose 50%) 25 ml Q30M PRN IV Hypoglycemia 04/04/20 22:45 07/03/20 22:44 Dextrose (Dextrose 50%) 50 ml Q30M PRN IV Hypoglycemia 04/04/20 22:45 07/03/20 22:44 Diltiazem HCl (Cardizem Tab) 60 mg EVERY 8 HOURS ORAL 04/23/20 14:00 05/23/20 13:59 04/23/20 13:56 Docusate Sodium (Colace) 100 mg TWICE A DAY ORAL 04/13/20 18:00 05/13/20 17:59 04/23/20 09:21 Famotidine (Pepcid) 20 mg BID ORAL 04/23/20 18:00 07/22/20 17:59 Heparin Sodium (Porcine) (Heparin 5000 units/ml) 5,000 units EVERY 12 HOURS SUBQ 04/05/20 09:00 05/20/20 08:59 04/23/20 09:21 Insulin Aspart (NovoLOG) BEFORE MEALS AND HS SUBQ 04/05/20 06:30 07/04/20 06:29 04/23/20 12:07 Latanoprost (Xalatan) 1 drop BEDTIME BOTH EYES 04/06/20 21:00 05/06/20 20:59 04/21/20 21:36 Magnesium Hydroxide (Mom) 30 ml Q4HR PRN ORAL Constipation 04/13/20 10:45 05/13/20 10:44 04/14/20 09:12 Magnesium Oxide (Mag-Ox 400mg) 400 mg THREE TIMES A DAY ORAL 04/23/20 18:00 05/23/20 17:59 Mirtazapine (Remeron) 7.5 mg BEDTIME ORAL 04/10/20 21:00 07/09/20 20:59 04/22/20 19:53 Ondansetron HCl (Zofran) 4 mg Q6H PRN IVP Nausea & Vomiting 04/04/20 22:45 05/04/20 22:44 04/04/20 23:07 Quetiapine Fumarate (SEROqueL) 25 mg Q6H PRN ORAL For Anxiety 04/11/20 15:45 05/26/20 15:44 04/18/20 02:42 Sennosides (Senokot) 8.6 mg DAILY PRN ORAL Constipation 04/13/20 10:45 05/13/20 10:44 04/14/20 09:12 Jarred Nuñez MD Apr 23, 2020 15:46
[2020-04-23 16:00] VITALS: BP 115/77
--- NOTE | 2020-04-23 16:07 | Pulmonology Progress Note ---
Subjective ROS Limited/Unobtainable: No Interval Events: now back on 5L NC Constitutional: Reports: no symptoms HEENT: Repors: no symptoms Respiratory: Reports: dry cough, dyspnea on exertion Cardiovascular: Reports: no symptoms Gastrointestinal/Abdominal: Reports: no symptoms Psychiatric: Reports: other - anxiety Musculoskeletal: Denies: pain Allergies: Coded Allergies: Black Pepper (Verified Allergy, Unknown, 04/11/20) Objective Last 24 Hour Vital Signs Date Time Temp Pulse Resp B/P (MAP) Pulse Ox O2 Delivery O2 Flow Rate FiO2 04/23/20 13:56 106 128/93 04/23/20 12:00 106 04/23/20 12:00 96.7 101 22 128/93 (105) 98 04/23/20 09:20 107 127/81 04/23/20 09:00 Nasal Cannula 5.0 04/23/20 08:00 98.6 107 20 127/81 (96) 96 04/23/20 08:00 107 04/23/20 04:00 98.5 110 18 127/91 (103) 97 04/23/20 03:13 123 04/23/20 00:00 98.4 117 18 129/91 (104) 98 04/22/20 23:18 110 04/22/20 23:00 Nasal Cannula 5.0 04/22/20 22:59 96.6 121 20 139/89 (106) 97 04/22/20 20:46 Room Air 04/22/20 19:52 97.5 121 18 133/95 (108) 99 04/22/20 17:05 102 127/96 Intake and Output 04/22/20 04/23/20 19:00 07:00 Intake Total 720 ml Output Total 450 ml 500 ml Balance 270 ml -500 ml Intake Oral 720 ml Output Urine Total 450 ml 500 ml Objective 04/23 was planned to be discharged yesterday, dc canceled due to acute hypoxia upon ambulation 04/18 now saturating at 95% on 2L NC; will wean off today 04/17 saturating at 95% on 12L VM 04/16 saturating at 94% on 12L VM 04/15 saturating at 96% on 12L Venturi mask 04/14 saturating at 97-98% on 12L Venturi mask 04/13 saturating at 97% on 12L Venturi mask 2 saturating at 95% on 12L Venturi mask 04/11 saturating at 96% on 12L Venturi mask 04/10 saturating at 95% on 12L Venturi mask 04/09 remains on 12L Venturi mask, saturating at 92-94% 04/08 pt desaturated on nasal oxygen and now on 12L oxygen via Venturi mask saturating at 94-95% 04/07 currently saturating at 95% on 4L NC General Appearance: WD/WN, no acute distress HEENT: normocephalic, atraumatic Respiratory: lungs clear Cardiovascular: normal rate, regular rhythm Abdomen: soft, non tender Extremities: no edema Laboratory Tests 04/22/20 17:11: POC Whole Blood Glucose 268H 04/23/20 05:20: POC Whole Blood Glucose 233H 04/23/20 10:41: White Blood Count 6.9, Red Blood Count 5.50, Hemoglobin 14.6, Hematocrit 46.2, Mean Corpuscular Volume 84, Mean Corpuscular Hemoglobin 26.5L, Mean Corpuscular Hemoglobin Concent 31.5L, Red Cell Distribution Width 12.9, Platelet Count 210, Mean Platelet Volume 9.9, Neutrophils (%) (Auto) 66.8, Lymphocytes (%) (Auto) 20.8, Monocytes (%) (Auto) 8.3, Eosinophils (%) (Auto) 2.4, Basophils (%) (Auto) 1.7, Sodium Level 133L, Potassium Level 4.4, Chloride Level 101, Carbon Dioxide Level 25, Anion Gap 7, Blood Urea Nitrogen 21H, Creatinine 0.8, Estimat Glomerular Filtration Rate > 60, Glucose Level 328H, Uric Acid 5.1, Calcium Level 8.6, Phosphorus Level 4.0, Magnesium Level 1.7L, Total Bilirubin 0.6, Aspartate Amino Transf (AST/SGOT) 30, Alanine Aminotransferase (ALT/SGPT) 43, Alkaline Phosphatase 56, C-Reactive Protein, Quantitative 2.0H, Pro-B-Type Natriuretic Peptide 19, Total Protein 6.7, Albumin 2.4L, Globulin 4.3, Al bumin/Globulin Ratio 0.6L Current Medications Medications (Trade) Dose Ordered Sig/Ivett Route PRN Reason Start Time Stop Time Status Last Admin Dose Admin Acetaminophen (Tylenol) 500 mg Q4H PRN ORAL Mild Pain (Pain Scale 1-3) 04/04/20 22:45 05/04/20 22:44 04/16/20 08:39 Acetaminophen (Tylenol) 500 mg Q4H PRN ORAL Temp >100.5 04/04/20 22:45 05/04/20 22:44 Artificial Tears (Akwa-Tears) 2 drop Q4H PRN BOTH EYES Dry Eyes 04/05/20 14:45 05/05/20 14:44 04/11/20 12:03 Bisacodyl (Dulcolax) 10 mg DAILY PRN ORAL Constipation 04/13/20 10:45 07/12/20 10:44 04/14/20 09:12 Clonidine HCl (Catapres Tab) 0.1 mg PRN PRN ORAL high blood pressure sbp>170 04/04/20 22:45 07/03/20 22:44 04/06/20 04:04 Dextrose (Dextrose 50%) 25 ml Q30M PRN IV Hypoglycemia 04/04/20 22:45 07/03/20 22:44 Dextrose (Dextrose 50%) 50 ml Q30M PRN IV Hypoglycemia 04/04/20 22:45 07/03/20 22:44 Diltiazem HCl (Cardizem Tab) 60 mg EVERY 8 HOURS ORAL 04/23/20 14:00 05/23/20 13:59 04/23/20 13:56 Docusate Sodium (Colace) 100 mg TWICE A DAY ORAL 04/13/20 18:00 05/13/20 17:59 04/23/20 09:21 Famotidine (Pepcid) 20 mg BID ORAL 04/23/20 18:00 07/22/20 17:59 Heparin Sodium (Porcine) (Heparin 5000 units/ml) 5,000 units EVERY 12 HOURS SUBQ 04/05/20 09:00 05/20/20 08:59 04/23/20 09:21 Insulin Aspart (NovoLOG) BEFORE MEALS AND HS SUBQ 04/05/20 06:30 07/04/20 06:29 04/23/20 12:07 Latanoprost (Xalatan) 1 drop BEDTIME BOTH EYES 04/06/20 21:00 05/06/20 20:59 04/21/20 21:36 Magnesium Hydroxide (Mom) 30 ml Q4HR PRN ORAL Constipation 04/13/20 10:45 05/13/20 10:44 04/14/20 09:12 Magnesium Oxide (Mag-Ox 400mg) 400 mg THREE TIMES A DAY ORAL 04/23/20 18:00 05/23/20 17:59 Mirtazapine (Remeron) 7.5 mg BEDTIME ORAL 04/10/20 21:00 07/09/20 20:59 04/22/20 19:53 Ondansetron HCl (Zofran) 4 mg Q6H PRN IVP Nausea & Vomiting 04/04/20 22:45 05/04/20 22:44 04/04/20 23:07 Quetiapine Fumarate (SEROqueL) 25 mg Q6H PRN ORAL For Anxiety 04/11/20 15:45 05/26/20 15:44 04/18/20 02:42 Sennosides (Senokot) 8.6 mg DAILY PRN ORAL Constipation 04/13/20 10:45 05/13/20 10:44 04/14/20 09:12 Assessment/Plan Assessment/Plan 1. COVID-19 Bilateral pneumonia. - pt received a dose of Bamlanimab in ER - Continue monitoring for hypoxia - now saturating at94-95% on 5L NC - s/p Decadron (04/05-04/14) - Defer use of remdesivir to ID specialist. - repeat CXR 04/15 still shows b/l infiltrates without significant change - repeat CXR 04/23 ordered per ID 2. Hypertension. - on amlodipine and prn clonidine 3. Diabetes mellitus. - on Novolog - pt is on steroids 4. Hx of home meds - per primary MD and ID 5. Insomnia - pt c/o persistent insomnia since admission without hx of insomnia - management per primary MD 6. Anxiety - on mirtazapine and Seroquel per psych DC canceled due to acute hypoxia and persistent sinus tachycardia yesterday. Currently back on 5L NC saturating at 94-95%; will attempt weaning today; pt may need home oxygen We will follow carefully. The care for this patient was discussed with my supervising physician Time spent for this case was approximately 31 minutes Neo Montalvo Apr 23, 2020 16:07
--- NOTE | 2020-04-23 16:39 | Diagnostic Imaging Report ---
Indication: Cough Technique: One view of the chest Comparison: 04/15/2020 Findings: Bilateral infiltrates are unchanged. Spaces are clear. The heart size is normal Impression: Unchanged bilateral infiltrates
[2020-04-23] MEDS: Magnesium Oxide 400mg tab ORAL SCH (18:08)
--- NOTE | 2020-04-23 19:13 | NUR ---
NURSE HAND-OFF REPORT: Important Events on Shift: Pt given NS 550ml IV bolus x1, magnesium oxide for abnormal labs Patient Status: Stable Diet: CCHO Pending Orders: N Pending Results/Labs: N Pending MD notification: N Latest Vital Signs: Temperature 97.0 , Pulse 98 , B/P 115 /77 , Respiratory Rate 20 , O2 SAT 98 , Room Air, O2 Flow Rate 5.0 . Vital Sign Comment: EKG Rhythm: Sinus Rhythm Rhythm change?: N MD Notified?: - MD Response: Latest Miller Fall Score: 20 Fall Risk: Low Risk Safety Measures: Call light Within Reach, Bed Alarm Zone 1, Side Rails Side Rails x2, Bed position Low and Locked. Fall Precautions: Door Sign Patient Fall Education Report given to Raquel DE LEON.
--- NOTE | 2020-04-23 19:18 | General Progress Note ---
Subjective ROS Limited/Unobtainable: Yes Allergies: Coded Allergies: Black Pepper (Verified Allergy, Unknown, 04/11/20) Objective Last 24 Hour Vital Signs Date Time Temp Pulse Resp B/P (MAP) Pulse Ox O2 Delivery O2 Flow Rate FiO2 04/23/20 16:00 98 04/23/20 16:00 97.0 98 20 115/77 (90) 98 04/23/20 13:56 106 128/93 04/23/20 12:00 106 04/23/20 12:00 96.7 101 22 128/93 (105) 98 04/23/20 09:20 107 127/81 04/23/20 09:00 Nasal Cannula 5.0 04/23/20 08:00 98.6 107 20 127/81 (96) 96 04/23/20 08:00 107 04/23/20 04:00 98.5 110 18 127/91 (103) 97 04/23/20 03:13 123 04/23/20 00:00 98.4 117 18 129/91 (104) 98 04/22/20 23:18 110 04/22/20 23:00 Nasal Cannula 5.0 04/22/20 22:59 96.6 121 20 139/89 (106) 97 04/22/20 20:46 Room Air 04/22/20 19:52 97.5 121 18 133/95 (108) 99 Intake and Output 04/22/20 04/23/20 19:00 07:00 Intake Total 720 ml Output Total 450 ml 500 ml Balance 270 ml -500 ml Intake Oral 720 ml Output Urine Total 450 ml 500 ml Laboratory Tests 04/23/20 05:20: POC Whole Blood Glucose 233H 04/23/20 10:41: White Blood Count 6.9, Red Blood Count 5.50, Hemoglobin 14.6, Hematocrit 46.2, Mean Corpuscular Volume 84, Mean Corpuscular Hemoglobin 26.5L, Mean Corpuscular Hemoglobin Concent 31.5L, Red Cell Distribution Width 12.9, Platelet Count 210, Mean Platelet Volume 9.9, Neutrophils (%) (Auto) 66.8, Lymphocytes (%) (Auto) 20.8, Monocytes (%) (Auto) 8.3, Eosinophils (%) (Auto) 2.4, Basophils (%) (Auto) 1.7, Sodium Level 133L, Potassium Level 4.4, Chloride Level 101, Carbon Dioxide Level 25, Anion Gap 7, Blood Urea Nitrogen 21H, Creatinine 0.8, Estimat Glomerular Filtration Rate > 60, Glucose Level 328H, Uric Acid 5.1, Calcium Level 8.6, Phosphorus Level 4.0, Magnesium Level 1.7L, Total Bilirubin 0.6, Aspartate Amino Transf (AST/SGOT) 30, Alanine Aminotransferase (ALT/SGPT) 43, Alkaline Phosphatase 56, C-Reactive Protein, Quantitative 2.0H, Pro-B-Type Natriuretic Peptide 19, Total Protein 6.7, Albumin 2.4L, Globulin 4.3, Albumin/Globulin Ratio 0.6L 04/23/20 16:21: POC Whole Blood Glucose 241H Height (Feet): 5 Height (Inches): 4.00 Weight (Pounds): 167 Assessment/Plan Problem List: (1) Hyperglycemia ICD Codes: R73.9 - Hyperglycemia, unspecified SNOMED: 82321526 (2) Dyspnea due to COVID-19 ICD Codes: U07.1 - COVID-19; R06.00 - Dyspnea, unspecified SNOMED: 852244844859886 Status: progressing Assessment/Plan: covid positive niddm needs oxygen weak desaturated without oxygen tachycardia due to Carlos John MD Apr 23, 2020 19:18
[2020-04-23 20:00] VITALS: BP 139/74
--- NOTE | 2020-04-23 20:02 | NUR ---
NURSE NOTES: Received patient in bed, awake, alert, oriented x4, able to make his needs know, on oxygen at 3 liters via NC, can use a urinal, IV site is clean dry and intact, call light is within reach, bed is lowered, locked, alarm is on, will continue to monitor for comfort and safety.
[2020-04-23] MEDS: Latanoprost 0.005% Opth 2.5ml Soln BOTH EYES SCH (20:30)
--- NOTE | 2020-04-23 20:56 | NUR ---
patient refused his blood sugar to be checked, stated that he wanted a" gas pill," RN offered to bring a mylanta which is ordered for a patient, patient was agitated, stated that he doesn't want anything and wants to be left alone. CN was made aware.
--- NOTE | 2020-04-23 22:38 | NUR ---
NURSE NOTES: Patient refused taking scheduled dose of cardizem, VSS 125/78 HR 74, stated i already took this medication, RN explained that medication that patient took earlier was Remeron, RN educated patient on importance of being compliant with medication regimen, patient continued to refuse to take scheduled dose of cardizem, CN was made aware.
[2020-04-24] VITALS: BP 129/75
[2020-04-24 04:00] VITALS: BP 129/74
[2020-04-24] MEDS: NovoLOG Insulin Flexpen SUBQ SCH ×4 (05:34→21:00)
[2020-04-24] MEDS: dilTIAZem HCl 60mg tab ORAL SCH ×3 (05:44→23:52)
--- NOTE | 2020-04-24 07:14 | NUR ---
NURSE HAND-OFF REPORT: Important Events on Shift: patient refused his medications, refused to be changed in bed and blood sugar checks. Patient Status: full code Diet: CCHO med Pending Orders: Pending Results/Labs: Pending MD notification: Latest Vital Signs: Temperature 97.8 , Pulse 78 , B/P 129 /74 , Respiratory Rate 18 , O2 SAT 98 , Room Air, O2 Flow Rate 5.0 . Vital Sign Comment: EKG Rhythm: Sinus Rhythm Rhythm change?: N MD Notified?: - MD Response: Latest Miller Fall Score: 20 Fall Risk: Low Risk Safety Measures: Call light Within Reach, Bed Alarm Zone 1, Side Rails Side Rails x2, Bed position Low and Locked. Fall Precautions: Door Sign Patient Fall Education Report given to Jason DE LEON
--- NOTE | 2020-04-24 07:20 | CDS Physician Query ---
PLEASE COMPLETE THE FORM BEFORE SIGNING Dear Dr. Carlos Oliveira M.D Date: 04/23/2020 Piano Technician/CDS Name: TUTU BELLO Clinical Documentation States: 59 YOP comes in with symptoms of respiratory symptoms of shortness of breath and cough. Patient has been having shortness of breath. Denies fever, chills. Has cough as well. Patient has hypertension and diabetes. Denies nausea, vomiting, or diarrhea. Has poor appetite and is admitted for COVID positive pneumonia. [ H&P Carlos Oliveira M.D. 04/05/20] ASSESSMENT AND PLAN: COVID positive pneumonia, respiratory insufficiency. Clinical Findings Show: Vitals: RR: /19/19/// MA: 109/109/12501/99 Oxygen Delivery: Nasal cannula (04/05-04/07), Venturi Mask (04/09 - 04/17) Flow Rt: 3.0/3.0/4.0/5.0/10.0/12.0 Please clarify if the patient had any of the following conditions based on the above clinical findings: []Respiratory Failure [] Acute [] Chronic (on home O2) []Acute on Chronic [] Acute Respiratory Distress [] Acute Respiratory Insufficiency [] Respiratory failure due to trauma [] Respiratory insufficiency due to trauma [] Unable to determine [] Other: Condition Present on Admission: [] Yes [] No []Clinically Undeterminable Please also document in your Progress Notes and/or Discharge Summary and indicate if the condition was present on admission. MTDD
[2020-04-24 08:00] VITALS: BP 129/74
--- NOTE | 2020-04-24 08:00 | NUR ---
NURSE NOTES: Received report from Magaly Evans RN. Patient sleeping, in semi-Rodriguez's position, side rails up x 2, on 2 liters nasal cannula, bed in lowest position, wheels locked, in no apparent distress.
--- NOTE | 2020-04-24 08:47 | General Progress Note ---
Subjective Date patient seen: Apr 24, 2020 Time patient seen: 08:00 - am Allergies: Coded Allergies: Black Pepper (Verified Allergy, Unknown, 04/11/20) Subjective HISTORY OF PRESENT ILLNESS: The patient is a 59-year-old male who is being seen on the Tele floor of [facility]. Patient showing no signs of pain or distress. No new complaints at this time. REVIEW OF SYSTEMS: Denies rash, fever, chills, sweating, dizziness, drowsiness, blurred vision, sore throat, or change in weight. No nausea, vomiting, diarrhea, or blood in the stool or urine. No dysuria. Objective Last 24 Hour Vital Signs Date Time Temp Pulse Resp B/P (MAP) Pulse Ox O2 Delivery O2 Flow Rate FiO2 04/24/20 05:44 78 129/74 04/24/20 04:00 97.8 79 18 129/74 (92) 98 04/24/20 04:00 90 04/24/20 00:00 93 04/24/20 00:00 98.7 78 18 129/75 (93) 98 04/23/20 22:06 98 04/23/20 22:00 78 125/92 04/23/20 21:56 Nasal Cannula 5.0 04/23/20 20:00 98.7 74 18 139/74 (95) 98 04/23/20 16:00 98 04/23/20 16:00 97.0 98 20 115/77 (90) 98 04/23/20 13:56 106 128/93 04/23/20 12:00 106 04/23/20 12:00 96.7 101 22 128/93 (105) 98 04/23/20 09:20 107 127/81 04/23/20 09:00 Nasal Cannula 5.0 Intake and Output 04/23/20 04/24/20 19:00 07:00 Intake Total 400 ml Output Total 650 ml Balance -250 ml Intake Oral 400 ml Output Urine Total 650 ml Laboratory Tests 04/23/20 10:41: White Blood Count 6.9, Red Blood Count 5.50, Hemoglobin 14.6, Hematocrit 46.2, Mean Corpuscular Volume 84, Mean Corpuscular Hemoglobin 26.5L, Mean Corpuscular Hemoglobin Concent 31.5L, Red Cell Distribution Width 12.9, Platelet Count 210, Mean Platelet Volume 9.9, Neutrophils (%) (Auto) 66.8, Lymphocytes (%) (Auto) 20.8, Monocytes (%) (Auto) 8.3, Eosinophils (%) (Auto) 2.4, Basophils (%) (Auto) 1.7, Sodium Level 133L, Potassium Level 4.4, Chloride Level 101, Carbon Dioxide Level 25, Anion Gap 7, Blood Urea Nitrogen 21H, Creatinine 0.8, Estimat Glomerular Filtration Rate > 60, Glucose Level 328H, Uric Acid 5.1, Calcium Level 8.6, Phosphorus Level 4.0, Magnesium Level 1.7L, Total Bilirubin 0.6, Aspartate Amino Transf (AST/SGOT) 30, Alanine Aminotransferase (ALT/SGPT) 43, Alkaline Phosphatase 56, C-Reactive Protein, Quantitative 2.0H, Pro-B-Type Natriuretic Peptide 19, Total Protein 6.7, Albumin 2.4L, Globulin 4.3, Albumin/Globulin Ratio 0.6L 04/23/20 16:21: POC Whole Blood Glucose 241H Height (Feet): 5 Height (Inches): 4.00 Weight (Pounds): 167 Objective PHYSICAL EXAMINATION: GENERAL: Alert, awake, and oriented. LUNGS: Decreased breath sounds bilaterally. HEART: S1 and S2 regular. ABDOMEN: Soft and nontender. EXTREMITIES: No cyanosis. No clubbing. NEURO: No changes. Assessment/Plan Assessment/Plan: (1) Degenerative joint disease (2) Myalgia/ Arthralgia (3) Covid 19+ Patient to be continued on the Tylenol. D/w Dr. Maxwell and he concurred. Josse Hernandez Apr 24, 2020 08:47
--- NOTE | 2020-04-24 08:52 | Cardiac Electrophysiology PN ---
Assessment/Plan Assessment/Plan 1. COVID pneumonia. Ruled out for [place] On 3 liter Nasal Cannula. EF 65%. On Dexamethasone 2. Hypertension, better on Cardizem 60 tid and p.r.n. clonidine. 3. Diabetes, on insulin. YANCY RN Subjective Subjective DC 04/22/20 was canceled as he became SOB and tachycardic in 130s. Transferred to [facility] now On 3 liter NC in NSR Objective Last 24 Hour Vital Signs Date Time Temp Pulse Resp B/P (MAP) Pulse Ox O2 Delivery O2 Flow Rate FiO2 04/24/20 05:44 78 129/74 04/24/20 04:00 97.8 79 18 129/74 (92) 98 04/24/20 04:00 90 04/24/20 00:00 93 04/24/20 00:00 98.7 78 18 129/75 (93) 98 04/23/20 22:06 98 04/23/20 22:00 78 125/92 04/23/20 21:56 Nasal Cannula 5.0 04/23/20 20:00 98.7 74 18 139/74 (95) 98 04/23/20 16:00 98 04/23/20 16:00 97.0 98 20 115/77 (90) 98 04/23/20 13:56 106 128/93 04/23/20 12:00 106 04/23/20 12:00 96.7 101 22 128/93 (105) 98 04/23/20 09:20 107 127/81 04/23/20 09:00 Nasal Cannula 5.0 Intake and Output 04/23/20 04/24/20 19:00 07:00 Intake Total 400 ml Output Total 650 ml Balance -250 ml Intake Oral 400 ml Output Urine Total 650 ml Laboratory Tests Test 04/23/20 10:41 04/23/20 16:21 White Blood Count 6.9 K/UL (4.8-10.8) Red Blood Count 5.50 M/UL (4.70-6.10) Hemoglobin 14.6 G/DL (14.2-18.0) Hematocrit 46.2 % (42.0-52.0) Mean Corpuscular Volume 84 FL (80-99) Mean Corpuscular Hemoglobin 26.5 PG (27.0-31.0) L Mean Corpuscular Hemoglobin Concent 31.5 G/DL (32.0-36.0) L Red Cell Distribution Width 12.9 % (11.6-14.8) Platelet Count 210 K/UL (150-450) Mean Platelet Volume 9.9 FL (6.5-10.1) Neutrophils (%) (Auto) 66.8 % (45.0-75.0) Lymphocytes (%) (Auto) 20.8 % (20.0-45.0) Monocytes (%) (Auto) 8.3 % (1.0-10.0) Eosinophils (%) (Auto) 2.4 % (0.0-3.0) Basophils (%) (Auto) 1.7 % (0.0-2.0) Sodium Level 133 MMOL/L (136-145) L Potassium Level 4.4 MMOL/L (3.5-5.1) Chloride Level 101 MMOL/L (98-107) Carbon Dioxide Level 25 MMOL/L (21-32) Anion Gap 7 mmol/L (5-15) Blood Urea Nitrogen 21 mg/dL (7-18) H Creatinine 0.8 MG/DL (0.55-1.30) Estimat Glomerular Filtration Rate > 60 mL/min (>60) Glucose Level 328 MG/DL (74-106) H Uric Acid 5.1 MG/DL (2.6-7.2) Calcium Level 8.6 MG/DL (8.5-10.1) Phosphorus Level 4.0 MG/DL (2.5-4.9) Magnesium Level 1.7 MG/DL (1.8-2.4) L Total Bilirubin 0.6 MG/DL (0.2-1.0) Aspartate Amino Transf (AST/SGOT) 30 U/L (15-37) Alanine Aminotransferase (ALT/SGPT) 43 U/L (12-78) Alkaline Phosphatase 56 U/L (46-116) C-Reactive Protein, Quantitative 2.0 mg/dL (0.00-0.90) H Pro-B-Type Natriuretic Peptide 19 pg/mL (0-125) Total Protein 6.7 G/DL (6.4-8.2) Albumin 2.4 G/DL (3.4-5.0) L Globulin 4.3 g/dL Albumin/Globulin Ratio 0.6 (1.0-2.7) L POC Whole Blood Glucose 241 MG/DL (74-106) H Objective HEAD AND NECK: no JVD. LUNGS: Coarse rhonchi. CARDIOVASCULAR: regular S1 and S2 with no gallop. ABDOMEN: Soft. EXTREMITIES: No pitting edema. Brian Olivares MD Apr 24, 2020 08:52
--- NOTE | 2020-04-24 09:20 | NUR ---
PT NOTE Received MD order to resume PT. Attempted to see patient for PT treatment however patient declining to participate, states "they're trying to figure out what's wrong with my heart." Jason RN notified, will follow.
[2020-04-24 09:44] LABS: BASOPHILS % (AUTO) 1.5 % (0.0-2.0); EOSINOPHILS % (AUTO) 2.6 % (0.0-3.0); HEMATOCRIT 46.5 % (42.0-52.0); HEMOGLOBIN 14.6 G/DL (14.2-18.0); LYMPHOCYTES % (AUTO) 27.7 % (20.0-45.0); MEAN CORPUSCULAR VOLUME 84 FL (80-99); MONOCYTES % (AUTO) 8.1 % (1.0-10.0); NEUTROPHILS % (AUTO) 60.2 % (45.0-75.0); PLATELET COUNT 185 K/UL (150-450); RED BLOOD COUNT 5.54 M/UL (4.70-6.10); WHITE BLOOD COUNT 6.8 K/UL (4.8-10.8)
[2020-04-24 09:51] LABS: ANION GAP 6 mmol/L (5-15); BLOOD UREA NITROGEN 14 mg/dL (7-18); CALCIUM 9.1 MG/DL (8.5-10.1); CARBON DIOXIDE 28 MMOL/L (21-32); CHLORIDE 101 MMOL/L (98-107); CREATININE 0.6 MG/DL (0.55-1.30); POTASSIUM 4.4 MMOL/L (3.5-5.1); SODIUM 134 MMOL/L (136-145)
--- NOTE | 2020-04-24 10:38 | Infectious Diseases Prog Note ---
Assessment/Plan Assessment/Plan IMPRESSION: COVID-19 pneumonia. HIV Hypoxemia SOB on exertion. Diabetes mellitus with hyperglycemia, Hypertension. RECOMMENDATIONS: Finished dexamethasone course Got a dose of Bamlanivimab in ER. Repeat CXR: no change Will check CD4 count Subjective ROS Limited/Unobtainable: No Constitutional: Reports: no symptoms Respiratory: Reports: no symptoms Cardiovascular: Reports: no symptoms Gastrointestinal/Abdominal: Reports: no symptoms Allergies: Coded Allergies: Black Pepper (Verified Allergy, Unknown, 04/11/20) Objective Last 24 Hour Vital Signs Date Time Temp Pulse Resp B/P (MAP) Pulse Ox O2 Delivery O2 Flow Rate FiO2 04/24/20 05:44 78 129/74 04/24/20 04:00 97.8 79 18 129/74 (92) 98 04/24/20 04:00 90 04/24/20 00:00 93 04/24/20 00:00 98.7 78 18 129/75 (93) 98 04/23/20 22:06 98 04/23/20 22:00 78 125/92 04/23/20 21:56 Nasal Cannula 5.0 04/23/20 20:00 98.7 74 18 139/74 (95) 98 04/23/20 16:00 98 04/23/20 16:00 97.0 98 20 115/77 (90) 98 04/23/20 13:56 106 128/93 04/23/20 12:00 106 04/23/20 12:00 96.7 101 22 128/93 (105) 98 Height (Feet): 5 Height (Inches): 4.00 Weight (Pounds): 167 HEENT: mucous membranes moist Respiratory/Chest: other - oxygen by nasal cannula Cardiovascular: normal rate Abdomen: soft, non tender Extremities: no edema Neurologic/Psychiatric: alert, responsive Laboratory Tests Test 04/23/20 10:41 04/23/20 16:21 04/24/20 09:10 04/24/20 10:11 White Blood Count 6.9 K/UL (4.8-10.8) 6.8 K/UL (4.8-10.8) Red Blood Count 5.50 M/UL (4.70-6.10) 5.54 M/UL (4.70-6.10) Hemoglobin 14.6 G/DL (14.2-18.0) 14.6 G/DL (14.2-18.0) Hematocrit 46.2 % (42.0-52.0) 46.5 % (42.0-52.0) Mean Corpuscular Volume 84 FL (80-99) 84 FL (80-99) Mean Corpuscular Hemoglobin 26.5 PG (27.0-31.0) L 26.4 PG (27.0-31.0) L Mean Corpuscular Hemoglobin Concent 31.5 G/DL (32.0-36.0) L 31.5 G/DL (32.0-36.0) L Red Cell Distribution Width 12.9 % (11.6-14.8) 13.0 % (11.6-14.8) Platelet Count 210 K/UL (150-450) 185 K/UL (150-450) Mean Platelet Volume 9.9 FL (6.5-10.1) 9.7 FL (6.5-10.1) Neutrophils (%) (Auto) 66.8 % (45.0-75.0) 60.2 % (45.0-75.0) Lymphocytes (%) (Auto) 20.8 % (20.0-45.0) 27.7 % (20.0-45.0) Monocytes (%) (Auto) 8.3 % (1.0-10.0) 8.1 % (1.0-10.0) Eosinophils (%) (Auto) 2.4 % (0.0-3.0) 2.6 % (0.0-3.0) Basophils (%) (Auto) 1.7 % (0.0-2.0) 1.5 % (0.0-2.0) Sodium Level 133 MMOL/L (136-145) L 134 MMOL/L (136-145) L Potassium Level 4.4 MMOL/L (3.5-5.1) 4.4 MMOL/L (3.5-5.1) Chloride Level 101 MMOL/L (98-107) 101 MMOL/L (98-107) Carbon Dioxide Level 25 MMOL/L (21-32) 28 MMOL/L (21-32) Anion Gap 7 mmol/L (5-15) 6 mmol/L (5-15) Blood Urea Nitrogen 21 mg/dL (7-18) H 14 mg/dL (7-18) Creatinine 0.8 MG/DL (0.55-1.30) 0.6 MG/DL (0.55-1.30) Estimat Glomerular Filtration Rate > 60 mL/min (>60) > 60 mL/min (>60) Glucose Level 328 MG/DL (74-106) H 199 MG/DL (74-106) #H Uric Acid 5.1 MG/DL (2.6-7.2) Calcium Level 8.6 MG/DL (8.5-10.1) 9.1 MG/DL (8.5-10.1) Phosphorus Level 4.0 MG/DL (2.5-4.9) Magnesium Level 1.7 MG/DL (1.8-2.4) L Total Bilirubin 0.6 MG/DL (0.2-1.0) Aspartate Amino Transf (AST/SGOT) 30 U/L (15-37) Alanine Aminotransferase (ALT/SGPT) 43 U/L (12-78) Alkaline Phosphatase 56 U/L (46-116) C-Reactive Protein, Quantitative 2.0 mg/dL (0.00-0.90) H Pro-B-Type Natriuretic Peptide 19 pg/mL (0-125) Total Protein 6.7 G/DL (6.4-8.2) Albumin 2.4 G/DL (3.4-5.0) L Globulin 4.3 g/dL Albumin/Globulin Ratio 0.6 (1.0-2.7) L POC Whole Blood Glucose 241 MG/DL (74-106) H Pending Current Medications Medications (Trade) Dose Ordered Sig/Ivett Route PRN Reason Start Time Stop Time Status Last Admin Dose Admin Acetaminophen (Tylenol) 500 mg Q4H PRN ORAL Mild Pain (Pain Scale 1-3) 04/04/20 22:45 05/04/20 22:44 04/16/20 08:39 Acetaminophen (Tylenol) 500 mg Q4H PRN ORAL Temp >100.5 04/04/20 22:45 05/04/20 22:44 Artificial Tears (Akwa-Tears) 2 drop Q4H PRN BOTH EYES Dry Eyes 04/05/20 14:45 05/05/20 14:44 04/11/20 12:03 Bisacodyl (Dulcolax) 10 mg DAILY PRN ORAL Constipation 04/13/20 10:45 07/12/20 10:44 04/14/20 09:12 Clonidine HCl (Catapres Tab) 0.1 mg PRN PRN ORAL high blood pressure sbp>170 04/04/20 22:45 07/03/20 22:44 04/06/20 04:04 Dextrose (Dextrose 50%) 25 ml Q30M PRN IV Hypoglycemia 04/04/20 22:45 07/03/20 22:44 Dextrose (Dextrose 50%) 50 ml Q30M PRN IV Hypoglycemia 04/04/20 22:45 07/03/20 22:44 Diltiazem HCl (Cardizem Tab) 60 mg EVERY 8 HOURS ORAL 04/23/20 14:00 05/23/20 13:59 04/24/20 05:44 Docusate Sodium (Colace) 100 mg TWICE A DAY ORAL 04/13/20 18:00 05/13/20 17:59 04/23/20 09:21 Famotidine (Pepcid) 20 mg BID ORAL 04/23/20 18:00 07/22/20 17:59 04/23/20 18:08 Heparin Sodium (Porcine) (Heparin 5000 units/ml) 5,000 units EVERY 12 HOURS SUBQ 04/05/20 09:00 05/20/20 08:59 04/23/20 20:31 Insulin Aspart (NovoLOG) BEFORE MEALS AND HS SUBQ 04/05/20 06:30 07/04/20 06:29 04/23/20 18:09 Latanoprost (Xalatan) 1 drop BEDTIME BOTH EYES 04/06/20 21:00 05/06/20 20:59 04/23/20 20:30 Magnesium Hydroxide (Mom) 30 ml Q4HR PRN ORAL Constipation 04/13/20 10:45 05/13/20 10:44 04/14/20 09:12 Magnesium Oxide (Mag-Ox 400mg) 400 mg THREE TIMES A DAY ORAL 04/23/20 18:00 05/23/20 17:59 04/23/20 18:08 Mirtazapine (Remeron) 7.5 mg BEDTIME ORAL 04/10/20 21:00 07/09/20 20:59 04/23/20 20:30 Ondansetron HCl (Zofran) 4 mg Q6H PRN IVP Nausea & Vomiting 04/04/20 22:45 05/04/20 22:44 04/04/20 23:07 Quetiapine Fumarate (SEROqueL) 25 mg Q6H PRN ORAL For Anxiety 04/11/20 15:45 05/26/20 15:44 04/18/20 02:42 Sennosides (Senokot) 8.6 mg DAILY PRN ORAL Constipation 04/13/20 10:45 05/13/20 10:44 04/14/20 09:12 Jarred Nuñez MD Apr 24, 2020 10:38
--- NOTE | 2020-04-24 10:41 | Pulmonology Progress Note ---
Subjective ROS Limited/Unobtainable: No Interval Events: now on 3L NC saturating at 96% Constitutional: Reports: no symptoms HEENT: Repors: no symptoms Respiratory: Reports: dry cough, dyspnea on exertion Cardiovascular: Reports: no symptoms Gastrointestinal/Abdominal: Reports: no symptoms Psychiatric: Reports: other - anxiety Musculoskeletal: Denies: pain Allergies: Coded Allergies: Black Pepper (Verified Allergy, Unknown, 04/11/20) Objective Last 24 Hour Vital Signs Date Time Temp Pulse Resp B/P (MAP) Pulse Ox O2 Delivery O2 Flow Rate FiO2 04/24/20 05:44 78 129/74 04/24/20 04:00 97.8 79 18 129/74 (92) 98 04/24/20 04:00 90 04/24/20 00:00 93 04/24/20 00:00 98.7 78 18 129/75 (93) 98 04/23/20 22:06 98 04/23/20 22:00 78 125/92 04/23/20 21:56 Nasal Cannula 5.0 04/23/20 20:00 98.7 74 18 139/74 (95) 98 04/23/20 16:00 98 04/23/20 16:00 97.0 98 20 115/77 (90) 98 04/23/20 13:56 106 128/93 04/23/20 12:00 106 04/23/20 12:00 96.7 101 22 128/93 (105) 98 Intake and Output 04/23/20 04/24/20 19:00 07:00 Intake Total 400 ml Output Total 650 ml Balance -250 ml Intake Oral 400 ml Output Urine Total 650 ml Objective 04/24 now saturating at 96% on 2L NC; declining physical therapy 04/23 was planned to be discharged yesterday, dc on hold due to acute hypoxia upon ambulation 04/18 now saturating at 95% on 2L NC; will wean off today 04/17 saturating at 95% on 12L VM 04/16 saturating at 94% on 12L VM 04/15 saturating at 96% on 12L Venturi mask 04/14 saturating at 97-98% on 12L Venturi mask 04/13 saturating at 97% on 12L Venturi mask 04/12 saturating at 95% on 12L Venturi mask 04/11 saturating at 96% on 12L Venturi mask 04/10 saturating at 95% on 12L Venturi mask 04/09 remains on 12L Venturi mask, saturating at 92-94% 04/08 pt desaturated on nasal oxygen and now on 12L oxygen via Venturi mask saturating at 94-95% 04/07 currently saturating at 95% on 4L NC General Appearance: WD/WN, no acute distress HEENT: normocephalic, atraumatic Respiratory: lungs clear Cardiovascular: normal rate, regular rhythm Abdomen: soft, non tender Extremities: no edema Laboratory Tests 04/23/20 10:41: White Blood Count 6.9, Red Blood Count 5.50, Hemoglobin 14.6, Hematocrit 46.2, Mean Corpuscular Volume 84, Mean Corpuscular Hemoglobin 26.5L, Mean Corpuscular Hemoglobin Concent 31.5L, Red Cell Distribution Width 12.9, Platelet Count 210, Mean Platelet Volume 9.9, Neutrophils (%) (Auto) 66.8, Lymphocytes (%) (Auto) 20.8, Monocytes (%) (Auto) 8.3, Eosinophils (%) (Auto) 2.4, Basophils (%) (Auto) 1.7, Sodium Level 133L, Potassium Level 4.4, Chloride Level 101, Carbon Dioxide Level 25, Anion Gap 7, Blood Urea Nitrogen 21H, Creatinine 0.8, Estimat Glomerular Filtration Rate > 60, Glucose Level 328H, Uric Acid 5.1, Calcium Level 8.6, Phosphorus Level 4.0, Magnesium Level 1.7L, Total Bilirubin 0.6, Aspartate Amino Transf (AST/SGOT) 30, Alanine Aminotransferase (ALT/SGPT) 43, Alkaline Phosphatase 56, C-Reactive Protein, Quantitative 2.0H, Pro-B-Type Natriuretic Peptide 19, Total Protein 6.7, Albumin 2.4L, Globulin 4.3, Albumin/G lobulin Ratio 0.6L 04/23/20 16:21: POC Whole Blood Glucose 241H 04/24/20 09:10: White Blood Count 6.8, Red Blood Count 5.54, Hemoglobin 14.6, Hematocrit 46.5, Mean Corpuscular Volume 84, Mean Corpuscular Hemoglobin 26.4L, Mean Corpuscular Hemoglobin Concent 31.5L, Red Cell Distribution Width 13.0, Platelet Count 185, Mean Platelet Volume 9.7, Neutrophils (%) (Auto) 60.2, Lymphocytes (%) (Auto) 27.7, Monocytes (%) (Auto) 8.1, Eosinophils (%) (Auto) 2.6, Basophils (%) (Auto) 1.5, Sodium Level 134L, Potassium Level 4.4, Chloride Level 101, Carbon Dioxide Level 28, Anion Gap 6, Blood Urea Nitrogen 14, Creatinine 0.6, Estimat Glomerular Filtration Rate > 60, Glucose Level 199#H, Calcium Level 9.1 04/24/20 10:11: POC Whole Blood Glucose [Pending] Current Medications Medications (Trade) Dose Ordered Sig/Ivett Route PRN Reason Start Time Stop Time Status Last Admin Dose Admin Acetaminophen (Tylenol) 500 mg Q4H PRN ORAL Mild Pain (Pain Scale 1-3) 04/04/20 22:45 05/04/20 22:44 04/16/20 08:39 Acetaminophen (Tylenol) 500 mg Q4H PRN ORAL Temp >100.5 04/04/20 22:45 05/04/20 22:44 Artificial Tears (Akwa-Tears) 2 drop Q4H PRN BOTH EYES Dry Eyes 04/05/20 14:45 05/05/20 14:44 04/11/20 12:03 Bisacodyl (Dulcolax) 10 mg DAILY PRN ORAL Constipation 04/13/20 10:45 07/12/20 10:44 04/14/20 09:12 Clonidine HCl (Catapres Tab) 0.1 mg PRN PRN ORAL high blood pressure sbp>170 04/04/20 22:45 07/03/20 22:44 04/06/20 04:04 Dextrose (Dextrose 50%) 25 ml Q30M PRN IV Hypoglycemia 04/04/20 22:45 07/03/20 22:44 Dextrose (Dextrose 50%) 50 ml Q30M PRN IV Hypoglycemia 04/04/20 22:45 07/03/20 22:44 Diltiazem HCl (Cardizem Tab) 60 mg EVERY 8 HOURS ORAL 04/23/20 14:00 05/23/20 13:59 04/24/20 05:44 Docusate Sodium (Colace) 100 mg TWICE A DAY ORAL 04/13/20 18:00 05/13/20 17:59 04/23/20 09:21 Famotidine (Pepcid) 20 mg BID ORAL 04/23/20 18:00 07/22/20 17:59 04/23/20 18:08 Heparin Sodium (Porcine) (Heparin 5000 units/ml) 5,000 units EVERY 12 HOURS SUBQ 04/05/20 09:00 05/20/20 08:59 04/23/20 20:31 Insulin Aspart (NovoLOG) BEFORE MEALS AND HS SUBQ 04/05/20 06:30 07/04/20 06:29 04/23/20 18:09 Latanoprost (Xalatan) 1 drop BEDTIME BOTH EYES 04/06/20 21:00 05/06/20 20:59 04/23/20 20:30 Magnesium Hydroxide (Mom) 30 ml Q4HR PRN ORAL Constipation 04/13/20 10:45 05/13/20 10:44 04/14/20 09:12 Magnesium Oxide (Mag-Ox 400mg) 400 mg THREE TIMES A DAY ORAL 04/23/20 18:00 05/23/20 17:59 04/23/20 18:08 Mirtazapine (Remeron) 7.5 mg BEDTIME ORAL 04/10/20 21:00 07/09/20 20:59 04/23/20 20:30 Ondansetron HCl (Zofran) 4 mg Q6H PRN IVP Nausea & Vomiting 04/04/20 22:45 05/04/20 22:44 04/04/20 23:07 Quetiapine Fumarate (SEROqueL) 25 mg Q6H PRN ORAL For Anxiety 04/11/20 15:45 05/26/20 15:44 04/18/20 02:42 Sennosides (Senokot) 8.6 mg DAILY PRN ORAL Constipation 04/13/20 10:45 05/13/20 10:44 04/14/20 09:12 Assessment/Plan Assessment/Plan 1. COVID-19 Bilateral pneumonia. - pt received a dose of Bamlanimab in ER - Continue monitoring for hypoxia - now saturating at 96% on 3L NC - s/p Decadron (04/05-04/14) - Defer use of remdesivir to ID specialist. - repeat CXR 04/15 still shows b/l infiltrates without significant change - repeat CXR 04/23 no significant change 2. Hypertension. - on amlodipine and prn clonidine 3. Diabetes mellitus. - on Novolog - pt is on steroids 4. Hx of home meds - per primary MD and ID 5. Insomnia - pt c/o persistent insomnia since admission without hx of insomnia - management per primary MD 6. Anxiety - on mirtazapine and Seroquel per psych DC on hold due to acute hypoxia and persistent sinus tachycardia 2 days ago Currently on 3L NC saturating at 96%; will attempt weaning today; pt may need home oxygen We will follow carefully. The care for this patient was discussed with my supervising physician Time spent for this case was approximately 31 minutes Neo Montalvo Apr 24, 2020 10:41
[2020-04-24] MEDS: Docusate 100mg cap ORAL SCH ×2 (10:45→17:52)
[2020-04-24] MEDS: Magnesium Oxide 400mg tab ORAL SCH ×3 (10:45→17:43)
[2020-04-24] MEDS: Heparin 5000 units/ml inj SUBQ SCH ×2 (10:46→23:50)
[2020-04-24 12:00] VITALS: BP 129/74
--- NOTE | 2020-04-24 12:51 | NUR ---
CASE MANAGEMENT:REVIEW 04/24/20 SI: COVID PNA. DM. HTN. HIV AT TIME OF DISCHARGE PATIENT HAD A CHANGE IN CONDITION 98.6 83 18 129/74 98% ON 5L/NC BUN+21 GLUCOSE+328 IS: MAG OXIDE PO TID PEPCID PO BID CARDIZEM 60MG PO Q8HRS REMERON PO QHS HEPARIN SQ Q12 SS INSULIN AC+HS : NOW ON TELEMETRY UNIT DCP: FROM HOME PLAN: PATIENT WILL MORE THAN LIKELY NEED OXYGEN FOR HOME USE BUT FIRST WE WILL TRY TO TITRATE OXYGEN TO A LOWER LITER FLOW
--- NOTE | 2020-04-24 13:27 | Nephrology Progress Note ---
Assessment/Plan Problem List: (1) Electrolyte imbalance (2) Hyperglycemia (3) Dyspnea due to COVID-19 Assessment Electrolyte imbalances Covid pneumonia Diabetes mellitus Hypertension HIV Plan Patient did not have labs for over 2 weeks Today's labs drawn and reviewed Abnormal electrolytes and chemistries addressed Blood pressure medication adjusted Per orders Chest x-ray ordered Subjective ROS Limited/Unobtainable: No Constitutional: Reports: malaise Objective Objective Last 24 Hour Vital Signs Date Time Temp Pulse Resp B/P (MAP) Pulse Ox O2 Delivery O2 Flow Rate FiO2 04/24/20 09:00 Nasal Cannula 5.0 04/24/20 08:00 83 04/24/20 08:00 98.6 83 18 129/74 (92) 98 04/24/20 05:44 78 129/74 04/24/20 04:00 97.8 79 18 129/74 (92) 98 04/24/20 04:00 90 04/24/20 00:00 93 04/24/20 00:00 98.7 78 18 129/75 (93) 98 04/23/20 22:06 98 04/23/20 22:00 78 125/92 04/23/20 21:56 Nasal Cannula 5.0 04/23/20 20:00 98.7 74 18 139/74 (95) 98 04/23/20 16:00 98 04/23/20 16:00 97.0 98 20 115/77 (90) 98 04/23/20 13:56 106 128/93 Intake and Output 04/23/20 04/24/20 19:00 07:00 Intake Total 400 ml Output Total 650 ml Balance -250 ml Intake Oral 400 ml Output Urine Total 650 ml Current Medications Medications (Trade) Dose Ordered Sig/Ivett Route PRN Reason Start Time Stop Time Status Last Admin Dose Admin Acetaminophen (Tylenol) 500 mg Q4H PRN ORAL Mild Pain (Pain Scale 1-3) 04/04/20 22:45 05/04/20 22:44 04/16/20 08:39 Acetaminophen (Tylenol) 500 mg Q4H PRN ORAL Temp >100.5 04/04/20 22:45 05/04/20 22:44 Artificial Tears (Akwa-Tears) 2 drop Q4H PRN BOTH EYES Dry Eyes 04/05/20 14:45 05/05/20 14:44 04/11/20 12:03 Bisacodyl (Dulcolax) 10 mg DAILY PRN ORAL Constipation 04/13/20 10:45 07/12/20 10:44 04/14/20 09:12 Clonidine HCl (Catapres Tab) 0.1 mg PRN PRN ORAL high blood pressure sbp>170 04/04/20 22:45 07/03/20 22:44 04/06/20 04:04 Dextrose (Dextrose 50%) 25 ml Q30M PRN IV Hypoglycemia 04/04/20 22:45 07/03/20 22:44 Dextrose (Dextrose 50%) 50 ml Q30M PRN IV Hypoglycemia 04/04/20 22:45 07/03/20 22:44 Diltiazem HCl (Cardizem Tab) 60 mg EVERY 8 HOURS ORAL 04/23/20 14:00 05/23/20 13:59 04/24/20 05:44 Docusate Sodium (Colace) 100 mg TWICE A DAY ORAL 04/13/20 18:00 05/13/20 17:59 04/24/20 10:45 Famotidine (Pepcid) 20 mg BID ORAL 04/23/20 18:00 07/22/20 17:59 04/24/20 10:45 Heparin Sodium (Porcine) (Heparin 5000 units/ml) 5,000 units EVERY 12 HOURS SUBQ 04/05/20 09:00 05/20/20 08:59 04/24/20 10:46 Insulin Aspart (NovoLOG) BEFORE MEALS AND HS SUBQ 04/05/20 06:30 07/04/20 06:29 04/24/20 11:30 Latanoprost (Xalatan) 1 drop BEDTIME BOTH EYES 04/06/20 21:00 05/06/20 20:59 04/23/20 20:30 Magnesium Hydroxide (Mom) 30 ml Q4HR PRN ORAL Constipation 04/13/20 10:45 05/13/20 10:44 04/14/20 09:12 Magnesium Oxide (Mag-Ox 400mg) 400 mg THREE TIMES A DAY ORAL 04/23/20 18:00 05/23/20 17:59 04/24/20 10:45 Mirtazapine (Remeron) 7.5 mg BEDTIME ORAL 04/10/20 21:00 07/09/20 20:59 04/23/20 20:30 Ondansetron HCl (Zofran) 4 mg Q6H PRN IVP Nausea & Vomiting 04/04/20 22:45 05/04/20 22:44 04/04/20 23:07 Quetiapine Fumarate (SEROqueL) 25 mg Q6H PRN ORAL For Anxiety 04/11/20 15:45 05/26/20 15:44 04/18/20 02:42 Sennosides (Senokot) 8.6 mg DAILY PRN ORAL Constipation 04/13/20 10:45 05/13/20 10:44 04/14/20 09:12 Laboratory Tests 04/23/20 16:21: POC Whole Blood Glucose 241H 04/24/20 09:10: White Blood Count 6.8, Red Blood Count 5.54, Hemoglobin 14.6, Hematocrit 46.5, Mean Corpuscular Volume 84, Mean Corpuscular Hemoglobin 26.4L, Mean Corpuscular Hemoglobin Concent 31.5L, Red Cell Distribution Width 13.0, Platelet Count 185, Mean Platelet Volume 9.7, Neutrophils (%) (Auto) 60.2, Lymphocytes (%) (Auto) 27.7, Monocytes (%) (Auto) 8.1, Eosinophils (%) (Auto) 2.6, Basophils (%) (Auto) 1.5, Sodium Level 134L, Potassium Level 4.4, Chloride Level 101, Carbon Dioxide Level 28, Anion Gap 6, Blood Urea Nitrogen 14, Creatinine 0.6, Estimat Glomerular Filtration Rate > 60, Glucose Level 199#H, Calcium Level 9.1 04/24/20 10:11: POC Whole Blood Glucose [Pending] Height (Feet): 5 Height (Inches): 4.00 Weight (Pounds): 167 EENT: other - On nasal cannula Cardiovascular: tachycardia Respiratory/Chest: decreased breath sounds Abdomen: distended Georges Neal MD Apr 24, 2020 13:27
[2020-04-24] MEDS: Milk of Magnesia 30ml Ud ORAL PRN (13:44)
[2020-04-24 16:00] VITALS: BP 124/79
[2020-04-24] MEDS: Sennosides 8.6mg tab ORAL PRN (17:43)
--- NOTE | 2020-04-24 19:51 | NUR ---
NURSE NOTES: Left message on voicemail of Dr. Brian Olivares reporting Patient is sinus tach, 105 with trigeminy.
[2020-04-24 20:00] VITALS: BP 130/75
--- NOTE | 2020-04-24 20:28 | NUR ---
NURSE HAND-OFF REPORT: Important Events on Shift: Patient is sinus tach, had trigeminy, reported to voicemail of Dr. Brian Olivares. Patient Status: In no apparent distress. Diet: CCHO medium. Pending Orders: N/A Pending Results/Labs:N/A Pending MD notification:N/A Latest Vital Signs: Temperature 97.6 , Pulse 103 , B/P 124 /79 , Respiratory Rate 16 , O2 SAT 95 , Room Air, O2 Flow Rate 5.0 . Vital Sign Comment: N/A EKG Rhythm: Sinus Tachycardia with trigeminy Rhythm change?: Kirsten EMMANUEL Notified?: Brian Olivares MD Response: Waiting for response. Latest Miller Fall Score: 20 Fall Risk: Low Risk Safety Measures: Call light Within Reach, Bed Alarm Zone 1, Side Rails Side Rails x2, Bed position Low and Locked. Fall Precautions: Door Sign Patient Fall Education Report given to Ning Mitchell RN.
--- NOTE | 2020-04-24 20:52 | General Progress Note ---
Subjective ROS Limited/Unobtainable: Yes Allergies: Coded Allergies: Black Pepper (Verified Allergy, Unknown, 04/11/20) Objective Last 24 Hour Vital Signs Date Time Temp Pulse Resp B/P (MAP) Pulse Ox O2 Delivery O2 Flow Rate FiO2 04/24/20 16:00 105 04/24/20 16:00 97.6 103 16 124/79 (94) 95 04/24/20 13:42 105 130/89 04/24/20 12:00 100 04/24/20 12:00 98.6 83 18 129/74 (92) 98 04/24/20 09:00 Nasal Cannula 5.0 04/24/20 08:00 83 04/24/20 08:00 98.6 83 18 129/74 (92) 98 04/24/20 05:44 78 129/74 04/24/20 04:00 97.8 79 18 129/74 (92) 98 04/24/20 04:00 90 04/24/20 00:00 93 04/24/20 00:00 98.7 78 18 129/75 (93) 98 04/23/20 22:06 98 04/23/20 22:00 78 125/92 04/23/20 21:56 Nasal Cannula 5.0 Intake and Output 04/23/20 04/24/20 19:00 07:00 Intake Total 400 ml Output Total 650 ml Balance -250 ml Intake Oral 400 ml Output Urine Total 650 ml Laboratory Tests 04/24/20 09:10: White Blood Count 6.8, Red Blood Count 5.54, Hemoglobin 14.6, Hematocrit 46.5, Mean Corpuscular Volume 84, Mean Corpuscular Hemoglobin 26.4L, Mean Corpuscular Hemoglobin Concent 31.5L, Red Cell Distribution Width 13.0, Platelet Count 185, Mean Platelet Volume 9.7, Neutrophils (%) (Auto) 60.2, Lymphocytes (%) (Auto) 27.7, Monocytes (%) (Auto) 8.1, Eosinophils (%) (Auto) 2.6, Basophils (%) (Auto) 1.5, Sodium Level 134L, Potassium Level 4.4, Chloride Level 101, Carbon Dioxide Level 28, Anion Gap 6, Blood Urea Nitrogen 14, Creatinine 0.6, Estimat Glomerular Filtration Rate > 60, Glucose Level 199#H, Calcium Level 9.1 04/24/20 10:11: POC Whole Blood Glucose [Pending] 04/24/20 16:48: POC Whole Blood Glucose 326H 04/24/20 17:35: White Blood Count [Pending], Lymphocytes [Pending], Percent CD3 Cells [Pending], Absolute CD3 Count [Pending], Percent CD4 Cells [Pending], Absolute CD4 Count [Pending], T-Lymphocyte CD4/CD8 Ratio [Pending], Percent CD8 Cells [Pending], Absolute CD8 Count [Pending] Height (Feet): 5 Height (Inches): 4.00 Weight (Pounds): 167 Assessment/Plan Problem List: (1) Hyperglycemia ICD Codes: R73.9 - Hyperglycemia, unspecified SNOMED: [id number] (2) Dyspnea due to COVID-19 ICD Codes: U07.1 - COVID-19; R06.00 - Dyspnea, unspecified SNOMED: 934629595112707 Status: progressing Assessment/Plan: covid positive resp insuff afebrile no change niddm needs oxygen tachycardia due to Carlos John MD Apr 24, 2020 20:52
[2020-04-24] MEDS: Latanoprost 0.005% Opth 2.5ml Soln BOTH EYES SCH (21:00)
[2020-04-25] VITALS: BP 124/78
[2020-04-25 04:00] VITALS: BP 149/88
[2020-04-25] MEDS: dilTIAZem HCl 60mg tab ORAL SCH ×3 (06:00→22:35)
[2020-04-25] MEDS: NovoLOG Insulin Flexpen SUBQ SCH ×4 (06:30→21:00)
--- NOTE | 2020-04-25 07:46 | NUR ---
NURSE NOTES: Report received from Stephen DE LEON. Patient seen on rounds, awake and up in bed, on O2 at 3lpm via NC with no signs of acute distress, no complaints of pain. PIV on left AC patent and intact. Nurse reports pt has been SR-ST on heart monitor, max HR at 103bpm overnight. Pending cardiac clearance to transfer to med-surgical floor, will confirm with Dr. Olivares. PIV on left AC patent and intact. Pt uses urinal for continence needs. Bed low and locked, siderails up x2, call light placed within reach and instructed to call nurse for assistance. Will continue with plan of care.
[2020-04-25 08:00] VITALS: BP 119/79
--- NOTE | 2020-04-25 08:00 | NUR ---
NURSE HAND-OFF REPORT: Important Events on Shift: Pt refused AM Cardizem, asymptomatic. Patient Status: FC Diet: CCHO M Pending Orders: NONE Pending Results/Labs: AM labs Pending MD notification: none Latest Vital Signs: Temperature 98.9 , Pulse 94 , B/P 149 /88 , Respiratory Rate 20 , O2 SAT 94 , Room Air, O2 Flow Rate 3.0 . Vital Sign Comment: EKG Rhythm: Sinus Rhythm Rhythm change?: N MD Notified?: - MD Response: Latest Miller Fall Score: 20 Fall Risk: Low Risk Safety Measures: Call light Within Reach, Bed Alarm Zone 1, Side Rails Side Rails x2, Bed position Low and Locked. Fall Precautions: YES Door Sign Patient Fall Education Report given to Jannet Blount RN.
--- NOTE | 2020-04-25 08:30 | General Progress Note ---
Subjective Date patient seen: Apr 25, 2020 Time patient seen: 07:00 - am Allergies: Coded Allergies: Black Pepper (Verified Allergy, Unknown, 04/11/20) Subjective HISTORY OF PRESENT ILLNESS: The patient is a 59-year-old male who is being seen on the Tele floor of [facility]. Patient resting in bed and showing no signs of pain or distress. Denies pain at this time. REVIEW OF SYSTEMS: Denies rash, fever, chills, sweating, dizziness, drowsiness, blurred vision, sore throat, or change in weight. No nausea, vomiting, diarrhea, or blood in the stool or urine. No dysuria. Objective Last 24 Hour Vital Signs Date Time Temp Pulse Resp B/P (MAP) Pulse Ox O2 Delivery O2 Flow Rate FiO2 04/25/20 04:00 86 04/25/20 04:00 98.9 94 20 149/88 (108) 94 04/25/20 00:00 95 04/25/20 00:00 98.2 85 18 124/78 (93) 95 04/24/20 23:52 76 130/75 04/24/20 21:00 Nasal Cannula 3.0 04/24/20 20:00 97.0 76 18 130/75 (93) 95 04/24/20 20:00 99 04/24/20 16:00 105 04/24/20 16:00 97.6 103 16 124/79 (94) 95 04/24/20 13:42 105 130/89 04/24/20 12:00 100 04/24/20 12:00 98.6 83 18 129/74 (92) 98 04/24/20 09:00 Nasal Cannula 5.0 Intake and Output 04/24/20 04/25/20 19:00 07:00 Intake Total 400 ml Output Total 400 ml Balance 0 ml Intake Oral 400 ml Output Urine Total 400 ml # Voids 1 Laboratory Tests 04/24/20 09:10: White Blood Count 6.8, Red Blood Count 5.54, Hemoglobin 14.6, Hematocrit 46.5, Mean Corpuscular Volume 84, Mean Corpuscular Hemoglobin 26.4L, Mean Corpuscular Hemoglobin Concent 31.5L, Red Cell Distribution Width 13.0, Platelet Count 185, Mean Platelet Volume 9.7, Neutrophils (%) (Auto) 60.2, Lymphocytes (%) (Auto) 27.7, Monocytes (%) (Auto) 8.1, Eosinophils (%) (Auto) 2.6, Basophils (%) (Auto) 1.5, Sodium Level 134L, Potassium Level 4.4, Chloride Level 101, Carbon Dioxide Level 28, Anion Gap 6, Blood Urea Nitrogen 14, Creatinine 0.6, Estimat Glomerular Filtration Rate > 60, Glucose Level 199#H, Calcium Level 9.1 04/24/20 10:11: POC Whole Blood Glucose [Pending] 04/24/20 16:48: POC Whole Blood Glucose 326H 04/24/20 17:35: White Blood Count [Pending], Lymphocytes [Pending], Percent CD3 Cells [Pending], Absolute CD3 Count [Pending], Percent CD4 Cells [Pending], Absolute CD4 Count [Pending], T-Lymphocyte CD4/CD8 Ratio [Pending], Percent CD8 Cells [Pending], Absolute CD8 Count [Pending] 04/24/20 23:06: POC Whole Blood Glucose 233H 04/25/20 07:02: POC Whole Blood Glucose 218H Height (Feet): 5 Height (Inches): 4.00 Weight (Pounds): 167 Objective PHYSICAL EXAMINATION: GENERAL: Alert, awake, and oriented. LUNGS: Decreased breath sounds bilaterally. HEART: S1 and S2 regular. ABDOMEN: Soft and nontender. EXTREMITIES: No cyanosis. No clubbing. NEURO: No changes. Assessment/Plan Status: progressing Assessment/Plan: (1) Degenerative joint disease (2) Myalgia/ Arthralgia (3) Covid 19+ Patient to be continued on the Tylenol. D/w Dr. Maxwell and he concurred. Josse Hernandez Apr 25, 2020 08:30
[2020-04-25] MEDS: Docusate 100mg cap ORAL SCH ×2 (09:00→17:42)
[2020-04-25] MEDS: Magnesium Oxide 400mg tab ORAL SCH ×3 (09:02→17:42)
[2020-04-25] MEDS: Heparin 5000 units/ml inj SUBQ SCH ×2 (09:07→22:36)
--- NOTE | 2020-04-25 10:07 | Pulmonology Progress Note ---
Subjective ROS Limited/Unobtainable: Yes Interval Events: now on 3L NC saturating at 96% Constitutional: Reports: no symptoms HEENT: Repors: no symptoms Respiratory: Reports: dry cough, dyspnea on exertion Cardiovascular: Reports: no symptoms Gastrointestinal/Abdominal: Reports: no symptoms Psychiatric: Reports: other - anxiety Musculoskeletal: Denies: pain Allergies: Coded Allergies: Black Pepper (Verified Allergy, Unknown, 04/11/20) Objective Last 24 Hour Vital Signs Date Time Temp Pulse Resp B/P (MAP) Pulse Ox O2 Delivery O2 Flow Rate FiO2 04/25/20 09:35 102 119/79 04/25/20 04:00 86 04/25/20 04:00 98.9 94 20 149/88 (108) 94 04/25/20 00:00 95 04/25/20 00:00 98.2 85 18 124/78 (93) 95 04/24/20 23:52 76 130/75 04/24/20 21:00 Nasal Cannula 3.0 04/24/20 20:00 97.0 76 18 130/75 (93) 95 04/24/20 20:00 99 04/24/20 16:00 105 04/24/20 16:00 97.6 103 16 124/79 (94) 95 04/24/20 13:42 105 130/89 04/24/20 12:00 100 04/24/20 12:00 98.6 83 18 129/74 (92) 98 Intake and Output 04/24/20 04/25/20 19:00 07:00 Intake Total 400 ml Output Total 400 ml Balance 0 ml Intake Oral 400 ml Output Urine Total 400 ml # Voids 1 Objective 04/15 saturating well on 3L NC; will attempt weaning today 04/24 now saturating at 96% on 2L NC; declining physical therapy 04/23 was planned to be discharged yesterday, dc on hold due to acute hypoxia upon ambulation 04/18 now saturating at 95% on 2L NC; will wean off today 04/17 saturating at 95% on 12L VM 04/16 saturating at 94% on 12L VM 04/15 saturating at 96% on 12L Venturi mask 04/14 saturating at 97-98% on 12L Venturi mask 04/13 saturating at 97% on 12L Venturi mask /2 saturating at 95% on 12L Venturi mask 04/11 saturating at 96% on 12L Venturi mask 04/10 saturating at 95% on 12L Venturi mask 04/09 remains on 12L Venturi mask, saturating at 92-94% 04/08 pt desaturated on nasal oxygen and now on 12L oxygen via Venturi mask saturating at 94-95% 04/07 currently saturating at 95% on 4L NC General Appearance: WD/WN, no acute distress HEENT: normocephalic, atraumatic Respiratory: lungs clear Cardiovascular: normal rate, regular rhythm Abdomen: soft, non tender Extremities: no edema Laboratory Tests 04/24/20 10:11: POC Whole Blood Glucose [Pending] 04/24/20 16:48: POC Whole Blood Glucose 326H 04/24/20 17:35: White Blood Count [Pending], Lymphocytes [Pending], Percent CD3 Cells [Pending], Absolute CD3 Count [Pending], Percent CD4 Cells [Pending], Absolute CD4 Count [Pending], T-Lymphocyte CD4/CD8 Ratio [Pending], Percent CD8 Cells [Pending], Absolute CD8 Count [Pending] 04/24/20 23:06: POC Whole Blood Glucose 233H 04/25/20 07:02: POC Whole Blood Glucose 218H Current Medications Medications (Trade) Dose Ordered Sig/Ivett Route PRN Reason Start Time Stop Time Status Last Admin Dose Admin Acetaminophen (Tylenol) 500 mg Q4H PRN ORAL Mild Pain (Pain Scale 1-3) 04/04/20 22:45 05/04/20 22:44 04/16/20 08:39 Acetaminophen (Tylenol) 500 mg Q4H PRN ORAL Temp >100.5 04/04/20 22:45 05/04/20 22:44 Artificial Tears (Akwa-Tears) 2 drop Q4H PRN BOTH EYES Dry Eyes 04/05/20 14:45 05/05/20 14:44 04/11/20 12:03 Bisacodyl (Dulcolax) 10 mg DAILY PRN ORAL Constipation 04/13/20 10:45 07/12/20 10:44 04/14/20 09:12 Clonidine HCl (Catapres Tab) 0.1 mg PRN PRN ORAL high blood pressure sbp>170 04/04/20 22:45 07/03/20 22:44 04/06/20 04:04 Dextrose (Dextrose 50%) 25 ml Q30M PRN IV Hypoglycemia 04/04/20 22:45 07/03/20 22:44 Dextrose (Dextrose 50%) 50 ml Q30M PRN IV Hypoglycemia 04/04/20 22:45 07/03/20 22:44 Diltiazem HCl (Cardizem Tab) 60 mg EVERY 8 HOURS ORAL 04/23/20 14:00 05/23/20 13:59 04/25/20 09:35 Docusate Sodium (Colace) 100 mg TWICE A DAY ORAL 04/13/20 18:00 05/13/20 17:59 04/24/20 10:45 Famotidine (Pepcid) 20 mg BID ORAL 04/23/20 18:00 07/22/20 17:59 04/25/20 09:02 Heparin Sodium (Porcine) (Heparin 5000 units/ml) 5,000 units EVERY 12 HOURS SUBQ 04/05/20 09:00 05/20/20 08:59 04/25/20 09:07 Insulin Aspart (NovoLOG) BEFORE MEALS AND HS SUBQ 04/05/20 06:30 07/04/20 06:29 04/25/20 06:30 Latanoprost (Xalatan) 1 drop BEDTIME BOTH EYES 04/06/20 21:00 05/06/20 20:59 04/24/20 21:00 Magnesium Hydroxide (Mom) 30 ml Q4HR PRN ORAL Constipation 04/13/20 10:45 05/13/20 10:44 04/24/20 13:44 Magnesium Oxide (Mag-Ox 400mg) 400 mg THREE TIMES A DAY ORAL 04/23/20 18:00 05/23/20 17:59 04/25/20 09:02 Mirtazapine (Remeron) 7.5 mg BEDTIME ORAL 04/10/20 21:00 07/09/20 20:59 04/24/20 23:51 Ondansetron HCl (Zofran) 4 mg Q6H PRN IVP Nausea & Vomiting 04/04/20 22:45 05/04/20 22:44 04/04/20 23:07 Quetiapine Fumarate (SEROqueL) 25 mg Q6H PRN ORAL For Anxiety 04/11/20 15:45 05/26/20 15:44 04/18/20 02:42 Sennosides (Senokot) 8.6 mg DAILY PRN ORAL Constipation 04/13/20 10:45 05/13/20 10:44 04/24/20 17:43 Assessment/Plan Assessment/Plan 1. COVID-19 Bilateral pneumonia. - pt received a dose of Bamlanimab in ER - Continue monitoring for hypoxia - now saturating at 96% on 3L NC - s/p Decadron (04/05-04/14) - Defer use of remdesivir to ID specialist. - repeat CXR 04/15 still shows b/l infiltrates without significant change - repeat CXR 04/23 no significant change 2. Hypertension. - on amlodipine and prn clonidine 3. Diabetes mellitus. - on Novolog - s/p steroids 4. Hx of home meds - per primary MD and ID 5. Insomnia - pt c/o persistent insomnia since admission without hx of insomnia - management per primary MD 6. Anxiety - on mirtazapine and Seroquel per psych DC on hold due to acute hypoxia and persistent sinus tachycardia Currently on 3L NC saturating at 96%; will attempt weaning today; pt may need home oxygen We will follow carefully. The care for this patient was discussed with my supervising physician Time spent for this case was approximately 31 minutes Neo Montalvo Apr 25, 2020 10:07
[2020-04-25 10:19] LABS: BASOPHILS % (AUTO) 1.8 % (0.0-2.0); EOSINOPHILS % (AUTO) 2.2 % (0.0-3.0); HEMATOCRIT 43.7 % (42.0-52.0); HEMOGLOBIN 14.1 G/DL (14.2-18.0); LYMPHOCYTES % (AUTO) 25.5 % (20.0-45.0); MEAN CORPUSCULAR VOLUME 83 FL (80-99); MONOCYTES % (AUTO) 6.8 % (1.0-10.0); NEUTROPHILS % (AUTO) 63.8 % (45.0-75.0); PLATELET COUNT 164 K/UL (150-450); RED BLOOD COUNT 5.26 M/UL (4.70-6.10); RED CELL DISTRIBUTION WIDTH 12.7 % (11.6-14.8); WHITE BLOOD COUNT 6.8 K/UL (4.8-10.8)
--- NOTE | 2020-04-25 10:46 | NUR ---
ASE MANAGEMENT:REVIEW 04/25/20 SI: COVID PNA. DM. HTN. HIV AT TIME OF DISCHARGE PATIENT HAD A CHANGE IN CONDITION 98.9 102 20 149/88 94% ON 3L/NC LABS PENDING AT THIS TIME IS: MAG OXIDE PO TID PEPCID PO BID CARDIZEM 60MG PO Q8HRS REMERON PO QHS HEPARIN SQ Q12 SS INSULIN AC+HS : NOW ON TELEMETRY UNIT DCP: FROM HOME PLAN: PATIENT WILL MORE THAN LIKELY NEED OXYGEN FOR HOME USE BUT FIRST WE WILL TRY TO TITRATE OXYGEN TO A LOWER LITER FLOW WEAN OXYGEN KEEP SAT >90%
--- NOTE | 2020-04-25 10:49 | NUR ---
NURSE NOTES: Attempted to wean patient's O2 but patient refused, states he would like to keep Oxygen at current level right now.
[2020-04-25 11:12] LABS: ALANINE AMINOTRANSFERASE 41 U/L (12-78); ALBUMIN 2.4 G/DL (3.4-5.0); ALBUMIN/GLOBULIN RATIO 0.6 (1.0-2.7); ALKALINE PHOSPHATASE 58 U/L (46-116); ANION GAP 2 mmol/L (5-15); ASPARTATE AMINO TRANSFERASE 25 U/L (15-37); BILIRUBIN,TOTAL 0.4 MG/DL (0.2-1.0); BLOOD UREA NITROGEN 15 mg/dL (7-18); CARBON DIOXIDE 31 MMOL/L (21-32); CHLORIDE 100 MMOL/L (98-107); CREATININE 0.7 MG/DL (0.55-1.30); PHOSPHORUS 3.2 MG/DL (2.5-4.9); POTASSIUM 4.2 MMOL/L (3.5-5.1); SODIUM 133 MMOL/L (136-145)
[2020-04-25 12:00] VITALS: BP 111/72
--- NOTE | 2020-04-25 12:25 | Infectious Diseases Prog Note ---
Assessment/Plan Assessment/Plan IMPRESSION: COVID-19 pneumonia. HIV Hypoxemia SOB on exertion. Diabetes mellitus with hyperglycemia, Hypertension. RECOMMENDATIONS: Finished dexamethasone course Got a dose of Bamlanivimab in ER. Repeat CXR: no change Will check CD4 count Subjective ROS Limited/Unobtainable: No Constitutional: Reports: no symptoms Respiratory: Reports: no symptoms Gastrointestinal/Abdominal: Reports: no symptoms Allergies: Coded Allergies: Black Pepper (Verified Allergy, Unknown, 04/11/20) Objective Last 24 Hour Vital Signs Date Time Temp Pulse Resp B/P (MAP) Pulse Ox O2 Delivery O2 Flow Rate FiO2 04/25/20 12:00 97.9 93 20 111/72 (85) 99 04/25/20 09:35 102 119/79 04/25/20 09:00 Nasal Cannula 3.0 04/25/20 08:00 105 04/25/20 08:00 98.0 102 20 119/79 (92) 98 04/25/20 04:00 86 04/25/20 04:00 98.9 94 20 149/88 (108) 94 04/25/20 00:00 95 04/25/20 00:00 98.2 85 18 124/78 (93) 95 04/24/20 23:52 76 130/75 04/24/20 21:00 Nasal Cannula 3.0 04/24/20 20:00 97.0 76 18 130/75 (93) 95 04/24/20 20:00 99 04/24/20 16:00 105 04/24/20 16:00 97.6 103 16 124/79 (94) 95 04/24/20 13:42 105 130/89 Height (Feet): 5 Height (Inches): 4.00 Weight (Pounds): 167 HEENT: mucous membranes moist Respiratory/Chest: no respiratory distress, other - oxygen by nasal cannula Cardiovascular: normal rate Abdomen: soft, non tender Extremities: no edema Neurologic/Psychiatric: alert, responsive Laboratory Tests Test 04/24/20 16:48 04/24/20 17:35 04/24/20 23:06 04/25/20 07:02 POC Whole Blood Glucose 326 MG/DL (74-106) H 233 MG/DL (74-106) H 218 MG/DL (74-106) H White Blood Count Pending Lymphocytes Pending Percent CD3 Cells Pending Absolute CD3 Count Pending Percent CD4 Cells Pending Absolute CD4 Count Pending T-Lymphocyte CD4/CD8 Ratio Pending Percent CD8 Cells Pending Absolute CD8 Count Pending Test 04/25/20 09:30 04/25/20 11:35 White Blood Count 6.8 K/UL (4.8-10.8) Red Blood Count 5.26 M/UL (4.70-6.10) Hemoglobin 14.1 G/DL (14.2-18.0) L Hematocrit 43.7 % (42.0-52.0) Mean Corpuscular Volume 83 FL (80-99) Mean Corpuscular Hemoglobin 26.7 PG (27.0-31.0) L Mean Corpuscular Hemoglobin Concent 32.2 G/DL (32.0-36.0) Red Cell Distribution Width 12.7 % (11.6-14.8) Platelet Count 164 K/UL (150-450) Mean Platelet Volume 10.0 FL (6.5-10.1) Neutrophils (%) (Auto) 63.8 % (45.0-75.0) Lymphocytes (%) (Auto) 25.5 % (20.0-45.0) Monocytes (%) (Auto) 6.8 % (1.0-10.0) Eosinophils (%) (Auto) 2.2 % (0.0-3.0) Basophils (%) (Auto) 1.8 % (0.0-2.0) Sodium Level 133 MMOL/L (136-145) L Potassium Level 4.2 MMOL/L (3.5-5.1) Chloride Level 100 MMOL/L (98-107) Carbon Dioxide Level 31 MMOL/L (21-32) Anion Gap 2 mmol/L (5-15) L Blood Urea Nitrogen 15 mg/dL (7-18) Creatinine 0.7 MG/DL (0.55-1.30) Estimat Glomerular Filtration Rate > 60 mL/min (>60) Glucose Level 288 MG/DL (74-106) H Calcium Level 9.0 MG/DL (8.5-10.1) Phosphorus Level 3.2 MG/DL (2.5-4.9) Magnesium Level 1.9 MG/DL (1.8-2.4) Total Bilirubin 0.4 MG/DL (0.2-1.0) Aspartate Amino Transf (AST/SGOT) 25 U/L (15-37) Alanine Aminotransferase (ALT/SGPT) 41 U/L (12-78) Alkaline Phosphatase 58 U/L (46-116) Total Protein 6.5 G/DL (6.4-8.2) Albumin 2.4 G/DL (3.4-5.0) L Globulin 4.1 g/dL Albumin/Globulin Ratio 0.6 (1.0-2.7) L POC Whole Blood Glucose 303 MG/DL (74-106) H Current Medications Medications (Trade) Dose Ordered Sig/Ivett Route PRN Reason Start Time Stop Time Status Last Admin Dose Admin Acetaminophen (Tylenol) 500 mg Q4H PRN ORAL Mild Pain (Pain Scale 1-3) 04/04/20 22:45 05/04/20 22:44 04/16/20 08:39 Acetaminophen (Tylenol) 500 mg Q4H PRN ORAL Temp >100.5 04/04/20 22:45 05/04/20 22:44 Artificial Tears (Akwa-Tears) 2 drop Q4H PRN BOTH EYES Dry Eyes 04/05/20 14:45 05/05/20 14:44 04/11/20 12:03 Bisacodyl (Dulcolax) 10 mg DAILY PRN ORAL Constipation 04/13/20 10:45 07/12/20 10:44 04/14/20 09:12 Clonidine HCl (Catapres Tab) 0.1 mg PRN PRN ORAL high blood pressure sbp>170 04/04/20 22:45 07/03/20 22:44 04/06/20 04:04 Dextrose (Dextrose 50%) 25 ml Q30M PRN IV Hypoglycemia 04/04/20 22:45 07/03/20 22:44 Dextrose (Dextrose 50%) 50 ml Q30M PRN IV Hypoglycemia 04/04/20 22:45 07/03/20 22:44 Diltiazem HCl (Cardizem Tab) 60 mg EVERY 8 HOURS ORAL 04/23/20 14:00 05/23/20 13:59 04/25/20 09:35 Docusate Sodium (Colace) 100 mg TWICE A DAY ORAL 04/13/20 18:00 05/13/20 17:59 04/24/20 10:45 Famotidine (Pepcid) 20 mg BID ORAL 04/23/20 18:00 07/22/20 17:59 04/25/20 09:02 Heparin Sodium (Porcine) (Heparin 5000 units/ml) 5,000 units EVERY 12 HOURS SUBQ 04/05/20 09:00 05/20/20 08:59 04/25/20 09:07 Insulin Aspart (NovoLOG) BEFORE MEALS AND HS SUBQ 04/05/20 06:30 07/04/20 06:29 04/25/20 06:30 Latanoprost (Xalatan) 1 drop BEDTIME BOTH EYES 04/06/20 21:00 05/06/20 20:59 04/24/20 21:00 Magnesium Hydroxide (Mom) 30 ml Q4HR PRN ORAL Constipation 04/13/20 10:45 05/13/20 10:44 04/24/20 13:44 Magnesium Oxide (Mag-Ox 400mg) 400 mg THREE TIMES A DAY ORAL 04/23/20 18:00 05/23/20 17:59 04/25/20 09:02 Mirtazapine (Remeron) 7.5 mg BEDTIME ORAL 04/10/20 21:00 07/09/20 20:59 04/24/20 23:51 Ondansetron HCl (Zofran) 4 mg Q6H PRN IVP Nausea & Vomiting 04/04/20 22:45 05/04/20 22:44 04/04/20 23:07 Quetiapine Fumarate (SEROqueL) 25 mg Q6H PRN ORAL For Anxiety 04/11/20 15:45 05/26/20 15:44 04/18/20 02:42 Sennosides (Senokot) 8.6 mg DAILY PRN ORAL Constipation 04/13/20 10:45 05/13/20 10:44 04/24/20 17:43 Jarred Nuñez MD Apr 25, 2020 12:25
--- NOTE | 2020-04-25 12:42 | Nephrology Progress Note ---
Assessment/Plan Problem List: (1) Electrolyte imbalance (2) Hyperglycemia (3) Dyspnea due to COVID-19 Assessment Electrolyte imbalances Covid pneumonia Diabetes mellitus Hypertension HIV Plan April 25: Today's labs reviewed. Mild hyponatremia mostly corrects for hyperglycemia. Continue to monitor electrolytes and blood sugar. Patient did not have labs for over 2 weeks Today's labs drawn and reviewed Abnormal electrolytes and chemistries addressed Blood pressure medication adjusted Per orders Chest x-ray ordered Subjective ROS Limited/Unobtainable: No Constitutional: Reports: malaise Objective Objective Last 24 Hour Vital Signs Date Time Temp Pulse Resp B/P (MAP) Pulse Ox O2 Delivery O2 Flow Rate FiO2 04/25/20 12:00 97.9 93 20 111/72 (85) 99 04/25/20 09:35 102 119/79 04/25/20 09:00 Nasal Cannula 3.0 04/25/20 08:00 105 04/25/20 08:00 98.0 102 20 119/79 (92) 98 04/25/20 04:00 86 04/25/20 04:00 98.9 94 20 149/88 (108) 94 04/25/20 00:00 95 04/25/20 00:00 98.2 85 18 124/78 (93) 95 04/24/20 23:52 76 130/75 04/24/20 21:00 Nasal Cannula 3.0 04/24/20 20:00 97.0 76 18 130/75 (93) 95 04/24/20 20:00 99 04/24/20 16:00 105 04/24/20 16:00 97.6 103 16 124/79 (94) 95 04/24/20 13:42 105 130/89 Intake and Output 04/24/20 04/25/20 19:00 07:00 Intake Total 400 ml Output Total 400 ml Balance 0 ml Intake Oral 400 ml Output Urine Total 400 ml # Voids 1 Current Medications Medications (Trade) Dose Ordered Sig/Ivett Route PRN Reason Start Time Stop Time Status Last Admin Dose Admin Acetaminophen (Tylenol) 500 mg Q4H PRN ORAL Mild Pain (Pain Scale 1-3) 04/04/20 22:45 05/04/20 22:44 04/16/20 08:39 Acetaminophen (Tylenol) 500 mg Q4H PRN ORAL Temp >100.5 04/04/20 22:45 05/04/20 22:44 Artificial Tears (Akwa-Tears) 2 drop Q4H PRN BOTH EYES Dry Eyes 04/05/20 14:45 05/05/20 14:44 04/11/20 12:03 Bisacodyl (Dulcolax) 10 mg DAILY PRN ORAL Constipation 04/13/20 10:45 07/12/20 10:44 04/14/20 09:12 Clonidine HCl (Catapres Tab) 0.1 mg PRN PRN ORAL high blood pressure sbp>170 04/04/20 22:45 07/03/20 22:44 04/06/20 04:04 Dextrose (Dextrose 50%) 25 ml Q30M PRN IV Hypoglycemia 04/04/20 22:45 07/03/20 22:44 Dextrose (Dextrose 50%) 50 ml Q30M PRN IV Hypoglycemia 04/04/20 22:45 07/03/20 22:44 Diltiazem HCl (Cardizem Tab) 60 mg EVERY 8 HOURS ORAL 04/23/20 14:00 05/23/20 13:59 04/25/20 09:35 Docusate Sodium (Colace) 100 mg TWICE A DAY ORAL 04/13/20 18:00 05/13/20 17:59 04/24/20 10:45 Famotidine (Pepcid) 20 mg BID ORAL 04/23/20 18:00 07/22/20 17:59 04/25/20 09:02 Heparin Sodium (Porcine) (Heparin 5000 units/ml) 5,000 units EVERY 12 HOURS SUBQ 04/05/20 09:00 05/20/20 08:59 04/25/20 09:07 Insulin Aspart (NovoLOG) BEFORE MEALS AND HS SUBQ 04/05/20 06:30 07/04/20 06:29 04/25/20 12:33 Latanoprost (Xalatan) 1 drop BEDTIME BOTH EYES 04/06/20 21:00 05/06/20 20:59 04/24/20 21:00 Magnesium Hydroxide (Mom) 30 ml Q4HR PRN ORAL Constipation 04/13/20 10:45 05/13/20 10:44 04/24/20 13:44 Magnesium Oxide (Mag-Ox 400mg) 400 mg THREE TIMES A DAY ORAL 04/23/20 18:00 05/23/20 17:59 04/25/20 12:33 Mirtazapine (Remeron) 7.5 mg BEDTIME ORAL 04/10/20 21:00 07/09/20 20:59 04/24/20 23:51 Ondansetron HCl (Zofran) 4 mg Q6H PRN IVP Nausea & Vomiting 04/04/20 22:45 05/04/20 22:44 04/04/20 23:07 Quetiapine Fumarate (SEROqueL) 25 mg Q6H PRN ORAL For Anxiety 04/11/20 15:45 05/26/20 15:44 04/18/20 02:42 Sennosides (Senokot) 8.6 mg DAILY PRN ORAL Constipation 04/13/20 10:45 05/13/20 10:44 04/24/20 17:43 Laboratory Tests 04/24/20 16:48: POC Whole Blood Glucose 326H 04/24/20 17:35: White Blood Count [Pending], Lymphocytes [Pending], Percent CD3 Cells [Pending], Absolute CD3 Count [Pending], Percent CD4 Cells [Pending], Absolute CD4 Count [Pending], T-Lymphocyte CD4/CD8 Ratio [Pending], Percent CD8 Cells [Pending], Absolute CD8 Count [Pending] 04/24/20 23:06: POC Whole Blood Glucose 233H 04/25/20 07:02: POC Whole Blood Glucose 218H 04/25/20 09:30: White Blood Count 6.8, Red Blood Count 5.26, Hemoglobin 14.1L, Hematocrit 43.7, Mean Corpuscular Volume 83, Mean Corpuscular Hemoglobin 26.7L, Mean Corpuscular Hemoglobin Concent 32.2, Red Cell Distribution Width 12.7, Platelet Count 164, Mean Platelet Volume 10.0, Neutrophils (%) (Auto) 63.8, Lymphocytes (%) (Auto) 2 5.5, Monocytes (%) (Auto) 6.8, Eosinophils (%) (Auto) 2.2, Basophils (%) (Auto) 1.8, Sodium Level 133L, Potassium Level 4.2, Chloride Level 100, Carbon Dioxide Level 31, Anion Gap 2L, Blood Urea Nitrogen 15, Creatinine 0.7, Estimat Glomerular Filtration Rate > 60, Glucose Level 288H, Calcium Level 9.0, Phosphorus Level 3.2, Magnesium Level 1.9, Total Bilirubin 0.4, Aspartate Amino Transf (AST/SGOT) 25, Alanine Aminotransferase (ALT/SGPT) 41, Alkaline Phosphatase 58, Total Protein 6.5, Albumin 2.4L, Globulin 4.1, Albumin/Globulin Ratio 0.6L 04/25/20 11:35: POC Whole Blood Glucose 303H Height (Feet): 5 Height (Inches): 4.00 Weight (Pounds): 167 General Appearance: no apparent distress Cardiovascular: tachycardia Respiratory/Chest: decreased breath sounds Abdomen: distended Georges Neal MD Apr 25, 2020 12:42
--- NOTE | 2020-04-25 14:40 | Cardiac Electrophysiology PN ---
Assessment/Plan Assessment/Plan 1. COVID pneumonia. Ruled out for CA On 3 liter Nasal Cannula. EF 65%. On Dexamethasone 2. Hypertension, better on Cardizem 60 tid and p.r.n. clonidine. 3. Diabetes, on insulin. YANCY RN OK to DC tele Subjective Subjective DC 04/22/20 was canceled as he became SOB and tachycardic in 130s. Transferred to tele On 3 liter NC in NSR with PVCs Objective Last 24 Hour Vital Signs Date Time Temp Pulse Resp B/P (MAP) Pulse Ox O2 Delivery O2 Flow Rate FiO2 04/25/20 12:00 97.9 93 20 111/72 (85) 99 04/25/20 12:00 91 04/25/20 09:35 102 119/79 04/25/20 09:00 Nasal Cannula 3.0 04/25/20 08:00 105 04/25/20 08:00 98.0 102 20 119/79 (92) 98 04/25/20 04:00 86 04/25/20 04:00 98.9 94 20 149/88 (108) 94 04/25/20 00:00 95 04/25/20 00:00 98.2 85 18 124/78 (93) 95 04/24/20 23:52 76 130/75 04/24/20 21:00 Nasal Cannula 3.0 04/24/20 20:00 97.0 76 18 130/75 (93) 95 04/24/20 20:00 99 04/24/20 16:00 105 04/24/20 16:00 97.6 103 16 124/79 (94) 95 Intake and Output 04/24/20 04/25/20 19:00 07:00 Intake Total 400 ml Output Total 400 ml Balance 0 ml Intake Oral 400 ml Output Urine Total 400 ml # Voids 1 Laboratory Tests Test 04/24/20 16:48 04/24/20 17:35 04/24/20 23:06 04/25/20 07:02 POC Whole Blood Glucose 326 MG/DL (74-106) H 233 MG/DL (74-106) H 218 MG/DL (74-106) H White Blood Count 7.0 x10E3/uL (3.4-10.8) Lymphocytes 25 % (Not Estab.) Nucleated Red Blood Cells (.) Absolute Lymphocytes (Cell Immunity 1.7 x10E3/uL (0.7-3.1) Percent CD3 Cells 83.2 % (57.5-86.2) Absolute CD3 Count 1414 /uL (622-2402) Percent CD4 Cells 29.8 % (30.8-58.5) L Absolute CD4 Count 507 /uL (359-1519) T-Lymphocyte CD4/CD8 Ratio 0.55 (0.92-3.72) L Percent CD8 Cells 54.1 % (12.0-35.5) H Absolute CD8 Count 920 /uL (109-897) H Test 04/25/20 09:30 04/25/20 11:35 White Blood Count 6.8 K/UL (4.8-10.8) Red Blood Count 5.26 M/UL (4.70-6.10) Hemoglobin 14.1 G/DL (14.2-18.0) L Hematocrit 43.7 % (42.0-52.0) Mean Corpuscular Volume 83 FL (80-99) Mean Corpuscular Hemoglobin 26.7 PG (27.0-31.0) L Mean Corpuscular Hemoglobin Concent 32.2 G/DL (32.0-36.0) Red Cell Distribution Width 12.7 % (11.6-14.8) Platelet Count 164 K/UL (150-450) Mean Platelet Volume 10.0 FL (6.5-10.1) Neutrophils (%) (Auto) 63.8 % (45.0-75.0) Lymphocytes (%) (Auto) 25.5 % (20.0-45.0) Monocytes (%) (Auto) 6.8 % (1.0-10.0) Eosinophils (%) (Auto) 2.2 % (0.0-3.0) Basophils (%) (Auto) 1.8 % (0.0-2.0) Sodium Level 133 MMOL/L (136-145) L Potassium Level 4.2 MMOL/L (3.5-5.1) Chloride Level 100 MMOL/L (98-107) Carbon Dioxide Level 31 MMOL/L (21-32) Anion Gap 2 mmol/L (5-15) L Blood Urea Nitrogen 15 mg/dL (7-18) Creatinine 0.7 MG/DL (0.55-1.30) Estimat Glomerular Filtration Rate > 60 mL/min (>60) Glucose Level 288 MG/DL (74-106) H Calcium Level 9.0 MG/DL (8.5-10.1) Phosphorus Level 3.2 MG/DL (2.5-4.9) Magnesium Level 1.9 MG/DL (1.8-2.4) Total Bilirubin 0.4 MG/DL (0.2-1.0) Aspartate Amino Transf (AST/SGOT) 25 U/L (15-37) Alanine Aminotransferase (ALT/SGPT) 41 U/L (12-78) Alkaline Phosphatase 58 U/L (46-116) Total Protein 6.5 G/DL (6.4-8.2) Albumin 2.4 G/DL (3.4-5.0) L Globulin 4.1 g/dL Albumin/Globulin Ratio 0.6 (1.0-2.7) L POC Whole Blood Glucose 303 MG/DL (74-106) H Objective HEAD AND NECK: no JVD. LUNGS: Coarse rhonchi. CARDIOVASCULAR: regular S1 and S2 with no gallop. ABDOMEN: Soft. EXTREMITIES: No pitting edema. Brian Olivares MD Apr 25, 2020 14:40
[2020-04-25 16:00] VITALS: BP 122/80
--- NOTE | 2020-04-25 19:43 | NUR ---
NURSE HAND-OFF REPORT: Important Events on Shift: Still on 3lpm, sats 98%, pt refused any further weaning today, cleared to transfer to [facility] pending shayna Patient Status: Stable Diet: CCHO Pending Orders: Transfer to [facility] Pending Results/Labs: N Pending notification: N Latest Vital Signs: Temperature 97.9 , Pulse 87 , B/P 122 /80 , Respiratory Rate 20 , O2 SAT 100 , Room Air, O2 Flow Rate 3.0 . Vital Sign Comment: EKG Rhythm: Sinus Rhythm Rhythm change?: N MD Notified?: - MD Response: Latest Miller Fall Score: 20 Fall Risk: Low Risk Safety Measures: Call light Within Reach, Bed Alarm Zone 1, Side Rails Side Rails x2, Bed position Low and Locked. Fall Precautions: Door Sign Patient Fall Education Report given to Stephen DE LEON.
--- NOTE | 2020-04-25 19:45 | NUR ---
NURSE NOTES: Important Events on Shift: Received report from Jannet Blount RN. Pt in stable condition. Pt is alert and AxO x 4, denies pain or distress at this time. Will continue plan of care and close monitoring. Patient Status: FC Diet: CCHO M Pending Orders: Transfer to [place] Pending Results/Labs: None Pending MD notification: None Latest Vital Signs: Temperature 97.9 , Pulse 90 , B/P 119 /75 , Respiratory Rate 20 , O2 SAT 100 , Room Air, O2 Flow Rate 3.0 . Vital Sign Comment: EKG Rhythm: Sinus Rhythm Rhythm change?: N MD Notified?: - MD Response: Latest Miller Fall Score: 20 Fall Risk: Low Risk Safety Measures: Call light Within Reach, Bed Alarm Zone 1, Side Rails Side Rails x2, Bed position Low and Locked. Fall Precautions: YES Door Sign Patient Fall Education
[2020-04-25 20:00] VITALS: BP 118/92
--- NOTE | 2020-04-25 20:00 | General Progress Note ---
Subjective ROS Limited/Unobtainable: Yes Allergies: Coded Allergies: Black Pepper (Verified Allergy, Unknown, 04/11/20) Objective Last 24 Hour Vital Signs Date Time Temp Pulse Resp B/P (MAP) Pulse Ox O2 Delivery O2 Flow Rate FiO2 04/25/20 16:00 87 04/25/20 16:00 97.9 87 20 122/80 (94) 100 04/25/20 12:00 97.9 93 20 111/72 (85) 99 04/25/20 12:00 91 04/25/20 09:35 102 119/79 04/25/20 09:00 Nasal Cannula 3.0 04/25/20 08:00 105 04/25/20 08:00 98.0 102 20 119/79 (92) 98 04/25/20 04:00 86 04/25/20 04:00 98.9 94 20 149/88 (108) 94 04/25/20 00:00 95 04/25/20 00:00 98.2 85 18 124/78 (93) 95 04/24/20 23:52 76 130/75 04/24/20 21:00 Nasal Cannula 3.0 04/24/20 20:00 97.0 76 18 130/75 (93) 95 04/24/20 20:00 99 Intake and Output 04/24/20 04/25/20 19:00 07:00 Intake Total 400 ml Output Total 400 ml Balance 0 ml Intake Oral 400 ml Output Urine Total 400 ml # Voids 1 Laboratory Tests 04/24/20 23:06: POC Whole Blood Glucose 233H 04/25/20 07:02: POC Whole Blood Glucose 218H 04/25/20 09:30: White Blood Count 6.8, Red Blood Count 5.26, Hemoglobin 14.1L, Hematocrit 43.7, Mean Corpuscular Volume 83, Mean Corpuscular Hemoglobin 26.7L, Mean Corpuscular Hemoglobin Concent 32.2, Red Cell Distribution Width 12.7, Platelet Count 164, Mean Platelet Volume 10.0, Neutrophils (%) (Auto) 63.8, Lymphocytes (%) (Auto) 25.5, Monocytes (%) (Auto) 6.8, Eosinophils (%) (Auto) 2.2, Basophils (%) (Auto) 1.8, Sodium Level 133L, Potassium Level 4.2, Chloride Level 100, Carbon Dioxide Level 31, Anion Gap 2L, Blood Urea Nitrogen 15, Creatinine 0.7, Estimat Glomeru lar Filtration Rate > 60, Glucose Level 288H, Calcium Level 9.0, Phosphorus Level 3.2, Magnesium Level 1.9, Total Bilirubin 0.4, Aspartate Amino Transf (AST/SGOT) 25, Alanine Aminotransferase (ALT/SGPT) 41, Alkaline Phosphatase 58, Total Protein 6.5, Albumin 2.4L, Globulin 4.1, Albumin/Globulin Ratio 0.6L 04/25/20 11:35: POC Whole Blood Glucose 303H 04/25/20 16:49: POC Whole Blood Glucose 284H Height (Feet): 5 Height (Inches): 4.00 Weight (Pounds): 167 Assessment/Plan Problem List: (1) Hyperglycemia ICD Codes: R73.9 - Hyperglycemia, unspecified SNOMED: 74801616 (2) Dyspnea due to COVID-19 ICD Codes: U07.1 - COVID-19; R06.00 - Dyspnea, unspecified SNOMED: 625036134362099 Status: progressing Assessment/Plan: covid positive resp insuff no change reviewed chart not wheezing niddm needs oxygen tachycardia due to Carlos John MD Apr 25, 2020 20:00
--- NOTE | 2020-04-25 20:30 | NUR ---
NURSE NOTES: Important Events on Shift: Received report from Jason Lopez RN. Pt denies pain, VS WNL. Will continue plan of care and close monitoring. Patient Status: FC Diet: CCHO M Pending Orders: Pending Results/Labs: Pending MD notification: Latest Miller Fall Score: 20 Fall Risk: Low Risk Safety Measures: Call light Within Reach, Bed Alarm Zone 1, Side Rails Side Rails x2, Bed position Low and Locked. Fall Precautions: YES Door Sign Patient Fall Education Addendum: 04/26/20 at 0156 by Zo Mitchell RN CORRECTION: DATE 04/24/20 @ 2029.
[2020-04-25] MEDS: Latanoprost 0.005% Opth 2.5ml Soln BOTH EYES SCH (21:00)
--- NOTE | 2020-04-25 22:15 | Psychiatric Progress Note ---
Psychiatry Progress Note Psychiatry Progress Note Subjective the pt is irritable and anxious Medications Current Medications Medications (Trade) Dose Ordered Sig/Ivett Route PRN Reason Start Time Stop Time Status Last Admin Dose Admin Acetaminophen (Tylenol) 500 mg Q4H PRN ORAL Mild Pain (Pain Scale 1-3) 04/04/20 22:45 05/04/20 22:44 04/16/20 08:39 Acetaminophen (Tylenol) 500 mg Q4H PRN ORAL Temp >100.5 04/04/20 22:45 05/04/20 22:44 Artificial Tears (Akwa-Tears) 2 drop Q4H PRN BOTH EYES Dry Eyes 04/05/20 14:45 05/05/20 14:44 04/11/20 12:03 Bisacodyl (Dulcolax) 10 mg DAILY PRN ORAL Constipation 04/13/20 10:45 07/12/20 10:44 04/14/20 09:12 Clonidine HCl (Catapres Tab) 0.1 mg PRN PRN ORAL high blood pressure sbp>170 04/04/20 22:45 07/03/20 22:44 04/06/20 04:04 Dextrose (Dextrose 50%) 25 ml Q30M PRN IV Hypoglycemia 04/04/20 22:45 07/03/20 22:44 Dextrose (Dextrose 50%) 50 ml Q30M PRN IV Hypoglycemia 04/04/20 22:45 07/03/20 22:44 Diltiazem HCl (Cardizem Tab) 60 mg EVERY 8 HOURS ORAL 04/23/20 14:00 05/23/20 13:59 04/25/20 09:35 Docusate Sodium (Colace) 100 mg TWICE A DAY ORAL 04/13/20 18:00 05/13/20 17:59 04/24/20 10:45 Famotidine (Pepcid) 20 mg BID ORAL 04/23/20 18:00 07/22/20 17:59 04/25/20 17:42 Heparin Sodium (Porcine) (Heparin 5000 units/ml) 5,000 units EVERY 12 HOURS SUBQ 04/05/20 09:00 05/20/20 08:59 04/25/20 09:07 Insulin Aspart (NovoLOG) BEFORE MEALS AND HS SUBQ 04/05/20 06:30 07/04/20 06:29 04/25/20 17:42 Latanoprost (Xalatan) 1 drop BEDTIME BOTH EYES 04/06/20 21:00 05/06/20 20:59 04/24/20 21:00 Magnesium Hydroxide (Mom) 30 ml Q4HR PRN ORAL Constipation 04/13/20 10:45 05/13/20 10:44 04/24/20 13:44 Magnesium Oxide (Mag-Ox 400mg) 400 mg THREE TIMES A DAY ORAL 04/23/20 18:00 05/23/20 17:59 04/25/20 17:42 Mirtazapine (Remeron) 7.5 mg BEDTIME ORAL 04/10/20 21:00 07/09/20 20:59 04/24/20 23:51 Ondansetron HCl (Zofran) 4 mg Q6H PRN IVP Nausea & Vomiting 04/04/20 22:45 05/04/20 22:44 04/04/20 23:07 Quetiapine Fumarate (SEROqueL) 25 mg Q6H PRN ORAL For Anxiety 04/11/20 15:45 05/26/20 15:44 04/18/20 02:42 Sennosides (Senokot) 8.6 mg DAILY PRN ORAL Constipation 04/13/20 10:45 05/13/20 10:44 04/24/20 17:43 Neurological/Psychiatric: Reports: anxiety, depressed, emotional problems Allergies: Coded Allergies: Black Pepper (Verified Allergy, Unknown, 04/11/20) Objective Data Height (Feet): 5 Height (Inches): 4.00 Weight (Pounds): 167 General Appearance: no apparent distress Additional Comments: MENTAL STATUS EXAMINATION: Alert, oriented times self, place, situation. Mood is anxious. Affect is blunted, congruent with mood. Thought process is concrete. Thought content negative for suicidal, homicidal ideation. Cognition is intact. Insight and judgment is fair. Assessment/Plan [place] I: ASSESSMENT: [place] I Anxiety disorder. Insomnia. [place] II Deferred. [place]land III COVID-19. Highland IV Low. Highland V 50 PLAN: 1. We will start the patient on Remeron. 2. Provide the patient with reality orientation and supportive therapy. Status: progressing Status Narrative ASSESSMENT: [place] I Anxiety disorder. Insomnia. Highland II Deferred. Highland III COVID-19. Highland IV Low. Highland V 50 PLAN: 1. We will start the patient on Remeron. 2. Provide the patient with reality orientation and supportive therapy. Assessment/Plan: ASSESSMENT: [place]land I Anxiety disorder. Insomnia. Highland II Deferred. Highland III COVID-19. Highland IV Low. [place] V 50 PLAN: 1. We will start the patient on Remeron. 2. Provide the patient with reality orientation and supportive therapy. Enrique Heath MD Apr 25, 2020 22:15
[2020-04-26] VITALS: BP 132/82
[2020-04-26 04:00] VITALS: BP 133/77
[2020-04-26] MEDS: dilTIAZem HCl 60mg tab ORAL SCH ×3 (06:00→21:39)
[2020-04-26] MEDS: NovoLOG Insulin Flexpen SUBQ SCH ×4 (06:30→21:40)
--- NOTE | 2020-04-26 07:37 | NUR ---
NURSE HAND-OFF REPORT: Important Events on Shift: NONE Patient Status: FC Diet: CCHO M Pending Orders: Transfer to [place] Pending Results/Labs: none Pending MD notification: none Latest Vital Signs: Temperature 98.1 , Pulse 87 , B/P 132 /77 , Respiratory Rate 18 , O2 SAT 98 , Room Air, O2 Flow Rate 3.0 . Vital Sign Comment: EKG Rhythm: Sinus Rhythm Rhythm change?: N MD Notified?: - MD Response: Latest Miller Fall Score: 20 Fall Risk: Low Risk Safety Measures: Call light Within Reach, Bed Alarm Zone 1, Side Rails Side Rails x2, Bed position Low and Locked. Fall Precautions: yes Door Sign Patient Fall Education Report given to Mary MALDONADO RN.
--- NOTE | 2020-04-26 07:50 | NUR ---
NURSE NOTES: Report received from Ning Mitchell RN. Patient seen on rounds, awake and up in bed, on O2 at 3lpm via NC with no signs of acute distress, no complaints of pain. PIV on right AC patent and intact. Nurse reports pt has been SR-ST on heart monitor. Pt uses urinal for continence needs. Bed low and locked, siderails up x2, call light placed within reach and instructed to call nurse for assistance. Pending transfer to [facility] today once room is available. Will continue with plan of care.
[2020-04-26 08:00] VITALS: BP 116/81
--- NOTE | 2020-04-26 08:01 | NUR ---
RD ASSESSMENT & RECOMMENDATIONS SEE CARE ACTIVITY FOR COMPLETE ASSESSMENT DAILY ESTIMATED NEEDS: Needs based on Pulmonary, HIV 63.3kg abw 25-35 kcals/kg 5608-0814 total kcals 1-1.5 g protein/kg 63-95 g total protein 25-30 mL/kg 6693-7334 total fluid mLs NUTRITION DIAGNOSIS: Altered nutrition related lab values r/t diabetes as evidenced by elev BG ([phone], not updated), Uglu 4+ on adm, elev POC ([phone]), now off Decadron. CURRENT DIET:CCHO MED + Glucerna TID PO DIET RECOMMENDATIONS: CCHO LOW, double protein portions to meet caloric needs ADDITIONAL RECOMMENDATIONS: 1) Add long acting insulin for improved BG control (BGs 200's-400's) On niss only at this time 2) DC Glucerna TID w/ current good PO intake for improved BG control -> provides 5 additional carb servings, BGs 200's to 400's 3) maintain daily calibrated bed scale wts 4) Check A1C 5) Monitor for continued good PO intake and tolerance
[2020-04-26] MEDS: Magnesium Oxide 400mg tab ORAL SCH ×3 (08:59→17:11)
[2020-04-26] MEDS: Heparin 5000 units/ml inj SUBQ SCH ×2 (08:59→21:39)
[2020-04-26] MEDS: Docusate 100mg cap ORAL SCH ×2 (09:00→17:11)
--- NOTE | 2020-04-26 10:07 | NUR ---
NURSE NOTES: Patient transferred from Telemetry. Received report from [employer]. Patient observed to be awake, alert, and oriented x4. Seen lying in bed with HOB slightly elevated currently on NC 3L no s/sx of SOB/Distress, no c/o any pain or discomfort. Patient with IV site located on RAC gauge 22 line asymptomatic, inplace and intact. Bed placed on lowest and locked, call light placed within reach and will continue to monitor for any changes in patient's condition. All patient's belongings checked and accounted for. Patient placed on contact and droplet isolation for covid (+).
--- NOTE | 2020-04-26 10:08 | NUR ---
TRANSFER TO FLOOR: Patient transferred to 4E, per Dr. Oliveira/Elise. Report given to Jannette RN. Belongings and medications given to Jannette RN. Patient is alert and self-responsible/aware of transfer.
[2020-04-26 12:00] VITALS: BP 123/86
--- NOTE | 2020-04-26 12:47 | Pulmonology Progress Note ---
Subjective ROS Limited/Unobtainable: Yes Interval Events: now on 3L NC saturating at 92% Constitutional: Reports: no symptoms HEENT: Repors: no symptoms Respiratory: Reports: dry cough, dyspnea on exertion Cardiovascular: Reports: no symptoms Gastrointestinal/Abdominal: Reports: no symptoms Psychiatric: Reports: other - anxiety Musculoskeletal: Denies: pain Allergies: Coded Allergies: Black Pepper (Verified Allergy, Unknown, 04/11/20) Objective Last 24 Hour Vital Signs Date Time Temp Pulse Resp B/P (MAP) Pulse Ox O2 Delivery O2 Flow Rate FiO2 04/26/20 12:00 96.3 97 19 123/86 (98) 98 04/26/20 09:00 Nasal Cannula 3.0 04/26/20 08:00 105 04/26/20 08:00 98.1 94 18 116/81 (93) 98 04/26/20 06:00 87 132/77 04/26/20 04:00 98.1 87 18 133/77 (95) 98 04/26/20 04:00 84 04/26/20 00:00 94 04/26/20 00:00 97.5 75 20 132/82 (99) 99 04/25/20 22:35 90 119/75 04/25/20 21:00 Nasal Cannula 3.0 04/25/20 20:00 98 04/25/20 20:00 97.9 69 20 118/92 (101) 100 04/25/20 16:00 87 04/25/20 16:00 97.9 87 20 122/80 (94) 100 Intake and Output 04/25/20 04/26/20 19:00 07:00 Intake Total 500 ml Output Total 1300 ml 600 ml Balance -1300 ml -100 ml Intake Oral 500 ml Output Urine Total 1300 ml 600 ml # Voids 3 # Bowel Movements 1 Objective 04/26 saturating at 92% on 3L NC 04/25 saturating well on 3L NC; will attempt weaning today 04/24 now saturating at 96% on 2L NC; declining physical therapy 04/23 was planned to be discharged yesterday, dc on hold due to acute hypoxia upon ambulation 04/18 now saturating at 95% on 2L NC; will wean off today 04/17 saturating at 95% on 12L VM 04/16 saturating at 94% on 12L VM 04/15 saturating at 96% on 12L Venturi mask 04/14 saturating at 97-98% on 12L Venturi mask 04/13 saturating at 97% on 12L Venturi mask 04/12 saturating at 95% on 12L Venturi mask 04/11 saturating at 96% on 12L Venturi mask 04/10 saturating at 95% on 12L Venturi mask 04/09 remains on 12L Venturi mask, saturating at 92-94% 04/08 pt desaturated on nasal oxygen and now on 12L oxygen via Venturi mask saturating at 94-95% 04/07 currently saturating at 95% on 4L NC General Appearance: WD/WN, no acute distress HEENT: normocephalic, atraumatic Respiratory: lungs clear Cardiovascular: normal rate, regular rhythm Abdomen: soft, non tender Extremities: no edema Laboratory Tests 04/25/20 16:49: POC Whole Blood Glucose 284H 04/25/20 22:51: POC Whole Blood Glucose 334H 04/26/20 05:15: POC Whole Blood Glucose 204H 04/26/20 11:42: POC Whole Blood Glucose 349H Current Medications Medications (Trade) Dose Ordered Sig/Ivett Route PRN Reason Start Time Stop Time Status Last Admin Dose Admin Acetaminophen (Tylenol) 500 mg Q4H PRN ORAL Mild Pain (Pain Scale 1-3) 04/04/20 22:45 05/04/20 22:44 04/16/20 08:39 Acetaminophen (Tylenol) 500 mg Q4H PRN ORAL Temp >100.5 04/04/20 22:45 05/04/20 22:44 Artificial Tears (Akwa-Tears) 2 drop Q4H PRN BOTH EYES Dry Eyes 04/05/20 14:45 05/05/20 14:44 04/11/20 12:03 Bisacodyl (Dulcolax) 10 mg DAILY PRN ORAL Constipation 04/13/20 10:45 07/12/20 10:44 04/14/20 09:12 Clonidine HCl (Catapres Tab) 0.1 mg PRN PRN ORAL high blood pressure sbp>170 04/04/20 22:45 07/03/20 22:44 04/06/20 04:04 Dextrose (Dextrose 50%) 25 ml Q30M PRN IV Hypoglycemia 04/04/20 22:45 07/03/20 22:44 Dextrose (Dextrose 50%) 50 ml Q30M PRN IV Hypoglycemia 04/04/20 22:45 07/03/20 22:44 Diltiazem HCl (Cardizem Tab) 60 mg EVERY 8 HOURS ORAL 04/23/20 14:00 05/23/20 13:59 04/26/20 06:00 Docusate Sodium (Colace) 100 mg TWICE A DAY ORAL 04/13/20 18:00 05/13/20 17:59 04/24/20 10:45 Famotidine (Pepcid) 20 mg BID ORAL 04/23/20 18:00 07/22/20 17:59 04/26/20 08:59 Heparin Sodium (Porcine) (Heparin 5000 units/ml) 5,000 units EVERY 12 HOURS SUBQ 04/05/20 09:00 05/20/20 08:59 04/26/20 08:59 Insulin Aspart (NovoLOG) BEFORE MEALS AND HS SUBQ 04/05/20 06:30 07/04/20 06:29 04/26/20 12:11 Latanoprost (Xalatan) 1 drop BEDTIME BOTH EYES 04/06/20 21:00 05/06/20 20:59 04/25/20 21:00 Magnesium Hydroxide (Mom) 30 ml Q4HR PRN ORAL Constipation 04/13/20 10:45 05/13/20 10:44 04/24/20 13:44 Magnesium Oxide (Mag-Ox 400mg) 400 mg THREE TIMES A DAY ORAL 04/23/20 18:00 05/23/20 17:59 04/26/20 08:59 Mirtazapine (Remeron) 7.5 mg BEDTIME ORAL 04/10/20 21:00 07/09/20 20:59 04/25/20 22:32 Ondansetron HCl (Zofran) 4 mg Q6H PRN IVP Nausea & Vomiting 04/04/20 22:45 05/04/20 22:44 04/04/20 23:07 Quetiapine Fumarate (SEROqueL) 25 mg Q6H PRN ORAL For Anxiety 04/11/20 15:45 05/26/20 15:44 04/18/20 02:42 Sennosides (Senokot) 8.6 mg DAILY PRN ORAL Constipation 04/13/20 10:45 2/2/21 10:44 04/24/20 17:43 Assessment/Plan Assessment/Plan 1. COVID-19 Bilateral pneumonia. - pt received a dose of Bamlanimab in ER - Continue monitoring for hypoxia - now saturating at 92% on 3L NC - s/p Decadron (04/05-04/14) - Defer use of remdesivir to ID specialist. - repeat CXR 04/15 still shows b/l infiltrates without significant change - repeat CXR 04/23 no significant change 2. Hypertension. - on amlodipine and prn clonidine 3. Diabetes mellitus. - on Novolog - s/p steroids 4. Hx of home meds - per primary MD and ID 5. Insomnia - pt c/o persistent insomnia since admission without hx of insomnia - management per primary MD 6. Anxiety - on mirtazapine and Seroquel per psych Currently on 3L NC saturating at 92%; pt will more than likely need home oxygen; failed weaning for several days We will follow carefully. The care for this patient was discussed with my supervising physician Time spent for this case was approximately 31 minutes Neo Montalvo Apr 26, 2020 12:47
--- NOTE | 2020-04-26 15:18 | Nephrology Progress Note ---
Assessment/Plan Problem List: (1) Electrolyte imbalance (2) Hyperglycemia (3) Dyspnea due to COVID-19 Assessment Electrolyte imbalances Covid pneumonia Diabetes mellitus Hypertension HIV Plan April 26: No labs drawn today. Continue to monitor electrolytes as needed. Continue to monitor blood sugar. April 25: Today's labs reviewed. Mild hyponatremia mostly corrects for hyperglycemia. Continue to monitor electrolytes and blood sugar. Patient did not have labs for over 2 weeks Today's labs drawn and reviewed Abnormal electrolytes and chemistries addressed Blood pressure medication adjusted Per orders Chest x-ray ordered Subjective ROS Limited/Unobtainable: No Constitutional: Reports: malaise Objective Objective Last 24 Hour Vital Signs Date Time Temp Pulse Resp B/P (MAP) Pulse Ox O2 Delivery O2 Flow Rate FiO2 04/26/20 13:27 97 123/86 04/26/20 12:00 96.3 97 19 123/86 (98) 98 04/26/20 09:00 Nasal Cannula 3.0 04/26/20 08:00 105 04/26/20 08:00 98.1 94 18 116/81 (93) 98 04/26/20 06:00 87 132/77 04/26/20 04:00 98.1 87 18 133/77 (95) 98 04/26/20 04:00 84 04/26/20 00:00 94 04/26/20 00:00 97.5 75 20 132/82 (99) 99 04/25/20 22:35 90 119/75 04/25/20 21:00 Nasal Cannula 3.0 04/25/20 20:00 98 04/25/20 20:00 97.9 69 20 118/92 (101) 100 04/25/20 16:00 87 04/25/20 16:00 97.9 87 20 122/80 (94) 100 Intake and Output 04/25/20 04/26/20 19:00 07:00 Intake Total 500 ml Output Total 1300 ml 600 ml Balance -1300 ml -100 ml Intake Oral 500 ml Output Urine Total 1300 ml 600 ml # Voids 3 # Bowel Movements 1 Laboratory Tests 04/25/20 16:49: POC Whole Blood Glucose 284H 04/25/20 22:51: POC Whole Blood Glucose 334H 04/26/20 05:15: POC Whole Blood Glucose 204H 04/26/20 11:42: POC Whole Blood Glucose 349H Height (Feet): 5 Height (Inches): 4.00 Weight (Pounds): 167 General Appearance: no apparent distress Cardiovascular: tachycardia Objective No change Georges Neal MD Apr 26, 2020 15:18
--- NOTE | 2020-04-26 15:38 | Infectious Diseases Prog Note ---
Assessment/Plan Assessment/Plan IMPRESSION: COVID-19 pneumonia. HIV, CD4= 507 Hypoxemia SOB on exertion. Diabetes mellitus with hyperglycemia, Hypertension. RECOMMENDATIONS: Finished dexamethasone course Got a dose of Bamlanivimab in ER. Subjective ROS Limited/Unobtainable: Yes Constitutional: Denies: fever Allergies: Coded Allergies: Black Pepper (Verified Allergy, Unknown, 04/11/20) Objective Last 24 Hour Vital Signs Date Time Temp Pulse Resp B/P (MAP) Pulse Ox O2 Delivery O2 Flow Rate FiO2 04/26/20 13:27 97 123/86 04/26/20 12:00 96.3 97 19 123/86 (98) 98 04/26/20 09:00 Nasal Cannula 3.0 04/26/20 08:00 105 04/26/20 08:00 98.1 94 18 116/81 (93) 98 04/26/20 06:00 87 132/77 04/26/20 04:00 98.1 87 18 133/77 (95) 98 04/26/20 04:00 84 04/26/20 00:00 94 04/26/20 00:00 97.5 75 20 132/82 (99) 99 04/25/20 22:35 90 119/75 04/25/20 21:00 Nasal Cannula 3.0 04/25/20 20:00 98 04/25/20 20:00 97.9 69 20 118/92 (101) 100 04/25/20 16:00 87 04/25/20 16:00 97.9 87 20 122/80 (94) 100 Height (Feet): 5 Height (Inches): 4.00 Weight (Pounds): 167 General Appearance: no acute distress HEENT: mucous membranes moist Respiratory/Chest: other - O2 by nasal cannula, 3 L/min Cardiovascular: normal rate Abdomen: normal bowel sounds Extremities: no edema Neurologic/Psychiatric: other - sleeping Laboratory Tests Test 04/25/20 16:49 04/25/20 22:51 04/26/20 05:15 04/26/20 11:42 POC Whole Blood Glucose 284 MG/DL (74-106) H 334 MG/DL (74-106) H 204 MG/DL (74-106) H 349 MG/DL (74-106) H Current Medications Medications (Trade) Dose Ordered Sig/Ivett Route PRN Reason Start Time Stop Time Status Last Admin Dose Admin Acetaminophen (Tylenol) 500 mg Q4H PRN ORAL Mild Pain (Pain Scale 1-3) 04/04/20 22:45 05/04/20 22:44 04/16/20 08:39 Acetaminophen (Tylenol) 500 mg Q4H PRN ORAL Temp >100.5 04/04/20 22:45 05/04/20 22:44 Artificial Tears (Akwa-Tears) 2 drop Q4H PRN BOTH EYES Dry Eyes 04/05/20 14:45 05/05/20 14:44 04/11/20 12:03 Bisacodyl (Dulcolax) 10 mg DAILY PRN ORAL Constipation 04/13/20 10:45 07/12/20 10:44 04/14/20 09:12 Clonidine HCl (Catapres Tab) 0.1 mg PRN PRN ORAL high blood pressure sbp>170 04/04/20 22:45 07/03/20 22:44 04/06/20 04:04 Dextrose (Dextrose 50%) 25 ml Q30M PRN IV Hypoglycemia 04/04/20 22:45 07/03/20 22:44 Dextrose (Dextrose 50%) 50 ml Q30M PRN IV Hypoglycemia 04/04/20 22:45 07/03/20 22:44 Diltiazem HCl (Cardizem Tab) 60 mg EVERY 8 HOURS ORAL 04/23/20 14:00 05/23/20 13:59 04/26/20 13:27 Docusate Sodium (Colace) 100 mg TWICE A DAY ORAL 04/13/20 18:00 05/13/20 17:59 04/24/20 10:45 Famotidine (Pepcid) 20 mg BID ORAL 04/23/20 18:00 07/22/20 17:59 04/26/20 08:59 Heparin Sodium (Porcine) (Heparin 5000 units/ml) 5,000 units EVERY 12 HOURS SUBQ 04/05/20 09:00 05/20/20 08:59 04/26/20 08:59 Insulin Aspart (NovoLOG) BEFORE MEALS AND HS SUBQ 04/05/20 06:30 07/04/20 06:29 04/26/20 12:11 Latanoprost (Xalatan) 1 drop BEDTIME BOTH EYES 04/06/20 21:00 05/06/20 20:59 04/25/20 21:00 Magnesium Hydroxide (Mom) 30 ml Q4HR PRN ORAL Constipation 04/13/20 10:45 05/13/20 10:44 04/24/20 13:44 Magnesium Oxide (Mag-Ox 400mg) 400 mg THREE TIMES A DAY ORAL 04/23/20 18:00 05/23/20 17:59 04/26/20 13:27 Mirtazapine (Remeron) 7.5 mg BEDTIME ORAL 04/10/20 21:00 07/09/20 20:59 04/25/20 22:32 Ondansetron HCl (Zofran) 4 mg Q6H PRN IVP Nausea & Vomiting 04/04/20 22:45 05/04/20 22:44 04/04/20 23:07 Quetiapine Fumarate (SEROqueL) 25 mg Q6H PRN ORAL For Anxiety 04/11/20 15:45 05/26/20 15:44 04/18/20 02:42 Sennosides (Senokot) 8.6 mg DAILY PRN ORAL Constipation 04/13/20 10:45 05/13/20 10:44 04/24/20 17:43 Jarred Nuñez MD Apr 26, 2020 15:38
[2020-04-26 16:00] VITALS: BP 111/64
--- NOTE | 2020-04-26 16:02 | NUR ---
PT NOTES: pt in bed awake, states no c/o, but declines PT interventions. "They just moved me here!" Will f/u tomorrow.
--- NOTE | 2020-04-26 16:41 | Cardiac Electrophysiology PN ---
Assessment/Plan Assessment/Plan 1. COVID pneumonia. Ruled out for DC On 3 liter Nasal Cannula. EF 65%. On Dexamethasone 2. Hypertension, better on Cardizem 60 tid and p.r.n. clonidine. 3. Diabetes, on insulin. YANCY RN Subjective Subjective DC 04/22/20 was canceled as he became SOB and tachycardic in 130s. [facility] NC but not wearing consistently Objective Last 24 Hour Vital Signs Date Time Temp Pulse Resp B/P (MAP) Pulse Ox O2 Delivery O2 Flow Rate FiO2 04/26/20 16:00 97.5 89 20 111/64 (80) 95 04/26/20 13:27 97 123/86 04/26/20 12:00 96.3 97 19 123/86 (98) 98 04/26/20 09:00 Nasal Cannula 3.0 04/26/20 08:00 105 04/26/20 08:00 98.1 94 18 116/81 (93) 98 04/26/20 06:00 87 132/77 04/26/20 04:00 98.1 87 18 133/77 (95) 98 04/26/20 04:00 84 04/26/20 00:00 94 04/26/20 00:00 97.5 75 20 132/82 (99) 99 04/25/20 22:35 90 119/75 04/25/20 21:00 Nasal Cannula 3.0 04/25/20 20:00 98 04/25/20 20:00 97.9 69 20 118/92 (101) 100 Intake and Output 04/25/20 04/26/20 19:00 07:00 Intake Total 500 ml Output Total 1300 ml 600 ml Balance -1300 ml -100 ml Intake Oral 500 ml Output Urine Total 1300 ml 600 ml # Voids 3 # Bowel Movements 1 Laboratory Tests Test 04/25/20 16:49 04/25/20 22:51 04/26/20 05:15 04/26/20 11:42 POC Whole Blood Glucose 284 MG/DL (74-106) H 334 MG/DL (74-106) H 204 MG/DL (74-106) H 349 MG/DL (74-106) H Objective HEAD AND NECK: no JVD. LUNGS: Coarse rhonchi. CARDIOVASCULAR: regular S1 and S2 with no gallop. ABDOMEN: Soft. EXTREMITIES: No pitting edema. Brian Olivares MD Apr 26, 2020 16:41
[2020-04-26] MEDS ORDERED: Hydrocortisone 25mg supp RECTAL PRN (19:00)
--- NOTE | 2020-04-26 19:14 | NUR ---
NURSE HAND-OFF: Important Events on Shift:TRANSFER FROM [facility], COVID MONITORING Patient Status: STABLE Diet: CCHO M Pending Orders: N.A Pending Results/Labs:N.A Pending MD notification:N.A Latest Vital Signs: Temperature 97.5 , Pulse 89 , B/P 111 /64 , Respiratory Rate 20 , O2 SAT 95 , Room Air, O2 Flow Rate 3.0 . Vital Sign Comment: STABLE Latest Miller Fall Score: 20 Fall Risk: Low Risk Safety Measures: Call light Within Reach, Bed Alarm Zone 1, Side Rails Side Rails x2, Bed position Low and Locked. Fall Precautions: Door Sign Patient Fall Education Report given to HALEY Murry.
--- NOTE | 2020-04-26 19:25 | NUR ---
NURSE NOTES: Patient awake, ANOx4. COVID-19 isolation. On room air with no signs of distress or SOB - O2 saturation 95%. Bed locked and in lowest position. Call light in reach. Bed alarm on. Will continue plan of care.
[2020-04-26 20:00] VITALS: BP 106/76
[2020-04-26] MEDS: Latanoprost 0.005% Opth 2.5ml Soln BOTH EYES SCH (21:39)
--- NOTE | 2020-04-26 21:53 | General Progress Note ---
Subjective ROS Limited/Unobtainable: Yes Allergies: Coded Allergies: Black Pepper (Verified Allergy, Unknown, 04/11/20) Objective Last 24 Hour Vital Signs Date Time Temp Pulse Resp B/P (MAP) Pulse Ox O2 Delivery O2 Flow Rate FiO2 04/26/20 21:39 100 106/76 04/26/20 20:03 Nasal Cannula 3.0 04/26/20 20:00 97.4 100 20 106/76 (86) 95 04/26/20 16:00 97.5 89 20 111/64 (80) 95 04/26/20 13:27 97 123/86 04/26/20 12:00 96.3 97 19 123/86 (98) 98 04/26/20 09:00 Nasal Cannula 3.0 04/26/20 08:00 105 04/26/20 08:00 98.1 94 18 116/81 (93) 98 04/26/20 06:00 87 132/77 04/26/20 04:00 98.1 87 18 133/77 (95) 98 04/26/20 04:00 84 04/26/20 00:00 94 04/26/20 00:00 97.5 75 20 132/82 (99) 99 04/25/20 22:35 90 119/75 Intake and Output 04/25/20 04/26/20 19:00 07:00 Intake Total 500 ml Output Total 1300 ml 600 ml Balance -1300 ml -100 ml Intake Oral 500 ml Output Urine Total 1300 ml 600 ml # Voids 3 # Bowel Movements 1 Laboratory Tests 04/25/20 22:51: POC Whole Blood Glucose 334H 04/26/20 05:15: POC Whole Blood Glucose 204H 04/26/20 11:42: POC Whole Blood Glucose 349H Height (Feet): 5 Height (Inches): 4.00 Weight (Pounds): 167 Assessment/Plan Problem List: (1) Hyperglycemia ICD Codes: R73.9 - Hyperglycemia, unspecified SNOMED: 34767571 (2) Dyspnea due to COVID-19 ICD Codes: U07.1 - COVID-19; R06.00 - Dyspnea, unspecified SNOMED: 160545904518861 Status: progressing Assessment/Plan: covid positive resp insuff still requires oxygen check sugar tachycardia due to covid is resolved Carlos Oliveira MD Apr 26, 2020 21:53
--- NOTE | 2020-04-26 23:37 | Psychiatric Progress Note ---
Psychiatry Progress Note Psychiatry Progress Note Subjective the pt is still irritable and anxious Medications Current Medications Medications (Trade) Dose Ordered Sig/Ivett Route PRN Reason Start Time Stop Time Status Last Admin Dose Admin Acetaminophen (Tylenol) 500 mg Q4H PRN ORAL Mild Pain (Pain Scale 1-3) 04/04/20 22:45 05/04/20 22:44 04/16/20 08:39 Acetaminophen (Tylenol) 500 mg Q4H PRN ORAL Temp >100.5 04/04/20 22:45 05/04/20 22:44 Artificial Tears (Akwa-Tears) 2 drop Q4H PRN BOTH EYES Dry Eyes 04/05/20 14:45 05/05/20 14:44 04/11/20 12:03 Bisacodyl (Dulcolax) 10 mg DAILY PRN ORAL Constipation 04/13/20 10:45 07/12/20 10:44 04/14/20 09:12 Clonidine HCl (Catapres Tab) 0.1 mg PRN PRN ORAL high blood pressure sbp>170 04/04/20 22:45 07/03/20 22:44 04/06/20 04:04 Dextrose (Dextrose 50%) 25 ml Q30M PRN IV Hypoglycemia 04/04/20 22:45 07/03/20 22:44 Dextrose (Dextrose 50%) 50 ml Q30M PRN IV Hypoglycemia 04/04/20 22:45 07/03/20 22:44 Diltiazem HCl (Cardizem Tab) 60 mg EVERY 8 HOURS ORAL 04/23/20 14:00 05/23/20 13:59 04/26/20 13:27 Docusate Sodium (Colace) 100 mg TWICE A DAY ORAL 04/13/20 18:00 05/13/20 17:59 04/26/20 17:11 Famotidine (Pepcid) 20 mg BID ORAL 04/23/20 18:00 07/22/20 17:59 04/26/20 17:11 Heparin Sodium (Porcine) (Heparin 5000 units/ml) 5,000 units EVERY 12 HOURS SUBQ 04/05/20 09:00 05/20/20 08:59 04/26/20 08:59 Hydrocortisone (Anusol HC) 25 mg Q12H PRN RECTAL Hemorroidal Pain 04/26/20 19:00 07/25/20 18:59 Insulin Aspart (NovoLOG) BEFORE MEALS AND HS SUBQ 04/05/20 06:30 07/04/20 06:29 04/26/20 21:40 Latanoprost (Xalatan) 1 drop BEDTIME BOTH EYES 04/06/20 21:00 05/06/20 20:59 04/26/20 21:39 Magnesium Hydroxide (Mom) 30 ml Q4HR PRN ORAL Constipation 04/13/20 10:45 05/13/20 10:44 04/24/20 13:44 Magnesium Oxide (Mag-Ox 400mg) 400 mg THREE TIMES A DAY ORAL 04/23/20 18:00 05/23/20 17:59 04/26/20 17:11 Mirtazapine (Remeron) 7.5 mg BEDTIME ORAL 04/10/20 21:00 07/09/20 20:59 04/26/20 21:35 Ondansetron HCl (Zofran) 4 mg Q6H PRN IVP Nausea & Vomiting 04/04/20 22:45 05/04/20 22:44 04/04/20 23:07 Quetiapine Fumarate (SEROqueL) 25 mg Q6H PRN ORAL For Anxiety 04/11/20 15:45 05/26/20 15:44 04/18/20 02:42 Sennosides (Senokot) 8.6 mg DAILY PRN ORAL Constipation 04/13/20 10:45 05/13/20 10:44 04/24/20 17:43 Neurological/Psychiatric: Reports: anxiety, depressed, emotional problems Allergies: Coded Allergies: Black Pepper (Verified Allergy, Unknown, 04/11/20) Objective Data Height (Feet): 5 Height (Inches): 4.00 Weight (Pounds): 167 General Appearance: no apparent distress Additional Comments: MENTAL STATUS EXAMINATION: Alert, oriented times self, place, situation. Mood is anxious. Affect is blunted, congruent with mood. Thought process is concrete. Thought content negative for suicidal, homicidal ideation. Cognition is intact. Insight and judgment is fair. Assessment/Plan Bartlett I: ASSESSMENT: Bartlett I Anxiety disorder. Insomnia. Bartlett II Deferred. Bartlett III COVID-19. Bartlett IV Low. Bartlett V 50 PLAN: 1. We will start the patient on Remeron. 2. Provide the patient with reality orientation and supportive therapy. Status: progressing Status Narrative ASSESSMENT: Bartlett I Anxiety disorder. Insomnia. Bartlett II Deferred. Bartlett III COVID-19. Bartlett IV Low. Bartlett V 50 PLAN: 1. We will start the patient on Remeron. 2. Provide the patient with reality orientation and supportive therapy. Assessment/Plan: ASSESSMENT: Bartlett I Anxiety disorder. Insomnia. Bartlett II Deferred. Bartlett III COVID-19. Bartlett IV Low. Bartlett V 50 PLAN: 1. We will start the patient on Remeron. 2. Provide the patient with reality orientation and supportive therapy. Enrique Heath MD Apr 26, 2020 23:37
[2020-04-27 04:00] VITALS: BP 151/79
[2020-04-27] MEDS: dilTIAZem HCl 60mg tab ORAL SCH ×3 (05:23→21:10)
[2020-04-27] MEDS: NovoLOG Insulin Flexpen SUBQ SCH ×4 (06:04→21:10)
--- NOTE | 2020-04-27 06:06 | NUR ---
NURSE NOTES: Patient refused gravity meter observer to perform blood draw for labs. Will attempt again later.
--- NOTE | 2020-04-27 07:00 | NUR ---
NURSE HAND-OFF: Important Events on Shift: No events Patient Status: Stable Diet: CCHO (med) Pending Orders: Discharge Pending Results/Labs: AM labs - refused; will retry later Pending MD notification: N/A Latest Vital Signs: Temperature 97.0 , Pulse 88 , B/P 151 /79 , Respiratory Rate 20 , O2 SAT 95 , Room Air, O2 Flow Rate 3.0 . Vital Sign Comment: Stable on room air Latest Miller Fall Score: 20 Fall Risk: Low Risk Safety Measures: Call light Within Reach, Bed Alarm Zone 1, Side Rails Side Rails x2, Bed position Low and Locked. Fall Precautions: Door Sign Patient Fall Education
--- NOTE | 2020-04-27 07:30 | NUR ---
NURSE NOTES: Patient is in bed awake and able to verbalize needs. Stable. Patient appears guarded and hostile towards staff. Patient demanded to be cleaned up and refused assessment until he gets cleaned up. RN reassured patient that he will get cleaned up. Plan of care discussed with patient, patient does not want to interact with RN at this time. All safety measures provided. Patient is in bed in locked and lowest position with call light within reach. Will continue plan of care.
[2020-04-27 08:00] VITALS: BP 131/69
[2020-04-27] MEDS: Heparin 5000 units/ml inj SUBQ SCH ×2 (08:24→21:11)
[2020-04-27] MEDS: Magnesium Oxide 400mg tab ORAL SCH ×3 (08:24→17:19)
[2020-04-27] MEDS: Docusate 100mg cap ORAL SCH ×2 (08:24→17:19)
--- NOTE | 2020-04-27 09:30 | NUR ---
NURSE NOTES: Patient is more cooperative at this time. All needs met.
--- NOTE | 2020-04-27 09:42 | Pulmonology Progress Note ---
Subjective ROS Limited/Unobtainable: Yes Interval Events: none major reported per nursing Constitutional: Denies: fever HEENT: Repors: no symptoms Respiratory: Reports: dry cough, dyspnea on exertion Cardiovascular: Reports: no symptoms Gastrointestinal/Abdominal: Reports: no symptoms Psychiatric: Reports: other - anxiety Musculoskeletal: Denies: pain Allergies: Coded Allergies: Black Pepper (Verified Allergy, Unknown, 04/11/20) Objective Last 24 Hour Vital Signs Date Time Temp Pulse Resp B/P (MAP) Pulse Ox O2 Delivery O2 Flow Rate FiO2 04/27/20 04:00 97.0 88 20 151/79 (103) 95 04/26/20 21:39 100 106/76 04/26/20 20:03 Nasal Cannula 3.0 04/26/20 20:00 97.4 100 20 106/76 (86) 95 04/26/20 16:00 97.5 89 20 111/64 (80) 95 04/26/20 13:27 97 123/86 04/26/20 12:00 96.3 97 19 123/86 (98) 98 Intake and Output 04/26/20 04/27/20 19:00 07:00 Intake Total 1200 ml 300 ml Output Total 1500 ml Balance -300 ml 300 ml Intake Oral 1200 ml 300 ml Output Urine Total 1500 ml # Voids 2 # Bowel Movements 1 Objective 04/27 saturating at 95% on RA 04/26 saturating at 92% on 3L NC 04/25 saturating well on 3L NC; will attempt weaning today 04/24 now saturating at 96% on 2L NC; declining physical therapy 04/23 was planned to be discharged yesterday, dc on hold due to acute hypoxia upon ambulation 04/18 now saturating at 95% on 2L NC; will wean off today 04/17 saturating at 95% on 12L VM 04/16 saturating at 94% on 12L VM 04/15 saturating at 96% on 12L Venturi mask 04/14 saturating at 97-98% on 12L Venturi mask 04/13 saturating at 97% on 12L Venturi mask 04/12 saturating at 95% on 12L Venturi mask 04/11 saturating at 96% on 12L Venturi mask 04/10 saturating at 95% on 12L Venturi mask 04/09 remains on 12L Venturi mask, saturating at 92-94% 04/08 pt desaturated on nasal oxygen and now on 12L oxygen via Venturi mask saturating at 94-95% 04/07 currently saturating at 95% on 4L NC General Appearance: WD/WN, no acute distress HEENT: normocephalic, atraumatic Respiratory: lungs clear Cardiovascular: normal rate, regular rhythm Abdomen: soft, non tender Extremities: no edema Laboratory Tests 04/26/20 11:42: POC Whole Blood Glucose 349H Current Medications Medications (Trade) Dose Ordered Sig/Ivett Route PRN Reason Start Time Stop Time Status Last Admin Dose Admin Acetaminophen (Tylenol) 500 mg Q4H PRN ORAL Mild Pain (Pain Scale 1-3) 04/04/20 22:45 05/04/20 22:44 04/16/20 08:39 Acetaminophen (Tylenol) 500 mg Q4H PRN ORAL Temp >100.5 04/04/20 22:45 05/04/20 22:44 Artificial Tears (Akwa-Tears) 2 drop Q4H PRN BOTH EYES Dry Eyes 04/05/20 14:45 05/05/20 14:44 04/11/20 12:03 Bisacodyl (Dulcolax) 10 mg DAILY PRN ORAL Constipation 04/13/20 10:45 07/12/20 10:44 04/14/20 09:12 Clonidine HCl (Catapres Tab) 0.1 mg PRN PRN ORAL high blood pressure sbp>170 04/04/20 22:45 07/03/20 22:44 04/06/20 04:04 Dextrose (Dextrose 50%) 25 ml Q30M PRN IV Hypoglycemia 04/04/20 22:45 07/03/20 22:44 Dextrose (Dextrose 50%) 50 ml Q30M PRN IV Hypoglycemia 04/04/20 22:45 07/03/20 22:44 Diltiazem HCl (Cardizem Tab) 60 mg EVERY 8 HOURS ORAL 04/23/20 14:00 05/23/20 13:59 04/26/20 13:27 Docusate Sodium (Colace) 100 mg TWICE A DAY ORAL 04/13/20 18:00 05/13/20 17:59 04/27/20 08:24 Famotidine (Pepcid) 20 mg BID ORAL 04/23/20 18:00 07/22/20 17:59 04/27/20 08:24 Heparin Sodium (Porcine) (Heparin 5000 units/ml) 5,000 units EVERY 12 HOURS SUBQ 04/05/20 09:00 05/20/20 08:59 04/27/20 08:24 Hydrocortisone (Anusol HC) 25 mg Q12H PRN RECTAL Hemorroidal Pain 04/26/20 19:00 07/25/20 18:59 Insulin Aspart (NovoLOG) BEFORE MEALS AND HS SUBQ 04/05/20 06:30 07/04/20 06:29 04/27/20 06:04 Latanoprost (Xalatan) 1 drop BEDTIME BOTH EYES 04/06/20 21:00 05/06/20 20:59 04/26/20 21:39 Magnesium Hydroxide (Mom) 30 ml Q4HR PRN ORAL Constipation 04/13/20 10:45 05/13/20 10:44 04/24/20 13:44 Magnesium Oxide (Mag-Ox 400mg) 400 mg THREE TIMES A DAY ORAL 04/23/20 18:00 05/23/20 17:59 04/27/20 08:24 Mirtazapine (Remeron) 7.5 mg BEDTIME ORAL 04/10/20 21:00 07/09/20 20:59 04/26/20 21:35 Ondansetron HCl (Zofran) 4 mg Q6H PRN IVP Nausea & Vomiting 04/04/20 22:45 05/04/20 22:44 04/04/20 23:07 Quetiapine Fumarate (SEROqueL) 25 mg Q6H PRN ORAL For Anxiety 04/11/20 15:45 05/26/20 15:44 04/18/20 02:42 Sennosides (Senokot) 8.6 mg DAILY PRN ORAL Constipation 04/13/20 10:45 05/13/20 10:44 04/24/20 17:43 Assessment/Plan Assessment/Plan 1. COVID-19 Bilateral pneumonia. - pt received a dose of Bamlanimab in ER - Continue monitoring for hypoxia - now saturating at 95% on RA - s/p Decadron (04/05-04/14) - Defer use of remdesivir to ID specialist. - repeat CXR 04/15 still shows b/l infiltrates without significant change - repeat CXR 04/23 no significant change 2. Hypertension. - on amlodipine and prn clonidine 3. Diabetes mellitus. - on Novolog - s/p steroids 4. Hx of home meds - per primary MD and ID 5. Insomnia - pt c/o persistent insomnia since admission without hx of insomnia - management per primary MD 6. Anxiety - on mirtazapine and Seroquel per psych Currently on RA saturating at 95% Medically stable for discharge as long as SaO2 remains >90% We will follow carefully. The care for this patient was discussed with my supervising physician Time spent for this case was approximately 31 minutes Neo Montalvo Apr 27, 2020 09:42
[2020-04-27 12:00] VITALS: BP 132/72
--- NOTE | 2020-04-27 12:30 | NUR ---
PT NOTE: In bed awake, off N/C, in no apparent distress & voices no complaints. Pt declines PT interventions and takes in-coming phone call.
--- NOTE | 2020-04-27 12:47 | Nephrology Progress Note ---
Assessment/Plan Problem List: (1) Electrolyte imbalance (2) Hyperglycemia (3) Dyspnea due to COVID-19 Assessment Electrolyte imbalances Covid pneumonia Diabetes mellitus Hypertension HIV Plan April 27: No labs drawn today. Will check lab tomorrow. Continue to monitor renal parameters and blood sugar April 26: No labs drawn today. Continue to monitor electrolytes as needed. Continue to monitor blood sugar. April 25: Today's labs reviewed. Mild hyponatremia mostly corrects for hyperglycemia. Continue to monitor electrolytes and blood sugar. Patient did not have labs for over 2 weeks Today's labs drawn and reviewed Abnormal electrolytes and chemistries addressed Blood pressure medication adjusted Per orders Chest x-ray ordered Subjective ROS Limited/Unobtainable: No Constitutional: Reports: malaise Objective Objective Last 24 Hour Vital Signs Date Time Temp Pulse Resp B/P (MAP) Pulse Ox O2 Delivery O2 Flow Rate FiO2 04/27/20 09:00 Nasal Cannula 3.0 04/27/20 08:00 98.6 79 18 131/69 (89) 96 04/27/20 04:00 97.0 88 20 151/79 (103) 95 04/26/20 21:39 100 106/76 04/26/20 20:03 Nasal Cannula 3.0 04/26/20 20:00 97.4 100 20 106/76 (86) 95 04/26/20 16:00 97.5 89 20 111/64 (80) 95 04/26/20 13:27 97 123/86 Intake and Output 04/26/20 04/27/20 18:59 06:59 Intake Total 1200 ml 300 ml Output Total 1500 ml Balance -300 ml 300 ml Intake Oral 1200 ml 300 ml Output Urine Total 1500 ml # Voids 2 # Bowel Movements 1 No labs drawn today Height (Feet): 5 Height (Inches): 4.00 Weight (Pounds): 167 General Appearance: no apparent distress Cardiovascular: normal rate Respiratory/Chest: decreased breath sounds Abdomen: soft Objective No change Georges Neal MD Apr 27, 2020 12:47
--- NOTE | 2020-04-27 14:09 | General Progress Note ---
Subjective Date patient seen: Apr 27, 2020 Time patient seen: 01:15 - pm Allergies: Coded Allergies: Black Pepper (Verified Allergy, Unknown, 04/11/20) Subjective HISTORY OF PRESENT ILLNESS: The patient is a 59-year-old male who is being seen on the Med/surg floor of [facility]. Patient showing no signs of pain or distress. Denies pain at this time with no new complaints. REVIEW OF SYSTEMS: Denies rash, fever, chills, sweating, dizziness, drowsiness, blurred vision, sore throat, or change in weight. No nausea, vomiting, diarrhea, or blood in the stool or urine. No dysuria. Objective Last 24 Hour Vital Signs Date Time Temp Pulse Resp B/P (MAP) Pulse Ox O2 Delivery O2 Flow Rate FiO2 04/27/20 12:00 98.4 76 19 132/72 (92) 98 04/27/20 09:00 Nasal Cannula 3.0 04/27/20 08:00 98.6 79 18 131/69 (89) 96 04/27/20 04:00 97.0 88 20 151/79 (103) 95 04/26/20 21:39 100 106/76 04/26/20 20:03 Nasal Cannula 3.0 04/26/20 20:00 97.4 100 20 106/76 (86) 95 04/26/20 16:00 97.5 89 20 111/64 (80) 95 Intake and Output 04/26/20 04/27/20 19:00 07:00 Intake Total 1200 ml 300 ml Output Total 1500 ml Balance -300 ml 300 ml Intake Oral 1200 ml 300 ml Output Urine Total 1500 ml # Voids 2 # Bowel Movements 1 Height (Feet): 5 Height (Inches): 4.00 Weight (Pounds): 167 Objective PHYSICAL EXAMINATION: GENERAL: Alert, awake, and oriented. LUNGS: Decreased breath sounds bilaterally. HEART: S1 and S2 regular. ABDOMEN: Soft and nontender. EXTREMITIES: No cyanosis. No clubbing. NEURO: No changes. Assessment/Plan Assessment/Plan: (1) Degenerative joint disease (2) Myalgia/ Arthralgia (3) Covid 19+ Patient to be continued on the Tylenol. D/w Dr. Maxwell and he concurred. Josse Hernandez Apr 27, 2020 14:09
--- NOTE | 2020-04-27 14:57 | NUR ---
NURSE NOTES: blood sent to lab.
[2020-04-27 14:58] LABS: BASOPHILS % (AUTO) 1.2 % (0.0-2.0); EOSINOPHILS % (AUTO) 2.2 % (0.0-3.0); HEMATOCRIT 45.6 % (42.0-52.0); HEMOGLOBIN 14.6 G/DL (14.2-18.0); LYMPHOCYTES % (AUTO) 35.9 % (20.0-45.0); MEAN CORPUSCULAR VOLUME 83 FL (80-99); MONOCYTES % (AUTO) 6.6 % (1.0-10.0); NEUTROPHILS % (AUTO) 54.2 % (45.0-75.0); PLATELET COUNT 168 K/UL (150-450); RED CELL DISTRIBUTION WIDTH 12.6 % (11.6-14.8); WHITE BLOOD COUNT 6.7 K/UL (4.8-10.8)
[2020-04-27 15:12] LABS: ALANINE AMINOTRANSFERASE 43 U/L (12-78); ALBUMIN 2.6 G/DL (3.4-5.0); ALBUMIN/GLOBULIN RATIO 0.6 (1.0-2.7); ALKALINE PHOSPHATASE 62 U/L (46-116); ANION GAP 4 mmol/L (5-15); ASPARTATE AMINO TRANSFERASE 31 U/L (15-37); BILIRUBIN,TOTAL 0.3 MG/DL (0.2-1.0); BLOOD UREA NITROGEN 12 mg/dL (7-18); CALCIUM 9.4 MG/DL (8.5-10.1); CARBON DIOXIDE 28 MMOL/L (21-32); CHLORIDE 101 MMOL/L (98-107); CREATININE 0.8 MG/DL (0.55-1.30); PHOSPHORUS 3.4 MG/DL (2.5-4.9); POTASSIUM 4.6 MMOL/L (3.5-5.1); SODIUM 133 MMOL/L (136-145)
[2020-04-27 16:00] VITALS: BP 123/80
--- NOTE | 2020-04-27 19:15 | NUR ---
NURSE HAND-OFF: Important Events on Shift:labs Patient Status: stable Diet: ccho Pending Orders: n/a Pending Results/Labs:n/a Pending MD notification:n/a Latest Vital Signs: Temperature 97.0 , Pulse 106 , B/P 123 /80 , Respiratory Rate 18 , O2 SAT 94 , Room Air, O2 Flow Rate 3.0 . Vital Sign Comment: n/a Latest Miller Fall Score: 20 Fall Risk: Low Risk Safety Measures: Call light Within Reach, Bed Alarm Zone 1, Side Rails Side Rails x2, Bed position Low and Locked. Fall Precautions: Door Sign Patient Fall Education Report given to Lovely DE LEON.
--- NOTE | 2020-04-27 19:34 | NUR ---
NURSE NOTES: Patient awake, ANOx4. COVID-19 isolation. On room air with no signs of distress or SOB. Bed locked and in lowest position. Call light in reach. Bed alarm on. Will continue plan of care.
[2020-04-27 20:00] VITALS: BP 142/80
[2020-04-27] MEDS: Latanoprost 0.005% Opth 2.5ml Soln BOTH EYES SCH (20:37)
--- NOTE | 2020-04-27 21:55 | General Progress Note ---
Subjective ROS Limited/Unobtainable: Yes Allergies: Coded Allergies: Black Pepper (Verified Allergy, Unknown, 04/11/20) Objective Last 24 Hour Vital Signs Date Time Temp Pulse Resp B/P (MAP) Pulse Ox O2 Delivery O2 Flow Rate FiO2 04/27/20 16:00 97.0 106 18 123/80 (94) 94 04/27/20 12:00 98.4 76 19 132/72 (92) 98 04/27/20 09:00 Nasal Cannula 3.0 04/27/20 08:00 98.6 79 18 131/69 (89) 96 04/27/20 04:00 97.0 88 20 151/79 (103) 95 Intake and Output 04/26/20 04/27/20 19:00 07:00 Intake Total 1200 ml 300 ml Output Total 1500 ml Balance -300 ml 300 ml Intake Oral 1200 ml 300 ml Output Urine Total 1500 ml # Voids 2 # Bowel Movements 1 Laboratory Tests 04/27/20 14:50: White Blood Count 6.7, Red Blood Count 5.50, Hemoglobin 14.6, Hematocrit 45.6, Mean Corpuscular Volume 83, Mean Corpuscular Hemoglobin 26.6L, Mean Corpuscular Hemoglobin Concent 32.1, Red Cell Distribution Width 12.6, Platelet Count 168, Mean Platelet Volume 9.6, Neutrophils (%) (Auto) 54.2, Lymphocytes (%) (Auto) 35.9, Monocytes (%) (Auto) 6.6, Eosinophils (%) (Auto) 2.2, Basophils (%) (Auto) 1.2, Sodium Level 133L, Potassium Level 4.6, Chloride Level 101, Carbon Dioxide Level 28, Anion Gap 4L, Blood Urea Nitrogen 12, Creatinine 0.8, Estimat Glomerular Filtration Rate > 60, Glucose Level 300H, Calcium Level 9.4, Phosphorus Level 3.4, Magnesium Level 1.8, Total Bilirubin 0.3, Aspartate Amino Transf (AST/SGOT) 31, Alanine Aminotransferase (ALT/SGPT) 43, Alkaline Phosphatase 62, C-Reactive Protein, Quantitative 1.1H, Total Protein 6.9, Albumin 2.6L, Globulin 4.3, Albumin/Globulin Ratio 0.6L 04/27/20 20:40: POC Whole Blood Glucose [Pending] Height (Feet): 5 Height (Inches): 4.00 Weight (Pounds): 167 Assessment/Plan Problem List: (1) Hyperglycemia ICD Codes: R73.9 - Hyperglycemia, unspecified SNOMED: [id number] (2) Dyspnea due to COVID-19 ICD Codes: U07.1 - COVID-19; R06.00 - Dyspnea, unspecified SNOMED: 562268663260676 Status: progressing Assessment/Plan: covid positive resp insuff pna continue supportive rx afebrile tachycardia due to covid is resolved Carlos Oliveira MD Apr 27, 2020 21:55
--- NOTE | 2020-04-27 23:19 | CDS Physician Query ---
Clarification is required for compliance, coding accuracy, and to reflect severity of illness for this patient Dear Dr. Jude Pepe M.D. Date 04/27/2020 CDIS Malachi Nguyen 59-year-old male who was admitted to the hospital with about a week of shortness of breath. He feels fatigue and shortness of breath. He reports a cough. Patient is a known hypertensive and diabetic. He believes he has been in positive contact with persons with COVID-19 pneumonia. [ CONSULTATION Jude Pepe M.D.04/05/2020] ASSESSMENT AND PLAN: COVID positive pneumonia, respiratory insufficiency.[ H&P Carlos Oliveira M.D. 04/05/20] Clinical Findings Show: Vitals: RR: 19/19/19/18// AR: 109/109/47896/99 Oxygen Delivery: Nasal cannula (04/05-04/07), Venturi Mask (04/09 - 04/17) Flow Rt: 3.0/3.0/4.0/5.0/10.0/12.0 Please clarify if the patient had any of the following conditions based on the above clinical findings: [x] Acute Respiratory Failure [] Chronic Respiratory Failure [] Acute on Chronic Respiratory Failure [] Acute Respiratory Distress [] Other: [] Unable to Determined Present on Admission: [x] Yes [] No [] Clinically Undetermined Physician signature Date Please also document in your Progress Notes and/or Discharge Summary and indicate if the condition was present on admission. MTDD
[2020-04-27 23:50] VITALS: BP 134/78
[2020-04-28 04:00] VITALS: BP 130/78
[2020-04-28] MEDS: dilTIAZem HCl 60mg tab ORAL SCH ×2 (05:39→14:29)
[2020-04-28] MEDS: NovoLOG Insulin Flexpen SUBQ SCH ×3 (06:06→16:33)
--- NOTE | 2020-04-28 06:28 | NUR ---
NURSE NOTES: Patient refused blood draw for labs, stating "I'm going home today. I don't need my blood drawn". RN tried to educate the patient, but patient continued to refuse.
--- NOTE | 2020-04-28 07:36 | NUR ---
NURSE NOTES: Patient alert x4; on room air, no sing of distress and shortness of breath; no sing of chest pain; IV RAC flushes well; Urinal within reach; side rails up x2, breaks engaged, bed at lowest position; call light within reach; will keep monitoring.
--- NOTE | 2020-04-28 07:37 | NUR ---
HAND-OFF: Report given to HALEY Guardado.
[2020-04-28 08:00] VITALS: BP 134/91
--- NOTE | 2020-04-28 08:32 | General Progress Note ---
Subjective Date patient seen: Apr 28, 2020 Time patient seen: 07:00 - am Allergies: Coded Allergies: Black Pepper (Verified Allergy, Unknown, 04/11/20) Subjective HISTORY OF PRESENT ILLNESS: The patient is a 59-year-old male who is being seen on the Med/surg floor of [facility]. Patient resting in bed and denies pain at this time. No new complaints REVIEW OF SYSTEMS: Denies rash, fever, chills, sweating, dizziness, drowsiness, blurred vision, sore throat, or change in weight. No nausea, vomiting, diarrhea, or blood in the stool or urine. No dysuria. Objective Last 24 Hour Vital Signs Date Time Temp Pulse Resp B/P (MAP) Pulse Ox O2 Delivery O2 Flow Rate FiO2 04/28/20 05:39 108 130/78 04/28/20 04:00 98.1 108 15 130/78 (95) 96 04/27/20 23:50 97.9 101 17 134/78 (96) 96 04/27/20 21:00 Room Air 04/27/20 20:00 97.8 107 18 142/80 (100) 96 04/27/20 16:00 97.0 106 18 123/80 (94) 94 04/27/20 12:00 98.4 76 19 132/72 (92) 98 04/27/20 09:00 Nasal Cannula 3.0 Intake and Output 04/27/20 04/28/20 19:00 07:00 Intake Total 500 ml Output Total 950 ml Balance 500 ml -950 ml Intake Oral 500 ml Output Urine Total 950 ml # Voids 1 # Bowel Movements 1 Laboratory Tests 04/27/20 14:50: White Blood Count 6.7, Red Blood Count 5.50, Hemoglobin 14.6, Hematocrit 45.6, Mean Corpuscular Volume 83, Mean Corpuscular Hemoglobin 26.6L, Mean Corpuscular Hemoglobin Concent 32.1, Red Cell Distribution Width 12.6, Platelet Count 168, Mean Platelet Volume 9.6, Neutrophils (%) (Auto) 54.2, Lymphocytes (%) (Auto) 35.9, Monocytes (%) (Auto) 6.6, Eosinophils (%) (Auto) 2.2, Basophils (%) (Auto) 1.2, Sodium Level 133L, Potassium Level 4.6, Chloride Level 101, Carbon Dioxide Level 28, Anion Gap 4L, Blood Urea Nitrogen 12, Creatinine 0.8, Estimat Glomerular Filtration Rate > 60, Glucose Level 300H, Calcium Level 9.4, Phosphorus Level 3.4, Magnesium Level 1.8, Total Bilirubin 0.3, Aspartate Amino Transf (AST/SGOT) 31, Alanine Aminotransferase (ALT/SGPT) 43, Alkaline Phosphatase 62, C-Reactive Protein, Quantitative 1.1H, Total Protein 6.9, Albumin 2.6L, Globulin 4.3, Albumin/Globulin Ratio 0.6L 04/27/20 20:40: POC Whole Blood Glucose [Pending] Height (Feet): 5 Height (Inches): 4.00 Weight (Pounds): 167 Objective PHYSICAL EXAMINATION: GENERAL: Alert, awake, and oriented. LUNGS: Decreased breath sounds bilaterally. HEART: S1 and S2 regular. ABDOMEN: Soft and nontender. EXTREMITIES: No cyanosis. No clubbing. NEURO: No changes. Assessment/Plan Assessment/Plan: (1) Degenerative joint disease (2) Myalgia/ Arthralgia (3) Covid 19+ Patient to be continued on the Tylenol. D/w Dr. Maxwell and he concurred. Josse Hernandez Apr 28, 2020 08:32
--- NOTE | 2020-04-28 08:41 | Pulmonology Progress Note ---
Subjective ROS Limited/Unobtainable: Yes Interval Events: none major reported per nursing Constitutional: Denies: fever HEENT: Repors: no symptoms Respiratory: Reports: dry cough, dyspnea on exertion Cardiovascular: Reports: no symptoms Gastrointestinal/Abdominal: Reports: no symptoms Psychiatric: Reports: other - anxiety Musculoskeletal: Denies: pain Allergies: Coded Allergies: Black Pepper (Verified Allergy, Unknown, 04/11/20) Objective Last 24 Hour Vital Signs Date Time Temp Pulse Resp B/P (MAP) Pulse Ox O2 Delivery O2 Flow Rate FiO2 04/28/20 05:39 108 130/78 04/28/20 04:00 98.1 108 15 130/78 (95) 96 04/27/20 23:50 97.9 101 17 134/78 (96) 96 04/27/20 21:00 Room Air 04/27/20 20:00 97.8 107 18 142/80 (100) 96 04/27/20 16:00 97.0 106 18 123/80 (94) 94 04/27/20 12:00 98.4 76 19 132/72 (92) 98 04/27/20 09:00 Nasal Cannula 3.0 Intake and Output 04/27/20 04/28/20 19:00 07:00 Intake Total 500 ml Output Total 950 ml Balance 500 ml -950 ml Intake Oral 500 ml Output Urine Total 950 ml # Voids 1 # Bowel Movements 1 Objective 04/28 saturating at 96% on RA 04/27 saturating at 95% on RA 04/26 saturating at 92% on 3L NC 04/25 saturating well on 3L NC; will attempt weaning today 04/24 now saturating at 96% on 2L NC; declining physical therapy 04/23 was planned to be discharged yesterday, dc on hold due to acute hypoxia upon ambulation 04/18 now saturating at 95% on 2L NC; will wean off today 04/17 saturating at 95% on 12L VM 04/16 saturating at 94% on 12L VM 04/15 saturating at 96% on 12L Venturi mask 04/14 saturating at 97-98% on 12L Venturi mask 04/13 saturating at 97% on 12L Venturi mask 04/12 saturating at 95% on 12L Venturi mask 04/11 saturating at 96% on 12L Venturi mask 04/10 saturating at 95% on 12L Venturi mask 04/09 remains on 12L Venturi mask, saturating at 92-94% 04/08 pt desaturated on nasal oxygen and now on 12L oxygen via Venturi mask saturating at 94-95% 04/07 currently saturating at 95% on 4L NC General Appearance: WD/WN, no acute distress HEENT: normocephalic, atraumatic Respiratory: lungs clear Cardiovascular: normal rate, regular rhythm Abdomen: soft, non tender Extremities: no edema Laboratory Tests 04/27/20 14:50: White Blood Count 6.7, Red Blood Count 5.50, Hemoglobin 14.6, Hematocrit 45.6, Mean Corpuscular Volume 83, Mean Corpuscular Hemoglobin 26.6L, Mean Corpuscular Hemoglobin Concent 32.1, Red Cell Distribution Width 12.6, Platelet Count 168, Mean Platelet Volume 9.6, Neutrophils (%) (Auto) 54.2, Lymphocytes (%) (Auto) 35.9, Monocytes (%) (Auto) 6.6, Eosinophils (%) (Auto) 2.2, Basophils (%) (Auto) 1.2, Sodium Level 133L, Potassium Level 4.6, Chloride Level 101, Carbon Dioxide Level 28, Anion Gap 4L, Blood Urea Nitrogen 12, Creatinine 0.8, Estimat Glomerular Filtration Rate > 60, Glucose Level 300H, Calcium Level 9.4, Phosphorus Level 3.4, Magnesium Level 1.8, Total Bilirubin 0.3, Aspartate Amino Transf (AST/SGOT) 31, Alanine Aminotransferase (ALT/SGPT) 43, Alkaline Phosphatase 62, C-Reactive Protein, Quantitative 1.1H, Total Protein 6.9, Albumin 2.6L, Globulin 4.3, Albumin/Globulin Ratio 0.6L 04/27/20 20:40: POC Whole Blood Glucose [Pending] Current Medications Medications (Trade) Dose Ordered Sig/Ivett Route PRN Reason Start Time Stop Time Status Last Admin Dose Admin Acetaminophen (Tylenol) 500 mg Q4H PRN ORAL Mild Pain (Pain Scale 1-3) 04/04/20 22:45 05/04/20 22:44 04/16/20 08:39 Acetaminophen (Tylenol) 500 mg Q4H PRN ORAL Temp >100.5 04/04/20 22:45 05/04/20 22:44 Artificial Tears (Akwa-Tears) 2 drop Q4H PRN BOTH EYES Dry Eyes 12/26/20 14:45 05/05/20 14:44 04/11/20 12:03 Bisacodyl (Dulcolax) 10 mg DAILY PRN ORAL Constipation 04/13/20 10:45 07/12/20 10:44 04/14/20 09:12 Clonidine HCl (Catapres Tab) 0.1 mg PRN PRN ORAL high blood pressure sbp>170 04/04/20 22:45 07/03/20 22:44 04/06/20 04:04 Dextrose (Dextrose 50%) 25 ml Q30M PRN IV Hypoglycemia 04/04/20 22:45 07/03/20 22:44 Dextrose (Dextrose 50%) 50 ml Q30M PRN IV Hypoglycemia 04/04/20 22:45 07/03/20 22:44 Diltiazem HCl (Cardizem Tab) 60 mg EVERY 8 HOURS ORAL 04/23/20 14:00 05/23/20 13:59 04/26/20 13:27 Docusate Sodium (Colace) 100 mg TWICE A DAY ORAL 04/13/20 18:00 05/13/20 17:59 04/27/20 17:19 Famotidine (Pepcid) 20 mg BID ORAL 04/23/20 18:00 07/22/20 17:59 04/27/20 17:19 Heparin Sodium (Porcine) (Heparin 5000 units/ml) 5,000 units EVERY 12 HOURS SUBQ 04/05/20 09:00 05/20/20 08:59 04/27/20 21:11 Hydrocortisone (Anusol HC) 25 mg Q12H PRN RECTAL Hemorroidal Pain 04/26/20 19:00 07/25/20 18:59 Insulin Aspart (NovoLOG) BEFORE MEALS AND HS SUBQ 04/05/20 06:30 07/04/20 06:29 04/28/20 06:06 Latanoprost (Xalatan) 1 drop BEDTIME BOTH EYES 04/06/20 21:00 05/06/20 20:59 04/26/20 21:39 Magnesium Hydroxide (Mom) 30 ml Q4HR PRN ORAL Constipation 04/13/20 10:45 05/13/20 10:44 04/24/20 13:44 Magnesium Oxide (Mag-Ox 400mg) 400 mg THREE TIMES A DAY ORAL 04/23/20 18:00 05/23/20 17:59 04/27/20 17:19 Mirtazapine (Remeron) 7.5 mg BEDTIME ORAL 04/10/20 21:00 07/09/20 20:59 04/27/20 20:37 Ondansetron HCl (Zofran) 4 mg Q6H PRN IVP Nausea & Vomiting 04/04/20 22:45 05/04/20 22:44 04/04/20 23:07 Quetiapine Fumarate (SEROqueL) 25 mg Q6H PRN ORAL For Anxiety 04/11/20 15:45 05/26/20 15:44 04/18/20 02:42 Sennosides (Senokot) 8.6 mg DAILY PRN ORAL Constipation 04/13/20 10:45 05/13/20 10:44 04/24/20 17:43 Assessment/Plan Assessment/Plan 1. COVID-19 Bilateral pneumonia. - pt received a dose of Bamlanimab in ER - Continue monitoring for hypoxia - now saturating at 96% on RA - s/p Decadron (04/05-04/14) - Defer use of remdesivir to ID specialist. - repeat CXR 04/15 still shows b/l infiltrates without significant change - repeat CXR 04/23 no significant change 2. Hypertension. - on amlodipine and prn clonidine 3. Diabetes mellitus. - on Novolog - s/p steroids 4. Hx of home meds - per primary MD and ID 5. Insomnia - pt c/o persistent insomnia since admission without hx of insomnia - management per primary MD 6. Anxiety - on mirtazapine and Seroquel per psych Currently on RA saturating at 96% Medically stable for discharge as long as SaO2 remains >90% We will follow carefully. The care for this patient was discussed with my supervising physician Time spent for this case was approximately 31 minutes Neo Montalvo Apr 28, 2020 08:41
[2020-04-28] MEDS: Docusate 100mg cap ORAL SCH ×2 (08:54→18:00)
[2020-04-28] MEDS: Acetaminophen 500mg (ES) tab ORAL PRN (08:54)
[2020-04-28] MEDS: Magnesium Oxide 400mg tab ORAL SCH ×3 (08:54→18:00)
[2020-04-28] MEDS: Heparin 5000 units/ml inj SUBQ SCH (08:57)
--- NOTE | 2020-04-28 10:24 | Nephrology Progress Note ---
Assessment/Plan Problem List: (1) Electrolyte imbalance (2) Hyperglycemia (3) Dyspnea due to COVID-19 Assessment Electrolyte imbalances Covid pneumonia Diabetes mellitus Hypertension HIV Plan April 28: Recent lab reviewed. Serum sodium 133. Continue to observe. Continue per consultants. April 27: No labs drawn today. Will check lab tomorrow. Continue to monitor renal parameters and blood sugar April 26: No labs drawn today. Continue to monitor electrolytes as needed. Continue to monitor blood sugar. April 25: Today's labs reviewed. Mild hyponatremia mostly corrects for hyperglycemia. Continue to monitor electrolytes and blood sugar. Patient did not have labs for over 2 weeks Today's labs drawn and reviewed Abnormal electrolytes and chemistries addressed Blood pressure medication adjusted Per orders Chest x-ray ordered Subjective ROS Limited/Unobtainable: No Constitutional: Reports: malaise, weakness Objective Objective Last 24 Hour Vital Signs Date Time Temp Pulse Resp B/P (MAP) Pulse Ox O2 Delivery O2 Flow Rate FiO2 04/28/20 09:24 97.8 04/28/20 09:00 Room Air 04/28/20 08:00 97.8 114 19 134/91 (105) 97 04/28/20 05:39 108 130/78 04/28/20 04:00 98.1 108 15 130/78 (95) 96 04/27/20 23:50 97.9 101 17 134/78 (96) 96 04/27/20 21:00 Room Air 04/27/20 20:00 97.8 107 18 142/80 (100) 96 04/27/20 16:00 97.0 106 18 123/80 (94) 94 04/27/20 12:00 98.4 76 19 132/72 (92) 98 Intake and Output 04/27/20 04/28/20 19:00 07:00 Intake Total 500 ml Output Total 950 ml Balance 500 ml -950 ml Intake Oral 500 ml Output Urine Total 950 ml # Voids 1 # Bowel Movements 1 Laboratory Tests 04/27/20 14:50: White Blood Count 6.7, Red Blood Count 5.50, Hemoglobin 14.6, Hematocrit 45.6, Mean Corpuscular Volume 83, Mean Corpuscular Hemoglobin 26.6L, Mean Corpuscular Hemoglobin Concent 32.1, Red Cell Distribution Width 12.6, Platelet Count 168, Mean Platelet Volume 9.6, Neutrophils (%) (Auto) 54.2, Lymphocytes (%) (Auto) 35.9, Monocytes (%) (Auto) 6.6, Eosinophils (%) (Auto) 2.2, Basophils (%) (Auto) 1.2, Sodium Level 133L, Potassium Level 4.6, Chloride Level 101, Carbon Dioxide Level 28, Anion Gap 4L, Blood Urea Nitrogen 12, Creatinine 0.8, Estimat Glomerular Filtration Rate > 60, Glucose Level 300H, Calcium Level 9.4, Phosphorus Level 3.4, Magnesium Level 1.8, Total Bilirubin 0.3, Aspartate Amino Transf (AST/SGOT) 31, Alanine Aminotransferase (ALT/SGPT) 43, Alkaline Phosphatase 62, C-Reactive Protein, Quantitative 1.1H, Total Protein 6.9, Albumin 2.6L, Globulin 4.3, Albumin/Globulin Ratio 0.6L 04/27/20 20:40: POC Whole Blood Glucose [Pending] Height (Feet): 5 Height (Inches): 4.00 Weight (Pounds): 167 General Appearance: no apparent distress Cardiovascular: tachycardia Respiratory/Chest: decreased breath sounds Abdomen: soft, distended Objective No change Georges Neal MD Apr 28, 2020 10:24
[2020-04-28 12:00] VITALS: BP 117/80
--- NOTE | 2020-04-28 12:16 | NUR ---
PT WEEKLY PROGRESS NOTE Patient being seen by PT for therapeutic exercises, bed mobility training, transfer training and gait training. Patient able to perform bed mobility with SBA and to transfer sit to stand with CGA. Patient able to ambulate today 12 ft with bilateral hand hold assist, unsteady gait, slow pace. Patient denies SOB or dizziness with mobility. Patient will continue to benefit from skilled inpatient PT intervention to increase strength, postural stability and activity tolerance.
--- NOTE | 2020-04-28 12:33 | Infectious Diseases Prog Note ---
Assessment/Plan Assessment/Plan IMPRESSION: COVID-19 pneumonia. HIV, CD4= 507 Hypoxemia SOB on exertion. Diabetes mellitus with hyperglycemia, Hypertension. RECOMMENDATIONS: Finished dexamethasone course Got a dose of Bamlanivimab in ER. Clear for discharge Subjective ROS Limited/Unobtainable: No Constitutional: Reports: no symptoms, other - feels better Respiratory: Reports: no symptoms Gastrointestinal/Abdominal: Reports: no symptoms Genitourinary: Reports: no symptoms Allergies: Coded Allergies: Black Pepper (Verified Allergy, Unknown, 04/11/20) Objective Last 24 Hour Vital Signs Date Time Temp Pulse Resp B/P (MAP) Pulse Ox O2 Delivery O2 Flow Rate FiO2 04/28/20 12:00 96.8 93 18 117/80 (92) 98 04/28/20 09:24 97.8 04/28/20 09:00 Room Air 04/28/20 08:00 97.8 114 19 134/91 (105) 97 04/28/20 05:39 108 130/78 04/28/20 04:00 98.1 108 15 130/78 (95) 96 04/27/20 23:50 97.9 101 17 134/78 (96) 96 04/27/20 21:00 Room Air 04/27/20 20:00 97.8 107 18 142/80 (100) 96 04/27/20 16:00 97.0 106 18 123/80 (94) 94 Height (Feet): 5 Height (Inches): 4.00 Weight (Pounds): 167 General Appearance: no acute distress HEENT: mucous membranes moist Respiratory/Chest: no respiratory distress, other - on room air oxygen Cardiovascular: tachycardia Abdomen: soft, non tender Extremities: no edema Neurologic/Psychiatric: alert, responsive Laboratory Tests Test 04/27/20 14:50 04/27/20 20:40 White Blood Count 6.7 K/UL (4.8-10.8) Red Blood Count 5.50 M/UL (4.70-6.10) Hemoglobin 14.6 G/DL (14.2-18.0) Hematocrit 45.6 % (42.0-52.0) Mean Corpuscular Volume 83 FL (80-99) Mean Corpuscular Hemoglobin 26.6 PG (27.0-31.0) L Mean Corpuscular Hemoglobin Concent 32.1 G/DL (32.0-36.0) Red Cell Distribution Width 12.6 % (11.6-14.8) Platelet Count 168 K/UL (150-450) Mean Platelet Volume 9.6 FL (6.5-10.1) Neutrophils (%) (Auto) 54.2 % (45.0-75.0) Lymphocytes (%) (Auto) 35.9 % (20.0-45.0) Monocytes (%) (Auto) 6.6 % (1.0-10.0) Eosinophils (%) (Auto) 2.2 % (0.0-3.0) Basophils (%) (Auto) 1.2 % (0.0-2.0) Sodium Level 133 MMOL/L (136-145) L Potassium Level 4.6 MMOL/L (3.5-5.1) Chloride Level 101 MMOL/L (98-107) Carbon Dioxide Level 28 MMOL/L (21-32) Anion Gap 4 mmol/L (5-15) L Blood Urea Nitrogen 12 mg/dL (7-18) Creatinine 0.8 MG/DL (0.55-1.30) Estimat Glomerular Filtration Rate > 60 mL/min (>60) Glucose Level 300 MG/DL (74-106) H Calcium Level 9.4 MG/DL (8.5-10.1) Phosphorus Level 3.4 MG/DL (2.5-4.9) Magnesium Level 1.8 MG/DL (1.8-2.4) Total Bilirubin 0.3 MG/DL (0.2-1.0) Aspartate Amino Transf (AST/SGOT) 31 U/L (15-37) Alanine Aminotransferase (ALT/SGPT) 43 U/L (12-78) Alkaline Phosphatase 62 U/L (46-116) C-Reactive Protein, Quantitative 1.1 mg/dL (0.00-0.90) H Total Protein 6.9 G/DL (6.4-8.2) Albumin 2.6 G/DL (3.4-5.0) L Globulin 4.3 g/dL Albumin/Globulin Ratio 0.6 (1.0-2.7) L POC Whole Blood Glucose Pending Current Medications Medications (Trade) Dose Ordered Sig/Ivett Route PRN Reason Start Time Stop Time Status Last Admin Dose Admin Acetaminophen (Tylenol) 500 mg Q4H PRN ORAL Mild Pain (Pain Scale 1-3) 04/04/20 22:45 05/04/20 22:44 04/28/20 08:54 Acetaminophen (Tylenol) 500 mg Q4H PRN ORAL Temp >100.5 04/04/20 22:45 05/04/20 22:44 Artificial Tears (Akwa-Tears) 2 drop Q4H PRN BOTH EYES Dry Eyes 04/05/20 14:45 05/05/20 14:44 04/11/20 12:03 Bisacodyl (Dulcolax) 10 mg DAILY PRN ORAL Constipation 04/13/20 10:45 07/12/20 10:44 04/14/20 09:12 Clonidine HCl (Catapres Tab) 0.1 mg PRN PRN ORAL high blood pressure sbp>170 04/04/20 22:45 07/03/20 22:44 04/06/20 04:04 Dextrose (Dextrose 50%) 25 ml Q30M PRN IV Hypoglycemia 04/04/20 22:45 07/03/20 22:44 Dextrose (Dextrose 50%) 50 ml Q30M PRN IV Hypoglycemia 04/04/20 22:45 07/03/20 22:44 Diltiazem HCl (Cardizem Tab) 60 mg EVERY 8 HOURS ORAL 04/23/20 14:00 05/23/20 13:59 04/26/20 13:27 Docusate Sodium (Colace) 100 mg TWICE A DAY ORAL 04/13/20 18:00 05/13/20 17:59 04/28/20 08:54 Famotidine (Pepcid) 20 mg BID ORAL 04/23/20 18:00 07/22/20 17:59 04/28/20 08:54 Heparin Sodium (Porcine) (Heparin 5000 units/ml) 5,000 units EVERY 12 HOURS SUBQ 04/05/20 09:00 05/20/20 08:59 04/28/20 08:57 Hydrocortisone (Anusol HC) 25 mg Q12H PRN RECTAL Hemorroidal Pain 04/26/20 19:00 07/25/20 18:59 Insulin Aspart (NovoLOG) BEFORE MEALS AND HS SUBQ 04/05/20 06:30 07/04/20 06:29 04/28/20 12:15 Latanoprost (Xalatan) 1 drop BEDTIME BOTH EYES 04/06/20 21:00 05/06/20 20:59 04/26/20 21:39 Magnesium Hydroxide (Mom) 30 ml Q4HR PRN ORAL Constipation 04/13/20 10:45 05/13/20 10:44 04/24/20 13:44 Magnesium Oxide (Mag-Ox 400mg) 400 mg THREE TIMES A DAY ORAL 04/23/20 18:00 05/23/20 17:59 04/28/20 08:54 Mirtazapine (Remeron) 7.5 mg BEDTIME ORAL 04/10/20 21:00 07/09/20 20:59 04/27/20 20:37 Ondansetron HCl (Zofran) 4 mg Q6H PRN IVP Nausea & Vomiting 04/04/20 22:45 05/04/20 22:44 04/04/20 23:07 Quetiapine Fumarate (SEROqueL) 25 mg Q6H PRN ORAL For Anxiety 04/11/20 15:45 05/26/20 15:44 04/18/20 02:42 Sennosides (Senokot) 8.6 mg DAILY PRN ORAL Constipation 04/13/20 10:45 05/13/20 10:44 04/24/20 17:43 Jarred Nuñez MD Apr 28, 2020 12:33
[2020-04-28 13:29] LABS: BASOPHILS % (AUTO) 1.8 % (0.0-2.0); EOSINOPHILS % (AUTO) 2.2 % (0.0-3.0); HEMATOCRIT 46.9 % (42.0-52.0); HEMOGLOBIN 15.2 G/DL (14.2-18.0); LYMPHOCYTES % (AUTO) 39.4 % (20.0-45.0); MEAN CORPUSCULAR VOLUME 84 FL (80-99); MONOCYTES % (AUTO) 7.4 % (1.0-10.0); NEUTROPHILS % (AUTO) 49.1 % (45.0-75.0); PLATELET COUNT 146 K/UL (150-450); RED BLOOD COUNT 5.61 M/UL (4.70-6.10); RED CELL DISTRIBUTION WIDTH 12.9 % (11.6-14.8); WHITE BLOOD COUNT 6.2 K/UL (4.8-10.8)
[2020-04-28 13:45] LABS: ALANINE AMINOTRANSFERASE 55 U/L (12-78); ALBUMIN 2.9 G/DL (3.4-5.0); ALBUMIN/GLOBULIN RATIO 0.7 (1.0-2.7); ALKALINE PHOSPHATASE 57 U/L (46-116); ANION GAP 10 mmol/L (5-15); ASPARTATE AMINO TRANSFERASE 40 U/L (15-37); BILIRUBIN,TOTAL 0.3 MG/DL (0.2-1.0); BLOOD UREA NITROGEN 12 mg/dL (7-18); CALCIUM 9.4 MG/DL (8.5-10.1); CARBON DIOXIDE 26 MMOL/L (21-32); CHLORIDE 101 MMOL/L (98-107); CREATININE 0.7 MG/DL (0.55-1.30); PHOSPHORUS 4.5 MG/DL (2.5-4.9); POTASSIUM 4.6 MMOL/L (3.5-5.1); SODIUM 136 MMOL/L (136-145)
--- NOTE | 2020-04-28 13:49 | NUR ---
CASE MANAGEMENT:REVIEW SI;COVID PNEUMONIA. HIV. DYSPNEA ON EXERTION. 98.1 114 19 134/91 96% ON RA PLT- 146 GLU+ 217 AST+ 40 ALB- 2.9 IS;MAG-OX PO TID PEPCID PO VID DILTIAZEM PO Q8 HEPARIN SQ Q12 INSULIN NOVOLOG SQ QID TYLENOL PO Q4 PRN MED SURG STATUS DCP;FROM HOME
--- NOTE | 2020-04-28 14:08 | Cardiac Electrophysiology PN ---
Assessment/Plan Assessment/Plan 1. COVID pneumonia. Ruled out for HI On 3 liter Nasal Cannula. EF 65%. On Dexamethasone 2. Hypertension, better on Cardizem 60 tid and p.r.n. clonidine. 3. Diabetes, on insulin. DW RN\ DC home pending Subjective Subjective DC 04/22/20 was canceled as he became SOB and tachycardic in 130s. On 2 liter NC but not wearing consistently DC home pending Objective Last 24 Hour Vital Signs Date Time Temp Pulse Resp B/P (MAP) Pulse Ox O2 Delivery O2 Flow Rate FiO2 04/28/20 12:00 96.8 93 18 117/80 (92) 98 04/28/20 09:24 97.8 04/28/20 09:00 Room Air 04/28/20 08:00 97.8 114 19 134/91 (105) 97 04/28/20 05:39 108 130/78 04/28/20 04:00 98.1 108 15 130/78 (95) 96 04/27/20 23:50 97.9 101 17 134/78 (96) 96 04/27/20 21:00 Room Air 04/27/20 20:00 97.8 107 18 142/80 (100) 96 04/27/20 16:00 97.0 106 18 123/80 (94) 94 Intake and Output 04/27/20 04/28/20 19:00 07:00 Intake Total 500 ml Output Total 950 ml Balance 500 ml -950 ml Intake Oral 500 ml Output Urine Total 950 ml # Voids 1 # Bowel Movements 1 Laboratory Tests Test 04/27/20 14:50 04/27/20 20:40 04/28/20 12:00 White Blood Count 6.7 K/UL (4.8-10.8) 6.2 K/UL (4.8-10.8) Red Blood Count 5.50 M/UL (4.70-6.10) 5.61 M/UL (4.70-6.10) Hemoglobin 14.6 G/DL (14.2-18.0) 15.2 G/DL (14.2-18.0) Hematocrit 45.6 % (42.0-52.0) 46.9 % (42.0-52.0) Mean Corpuscular Volume 83 FL (80-99) 84 FL (80-99) Mean Corpuscular Hemoglobin 26.6 PG (27.0-31.0) L 27.1 PG (27.0-31.0) Mean Corpuscular Hemoglobin Concent 32.1 G/DL (32.0-36.0) 32.4 G/DL (32.0-36.0) Red Cell Distribution Width 12.6 % (11.6-14.8) 12.9 % (11.6-14.8) Platelet Count 168 K/UL (150-450) 146 K/UL (150-450) L Mean Platelet Volume 9.6 FL (6.5-10.1) 7.9 FL (6.5-10.1) Neutrophils (%) (Auto) 54.2 % (45.0-75.0) 49.1 % (45.0-75.0) Lymphocytes (%) (Auto) 35.9 % (20.0-45.0) 39.4 % (20.0-45.0) Monocytes (%) (Auto) 6.6 % (1.0-10.0) 7.4 % (1.0-10.0) Eosinophils (%) (Auto) 2.2 % (0.0-3.0) 2.2 % (0.0-3.0) Basophils (%) (Auto) 1.2 % (0.0-2.0) 1.8 % (0.0-2.0) Sodium Level 133 MMOL/L (136-145) L 136 MMOL/L (136-145) Potassium Level 4.6 MMOL/L (3.5-5.1) 4.6 MMOL/L (3.5-5.1) Chloride Level 101 MMOL/L (98-107) 101 MMOL/L (98-107) Carbon Dioxide Level 28 MMOL/L (21-32) 26 MMOL/L (21-32) Anion Gap 4 mmol/L (5-15) L 10 mmol/L (5-15) Blood Urea Nitrogen 12 mg/dL (7-18) 12 mg/dL (7-18) Creatinine 0.8 MG/DL (0.55-1.30) 0.7 MG/DL (0.55-1.30) Estimat Glomerular Filtration Rate > 60 mL/min (>60) > 60 mL/min (>60) Glucose Level 300 MG/DL (74-106) H 217 MG/DL (74-106) H Calcium Level 9.4 MG/DL (8.5-10.1) 9.4 MG/DL (8.5-10.1) Phosphorus Level 3.4 MG/DL (2.5-4.9) 4.5 MG/DL (2.5-4.9) Magnesium Level 1.8 MG/DL (1.8-2.4) 1.8 MG/DL (1.8-2.4) Total Bilirubin 0.3 MG/DL (0.2-1.0) 0.3 MG/DL (0.2-1.0) Aspartate Amino Transf (AST/SGOT) 31 U/L (15-37) 40 U/L (15-37) H Alanine Aminotransferase (ALT/SGPT) 43 U/L (12-78) 55 U/L (12-78) Alkaline Phosphatase 62 U/L (46-116) 57 U/L (46-116) C-Reactive Protein, Quantitative 1.1 mg/dL (0.00-0.90) H < 0.4 mg/dL (0.00-0.90) Total Protein 6.9 G/DL (6.4-8.2) 6.8 G/DL (6.4-8.2) Albumin 2.6 G/DL (3.4-5.0) L 2.9 G/DL (3.4-5.0) L Globulin 4.3 g/dL 3.9 g/dL Albumin/Globulin Ratio 0.6 (1.0-2.7) L 0.7 (1.0-2.7) L POC Whole Blood Glucose Pending Pro-B-Type Natriuretic Peptide 19 pg/mL (0-125) Objective HEAD AND NECK: no JVD. LUNGS: Coarse rhonchi. CARDIOVASCULAR: regular S1 and S2 with no gallop. ABDOMEN: Soft. EXTREMITIES: No pitting edema. Brian Olivares MD Apr 28, 2020 14:08
[2020-04-28 16:00] VITALS: BP 137/98
--- NOTE | 2020-04-28 16:55 | NUR ---
NURSE NOTES: I called [employer] [facility] spoke with Paramjit; pick up truck driver time 1800; patient waiting for pick up truck driver;
--- NOTE | 2020-04-28 19:01 | NUR ---
NURSE NOTES: Patient discharged to Home; left the floor via wheelchair, accompanied by primary nurse and nursing department chairperson; IV and name tag removed; belonging counted and signed by patient and primary nurse; patient stable upon discharge; home discharge paper singed by patient, nurse and charge nurse; printed package given to patient; patient stable upon discharge;
--- NOTE | 2020-04-29 13:17 | NUR ---
INSURANCE DC INSTRUCTIONS FAXED TO [facility] T: [phone] F: [phone] AND [facility] T:[phone] F: [phone]
--- NOTE | 2020-04-30 16:00 | Discharge Summary ---
Discharge Summary Discharge Summary _ Date of admission: 04/04/2020 Date of discharge: 04/28/[address] Oliveira History of Present Illness and Brief Hospital Course Mr. Beck is a 59-year-old male with past medical history of HIV on medication, hypertension, and diabetes mellitus, who presented to the ED for evaluation of 1 week history of shortness of breath. He reported associated symptoms of fatigue, and cough. Patient tested positive for COVID-19 via rapid gene assay in the ER. Patient received Bamlanivimab in ER. Patient's urine toxicology screening was negative. Patient was admitted to the hospital for further management and care. Patient became hypoxic on supplemental oxygen. His supplemental oxygen was escalated with nonrebreather mask. He received Decadron. Repeat chest x-rays showed bilateral infiltrates without significant change. By the time he finished his course of dexamethasone, patient was back to room air. However, his ambulatory saturation acutely dropped with sinus tachycardia. His discharge was temporarily held and was provided with supplemental oxygen. His left ventricular ejection fraction was estimated to be 65% on 2D echocardiogram. He was started on Cardizem and clonidine as needed. He was also evaluated by a psychiatrist for anxiety and insomnia. He was started on Remeron. Throughout his admission, patient's prognosis remained fair. His oxygen saturation improved over time. His blood pressure and blood sugar were controlled with medical therapy. On the day of discharge, patient was medically stable. Patient was alert and oriented x4 on room air, without signs of distress or shortness of breath. Patient was discharged home in stable condition. Consultants: Cardiology Dr. Olivares Infectious Disease Dr. Nuñez Pulmonology Dr. Pepe pain management Dr. Maxwell Psychiatry Dr. Heath Discharge Condition Improved and stable Final diagnoses COVID-19 pneumonia Hypertension Diabetes mellitus with hyperglycemia History of HIV Electrolyte imbalance Dyspnea due to COVID-19 Myalgia/arthralgia Degenerative joint disease Anxiety Insomnia I have been assigned to dictate discharge summary for this account. Neo Montalvo Apr 30, 2020 16:00
--- NOTE | 2020-05-02 13:32 | NUR ---
INSURANCE DC SUMMARY FAXED TO [facility] T: [phone] F: [phone] [facility] T:[phone] F: [phone]
== END 2020-04-28 19:00 | disposition home or self-care (01) | DRG 137 ==
LOC: EDBD 15:42 → EMR 16:16 → EDBEDREQ 18:24 → OBSVTOIN 19:05 → 4E 19:05 → EDBEDREQ 20:54 → 4E 21:40 → 2E 04-22 22:17 → 4E 04-26 10:04
DX: U07.1 COVID-19 (principal); J96.00 Acute respiratory failure, unspecified whether with hypoxia or hypercapnia; J12.89 Other viral pneumonia; E46 Unspecified protein-calorie malnutrition; E11.65 Type 2 diabetes mellitus with hyperglycemia; R09.02 Hypoxemia; I10 Essential (primary) hypertension; M19.90 Unspecified osteoarthritis, unspecified site; G47.00 Insomnia, unspecified; F41.9 Anxiety disorder, unspecified; Z79.4 Long term (current) use of insulin; E87.8 Other disorders of electrolyte and fluid balance, not elsewhere classified; M79.10 Myalgia, unspecified site
CPT/HCPCS: 36415; 70360; 71045; 80048; 80053; 80307; 81003; 82550; 82728; 82962; 83615; 83690; 83735; 83880; 84100; 84443; 84484; 84550; 85007; 85025; 85379; 85610; 85730; 86140; 86360; 93005; 93306; 99285; G0480; J1815; J2405; U0002